=== PATIENT | female | born 1945 | race Caucasian/White ===

== ENCOUNTER 2017-12-13 14:11 | Emergency (ER) | payer MEDICARE, BC ==
[2017-12-13 14:36] LABS: #Basophils 0.1 thou/uL (0.0-0.2); #Eosinphils 0.2 thou/uL (0.0-0.7); #Lymphocytes 1.4 thou/uL (1.20-3.40); #Monocytes 0.7 thou/uL (0.11-0.59); #Neutrophils 4.7 thou/uL (1.40-6.50); %Basophils 1.3 % (0.0-1.0); %Eosinophils 2.3 % (0.0-10.0); %Monocytes 9.5 % (0.0-10.0); %Neutrophils 66.9 % (42.0-75.0); Hemoglobin 13.2 g/dL (12.0-16.0); Mean Corpuscular HGB CONC 34.5 g/dL (32.0-36.0); Mean Corpuscular Hemoglobin 29.4 pg (27.0-31.0); Mean Corpuscular Volume 85.2 fl (81.0-99.0); Mean Platelet Volume 6.7 fL (7.4-10.4); Platelet Count 221 thou/uL (130-400); RBC Distribution Width 13.3 % (11.5-14.5); Red Blood Cell (RBC) Count 4.48 mill/uL (4.20-5.40); White Blood Cell (WBC) Count 7.1 thou/uL (4.8-10.8)
[2017-12-13 14:59] LABS: ALT (SGPT) 20 U/L (8-55); AST (SGOT) 16 U/L (5-34); Albumin 4.3 g/dL (3.4-4.8); Alkaline Phosphatase 111 U/L (40-150); Anion Gap 16 mmol/L (10-20); BUN (Urea Nitrogen) 24 mg/dL (9.8-20.1); Bilirubin, Total 0.6 mg/dL (0.2-1.2); Calc. Creatinine Clearance 0 mL/min (70-130); Calcium 10.3 mg/dL (7.8-10.44); Carbon Dioxide 25 mmol/L (23-31); Chloride 107 mmol/L (98-107); Estimated GFR-MDRD 34; Globulin 2.6 g/dL (2.4-3.5); Glucose 233 mg/dL (80-115); Potassium 4.2 mmol/L (3.5-5.1); Protein, Total 6.9 g/dL (6.0-8.3); Sodium 144 mmol/L (136-145)
[2017-12-13 15:04] LABS: CKMB 1.5 ng/mL (0-6.6); Troponin I 0.013 ng/mL (< 0.028)
--- NOTE | 2017-12-13 15:04 | RAD ---
CHEST 1 VIEW: HISTORY: Chest pain. COMPARISON: 10/02/14. FINDINGS: Cardiac silhouette magnified by projection. Pulmonary vasculature unremarkable. Mediastinum midline . No lobar consolidation or evidence of pneumothorax. bus monitor leads overlie the chest. IMPRESSION: No active cardiopulmonary abnormalities are demonstrated. POS: [facility]
[2017-12-13 17:48] LABS: Troponin I 0.016 ng/mL (< 0.028)
== END 2017-12-13 18:30 | disposition home or self-care (01) ==
LOC: ERS 14:11
DX: R07.89 Other chest pain (principal); E11.9 Type 2 diabetes mellitus without complications; E78.5 Hyperlipidemia, unspecified; I10 Essential (primary) hypertension; F43.10 Post-traumatic stress disorder, unspecified; Z79.4 Long term (current) use of insulin; Z87.891 Personal history of nicotine dependence; Z79.899 Other long term (current) drug therapy; Z79.84 Long term (current) use of oral hypoglycemic drugs
CPT/HCPCS: 36415; 71045; 80053; 82553; 84484; 85025; 93005

== ENCOUNTER 2018-01-30 09:33 | Outpatient (CLI) | payer MEDICARE, BC | END 2018-01-30 09:34 | disposition home or self-care (01) | LOC: BICMAMMO 09:33 | PROVIDERS: ATTEND Family Medicine | DX: Z13.820 Encounter for screening for osteoporosis (principal); Z78.0 Asymptomatic menopausal state | CPT/HCPCS: 77080 ==

== ENCOUNTER 2018-04-13 06:53 | Emergency (ER) | payer MEDICARE, BC ==
--- NOTE | 2018-04-13 08:07 | RAD ---
LEFT HAND: Indication: Foreign body in left index finger. FINDINGS/IMPRESSION: There is a metallic instrument residing in the dorsal soft tissues of the mid left index finger at th e level of the midshaft of the middle phalanx. No fracture or osseous involvement identified. There are prominent degenerative changes at the DIP joints and mild degenerative changes at the PIP j oints. Severe degenerative change at the first carpal metacarpal. POS: [facility]
[2018-04-13] MEDS ORDERED: Lidocaine 1% PF 5 ML VIAL ONE (08:16)
[2018-04-13] MEDS ORDERED: Lidocaine 1% (PF) 30 ML VIAL ONE (08:16)
[2018-04-13] MEDS ORDERED: Adacel (T-DAP) 0.5 ML VIAL ONE (08:25)
== END 2018-04-13 08:42 | disposition home or self-care (01) ==
LOC: ERS 06:53
DX: S60.451A Superficial foreign body of left index finger, initial encounter (principal); E11.9 Type 2 diabetes mellitus without complications; E78.5 Hyperlipidemia, unspecified; I10 Essential (primary) hypertension; F43.10 Post-traumatic stress disorder, unspecified; Z79.4 Long term (current) use of insulin; Z87.891 Personal history of nicotine dependence; Z79.899 Other long term (current) drug therapy; Z23 Encounter for immunization; W45.8XXA Other foreign body or object entering through skin, initial encounter; Y92.009 Unspecified place in unspecified non-institutional (private) residence as the place of occurrence of the external cause
CPT/HCPCS: 90471; 90715; J2001

== ENCOUNTER 2018-07-26 20:12 | Observation (INO) | payer MEDICARE, BC ==
[2018-07-26 20:49] LABS: #Eosinphils 0.1 thou/uL (0.0-0.7); #Lymphocytes 1.4 thou/uL (1.20-3.40); #Neutrophils 6.9 thou/uL (1.40-6.50); %Basophils 0.3 % (0.0-1.0); %Eosinophils 1.4 % (0.0-10.0); %Lymphocytes 15.2 % (21.0-51.0); %Monocytes 10.5 % (0.0-10.0); %Neutrophils 72.6 % (42.0-75.0); Hemoglobin 11.7 g/dL (12.0-16.0); Mean Corpuscular HGB CONC 32.5 g/dL (32.0-36.0); Mean Corpuscular Hemoglobin 27.5 pg (27.0-31.0); Mean Corpuscular Volume 84.8 fL (78.0-98.0); Mean Platelet Volume 6.6 fL (7.4-10.4); Platelet Count 255 thou/uL (130-400); RBC Distribution Width 13.2 % (11.5-14.5); Red Blood Cell (RBC) Count 4.24 mill/uL (4.20-5.40); White Blood Cell (WBC) Count 9.4 thou/uL (4.8-10.8)
[2018-07-26 21:11] LABS: ALT (SGPT) 13 U/L (8-55); AST (SGOT) 10 U/L (5-34); Alkaline Phosphatase 110 U/L (40-150); Anion Gap 17 mmol/L (10-20); BUN (Urea Nitrogen) 23 mg/dL (9.8-20.1); Bilirubin, Total 0.5 mg/dL (0.2-1.2); Calc. Creatinine Clearance 0 mL/min (70-130); Calcium 10.1 mg/dL (7.8-10.44); Carbon Dioxide 24 mmol/L (23-31); Chloride 104 mmol/L (98-107); Estimated GFR-MDRD 43; Globulin 2.9 g/dL (2.4-3.5); Glucose 188 mg/dL (83-110); Potassium 3.5 mmol/L (3.5-5.1); Protein, Total 6.9 g/dL (6.0-8.3); Sodium 141 mmol/L (136-145)
[2018-07-26] MEDS ORDERED: Ketorolac Tromethamine 30 MG/ML VIAL ONE (22:01)
--- NOTE | 2018-07-26 22:49 | RAD ---
PORTABLE AP CHEST X-RAY: 07/26/2018 HISTORY: Fluid overload. The patient reports swelling to the bilateral hands and feet for a few days. Neck s tiffness with onset of symptoms tonight. COMPARISON: 12/13/2017 FINDINGS: The cardiac silhouette is magnified by projection but does appear mildly enlarged. The pulmonary vas culature is within normal limits. Linear densities are seen at each lung base, probably related to a telectasis. However, developing pneumonitis at either lung base cannot be excluded. There is no ple ural effusion identified. Vascular calcifications are seen in the thoracic aorta. No other interval change. IMPRESSION: Linear bibasilar densities, greater at the left lung base. Findings are most likely attributable to atelectasis, but developing pneumonitis cannot be entirely excluded. Follow-up evaluation as clinica lly indicated is recommended. POS: [facility]
[2018-07-26] MEDS ORDERED: HYDROcodone/Acetaminophen 5/325 mg Tablet ONE (23:44)
[2018-07-26] MEDS ORDERED: Furosemide 100 MG/10 ML VIAL ONE (23:44)
[2018-07-26] MEDS ORDERED: Furosemide 20 MG/2 ML VIAL ONE (23:48)
[2018-07-26] MEDS ORDERED: Furosemide 40 MG/4 ML VIAL ONE (23:48)
[2018-07-27 00:37] LABS: Bilirubin Negative (Negative); Blood, Urine Small (Negative); Clarity CLEAR (Clear); Glucose, Urine (Dipstick) Negative (Negative); Leukocyte Negative (Negative); Nitrite Negative (Negative); Protein, Urine (Dipstick) 100 mg/dL (Neg-Trace); Specific Gravity, Urine 1.009 (1.002-1.036); Urobilinogen 0.2 mg/dL (0.2-1.0); pH, Urine 5.5 (5.0-9.0)
[2018-07-27 00:41] LABS: Bacteria/HPF None Seen HPF (None Seen); Hyaline Casts/LPF 0-3 HYALINE CAST LPF (0-3 Hyaline); Pathc Cast-AUWi Flag 0.29 (0-2.49); RBC/HPF 0-3 HPF (0-3); Squamous Epithelial 0-3 HPF (0-3); WBC/HPF 0-3 HPF (0-3)
[2018-07-27] MEDS ORDERED: Ondansetron ODT 4 MG TAB PO PRN (02:04)
[2018-07-27] MEDS ORDERED: Acetaminophen 325 MG TAB PO PRN (02:04)
[2018-07-27] MEDS ORDERED: Dextrose 5% in Water 1,000 ML IV PRN (02:07)
[2018-07-27] MEDS ORDERED: Dextrose 50% Abboject 50 ML SYRINGE SLOW IVP PRN (02:07)
[2018-07-27 03:59] LABS: #Basophils 0.1 thou/uL (0.0-0.2); #Eosinphils 0.1 thou/uL (0.0-0.7); #Lymphocytes 1.5 thou/uL (1.20-3.40); #Monocytes 1.1 thou/uL (0.11-0.59); #Neutrophils 6.6 thou/uL (1.40-6.50); %Eosinophils 0.9 % (0.0-10.0); %Monocytes 11.3 % (0.0-10.0); %Neutrophils 70.8 % (42.0-75.0); Hemoglobin 11.4 g/dL (12.0-16.0); Mean Corpuscular HGB CONC 32.6 g/dL (32.0-36.0); Mean Corpuscular Hemoglobin 27.5 pg (27.0-31.0); Mean Corpuscular Volume 84.6 fL (78.0-98.0); Mean Platelet Volume 6.4 fL (7.4-10.4); Platelet Count 250 thou/uL (130-400); RBC Distribution Width 13.3 % (11.5-14.5); Red Blood Cell (RBC) Count 4.15 mill/uL (4.20-5.40); White Blood Cell (WBC) Count 9.3 thou/uL (4.8-10.8)
[2018-07-27] MEDS ORDERED: predniSONE 20 MG TAB PO SCH (04:15)
[2018-07-27 04:21] LABS: Anion Gap 15 mmol/L (10-20); BUN (Urea Nitrogen) 21 mg/dL (9.8-20.1); Calc. Creatinine Clearance 0 mL/min (70-130); Carbon Dioxide 26 mmol/L (23-31); Chloride 101 mmol/L (98-107); Estimated GFR-MDRD 44; Glucose 167 mg/dL (83-110); Potassium 3.2 mmol/L (3.5-5.1); Sodium 139 mmol/L (136-145)
[2018-07-27] MEDS ORDERED: Acetaminophen 325 MG TAB ONE (05:26)
--- NOTE | 2018-07-27 05:52 | HP ---
PRIMARY CARE PHYSICIAN: Dr. Peter Oakley. CODE STATUS: Full code. TIME OF EVALUATION: 1:30 a.m. CHIEF COMPLAINT: Bilateral hand swelling. HISTORY OF PRESENT ILLNESS: This is a 73-year-old female patient. The patient has past medical history of multiple comorbidities including sleep apnea; macular edema; hepatitis; diabetes, type 2; hyperlipidemia; and hypertension, came to the hospital after having bilateral upper extremity severe swelling in the mid carpal area and proximal metacarpophalangeal joints. The patient has redness, swelling, tenderness, and decreased range of motion. No clear triggers, no alleviating factors. Her symptoms have been present for the past few days, getting worse today. The pain was severe, 10/10. The patient also reported at times some fever at 100.1. REVIEW OF SYSTEMS: CONSTITUTIONAL: The patient has fever, chills, and generalized weakness. RESPIRATORY: No cough, sputum production, or shortness of breath. CARDIOVASCULAR: No chest pain or palpitation. GASTROINTESTINAL: No nausea. No vomiting, diarrhea, or abdominal pain. DISTRICT ADVISER: No dizziness, headache, or feeling lightheaded. GENITOURINARY: No burning on urination. EXTREMITIES: Bilateral hand swelling as described in HPI. All other systems were reviewed and negative except for the findings mentioned above. PAST MEDICAL HISTORY: Positive and mentioned in the HPI. PAST SURGICAL HISTORY: Gastric sleeve, bilateral knee replacement, bone replacement in the toe, right tib-fib, back surgery, surgical history of , and hysterectomy. PSYCHIATRIC HISTORY: PTSD. SOCIAL HISTORY: No drug use. Former tobacco user. Smokes cigarettes. Quit smoking more than 10 years ago. 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 REPORTED MEDICATIONS: 1. Gabapentin. 2. Glimepiride. 3. Losartan. 4. Iron. 5. Multivitamin. 6. Amlodipine. 7. Duloxetine. 8. Cetirizine. 9. Vitamin B12. 10. Vitamin D3. 11. Abilify. 12. Glucosamine chondroitin. PHYSICAL EXAMINATION: VITAL SIGNS: On presentation; blood pressure 177/92 with heart rate 82, temperature 99.1, pain was 10/10, and oxygen saturation 97% on room air. GENERAL APPEARANCE: The patient is alert, oriented, in mild distress due to pain. HEENT: Eyes, normal conjunctivae. Moist oral mucosa. Anicteric. No JVD. RESPIRATORY: Bilateral air entry. No rales, no wheezes. Symmetric expansion. CARDIOVASCULAR: Normal rate, regular rhythm. No murmurs. No gallop. No edema. ABDOMEN: Soft. Normal bowel sounds. MUSCULOSKELETAL: Baseline range of motion and strength. No tenderness except for bilateral hands, the patient has significant swelling and redness. Decreased range of motion in both metatarsal and metatarsophalangeal joints which is symmetric. SKIN: Warm, intact. No pallor. No rash. No redness except for the findings described in musculoskeletal. Peripheral pulses are present. Capillary refill seems to intact. NEURO: No evidence of any new focal weakness. Baseline speech. Cranial nerves seem to be intact. PSYCH: The patient is in good mood. No anxiety. Optimal judgment. LABORATORY DATA: Cardiology; chest x-ray was reviewed. Reportedly bibasilar densities, greater in the left lung base. Findings are most likely attributable to atelectasis, developing pneumonitis cannot be entirely excluded. Followup evaluation as clinically indicated is recommended. Hand x-ray was done, it is not reported yet. Labs were reviewed. The patient has white count 9.4, hemoglobin 9.7, MCV 84, and platelet count 255. Sodium 141, potassium 3.5, chloride 104, carbon dioxide 24, anion gap 17, BUN 23, and creatinine 1.22 and on previous admission was 1.5, this is chronic. GFR 43. Glucose 188. Calcium 10.1. Bilirubin 0.5. LFTs were normal. Beta natriuretic peptide 180.7. Urine was done, it was negative. ASSESSMENT AND PLAN: The patient will be placed in the hospital with following medical problems: 1. Bilateral severe hand swelling and redness. The patient has decreasing function in that area. We have sent a workup to rule out rheumatoid arthritis. Also lupus and other rheumatological disease to be ruled out. We will follow workup, we will treat accordingly. We will start small dose of steroids now. 2. Chronic kidney disease. Creatinine seems to be better than previous admissions, we will follow, we will adjust treatment as needed. 3. Morbidly obese, advised to lose weight. 4. Diabetes, type 2, we will reconcile home medications. This is chronic uncontrolled, glucose 188, hyperglycemia. 5. Uncontrolled hypertension, systolic blood pressure 177, we will reconcile home medications. We will adjust treatment as needed. 6. Deep venous thrombosis prophylaxis. Job ID: [id number]
[2018-07-27] MEDS ORDERED: predniSONE 20 MG TAB ONE ×2 (06:10→08:31)
[2018-07-27] MEDS: predniSONE 20 MG TAB PO SCH (08:30)
[2018-07-27] MEDS ORDERED: Enoxaparin Sodium 40 MG/0.4 ML SYRINGE ONE (08:31)
--- NOTE | 2018-07-27 08:34 | RAD ---
AP AND LATERAL LEFT HAND: History: Bilateral hand stiffness. FINDINGS: Images demonstrate extensive interphalangeal degenerative changes with joint space narrowing involvin g the PIP joints and DIP joints of the 2nd thru 5th digits as well as the interphalangeal joint of th e 1st digit. There is also joint space narrowing in the first carpal metacarpal joint. Findings joe tible with osteoarthritis left hand. No acute fractures seen. The metacarpal phalangeal joints are un remarkable. IMPRESSION: Joint space narrowing and changes of osteoarthritis as described above. POS: [facility]
[2018-07-27] MEDS ORDERED: Enoxaparin Sodium 40 MG/0.4 ML SYRINGE SC SCH (09:00)
--- NOTE | 2018-07-27 09:01 | RAD ---
TWO VIEWS RIGHT HAND: History: Hand stiffness. FINDINGS: AP and lateral views of the right hand demonstrate symmetric areas of joint space narrowing in the 2n d through 5th PIP and DIP joints, right hand. Osteoarthritic changes with joint space narrowing and s clerotic changes also seen in the first carpal metacarpal joints. No acute bony lesions seen. IMPRESSION: Right hand osteoarthritic changes as described above. POS: [facility]
[2018-07-27 11:31] VITALS: BMI 48.4
[2018-07-27] MEDS ORDERED: Losartan 25 MG TAB PO SCH (12:15)
[2018-07-27] MEDS ORDERED: Furosemide 40 MG/4 ML VIAL SLOW IVP SCH ×2 (12:15→21:00)
[2018-07-27] MEDS ORDERED: Nystatin Powder 15 GM BOT TOP SCH (12:15)
[2018-07-27] MEDS ORDERED: Amlodipine 10 MG TAB PO SCH (12:15)
--- NOTE | 2018-07-27 12:18 | PDOC.PN ---
- Subjective Encounter Start Date: 07/27/18 Encounter Start Time: 12:00 Subjective: Continued pain and swelling in hands and wrists. No SOB. No cough. No fever - Objective Resuscitation Status - Order Detail: 07/27/18 02:04 Resuscitation Status Routine Resuscitation Status: FULL: Full Resuscitation MAR Reviewed: Yes Vital Signs & Weight: Vital Signs (12 hours) Temp Pulse Resp BP 07/27/18 11:37 98.6 F 119 H 20 190/84 H Weight Weight 264 lb 15.93 oz Result Diagrams: 07/27/18 03:52 07/27/18 03:52 Additional Labs: Accuchecks 07/27/18 07/27/18 10:55 07:03 POC Glucose 176 H 151 H Phys Exam - Physical Examination Constitutional: NAD HEENT: moist MMs Respiratory: no wheezing, no rales, no rhonchi Cardiovascular: RRR, no significant murmur Gastrointestinal: soft, non-tender, positive bowel sounds trace edema bilatera lower extremities, hands with 1+ edema, mild erythema of wrists, hands, and proximal knuckles, TTP, mildly warm Neurological: non-focal, moves all 4 limbs Psychiatric: normal affect, A&O x 3 Dx/Plan (1) Inflammatory arthritis Code(s): M19.90 - UNSPECIFIED OSTEOARTHRITIS, UNSPECIFIED SITE Status: Acute Comment: Bilateral hands in PIP, MCT, and wrist joints. Rheumatological workup pending. Steroids started. (2) Edema extremities Code(s): R60.0 - LOCALIZED EDEMA Status: Acute Comment: All extremities, elevated BNP, severe range BPs, concern for CHF. Lasix BID, recheck lab in AM. ECHO pending. (3) Chronic kidney disease (CKD) Code(s): N18.9 - CHRONIC KIDNEY DISEASE, UNSPECIFIED Status: Chronic Qualifiers: Chronic kidney disease stage: stage 2 (mild) Qualified Code(s): N18.2 - Chronic kidney disease, stage 2 (mild) Comment: at baseline, monitor closely with diuresis and reinstitution of Losartan (4) Hypertension Code(s): I10 - ESSENTIAL (PRIMARY) HYPERTENSION Status: Chronic Qualifiers: Hypertension type: essential hypertension Qualified Code(s): I10 - Essential (primary) hypertension Comment: severely elevated, possibly from missed home BP meds this AM along with pain. Restart meds, dose now, and give Lasix. (5) Type 2 diabetes mellitus Status: Chronic Qualifiers: Diabetes mellitus complication status: with kidney complications Diabetes mellitus complication detail: with chronic kidney disease Chronic kidney disease stage: stage 2 (mild) Comment: Resume home meds (6) Hyperlipidemia Code(s): E78.5 - HYPERLIPIDEMIA, UNSPECIFIED Status: Chronic (7) Morbid obesity Code(s): E66.01 - MORBID (SEVERE) OBESITY DUE TO EXCESS CALORIES Status: Chronic - Plan cont current plan of care, DVT proph w/lovenox * . - Discharge Day Encounter end time: 12:20
[2018-07-27] MEDS ORDERED: Nitroglycerin 0.4 MG TAB (25 Tab Bottle) SL PRN (15:17)
[2018-07-27] MEDS ORDERED: Nitroglycerin 0.4 MG TAB 1 EACH SL SCH (15:30)
--- NOTE | 2018-07-27 16:11 | PDOC.EVN ---
Event Note - Event Note Event Note: Patient had one minute of sharp substernal chest pain radiating to the back. Happened while sitting up in chair. Resolved spontaneously. CXR ok. EKG with partial LBBB but no acute ST changes. Troponin neg. Patient on steroids but no acid suppressors. Will start Protonix. Transfer to telemetry.
--- NOTE | 2018-07-27 17:03 | RAD ---
AP CHEST: History: Chest pain. Date: 07-27-18 Comparison: 07-26-18 FINDINGS: AP chest demonstrates some cardiomegaly. Ectasia of the aorta is seen. Mild elevation of the right he midiaphragm is seen. No evidence of acute intrathoracic abnormalities noted. IMPRESSION: Elevated right hemidiaphragm. Otherwise, unremarkable AP view chest. POS: [facility]
[2018-07-27] MEDS: Insulin Regular 300 UNITS/3 ML VIAL SC PRN (17:20)
[2018-07-27] MEDS ORDERED: GABAPENTIN 1200 MG PO SCH (21:00)
[2018-07-27 21:12] LABS: Troponin I 0.014 ng/mL (< 0.028)
[2018-07-27] MEDS ORDERED: Insulin Regular 300 UNITS/3 ML VIAL SC PRN (21:22)
[2018-07-27] MEDS: Gabapentin 400 MG CAP PO SCH (21:32)
[2018-07-27] MEDS: Nystatin Powder 15 GM BOT TOP SCH (21:36)
[2018-07-27] MEDS: HYDROcodone/Acetaminophen 5/325 mg Tablet PO PRN (22:56)
[2018-07-28] MEDS: HYDROcodone/Acetaminophen 5/325 mg Tablet PO PRN ×2 (05:34→12:24)
[2018-07-28 06:28] LABS: #Eosinphils 0.1 thou/uL (0.0-0.7); #Lymphocytes 2.3 thou/uL (1.20-3.40); #Monocytes 1.2 thou/uL (0.11-0.59); %Basophils 0.4 % (0.0-1.0); %Eosinophils 1.3 % (0.0-10.0); %Lymphocytes 24.1 % (21.0-51.0); %Monocytes 12.4 % (0.0-10.0); %Neutrophils 61.7 % (42.0-75.0); Hemoglobin 12.7 g/dL (12.0-16.0); Mean Corpuscular HGB CONC 31.8 g/dL (32.0-36.0); Mean Corpuscular Hemoglobin 26.9 pg (27.0-31.0); Mean Corpuscular Volume 84.6 fL (78.0-98.0); Mean Platelet Volume 7.2 fL (7.4-10.4); Platelet Count 310 thou/uL (130-400); RBC Distribution Width 13.3 % (11.5-14.5); Red Blood Cell (RBC) Count 4.71 mill/uL (4.20-5.40); White Blood Cell (WBC) Count 9.7 thou/uL (4.8-10.8)
[2018-07-28 06:50] LABS: Anion Gap 18 mmol/L (10-20); BUN (Urea Nitrogen) 30 mg/dL (9.8-20.1); Calc. Creatinine Clearance 68 mL/min (70-130); Calcium 10.6 mg/dL (7.8-10.44); Carbon Dioxide 26 mmol/L (23-31); Chloride 100 mmol/L (98-107); Estimated GFR-MDRD 37; Glucose 130 mg/dL (83-110); Sodium 141 mmol/L (136-145)
[2018-07-28] MEDS ORDERED: Potassium Chloride 20 MEQ TAB PO SCH (07:30)
--- NOTE | 2018-07-28 07:31 | PDOC.PN ---
- Subjective Encounter Start Date: 07/28/18 Encounter Start Time: 10:30 Subjective: Patient much better today. Hands much less swollen, only a little sore. -: Can move them a little better. No more chest pain. No SOB. - Objective Resuscitation Status - Order Detail: 07/27/18 02:04 Resuscitation Status Routine Resuscitation Status: FULL: Full Resuscitation MAR Reviewed: Yes Vital Signs & Weight: Vital Signs (12 hours) Temp Pulse Resp BP Pulse Ox 07/28/18 04:00 97.8 F 70 20 125/61 92 L Weight Weight 259 lb I&O: 07/27/18 07/28/18 07/29/18 06:59 06:59 06:59 Intake Total 810 Output Total 500 Balance 310 Result Diagrams: 07/28/18 05:18 07/28/18 05:18 Additional Labs: Accuchecks 07/28/18 07/27/18 07/27/18 05:27 20:13 16:15 POC Glucose 145 H 237 H 269 H 07/27/18 10:55 POC Glucose 176 H Phys Exam - Physical Examination Constitutional: NAD HEENT: moist MMs Respiratory: no wheezing, no rales, no rhonchi Cardiovascular: RRR, no significant murmur Gastrointestinal: soft, positive bowel sounds no PRASHANT, Bilateral hands with much less swelling, no redness, joints less TTP Neurological: non-focal Psychiatric: normal affect, A&O x 3 Dx/Plan (1) Inflammatory arthritis Code(s): M19.90 - UNSPECIFIED OSTEOARTHRITIS, UNSPECIFIED SITE Status: Acute Comment: Bilateral hands in PIP, MCT, and wrist joints. Improving with steroids. Likely RA. Can complete w/u as outpatient. F/u with PCP and Payroll Director. (2) Edema extremities Code(s): R60.0 - LOCALIZED EDEMA Status: Acute Comment: ECHO pending. Lower ext edema minimal now. Lasix d/c'd. BP improved somewhat. (3) Chronic kidney disease (CKD) Code(s): N18.9 - CHRONIC KIDNEY DISEASE, UNSPECIFIED Status: Chronic Qualifiers: Chronic kidney disease stage: stage 2 (mild) Qualified Code(s): N18.2 - Chronic kidney disease, stage 2 (mild) Comment: Jumped a bit with attempted diuresis, suspect patient is at neutral fluid balance. Will d/c Lasix. Hold Losartan if continues to rise. (4) Hypertension Code(s): I10 - ESSENTIAL (PRIMARY) HYPERTENSION Status: Chronic Qualifiers: Hypertension type: essential hypertension Qualified Code(s): I10 - Essential (primary) hypertension Comment: Still elevated, adjust medication, may need to hold Losartan if creatinine rises further. (5) Type 2 diabetes mellitus Status: Chronic Qualifiers: Diabetes mellitus complication status: with kidney complications Diabetes mellitus complication detail: with chronic kidney disease Chronic kidney disease stage: stage 2 (mild) Comment: Resume home meds (6) Hyperlipidemia Code(s): E78.5 - HYPERLIPIDEMIA, UNSPECIFIED Status: Chronic (7) Morbid obesity Code(s): E66.01 - MORBID (SEVERE) OBESITY DUE TO EXCESS CALORIES Status: Chronic - Plan cont current plan of care, PT/OT, DVT proph w/heparin, DVT proph w/SCDs Can d/c home today. F/u with PCP next week for creatinine -: recheck. Continue steroids. F/u with Payroll Director as soon as -: possible to start disease modifying agents. * . - Discharge Day Encounter end time: 10:50
[2018-07-28] MEDS ORDERED: Glimepiride 4 MG TAB PO SCH (08:00)
[2018-07-28] MEDS: predniSONE 20 MG TAB PO SCH (08:33)
[2018-07-28] MEDS: Gabapentin 400 MG CAP PO SCH (08:36)
[2018-07-28] MEDS: Nystatin Powder 15 GM BOT TOP SCH (08:37)
[2018-07-28] MEDS ORDERED: Cyanocobalamin (Vitamin B-12) 1,000 MCG TAB PO SCH (09:00)
[2018-07-28] MEDS ORDERED: Loratadine 10 MG TAB PO SCH (09:00)
[2018-07-28] MEDS ORDERED: Aripiprazole 10 MG TAB PO SCH (09:00)
[2018-07-28] MEDS ORDERED: GLUCOSAMINE CHONDROITIN PO SCH (09:00)
[2018-07-28] MEDS ORDERED: Ferrous Sulfate 325 MG TAB PO SCH (09:00)
[2018-07-28] MEDS ORDERED: Amlodipine 10 MG TAB PO SCH (09:00)
[2018-07-28] MEDS ORDERED: Non-Formulary Item 1 EACH (Ferrous Sulfate [Iron] 325 MG) PO SCH (09:00)
[2018-07-28] MEDS ORDERED: Non-Formulary Item 1 EACH (Cyanocobalamin (Vitamin B-12) [Vitamin B-12] 1,000 MCG) SL SCH (09:00)
[2018-07-28] MEDS ORDERED: DULoxetine 30 MG CAP PO SCH (09:00)
[2018-07-28] MEDS ORDERED: Losartan 25 MG TAB PO SCH (09:00)
[2018-07-28] MEDS ORDERED: Non-Formulary Item 1 EACH (Cholecalciferol (Vitamin D3) [Vitamin D] 1,000 UNIT) PO SCH (09:00)
[2018-07-28] MEDS ORDERED: Non-Formulary Item 1 EACH (Cholecalciferol (Vitamin D3) [Vitamin D3] 2,000 UNIT) PO SCH (09:00)
[2018-07-28] MEDS ORDERED: [UNRECOGNIZED DRUG - OTHER] PO SCH (09:00)
[2018-07-28] MEDS ORDERED: Prevnar 13-Val Conj/PF 0.5 ML SYRINGE IM ONE (09:00)
[2018-07-28] MEDS ORDERED: Heparin 5,000 UNITS/ML VIAL SC SCH (09:00)
[2018-07-28] MEDS ORDERED: Non-Formulary Item 1 EACH (Multivit-Min/Fa/Lycopene/Lut [Centrum Silver] 1 TABLET) PO SCH (09:00)
[2018-07-28] MEDS ORDERED: Multivitamin W/ Minerals 1 TAB PO SCH (09:00)
[2018-07-28 11:31] VITALS: BP 155/72; TEMP 98
[2018-07-28] MEDS: Insulin Regular 300 UNITS/3 ML VIAL SC PRN (11:31)
--- NOTE | 2018-07-29 00:57 | DIS ---
DATE OF ADMISSION: 07/27/2018 DATE OF DISCHARGE: 07/28/2018 PRIMARY CARE PHYSICIAN: Peter Oakley DO REASON FOR ADMISSION: Edema and arthralgias in hands. DIAGNOSES AT DISCHARGE: 1. Inflammatory arthritis of hands, improving, likely rheumatoid arthritis. 2. Congestive heart failure, not in exacerbation. Echocardiogram pending. 3. Chronic kidney disease. Creatinine up a little bit after attempted diuresis. Creatinine 1.4 on discharge. 4. Hypertension. 5. Diabetes mellitus type 2. 6. Hyperlipidemia. 7. Morbid obesity. PROCEDURES: 1. X-ray of the hands showing osteoarthritic changes. 2. Echocardiogram report pending. Lab: Rheumatoid factor and ASA are still pending. Creatinine was 1.2 at admission up to 1.4 on discharge. SUMMARY OF HOSPITAL COURSE: This is a 73-year-old white female, who came in with severe bilateral hand and metacarpal swelling, redness and pain. She also noted some swelling in her lower extremities, low-grade temperature. The patient was evaluated in the ER. She was found to have an elevated brain natriuretic peptide and little bit of swelling in her feet and then significant swelling in her hands. Rheumatoid factor and [place] were sent. The patient tend to have some diuresis without a whole lot of extra urine output and she had a creatinine up to 1.4, so Lasix was discontinued. She did have steroid started the day of admission. She had a little bit of chest pain while she was in the hospital. This was central chest pain radiating to the back, more sharp and worse with deep breaths, lasted for less than a minute. She had no EKG changes during this episode and her troponins were negative. Repeat chest x-ray did not show any evidence of infiltrates or acute cardiopulmonary process. The patient was doing much better on the second hospital day. Her swelling and pain went down and she was not having any other chest pain or other symptoms. She appears to be having acute onset of rheumatoid arthritis. She apparently had a similar episode that was nearly as bad a few months ago and that resolved spontaneously. We will discharge her home on a steroid taper and have her follow up with her primary care physician next week to check creatinine and potassium, and then have her follow up with foreign languages professor as soon as she can. She does have a history of some sort of hepatitis in the past, so she will need further workup before they do start disease modifying agents in the outpatient. DISCHARGE MANAGEMENT: Discharged home. FOLLOWUP: Follow up with Dr. Oakley in 1 week for lab work and with the foreign languages professor as soon as possible. ACTIVITY: As tolerated. DIET: Healthy heart low-sodium diabetic diet. MEDICATIONS: 1. Protonix 40 mg daily, 30 tablets dispensed. 2. Prednisone taper 10 mg tablets to take as written. 3. Amlodipine 10 mg daily. 4. Abilify 5 mg daily. 5. Cetirizine 10 mg daily. 6. Vitamin D 1000 units daily. 7. Vitamin B12 of 1000 mcg daily. 8. Cymbalta 30 mg daily. 9. Ferrous sulfate 325 mg daily. 10. Gabapentin 1200 mg twice a day. 11. Glimepiride 4 mg daily. 12. Losartan 100 mg daily. 13. Multivitamin daily. 14. Vitamin D3 of 2000 units daily. 15. Glucosamine chondroitin 1 tablet daily. Job ID: [id number]
[2018-08-01 15:26] LABS: ANA Symphony (Qualitative) Negative (Negative); ANA Symphony (Quantitative) 0.1 Ratio (< 0.7 Negative); CCP IgG Antibody Less than 0.4 EliAU/mL (<7 Negative); EliA RAS New Method **** NEW METHOD ****; Rheumatoid Factor IgA Antibody 0.8 IU/mL (<14 Negative); Rheumatoid Factor IgM Antibody 4.8 IU/mL (<3.5 Negative); dsDNA IgG Antibody Less than 0.5 IU/mL (<10 Negative)
== END 2018-07-28 14:19 | disposition home or self-care (01) ==
LOC: ERS 20:12 → ERHOLD 07-27 00:08 → 3SW 07-27 09:35 → 2NO 07-27 19:13
PROVIDERS: ADMIT Hospitalist; ATTEND Hospitalist
DX: M06.4 Inflammatory polyarthropathy (principal); I13.0 Hypertensive heart and chronic kidney disease with heart failure and stage 1 through stage 4 chronic kidney disease, or unspecified chronic kidney disease; E11.22 Type 2 diabetes mellitus with diabetic chronic kidney disease; N18.2 Chronic kidney disease, stage 2 (mild); I50.9 Heart failure, unspecified; E78.5 Hyperlipidemia, unspecified; G47.30 Sleep apnea, unspecified; F43.10 Post-traumatic stress disorder, unspecified; E11.65 Type 2 diabetes mellitus with hyperglycemia; E66.01 Morbid (severe) obesity due to excess calories; Z68.42 Body mass index [BMI] 45.0-49.9, adult; Z87.891 Personal history of nicotine dependence; Z79.84 Long term (current) use of oral hypoglycemic drugs; Z79.899 Other long term (current) drug therapy; Z88.2 Allergy status to sulfonamides; Z88.8 Allergy status to other drugs, medicaments and biological substances; Z91.013 Allergy to seafood; Z98.84 Bariatric surgery status; Z96.653 Presence of artificial knee joint, bilateral; Z98.890 Other specified postprocedural states
CPT/HCPCS: 71045 ×2; 73120 ×2; 80048 ×2; 80053; 82962 ×2; 83520; 83880; 84484 ×3; 85025 ×3; 86038; 86200; 86225; 87086; 93005; 94760; 96372 ×2; 96374; 96375; 96376; 97139 ×2; 99285; G0378 ×3; 36415; 36416; 81003; 81015; 93010; J1644; J1650; J1815; J1885; J1940; J7506

== ENCOUNTER 2019-05-13 14:59 | Emergency (ER) | payer BC, MEDICARE ==
--- NOTE | 2019-05-13 16:23 | RAD ---
Exam:Right hand fourth digit 3 HISTORY: Pain. Injury. Smashed finger in door. COMPARISON: None FINDINGS: Nondisplaced fracture involving the proximal aspect of the distal phalanx of the fourth dig it. Possible intra-articular extension IMPRESSION: Fracture.
[2019-05-13] MEDS ORDERED: Lidocaine 1% (PF) 30 ML VIAL ONE (16:45)
== END 2019-05-13 18:32 | disposition home or self-care (01) ==
LOC: ERS 14:59
DX: S62.664B Nondisplaced fracture of distal phalanx of right ring finger, initial encounter for open fracture (principal); W23.0XXA Caught, crushed, jammed, or pinched between moving objects, initial encounter
CPT/HCPCS: 12001; J2001

== ENCOUNTER 2019-07-02 10:25 | Day surgery (SDC) | payer MEDICARE, BC ==
[2019-07-01 10:54] VITALS: BMI 52.1
[2019-07-02] MEDS ORDERED: PROPOFOL 200 MG/20 ML VIAL ONE (11:24)
--- NOTE | 2019-07-02 13:59 | OP ---
DATE OF PROCEDURE: 07/02/2019 PROCEDURES PERFORMED: 1. Esophagogastroduodenoscopy. 2. Colonoscopy with snare polypectomy. PREMEDICATION: Given by Anesthesiology Department. PREPROCEDURE DIAGNOSES: 1. Gastrointestinal hemorrhage. 2. Anemia. POSTPROCEDURE DIAGNOSES: 1. Normal upper endoscopy. 2. Ascending colon polyp, two sigmoid polyps. 3. Transverse colon lipomas. 4. Otherwise normal colon exam. 5. Few sigmoid diverticula. 6. Otherwise normal colon exam. DESCRIPTION OF PROCEDURE: Written consents were obtained prior to procedure. After adequate sedation, forward viewing endoscope was advanced down the stomach under direct vision to the second portion of duodenum. The duodenum appeared normal. The pylorus was patent. The gastric antrum appeared normal. There was narrowing in the mid section of the stomach consistent with prior sleeve. Retroflexion did not show any abnormality. The GE junction and esophagus appeared normal. The patient was then repositioned for colon exam. Digital exam performed was normal. The endoscope was advanced to the cecum. The quality of the bowel prep was good. An 8 mm semi-sessile polyp was noted in ascending colon and was removed with hot snare with good hemostasis. Two lipomas were found in the transverse colon. The descending colon appeared normal. Two polyps measuring between 8 mm to 12 mm, both semi-pedunculated, were removed with hot snare and retrieved. There was good hemostasis. A few small diverticula were noted in the sigmoid colon. The rectal vault appeared normal including retroflexion. The patient tolerated the procedure well. ASSESSMENT: 1. Normal upper endoscopy. 2. Three colon polyps removed. 3. Two transverse colon lipomas. 4. Few diverticula in the sigmoid, likely source of her hematochezia that resolved. 5. Otherwise, normal colon exam. RECOMMENDATION: 1. Fiber rich diet. 2. Await biopsy result of the polyps. Job ID: [id number]
== END 2019-07-02 14:46 | disposition home or self-care (01) ==
LOC: SDC 10:25
PROVIDERS: ATTEND Internal Medicine Gastroenterology
PROC: 0DBK8ZZ Excision of Ascending Colon, Via Natural or Artificial Opening Endoscopic (ICD-10-PCS; principal; 2019-07-02)
PROC: 0DBN8ZZ Excision of Sigmoid Colon, Via Natural or Artificial Opening Endoscopic (ICD-10-PCS; 2019-07-02)
PROC: 0DJ08ZZ Inspection of Upper Intestinal Tract, Via Natural or Artificial Opening Endoscopic (ICD-10-PCS; 2019-07-02)
DX: D12.2 Benign neoplasm of ascending colon (principal); D12.5 Benign neoplasm of sigmoid colon; D17.5 Benign lipomatous neoplasm of intra-abdominal organs; K57.30 Diverticulosis of large intestine without perforation or abscess without bleeding; D64.9 Anemia, unspecified; I12.9 Hypertensive chronic kidney disease with stage 1 through stage 4 chronic kidney disease, or unspecified chronic kidney disease; E11.22 Type 2 diabetes mellitus with diabetic chronic kidney disease; N18.9 Chronic kidney disease, unspecified; M06.9 Rheumatoid arthritis, unspecified; G47.30 Sleep apnea, unspecified; E66.9 Obesity, unspecified; Z68.43 Body mass index [BMI] 50.0-59.9, adult; Z79.84 Long term (current) use of oral hypoglycemic drugs; Z79.899 Other long term (current) drug therapy; Z88.2 Allergy status to sulfonamides; Z88.8 Allergy status to other drugs, medicaments and biological substances; Z91.013 Allergy to seafood; Z91.048 Other nonmedicinal substance allergy status
CPT/HCPCS: 88305; J2704

== ENCOUNTER 2019-08-10 09:24 | Emergency (ER) | payer MEDICARE, BC ==
[2019-08-10 10:04] LABS: Hemoglobin 9.9 g/dL (12.0-16.0); Mean Corpuscular HGB CONC 32.7 g/dL (32.0-36.0); Mean Corpuscular Hemoglobin 27.8 pg (27.0-31.0); Mean Platelet Volume 6.9 fL (7.4-10.4); Platelet Count 240 thou/uL (130-400); RBC Distribution Width 13.2 % (11.5-14.5); Red Blood Cell (RBC) Count 3.56 mill/uL (4.20-5.40); White Blood Cell (WBC) Count 5.3 thou/uL (4.8-10.8)
[2019-08-10 10:16] LABS: ALT (SGPT) 11 U/L (8-55); AST (SGOT) 11 U/L (5-34); Albumin 3.5 g/dL (3.4-4.8); Alkaline Phosphatase 94 U/L (40-110); Anion Gap 14 mmol/L (10-20); BUN (Urea Nitrogen) 34 mg/dL (9.8-20.1); Bilirubin, Total 0.3 mg/dL (0.2-1.2); Calc. Creatinine Clearance 0 mL/min (70-130); Calcium 9.5 mg/dL (7.8-10.44); Carbon Dioxide 28 mmol/L (23-31); Chloride 102 mmol/L (98-107); Estimated GFR-MDRD 15; Globulin 2.8 g/dL (2.4-3.5); Glucose 251 mg/dL (83-110); Protein, Total 6.3 g/dL (6.0-8.3); Sodium 140 mmol/L (136-145)
[2019-08-10 10:24] LABS: Eosinophils 4 % (0-10); Hypochromia SLIGHT = 6-15 cells (100X) (0-5/hpf); Lymphocytes 37 % (21-51); MDiff Complete? YES; Monocytes 13 % (0-10); Neutrophil 45 % (42-75); Platelet Morphology Comment Appears Adequate
--- NOTE | 2019-08-10 10:25 | RAD ---
XR Chest 1 View Portable HISTORY: Shortness of breath COMPARISON: 07/27/2018 FINDINGS: The heart size is normal. The lungs are well expanded without focal areas of consolidation, pneumothorax or pleural effusions. IMPRESSION: No radiographic evidence of acute cardiopulmonary process.
--- NOTE | 2019-08-10 11:08 | ULT ---
EXAM: Left lower extremity venous Doppler US HISTORY: left lower extremity edema, redness and pain FINDINGS: Grayscale, color-flow, Doppler evaluation, spectral analysis of the left lower extremity venous struc tures is performed with 2-D imaging. The left common femoral, superficial femoral, popliteal, posterior tibial, proximal greater saphenous and profunda femoral veins are imaged. There is normal luminal compressibility, flow, and augmentation the visualized deep venous structures of the left lower extremity. IMPRESSION: No evidence of a deep vein thrombosis in the left lower extremity.
== END 2019-08-10 11:21 | disposition home or self-care (01) ==
LOC: ERS 09:24
DX: L03.116 Cellulitis of left lower limb (principal); E11.9 Type 2 diabetes mellitus without complications; I10 Essential (primary) hypertension
CPT/HCPCS: 71045; 80053; 83880; 84484; 85025; 93005

== ENCOUNTER 2019-08-19 13:47 | Outpatient (CLI) | payer MEDICARE, BC ==
--- NOTE | 2019-08-19 15:04 | ULT ---
BILATERAL UPPER EXTREMITY VEIN MAPPIN08/19/19 HISTORY: Renal disease, dialysis access assessment. RIGHT UPPER EXTREMITY BRACHIAL ARTERY: 4.5 mm RADIAL ARTERY: 1.6 mm ULNAR ARTERY: 1.9 mm CEPHALIC VEIN Proximal Humerus: 2.8 mm Mid Humerus: 3.5 mm Distal Humerus: 3.8 mm Elbow: 5.5 mm Proximal Forearm: 3.3 mm Mid Forearm: 2.7 mm Distal Forearm: 2.5 mm BASILIC VEIN Proximal Humerus: 5.2 mm Mid Humerus: 3.2 mm Distal Humerus: 3.8 mm Elbow: 3.4 mm Proximal Forearm: 3.0 mm Mid Forearm: 1.4 mm Distal Forearm: 1.9 mm LEFT UPPER EXTREMITY BRACHIAL ARTERY: 4.1 mm RADIAL ARTERY: 1.9 mm ULNAR ARTERY: 1.9 mm CEPHALIC VEIN Proximal Humerus: 3.3 mm Mid Humerus: 3.4 mm Distal Humerus: 4.5 mm Elbow: 3.7 mm Proximal Forearm: 3.4 mm Mid Forearm: 3.6 mm Distal Forearm: 3.2 mm BASILIC VEIN Proximal Humerus: 6.9 mm Mid Humerus: 5.5 mm Distal Humerus: 5.5 mm Elbow: 3.3 mm Proximal Forearm: 1.5 mm Mid Forearm: 1.2 mm Distal Forearm: 0.9 mm IMPRESSION: Vein mapping as discussed above. POS: [facility]
== END 2019-08-19 13:48 | disposition home or self-care (01) ==
LOC: BICULT 13:47
PROVIDERS: ATTEND Internal Medicine Nephrology
DX: Z01.818 Encounter for other preprocedural examination (principal); N18.5 Chronic kidney disease, stage 5
CPT/HCPCS: 93970; G0365

== ENCOUNTER 2019-08-25 08:20 | Outpatient (CLI) | payer MEDICARE, BC ==
--- NOTE | 2019-08-25 09:57 | RAD ---
BARIUM SWALLOW ESOPHAGUS: HISTORY: Esophageal dysphagia. FINDINGS: Fluoroscopy time 4.4 minutes. Dose 72.424 Gy*^cm2. FINDINGS: There is normal swallowing function. There was noted to be some dilatation of the distal esophagus w ith some narrowing at the GE junction region. The patient swallowed the barium tablet in the upright position and it traveled easily down to the GE junction region, although it stayed at this location for several minutes despite swallowing addition al barium and water and finally did pass into the stomach. There appears to be a focal somewhat conc entric narrowing of the fundus of the stomach at the level of the GE junction which certainly could r epresent a neoplastic mass. 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 The di stal antrum, pylorus, and duodenal bulb appeared unremarkable. IMPRESSION: 1. 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 Followup endoscopy and biopsy of this region is recommended. 2. Focal area of concentric narrowing at the level of the GE junction region which could also repres ent an area of neoplastic narrowing. Followup endoscopy and biopsy of this region is suggested. Bar ium tablet passed to the GE junction region but hung at this location for several minutes before phillip lly passing. Normal swallowing function. There was 1 episode of very mild gastroesophageal reflux. CODE CR CALL TO DR HENDRICKSON 10:22 He informed me that pt has history of prior bariatric surgery which could possibly account for some of gastic findings, followup endoscopy still recommended. POS: [facility]
== END 2019-08-25 08:21 | disposition home or self-care (01) ==
LOC: RAD 08:20
PROVIDERS: ATTEND Family Medicine
DX: R13.10 Dysphagia, unspecified (principal); K31.89 Other diseases of stomach and duodenum
CPT/HCPCS: 74220

== ENCOUNTER 2019-09-10 12:37 | Inpatient (IN) | payer MEDICARE, BC ==
[2019-09-10 13:49] LABS: #Eosinphils 0.1 thou/uL (0.0-0.7); #Lymphocytes 1.3 thou/uL (1.20-3.40); #Monocytes 0.8 thou/uL (0.11-0.59); #Neutrophils 3.1 thou/uL (1.40-6.50); %Basophils 0.7 % (0.0-1.0); %Eosinophils 2.2 % (0.0-10.0); %Lymphocytes 25.3 % (21.0-51.0); %Monocytes 14.1 % (0.0-10.0); %Neutrophils 57.7 % (42.0-75.0); Hemoglobin 10.4 g/dL (12.0-16.0); Mean Corpuscular HGB CONC 32.4 g/dL (32.0-36.0); Mean Corpuscular Hemoglobin 27.7 pg (27.0-31.0); Mean Corpuscular Volume 85.5 fL (78.0-98.0); Mean Platelet Volume 7.1 fL (7.4-10.4); Platelet Count 212 thou/uL (130-400); RBC Distribution Width 13.5 % (11.5-14.5); Red Blood Cell (RBC) Count 3.77 mill/uL (4.20-5.40); White Blood Cell (WBC) Count 5.3 thou/uL (4.8-10.8)
[2019-09-10 14:16] LABS: ALT (SGPT) 10 U/L (8-55); AST (SGOT) 12 U/L (5-34); Albumin 3.7 g/dL (3.4-4.8); Alkaline Phosphatase 109 U/L (40-110); Anion Gap 12 mmol/L (10-20); BUN (Urea Nitrogen) 55 mg/dL (9.8-20.1); Bilirubin, Total 0.3 mg/dL (0.2-1.2); Calc. Creatinine Clearance 0 mL/min (70-130); Calcium 10.2 mg/dL (7.8-10.44); Carbon Dioxide 28 mmol/L (23-31); Chloride 105 mmol/L (98-107); Estimated GFR-MDRD 13; Globulin 2.7 g/dL (2.4-3.5); Glucose 196 mg/dL (83-110); Potassium 4.5 mmol/L (3.5-5.1); Protein, Total 6.4 g/dL (6.0-8.3); Sodium 140 mmol/L (136-145)
[2019-09-10] MEDS ORDERED: Ondansetron PF 4 MG/2 ML Vial ONE (17:31)
[2019-09-10] MEDS ORDERED: Morphine 4 MG/ML VIAL ONE (17:31)
[2019-09-10] MEDS ORDERED: Cefepime 2 GM VIAL ONE (17:31)
[2019-09-10] MEDS ORDERED: Acetaminophen 325 MG TAB PO PRN (20:07)
[2019-09-10] MEDS ORDERED: Ondansetron PF 4 MG/2 ML Vial IVP PRN (20:07)
[2019-09-10] MEDS ORDERED: Ondansetron ODT 4 MG TAB SL PRN (20:07)
[2019-09-10 21:15] LABS: Hemoglobin 10.3 g/dL (12.0-16.0); Mean Corpuscular Hemoglobin 28.4 pg (27.0-31.0); Mean Corpuscular Volume 86.1 fL (78.0-98.0); Mean Platelet Volume 7.1 fL (7.4-10.4); Platelet Count 224 thou/uL (130-400); RBC Distribution Width 13.6 % (11.5-14.5); Red Blood Cell (RBC) Count 3.62 mill/uL (4.20-5.40); White Blood Cell (WBC) Count 5.6 thou/uL (4.8-10.8)
[2019-09-10] MEDS: Linezolid 600 MG TAB PO SCH (21:24)
[2019-09-10] MEDS: Sodium Chloride 0.45% 1,000 ML IV SCH (21:25)
[2019-09-10 21:30] LABS: Band 2 % (5-11); Eosinophils 1 % (0-10); Hypochromia SLIGHT = 6-15 cells (100X) (0-5/hpf); Lymphocytes 16 % (21-51); MDiff Complete? YES; Monocytes 10 % (0-10); Neutrophil 71 % (42-75); Platelet Morphology Comment Appears Adequate
[2019-09-10 21:35] LABS: ALT (SGPT) 10 U/L (8-55); AST (SGOT) 12 U/L (5-34); Albumin 3.6 g/dL (3.4-4.8); Alkaline Phosphatase 106 U/L (40-110); Anion Gap 13 mmol/L (10-20); BUN (Urea Nitrogen) 56 mg/dL (9.8-20.1); Bilirubin, Total 0.3 mg/dL (0.2-1.2); Calc. Creatinine Clearance 0 mL/min (70-130); Calcium 9.8 mg/dL (7.8-10.44); Carbon Dioxide 27 mmol/L (23-31); Chloride 103 mmol/L (98-107); Estimated GFR-MDRD 14; Globulin 2.7 g/dL (2.4-3.5); Glucose 181 mg/dL (83-110); Potassium 4.3 mmol/L (3.5-5.1); Protein, Total 6.3 g/dL (6.0-8.3); Sodium 139 mmol/L (136-145)
[2019-09-10 21:37] LABS: Bilirubin Negative (Negative); Blood, Urine Trace (Negative); Clarity Clear (Clear); Glucose, Urine (Dipstick) 30 mg/dL (Negative); Leukocyte 25 Leu/uL (Negative); Nitrite Negative (Negative); Protein, Urine (Dipstick) 300 mg/dL (Neg-Trace); RBC/HPF 0-3 HPF (0-3); Renal Epithelial 0-3 HPF (None Seen); Squamous Epithelial 0-3 HPF (0-3); Urobilinogen Normal mg/dL (Less than 2)
[2019-09-10 21:44] LABS: Bacteria/HPF 1+ HPF (None Seen)
[2019-09-10 21:45] LABS: Urine Culture Reflex Yes Yes
[2019-09-10] MEDS ORDERED: Furosemide 20 MG TAB PO PRN (22:22)
--- NOTE | 2019-09-11 02:31 | CON ---
DATE OF CONSULTATION: 09/10/2019 CONSULTING PHYSICIAN: REASON FOR CONSULTATION: Acute kidney injury on chronic kidney disease, stage 4. REASON FOR ADMISSION: Leg swelling and redness. HISTORY OF PRESENT ILLNESS: A 74-year-old female with history of chronic kidney disease, type 2 diabetes, morbid obesity, hypertension, came to the hospital with leg pain and swelling, and was found to have cellulitis and being admitted. The patient does follow with me for CKD care. No fevers, chills, nausea, vomiting reported. PAST MEDICAL HISTORY: Positive for type 2 diabetes; morbid obesity; hypertension; CKD, stage 4. PAST SURGICAL HISTORY: Back surgery, bariatric surgery, , hysterectomy. HOME MEDICATIONS: Reviewed. ALLERGIES: TO AMBIEN, SULFA, ZOLPIDEM. SOCIAL HISTORY: No smoking, alcohol, or drugs. FAMILY HISTORY: No history of kidney disease. REVIEW OF SYSTEMS: The following complete review of systems was negative, unless otherwise mentioned in the HPI or below: Constitutional: Weight loss or gain, ability to conduct usual activities. Skin: Rash, itching. Eyes: Double vision, pain. ENT/Mouth: Nose bleeding, neck stiffness, pain, tenderness. Cardiovascular: Palpitations, dyspnea on exertion, orthopnea. Respiratory: Shortness of breath, wheezing, cough, hemoptysis, fever or night sweats. Gastrointestinal: Poor appetite, abdominal pain, heartburn, nausea, vomiting, constipation, or diarrhea. Genitourinary: Urgency, frequency, dysuria, nocturia. Musculoskeletal: Pain, swelling. Neurologic/Psychiatric: Anxiety, depression. Allergy/Immunologic: Skin rash, bleeding tendency. PHYSICAL EXAMINATION: GENERAL: This is a well-built female, no apparent distress. VITAL SIGNS: Temperature 98.4, pulse 74, respiratory rate 18, blood pressure 183/79. HEENT: Atraumatic, normocephalic. Oral mucosa is moist. NECK: Supple. CV: S1 and S2. Rate and rhythm regular. RESPIRATORY: Clear. GASTROINTESTINAL: Abdomen is soft. MUSCULOSKELETAL: 1+ edema. DERMATOLOGIC: No skin rash. NEUROLOGIC: Alert and awake. PSYCHIATRIC: Mood and affect normal. LABORATORY DATA: Hemoglobin is 10.4, potassium 4.5, BUN is 55, creatinine is 3.3. ASSESSMENT AND PLAN: 1. Acute kidney injury on chronic kidney disease. Recommend hydration if tolerated. 2. Edema. 3. History of congestive heart failure. 4. Anemia of chronic disease. 5. Morbid obesity. 6. History of hypertension, titrate medication. 7. Recommend hydration. 8. Continue supportive care including antibiotics and we will follow. Thank you for the consult. Job ID: [id number]
[2019-09-11] MEDS ORDERED: diphenhydrAMINE 25 MG CAP PO PRN (03:04)
[2019-09-11 03:28] VITALS: BMI 52.4
[2019-09-11] MEDS ORDERED: Dextrose 5% in Water 1,000 ML IV PRN (05:36)
[2019-09-11] MEDS ORDERED: Dextrose 50% Abboject 50 ML SYRINGE SLOW IVP PRN (05:36)
--- NOTE | 2019-09-11 05:37 | PDOC.HHP ---
Hospitalist HPI - History of Present Illness Leg swelling History of Present Illness: 74 yo female with DM-2, HTN presented to ER due to leg swelling x 1 month that has been getting worse and redness of left leg. She failed 4 courses of outpatient antibiotic therapy. She states that the leg swelling has been gradually getting worse over the past month. She has been on lasix which has caused a 5 lb weight loss. So, she states that she stopped taking the lasix. Denies fever, chills, N/V/D/C. No orthopnea, PND, chest pain. She does report shortness of breath with minimal exertion. No burning or pain with urination. She states she was on Amoxacillin, Doxycycline and Clindamycin. One day prior to presentation to ER, she started experiencing itching and sore throat also. She states that these are better with benadryl. ED Course: Diagnosed with cellulitis and received IV abx. Hospitalist ROS - Review of Systems All other systems reviewed; all pertinent +/- noted in HPI/Subj - Medication Medications: Active Medications Generic Name Dose Route Start Last Admin Trade Name Freq PRN Reason Stop Dose Admin Diphenhydramine HCl 25 mg 09/11/19 03:04 09/11/19 03:30 Benadryl PO 25 mg Q6H PRN Administration Itching & Insomnia Sodium Chloride 1,000 mls @ 75 mls/hr 09/10/19 21:00 09/10/19 21:25 1/2 Normal Saline IV 1,000 mls .[id number] ZANA Administration Linezolid 600 mg 09/10/19 21:00 09/10/19 21:24 Zyvox PO 600 mg Q12HR ZANA Administration Sodium Chloride 10 ml 09/10/19 21:00 09/10/19 21:26 Flush - Normal Saline IVF 10 ml Q12HR ZANA Administration Hospitalist History - Past Medical History Source: patient Cardiac: reports: CHF, HTN Renal/: reports: Chronic renal insuff Endocrine: reports: Diabetes - Past Surgical History Past Surgical History: reports: Total Knee Replacement (bilaterally), Other ( Back surgery) - Family History Family History: reports: no pertinent history (reviewed) - Social History Smoking Status: Former smoker (Quit in 1984) Alcohol: reports: Occassional Drugs: reports: none Living Situation: With Family (With grand daughter) Activity level: uses cane/walker - Exam General Appearance: NAD, awake alert Eye: PERRL, anicteric sclera ENT: normocephalic atraumatic, no oropharyngeal lesions, dry oral mucosa Neck: supple, symmetric, no JVD, no thyromegaly, no lymphadenopathy Heart: RRR, no murmur, no gallops, no rubs, normal peripheral pulses Heart - other findings: 2+ bilateral pitting pedal edema Respiratory: CTAB, no wheezes, no rales, no ronchi, normal chest expansion, no tachypnea Gastrointestinal: soft, non-tender, non-distended, normal bowel sounds, no palpable masses Gastrointestinal - other findings: obese Extremities: no cyanosis, no clubbing, 2+ LE edema Skin: normal turgor, no lesions Skin - other findings: Erythema over the left lower extremity Neurological: cranial nerve grossly intact, normal sensation to touch, no weakness, no focal deficits Musculoskeletal: normal tone, normal strength, no muscle wasting Psychiatric: normal affect, normal behavior, A&O x 3 Hospitalist Results - Labs Result Diagrams: 09/10/19 21:01 09/10/19 21:01 Lab results: WBC 5.6 thou/uL (4.8-10.8) 09/10/19 21:01 Hgb 10.3 g/dL (12.0-16.0) L 09/10/19 21:01 Hct 31.1 % (36.0-47.0) L 09/10/19 21:01 MCV 86.1 fL (78.0-98.0) 09/10/19 21:01 Plt Count 224 thou/uL (130-400) 09/10/19 21:01 Neutrophils % 57.7 % (42.0-75.0) 09/10/19 13:35 Band Neuts % (Manual) 2 % (5-11) L 09/10/19 21:01 Sodium 139 mmol/L (136-145) 09/10/19 21:01 Potassium 4.3 mmol/L (3.5-5.1) 09/10/19 21:01 Chloride 103 mmol/L (98-107) 09/10/19 21:01 Carbon Dioxide 27 mmol/L (23-31) 09/10/19 21:01 BUN 56 mg/dL (9.8-20.1) H 09/10/19 21:01 Creatinine 3.34 mg/dL (0.6-1.1) H 09/10/19 21:01 Glucose 181 mg/dL (83-110) H 09/10/19 21:01 Calcium 9.8 mg/dL (7.8-10.44) 09/10/19 21:01 Total Bilirubin 0.3 mg/dL (0.2-1.2) 09/10/19 21:01 AST 12 U/L (5-34) 09/10/19 21:01 ALT 10 U/L (8-55) 09/10/19 21:01 Alkaline Phosphatase 106 U/L (40-110) 09/10/19 21:01 Serum Total Protein 6.3 g/dL (6.0-8.3) 09/10/19 21:01 Albumin 3.6 g/dL (3.4-4.8) 09/10/19 21:01 Urine Ketones Negative mg/dL (Negative) 09/10/19 21:12 Urine Blood Trace (Negative) A 09/10/19 21:12 Urine Nitrite Negative (Negative) 09/10/19 21:12 Ur Leukocyte Esterase 25 Annelise/uL (Negative) 09/10/19 21:12 Urine RBC 0-3 HPF (0-3) 09/10/19 21:12 Urine WBC 11-20 HPF (0-3) A 09/10/19 21:12 Ur Squamous Epith Cells 0-3 HPF (0-3) 09/10/19 21:12 Urine Bacteria 1+ HPF (None Seen) A 09/10/19 21:12 Hospitalist H&P A/P - Problem (1) Cellulitis Code(s): L03.90 - CELLULITIS, UNSPECIFIED Status: Acute Qualifiers: Site of cellulitis: extremity Site of cellulitis of extremity: lower extremity Laterality: left Qualified Code(s): L03.116 - Cellulitis of left lower limb Assessment and Plan: Admit to inpatient status as patient failed outpatient antibiotic therapy x 4 courses. High risk due to need for close monitoring and need for IV Fluids for PRANAV on CKD -4 Expected to stay at least 2 midnights ID consulted Placed on zyvox (Avoiding vancomycin due to her renal function and risk of toxicity) Will follow ID recommendations (2) Type 2 diabetes mellitus Status: Chronic Qualifiers: Diabetes mellitus terminal block assembler insulin use: without terminal block assembler use Diabetes mellitus complication status: with kidney complications Diabetes mellitus complication detail: with chronic kidney disease Chronic kidney disease stage : stage 4 (severe) Qualified Code(s): E11.22 - Type 2 diabetes mellitus with diabetic chronic kidney disease; N18.4 - Chronic kidney disease, stage 4 (severe ) Assessment and Plan: Home meds resumed Diabetic diet and SSI Check HA1C Complicated by PRANAV on CKD-4 Nephrology on board Appears over diuresed IV fluids Avoid nephrotoxic meds and hypotension Monitor urine output and renal function (3) Chronic kidney disease (CKD) Code(s): N18.9 - CHRONIC KIDNEY DISEASE, UNSPECIFIED Status: Chronic Qualifiers: Chronic kidney disease stage: stage 4 (severe) Qualified Code(s): N18.4 - Chronic kidney disease, stage 4 (severe) Assessment and Plan: As above, renal on board (4) Hypertension Code(s): I10 - ESSENTIAL (PRIMARY) HYPERTENSION Status: Chronic Qualifiers: Hypertension type: essential hypertension Qualified Code(s): I10 - Essential (primary) hypertension Assessment and Plan: On Amlodipine Given edema of her extremities, will start hydralazine and DC Norvas Patient reports being started on Isosorbide by Dr. Dudley yesterday. This has been ordered. (5) CHF (congestive heart failure) Code(s): I50.9 - HEART FAILURE, UNSPECIFIED Status: Acute Qualifiers: Heart failure type: unspecified Heart failure chronicity: chronic Qualified Code(s): I50.9 - Heart failure, unspecified Assessment and Plan: Seen by Dr. Dudley at his office yesterday Per patient, she was found to have scar tissue indicative of prior MD Hydralazine + Isordil Currently, appears hypovolemic and hence, on IVF (6) Hyperlipidemia Code(s): E78.5 - HYPERLIPIDEMIA, UNSPECIFIED Status: Chronic Qualifiers: Hyperlipidemia type: other hyperlipidemia Qualified Code(s): E78.49 - Other hyperlipidemia; E78.4 - Other hyperlipidemia Assessment and Plan: Statin therapy (7) Morbid obesity Code(s): E66.01 - MORBID (SEVERE) OBESITY DUE TO EXCESS CALORIES Status: Chronic - Plan Plan: CODE STATUS - DNR/DNI Son is medical POA
[2019-09-11] MEDS: Glimepiride 1 MG TAB PO SCH (08:30)
[2019-09-11] MEDS ORDERED: Amlodipine 10 MG TAB PO SCH (09:00)
[2019-09-11] MEDS ORDERED: Losartan 25 MG TAB PO SCH (09:00)
[2019-09-11] MEDS: Gabapentin 300 MG CAP PO SCH ×2 (09:20→21:03)
[2019-09-11] MEDS: predniSONE 1 MG TAB PO SCH ×4 (09:20→21:03)
[2019-09-11] MEDS: Multivitamin W/ Minerals 1 TAB PO SCH (09:20)
[2019-09-11] MEDS: Metoprolol Tartrate 25 MG TAB PO SCH (09:20)
[2019-09-11] MEDS: Linezolid 600 MG TAB PO SCH (09:20)
[2019-09-11] MEDS: Loratadine 10 MG TAB PO SCH (09:20)
[2019-09-11] MEDS: Isosorbide Mononitrate (ER) 30 MG TAB PO SCH (09:20)
[2019-09-11] MEDS: DULoxetine 60 MG CAP PO SCH (09:20)
[2019-09-11] MEDS: hydrALAZINE 25 MG TAB PO SCH ×2 (09:20→21:03)
--- NOTE | 2019-09-11 09:49 | ULT ---
EXAM: US Renal Bilateral STANDARD PROVIDED CLINICAL HISTORY: Acute kidney injury COMPARISON: None FINDINGS: Right kidney measures approximately 10.6 x 5.8 x 5.6 cm and demonstrates no evidence for hydronephros is, sonographically apparent calculus or solid mass. Left kidney measures approximately 8.7 x 4.7 x 5.9 cm and demonstrates no evidence for hydronephrosis , sonographically apparent calculus or solid mass. Simple appearing left renal cyst measuring about 1.5 cm. The bladder is incompletely distended and not well evaluated. IMPRESSION: No evidence for hydronephrosis.
--- NOTE | 2019-09-11 09:53 | ULT ---
EXAM: Bilateral lower extremity arterial Doppler PROVIDED CLINICAL HISTORY: Peripheral arterial disease COMPARISON: None FINDINGS: Grayscale and color Doppler sonography with spectral analysis was performed of the bilateral common f emoral, superficial femoral, profunda femoral, popliteal, posterior tibial and dorsalis pedis arteries. The left anterior tibial artery was also interrogated. The right anterior tibial artery was not visualized. There are triphasic waveforms present involving the right common femoral, profunda femoral, superfici al femoral and popliteal arteries. Biphasic waveforms are seen within the posterior tibial and dorsalis pedis arteries. On the left, there are triphasic waveforms seen involving the common femoral, profunda femoral, super ficial femoral, popliteal and posterior tibial arteries. Biphasic waveforms are seen within the left anterior tibial and dorsalis pedis arteries. Asymmetric elevated velocities within the right lower extremity arterial system rather diffusely as w ell as increased peak systolic velocity involving the distal right superficial femoral artery with respect to the more proximal superficial femoral artery are of uncertain significance given the desi l appearance to the waveforms. IMPRESSION: No definite sonographic evidence for significant lower extremity arterial disease.
[2019-09-11] MEDS: Sodium Chloride 0.45% 1,000 ML IV SCH (10:06)
--- NOTE | 2019-09-11 10:54 | PDOC.HOSPP ---
- Subjective Encounter Date: 09/11/19 Encounter Time: 10:51 Subjective: left marlee/leg still red, warm, tender - Objective Vital Signs & Weight: Vital Signs (12 hours) Temp Pulse Resp BP BP Pulse Ox 09/11/19 09:20 78 107/51 L 09/11/19 08:00 98.3 F 78 20 107/51 L 107/51 L 95 09/11/19 03:49 98.5 F 71 16 155/65 H 93 L 09/10/19 23:19 97.9 F 69 16 159/69 H 94 L Weight Admit Weight 396 lb Weight 396 lb I&O: 09/10/19 09/11/19 09/12/19 06:59 06:59 07:59 Intake Total 2235 934 Balance 2235 934 Result Diagrams: 09/10/19 21:01 09/10/19 21:01 Additional Labs: Accuchecks 09/11/19 06:06 POC Glucose 105 Hospitalist ROS - Medication Medications: Active Medications Generic Name Dose Route Start Last Admin Trade Name Freq PRN Reason Stop Dose Admin Diphenhydramine HCl 25 mg 09/11/19 03:04 09/11/19 03:30 Benadryl PO 25 mg Q6H PRN Administration Itching & Insomnia Duloxetine HCl 60 mg 09/11/19 09:00 09/11/19 09:20 Cymbalta PO 60 mg DAILY ZANA Administration Gabapentin 600 mg 09/11/19 09:00 09/11/19 09:20 Neurontin PO 600 mg BID ZANA Administration Glimepiride 1 mg 09/11/19 08:00 09/11/19 08:30 Amaryl PO 1 mg QAM-WM ZANA Administration Hydralazine HCl 25 mg 09/11/19 09:00 09/11/19 09:20 Apresoline PO 25 mg BID ZANA Administration Sodium Chloride 1,000 mls @ 75 mls/hr 09/10/19 21:00 09/11/19 10:06 1/2 Normal Saline IV 1,000 mls .[id number] ZANA Administration Iron/Minerals/Multivitamins 1 tab 09/11/19 09:00 09/11/19 09:20 Theragran M PO 1 tab DAILY ZANA Administration Isosorbide Mononitrate 30 mg 09/11/19 09:00 09/11/19 09:20 Imdur Er PO 30 mg DAILY ZANA Administration Linezolid 600 mg 09/10/19 21:00 09/11/19 09:20 Zyvox PO 600 mg Q12HR ZANA Administration Loratadine 10 mg 09/11/19 09:00 09/11/19 09:20 Claritin PO 10 mg DAILY ZANA Administration Metoprolol Tartrate 75 mg 09/11/19 09:00 09/11/19 09:20 Lopressor PO 75 mg DAILY ZANA Administration Prednisone 1 mg 09/11/19 09:00 09/11/19 09:20 Prednisone PO 1 mg QID ZANA Administration Sodium Chloride 10 ml 09/10/19 21:00 09/11/19 09:59 Flush - Normal Saline IVF 10 ml Q12HR ZANA Administration - Exam General Appearance: NAD Neck: no JVD Heart: RRR, no murmur Respiratory: CTAB Gastrointestinal: soft, non-tender, normal bowel sounds Extremities - other findings: distal L leg red , warm, tender. no calf, popliteal tanderness Hosp A/P (1) Cellulitis Code(s): L03.90 - CELLULITIS, UNSPECIFIED Status: Acute Qualifiers: Site of cellulitis: extremity Site of cellulitis of extremity: lower extremity Laterality: left Qualified Code(s): L03.116 - Cellulitis of left lower limb (2) Diastolic dysfunction Code(s): I51.9 - HEART DISEASE, UNSPECIFIED Status: Chronic (3) Hyperlipidemia Code(s): E78.5 - HYPERLIPIDEMIA, UNSPECIFIED Status: Chronic Qualifiers: Hyperlipidemia type: other hyperlipidemia Qualified Code(s): E78.49 - Other hyperlipidemia; E78.4 - Other hyperlipidemia (4) Hypertension Code(s): I10 - ESSENTIAL (PRIMARY) HYPERTENSION Status: Chronic Qualifiers: Hypertension type: essential hypertension Qualified Code(s): I10 - Essential (primary) hypertension (5) Type 2 diabetes mellitus Status: Chronic Qualifiers: Diabetes mellitus roasterman insulin use: without mcc use Diabetes mellitus complication status: with kidney complications Diabetes mellitus complication detail: with chronic kidney disease Chronic kidney disease stage : stage 4 (severe) Qualified Code(s): E11.22 - Type 2 diabetes mellitus with diabetic chronic kidney disease; N18.4 - Chronic kidney disease, stage 4 (severe ) - Plan doubt staph infection stop Zyvox start rocephin
[2019-09-11] MEDS ORDERED: cefTRIAXone\\ROCEPHIN 1 GM VIAL IVPB SCH (11:00)
[2019-09-11] MEDS: HumaLOG 300 UNITS/3 ML VIAL SC PRN (11:09)
--- NOTE | 2019-09-11 13:17 | PRG ---
DATE OF SERVICE: 09/11/2019 SUBJECTIVE: Patient was seen and examined at bedside and overnight events noted. Patient denies any shortness of breath or chest pain or palpitation. No history of nausea or vomiting or diarrhea or fever or chills or cramps. OBJECTIVE: GENERAL: Obese female, in no apparent distress. VITAL SIGNS: Temperature 98.3. Pulse 70, respiratory rate 20. Blood pressure 107/51. HEENT: Atraumatic, normocephalic. Oral mucosa is moist NECK: Supple. CARDIOVASCULAR: S1, S2 heard. Rate and rhythm regular. RESPIRATORY: Clear to auscultation. GASTROINTESTINAL: Abdomen is soft. MUSCULOSKELETAL: No tenderness. No edema. DERMATOLOGIC: No skin rash. NEUROLOGIC: Alert and awake and oriented X3. No focal neurologic deficits. Moving all the extremities. PSYCHIATRIC: Mood and affect normal. LABORATORY DATA: Not done today. ASSESSMENT AND PLAN: 1. Acute kidney injury on chronic kidney disease, stage 4. We will monitor. 2. History of hypertension. 3. Edema. 4. Morbid obesity. 5. We will monitor renal function. Job ID: [id number]
[2019-09-11] MEDS ORDERED: Ondansetron ODT 4 MG TAB PO PRN (18:07)
[2019-09-12] MEDS: Sodium Chloride 0.45% 1,000 ML IV SCH ×3 (00:36→14:51)
[2019-09-12 05:11] LABS: Anion Gap 14 mmol/L (10-20); BUN (Urea Nitrogen) 71 mg/dL (9.8-20.1); Calc. Creatinine Clearance 37 mL/min (70-130); Calcium 9.3 mg/dL (7.8-10.44); Carbon Dioxide 25 mmol/L (23-31); Chloride 105 mmol/L (98-107); Estimated GFR-MDRD 11; Glucose 124 mg/dL (83-110); Sodium 139 mmol/L (136-145)
--- NOTE | 2019-09-12 07:23 | PDOC.HOSPP ---
- Subjective Encounter Date: 09/12/19 Encounter Time: 07:19 Subjective: no fever, chllls, etc - Objective Vital Signs & Weight: Vital Signs (12 hours) Temp Pulse Resp BP BP BP Pulse Ox 09/12/19 04:00 98.6 F 71 16 127/57 L 92 L 09/12/19 00:00 98.7 F 79 20 128/60 94 L 09/11/19 21:03 65 127/61 09/11/19 19:11 98.7 F 65 16 127/61 94 L Weight Admit Weight 396 lb Weight 394 lb 10.039 oz I&O: 09/11/19 09/12/19 09/13/19 05:59 06:59 06:59 Intake Total Output Total Balance Result Diagrams: 09/10/19 21:01 09/12/19 04:20 Additional Labs: Accuchecks 09/11/19 09/11/19 09/11/19 19:29 16:05 10:57 POC Glucose 128 H 117 H 183 H Hospitalist ROS - Medication Medications: Active Medications Generic Name Dose Route Start Last Admin Trade Name Freq PRN Reason Stop Dose Admin Diphenhydramine HCl 25 mg 09/11/19 03:04 09/11/19 03:30 Benadryl PO 25 mg Q6H PRN Administration Itching & Insomnia Duloxetine HCl 60 mg 09/11/19 09:00 09/11/19 09:20 Cymbalta PO 60 mg DAILY ZANA Administration Gabapentin 600 mg 09/11/19 09:00 09/11/19 21:03 Neurontin PO 600 mg BID ZANA Administration Glimepiride 1 mg 09/11/19 08:00 09/11/19 08:30 Amaryl PO 1 mg QAM-WM ZANA Administration Hydralazine HCl 25 mg 09/11/19 09:00 09/11/19 21:03 Apresoline PO 25 mg BID ZANA Administration Sodium Chloride 1,000 mls @ 75 mls/hr 09/10/19 21:00 09/12/19 00:36 1/2 Normal Saline IV 1,000 mls .[id number] ZANA Administration Insulin Human Lispro 0 units 09/11/19 05:36 09/11/19 11:09 Humalog SC 2 unit .MILD SLIDING SCALE PRN Administration Mild Correctional Scale Iron/Minerals/Multivitamins 1 tab 09/11/19 09:00 09/11/19 09:20 Theragran M PO 1 tab DAILY ZANA Administration Isosorbide Mononitrate 30 mg 09/11/19 09:00 09/11/19 09:20 Imdur Er PO 30 mg DAILY ZANA Administration Loratadine 10 mg 09/11/19 09:00 09/11/19 09:20 Claritin PO 10 mg DAILY ZANA Administration Metoprolol Tartrate 75 mg 09/11/19 09:00 09/11/19 09:20 Lopressor PO 75 mg DAILY ZANA Administration Ondansetron HCl 4 mg 09/11/19 18:07 09/11/19 18:43 Zofran Odt PO 4 mg Q4H PRN Administration Nausea/Vomiting Prednisone 1 mg 09/11/19 09:00 09/11/19 21:03 Prednisone PO 1 mg QID ZANA Administration Sodium Chloride 10 ml 09/10/19 21:00 09/11/19 21:05 Flush - Normal Saline IVF 10 ml Q12HR ZANA Administration - Exam General Appearance: awake alert Neck: no JVD Heart: RRR, no murmur Respiratory: CTAB, no wheezes Gastrointestinal: soft, normal bowel sounds Extremities: 1+ LE edema Extremities - other findings: decreased erythema, edema in LLL cellulitis Hosp A/P (1) Cellulitis Code(s): L03.90 - CELLULITIS, UNSPECIFIED Status: Acute Qualifiers: Site of cellulitis: extremity Site of cellulitis of extremity: lower extremity Laterality: left Qualified Code(s): L03.116 - Cellulitis of left lower limb (2) Diastolic dysfunction Code(s): I51.9 - HEART DISEASE, UNSPECIFIED Status: Chronic (3) Hyperlipidemia Code(s): E78.5 - HYPERLIPIDEMIA, UNSPECIFIED Status: Chronic Qualifiers: Hyperlipidemia type: other hyperlipidemia Qualified Code(s): E78.49 - Other hyperlipidemia; E78.4 - Other hyperlipidemia (4) Hypertension Code(s): I10 - ESSENTIAL (PRIMARY) HYPERTENSION Status: Chronic Qualifiers: Hypertension type: essential hypertension Qualified Code(s): I10 - Essential (primary) hypertension (5) Type 2 diabetes mellitus Status: Chronic Qualifiers: Diabetes mellitus retirement insulin use: without retirement use Diabetes mellitus complication status: with kidney complications Diabetes mellitus complication detail: with chronic kidney disease Chronic kidney disease stage : stage 4 (severe) Qualified Code(s): E11.22 - Type 2 diabetes mellitus with diabetic chronic kidney disease; N18.4 - Chronic kidney disease, stage 4 (severe ) - Plan pos responce to iv antibx, cont 48-72 hrs , then trasition to [facility] ACCU/ss cont home meds
[2019-09-12] MEDS: cefTRIAXone\\ROCEPHIN 1 GM in Sodium Chloride 0.9% 100 ML IVPB SCH (08:51)
[2019-09-12] MEDS: Glimepiride 1 MG TAB PO SCH (08:52)
[2019-09-12] MEDS: Isosorbide Mononitrate (ER) 30 MG TAB PO SCH (08:52)
[2019-09-12] MEDS: DULoxetine 60 MG CAP PO SCH (08:52)
[2019-09-12] MEDS: Gabapentin 300 MG CAP PO SCH ×2 (08:53→19:47)
[2019-09-12] MEDS: predniSONE 1 MG TAB PO SCH ×4 (08:53→19:47)
[2019-09-12] MEDS: Multivitamin W/ Minerals 1 TAB PO SCH (08:53)
[2019-09-12] MEDS: Metoprolol Tartrate 25 MG TAB PO SCH (08:54)
[2019-09-12] MEDS: hydrALAZINE 25 MG TAB PO SCH ×2 (08:54→19:47)
[2019-09-12] MEDS: Loratadine 10 MG TAB PO SCH (08:54)
[2019-09-12] MEDS: HumaLOG 300 UNITS/3 ML VIAL SC PRN (11:47)
--- NOTE | 2019-09-12 13:35 | PRG ---
DATE OF SERVICE: 09/12/2019 SUBJECTIVE: Patient was seen and examined at bedside and overnight events noted. Patient denies any shortness of breath or chest pain or palpitation. No history of nausea or vomiting or diarrhea or fever or chills or cramps. OBJECTIVE: GENERAL: This is an obese female, in no apparent distress. VITAL SIGNS: Temperature 97.3. Heart rate 72. Respiratory rate 18. Blood pressure 150/72. HEENT: Atraumatic, normocephalic. Oral mucosa is moist NECK: Supple. CARDIOVASCULAR: S1, S2 heard. Rate and rhythm regular. RESPIRATORY: Clear to auscultation. GASTROINTESTINAL: Abdomen is soft. MUSCULOSKELETAL: No tenderness. No edema. DERMATOLOGIC: No skin rash. NEUROLOGIC: Alert and awake and oriented X3. No focal neurologic deficits. Moving all the extremities. PSYCHIATRIC: Mood and affect normal. LABORATORY DATA: Potassium 5.0, BUN is 71, creatinine is 3.9. ASSESSMENT AND PLAN: 1. Acute kidney injury on chronic kidney disease stage 5 with worsening labs. No acute indication for dialysis. I had discussion with Dr. Jewell. The patient was supposed to see Dr. Jewell as outpatient for a fistula placement, might have to place it while she is here. 2. History of hypertension. 3. Edema. 4. Morbid obesity. 5. We will monitor closely. Job ID: [id number]
--- NOTE | 2019-09-12 19:06 | CON ---
DATE OF CONSULTATION: HISTORY OF PRESENT ILLNESS: Inez Connor is a 74-year-old female with chronic kidney disease approaching end-stage renal disease. She has not started on dialysis yet. She has been followed by Dr. Collins. She has a GFR of 11. She is admitted with chronic venous stasis and edema of her lower extremities and cellulitis, left leg, refractory to outpatient treatment. She has been started on ceftriaxone IV. She has a left antecubital IV in place. She has had ultrasound vein mapping several weeks ago demonstrated excellent veins in her left arm for a fistula. With her morbid obesity, it would be best to place a fistula in her left wrist. However, IVs in her antecubital area will thrombose veins and burn bridges and result in difficult dialysis access. IV access in her cephalic vein wrist or antecubital area in both arms should be avoided. IV access can be established in her right hand or distal right forearm, but should always avoid the antecubital area in both arms. The patient is morbidly obese 5 feet 2 inches, 394 pounds over 70 BMI. I have talked to her regarding dialysis access and would plan as an outpatient the week after next. I will schedule as an outpatient. In the meantime, I would suggest oral antibiotics, intramuscular injection antibiotics if parenterally are absolutely necessary and if absolutely necessary, she can have an IV established in her right hand or the wrist, but nothing above. PICC lines and midlines should be avoided in CKD patients. Subclavian line should be avoided in CKD patients. 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 ALLERGIES: SHELLFISH AND SULFA. SHE IS NOT AWARE OF ANY INTRAVENOUS IODINE ALLERGY. SOCIAL HISTORY: Tobacco, none. Alcohol, none. MEDICATIONS: 1. Ceftriaxone. 2. Arava. 3. Lasix. 4. Amaryl. 5. Cozaar. 6. Metoprolol tartrate 75 mg a day. 7. Norvasc 10 mg a day. 8. Gabapentin. 9. Cymbalta 60 mg a day. 10. Prednisone q.i.d. 11. Multivitamins. 12. Tramadol. 13. Cholecalciferol. PAST SURGICAL HISTORY: Total abdominal hysterectomy and lumbar surgery. She had a colonoscopy a few weeks ago by Dr. Rivera and upper endoscopy a couple weeks ago that was normal and demonstrated anemia of chronic disease. PAST MEDICAL HISTORY: The patient has chronic anemia. Upper endoscopy evaluation above unremarkable and colonoscopy unremarkable. The patient has no other EKG to have had probably a past [place], although she is asymptomatic. Dr. Collins has referred her to Dr. Dudley, whom she will see as an outpatient in the next week or two. Metabolic syndrome, morbid obesity, hypertension, diabetes, and chronic kidney disease, approaching need for dialysis. REVIEW OF SYSTEMS: Otherwise, noncontributory. The patient is single. Her daughter is moving out with her to help her and live with her soon. PHYSICAL EXAMINATION: VITAL SIGNS: Height 5 feet 2 inches and 394 pounds over 70 BMI. 97.8 degrees, 64, and 175/81. HEAD, EARS, EYES, NOSE, AND THROAT: Unremarkable. LUNGS: Clear to auscultation. CARDIAC: Regular rate and rhythm without murmur or gallop. ABDOMEN: Soft, obese, and large pannus dependent midline infraumbilical scar consistent with prior hysterectomy. Palpable radial pulses bilaterally. Left antecubital IV removed immediately. EXTREMITIES: Chronic venous stasis disease bilaterally. Mild redness left lower extremity. No open wounds. Palpable pulses. LABORATORY DATA: White count 5.6 and hemoglobin 10.3. Basic metabolic profile normal except for BUN of 71, creatinine 3.93, and GFR 11. ASSESSMENT AND PLAN: 1. Chronic kidney disease, approaching need for dialysis. We will plan left arm primary fistula as an outpatient in approximately a week and a half. The patient is agreeable to this, will have my office schedule this. She understands risks and benefits, consents. 2. Metabolic syndrome and morbid obesity. 3. Hypertension. 4. Diabetes. 5. Chronic kidney disease, approaching need for hemodialysis. 6. Left antecubital IV removed immediately. Avoid IVs in the left arm and avoid IVs above the wrist. 7. Chronic venous stasis disease aggravated by chronic kidney disease. Note the patient has no echocardiogram available this hospitalization, appointment with Dr. Dudley in the next week. Job ID: [id number]
[2019-09-13] MEDS: Sodium Chloride 0.45% 1,000 ML IV SCH (06:25)
[2019-09-13] MEDS: Glimepiride 1 MG TAB PO SCH (09:00)
[2019-09-13] MEDS: cefTRIAXone\\ROCEPHIN 1 GM in Sodium Chloride 0.9% 100 ML IVPB SCH (09:59)
[2019-09-13] MEDS: Loratadine 10 MG TAB PO SCH (10:00)
[2019-09-13] MEDS: Isosorbide Mononitrate (ER) 30 MG TAB PO SCH (10:00)
[2019-09-13] MEDS: Multivitamin W/ Minerals 1 TAB PO SCH (10:00)
[2019-09-13] MEDS: predniSONE 1 MG TAB PO SCH ×4 (10:00→20:16)
[2019-09-13] MEDS: hydrALAZINE 25 MG TAB PO SCH ×2 (10:00→20:16)
[2019-09-13] MEDS: DULoxetine 60 MG CAP PO SCH (10:00)
[2019-09-13] MEDS: Gabapentin 300 MG CAP PO SCH ×2 (10:00→20:16)
[2019-09-13] MEDS: Metoprolol Tartrate 25 MG TAB PO SCH (10:00)
[2019-09-13] MEDS ORDERED: Morphine 2 MG/ML SYRINGE SLOW IVP PRN (10:25)
--- NOTE | 2019-09-13 11:12 | PRG ---
DATE OF SERVICE: 09/13/2019 SUBJECTIVE: 74-year-old female being seen for stage 5 chronic kidney disease. The patient denied nausea, vomiting, or chest pain. PHYSICAL EXAMINATION: General: The patient is awake and alert. Vital Signs: Afebrile, pulse 68, breathing at 16, blood pressure 141/80. HEENT: Head normocephalic and atraumatic. Eyes intact, no ulcers. Nose intact, no ulcers. Ears intact, no ulcers. Neck: Supple. No JVD. Chest: Symmetrical and clear. Cardiovascular: Shows S1 and S2, no rub, no murmur. Gastrointestinal: Abdomen is soft, bowel sounds positive. Extremities: Show no edema or ulcers. Skin: Shows no rash or petechiae. Musculoskeletal: Shows no joint swelling or stiffness. Genitourinary: Shows no Sanchez or CVA tenderness. Neurologic: Motor intact. Cranial nerves intact. LABORATORY DATA: Lab reviewed. ASSESSMENT AND PLAN: 1. Chronic kidney disease stage 5, stable. 2. Hypertension. 3. Anemia, stable. 4. dialysis. Access will be placed. No urgent indication for dialysis. Job ID: [id number]
--- NOTE | 2019-09-13 11:27 | CON ---
DATE OF CONSULTATION: 09/13/2019 REASON FOR CONSULTATION: Possible cellulitis in lower extremities. HISTORY OF PRESENT ILLNESS: A 74-year-old who recently moved from [place] over to [place], has a history of type 2 diabetes, CKD stage 4 to 5, episodes of C difficile in the past, treated in [place], last one was in 2013, as well as recurrent areas of swelling and redness in the lower extremities, which have failed oral antimicrobial therapy in the outpatient setting. No headaches, visual symptoms, sore throat, odynophagia, or dysphagia. No cough, sputum production, or chest pain. No abdominal pain or diarrhea recently. She did have loose stools about a week ago at home. Voiding without difficulty. PAST MEDICAL HISTORY: 1. Type 2 diabetes. 2. CKD stage 5. 3. Venous insufficiency. 4. Leg edema. 5. Bariatric sleeve gastrectomy. 6. History of rheumatoid arthritis, was recently diagnosed. 7. Bilateral TKRs. 8. C difficile colitis. 9. Laminectomy. FAMILY HISTORY: Noncontributory. SOCIAL HISTORY: Former smoker, quit in 1984. No alcoholic beverage use. Moved from [place] to be with family here in town. CURRENT MEDICATIONS: 1. Ceftriaxone. 2. Dextrose. 3. Cymbalta. 4. Neurontin. 5. Amaryl. 6. Glucagon. 7. Apresoline. 8. Humalog insulin. 9. Imdur. 10. Claritin. 11. Lopressor. 12. Prednisone 1 mg q.i.d. In the home setting, she had been on diphenhydramine and Zyvox. PHYSICAL EXAMINATION: VITAL SIGNS: Temperature has been normal, BP 200/81, pulse 88, respirations 18, and O2 saturation 94. SKIN: A very faint pink erythema in the left leg with minimal tenderness. Right leg is normal except for the changes of edema and some scars from previous accident. No lymphadenopathy. HEENT: Ocular movements conjugate. Oral cavity normal. NECK: Supple. LUNGS: Symmetric with clear breath sounds, with faint basilar crackles. HEART: S1 and S2. Regular rate without murmurs. No S3 or S4. ABDOMEN: With moderate distention, question of ascites. No bladder distention or organomegaly. EXTREMITIES: The TKRs appeared to have normal range of motion. There is edema in the lower extremities about 2+. Pulses are diminished in dorsalis pedis, but palpable. Cap refill less than 3 seconds. She moves extremities equally. NEUROLOGIC: Cognitive function appears to be intact. LABORATORY DATA: Urinalysis with 11 to 20 wbc's. White cell count 5.3, hemoglobin 10.4, platelets 212 with normal differential. Creatinine is at 3.93 with a GFR at 11. Liver profile normal. Albumin 3.6. Microbiology with urine culture from 09/09 with minimal growth, probably contaminant. IMAGING STUDIES: There is a lower extremity ultrasound from 2 days ago with no evidence of arterial disease noted, normal flows. Renal ultrasound on admission, no hydronephrosis. ASSESSMENT: 1. Type 2 diabetes. 2. Rheumatoid arthritis. 3. Chronic kidney disease, stage 5, being readied for hemodialysis. 4. Edema. 5. Volume overload. 6. Stasis dermatitis with venous insufficiency. 7. Prior episode of Clostridium difficile colitis. 8. No evidence of peripheral vascular disease at the moment. DISCUSSION: The clinical and laboratory evidence argue against the infectious cellulitis more in favor of stasis dermatitis associated with venous insufficiency and overall edema. I would advise discontinue antimicrobial therapy and switching to compression stockings with TAMARA hose here in the in the hospital with reduction of edema once dialysis is started and that should also help with decrease in the changes noticed. That would explain why there was not appropriate response to outpatient antimicrobial therapy. Job ID: [id number]
[2019-09-13 11:43] LABS: Anion Gap 15 mmol/L (10-20); BUN (Urea Nitrogen) 58 mg/dL (9.8-20.1); Calc. Creatinine Clearance 42 mL/min (70-130); Calcium 9.5 mg/dL (7.8-10.44); Carbon Dioxide 23 mmol/L (23-31); Chloride 106 mmol/L (98-107); Estimated GFR-MDRD 13; Glucose 137 mg/dL (83-110); Potassium 4.3 mmol/L (3.5-5.1); Sodium 140 mmol/L (136-145)
[2019-09-13] MEDS: HumaLOG 300 UNITS/3 ML VIAL SC PRN (17:17)
--- NOTE | 2019-09-13 18:09 | PRG ---
DATE OF SERVICE: 09/13/[address]. Collins have asked me to see her regarding placement of left arm fistula. Plan is to place a left arm fistula probably as an outpatient next week. We will check with my office and schedule as an outpatient hopefully prior to discharge tomorrow. If she does go home today, then we can contact her as an outpatient. Job ID: [id number]
--- NOTE | 2019-09-13 20:45 | PDOC.HOSPP ---
- Subjective Encounter Date: 09/13/19 Subjective: The patient's lower extremity swelling is improving. - Objective Vital Signs & Weight: Vital Signs (12 hours) Temp Pulse Resp BP BP Pulse Ox 09/13/19 20:16 74 188/85 H 09/13/19 20:00 98.3 F 74 18 188/85 H 92 L 09/13/19 10:00 88 141/80 H Weight Admit Weight 396 lb Weight 394 lb 10.039 oz I&O: 09/12/19 09/13/19 09/14/19 06:59 06:59 06:59 Intake Total 1900 900 Output Total 1100 Balance 1900 -200 Result Diagrams: 09/10/19 21:01 09/13/19 11:04 Additional Labs: Accuchecks 09/13/19 09/13/19 09/13/19 16:38 11:03 05:17 POC Glucose 169 H 150 H 101 09/12/19 22:11 POC Glucose 148 H Hospitalist ROS - Medication Medications: Active Medications Generic Name Dose Route Start Last Admin Trade Name Freq PRN Reason Stop Dose Admin Diphenhydramine HCl 25 mg 09/11/19 03:04 09/11/19 03:30 Benadryl PO 25 mg Q6H PRN Administration Itching & Insomnia Duloxetine HCl 60 mg 09/11/19 09:00 09/13/19 10:00 Cymbalta PO 60 mg DAILY ZANA Administration Gabapentin 600 mg 09/11/19 09:00 09/13/19 20:16 Neurontin PO 600 mg BID ZANA Administration Glimepiride 1 mg 09/11/19 08:00 09/13/19 09:00 Amaryl PO 1 mg QAM-WM ZANA Administration Hydralazine HCl 25 mg 09/11/19 09:00 09/13/19 20:16 Apresoline PO 25 mg BID ZANA Administration Insulin Human Lispro 0 units 09/11/19 05:36 09/13/19 17:17 Humalog SC 2 unit .MILD SLIDING SCALE PRN Administration Mild Correctional Scale Iron/Minerals/Multivitamins 1 tab 09/11/19 09:00 09/13/19 10:00 Theragran M PO 1 tab DAILY ZANA Administration Isosorbide Mononitrate 30 mg 09/11/19 09:00 09/13/19 10:00 Imdur Er PO 30 mg DAILY ZANA Administration Loratadine 10 mg 09/11/19 09:00 09/13/19 10:00 Claritin PO 10 mg DAILY ZANA Administration Metoprolol Tartrate 75 mg 09/11/19 09:00 09/13/19 10:00 Lopressor PO 75 mg DAILY ZANA Administration Morphine Sulfate 2 mg 09/13/19 10:25 09/13/19 13:55 Morphine SLOW IVP 2 mg Q4H PRN Administration Pain Ondansetron HCl 4 mg 09/11/19 18:07 09/11/19 18:43 Zofran Odt PO 4 mg Q4H PRN Administration Nausea/Vomiting Prednisone 1 mg 09/11/19 09:00 09/13/19 20:16 Prednisone PO 1 mg QID ZANA Administration Sodium Chloride 10 ml 09/10/19 21:00 09/13/19 20:21 Flush - Normal Saline IVF 10 ml Q12HR ZANA Administration - Exam General Appearance: NAD Eye: PERRL ENT: normocephalic atraumatic Neck: supple, no JVD Heart: RRR, no murmur, no gallops, no rubs, normal peripheral pulses Respiratory: CTAB, no wheezes, no rales, no ronchi, normal chest expansion Gastrointestinal: soft, non-tender, non-distended, normal bowel sounds Hosp A/P (1) CHF (congestive heart failure) Code(s): I50.9 - HEART FAILURE, UNSPECIFIED Status: Acute Qualifiers: Heart failure type: unspecified Heart failure chronicity: chronic Qualified Code(s): I50.9 - Heart failure, unspecified (2) Edema extremities Code(s): R60.0 - LOCALIZED EDEMA Status: Acute (3) Chronic kidney disease (CKD) Code(s): N18.9 - CHRONIC KIDNEY DISEASE, UNSPECIFIED Status: Chronic Qualifiers: Chronic kidney disease stage: stage 4 (severe) Qualified Code(s): N18.4 - Chronic kidney disease, stage 4 (severe) - Plan Lower extremity redness and swelling is likely noninfectious according to infectious disease. Peripheral venous disease is more likely. Antibiotics were discontinued. Chronic kidney disease stage V. No acute indication for dialysis per nephrology. Likely to discharge home tomorrow.
[2019-09-13] MEDS ORDERED: Acetaminophen 325 MG TAB PO PRN (22:49)
[2019-09-14 04:55] LABS: Eosinophils 3 % (0-10); Hemoglobin 8.8 g/dL (12.0-16.0); Hypochromia SLIGHT = 6-15 cells (100X) (0-5/hpf); Lymphocytes 28 % (21-51); MDiff Complete? YES; Mean Corpuscular HGB CONC 29.5 g/dL (32.0-36.0); Mean Corpuscular Volume 84.9 fL (78.0-98.0); Mean Platelet Volume 7.4 fL (7.4-10.4); Microcytosis SLIGHT = 6-15 cells (100X) (0-5/hpf); Monocytes 13 % (0-10); Neutrophil 56 % (42-75); Platelet Count 234 thou/uL (130-400); Platelet Morphology Comment Appears Adequate; RBC Distribution Width 13.5 % (11.5-14.5); Red Blood Cell (RBC) Count 3.52 mill/uL (4.20-5.40); White Blood Cell (WBC) Count 5.1 thou/uL (4.8-10.8)
[2019-09-14 04:59] LABS: Anion Gap 15 mmol/L (10-20); BUN (Urea Nitrogen) 52 mg/dL (9.8-20.1); Calc. Creatinine Clearance 45 mL/min (70-130); Calcium 9.4 mg/dL (7.8-10.44); Carbon Dioxide 22 mmol/L (23-31); Chloride 108 mmol/L (98-107); Estimated GFR-MDRD 14; Glucose 101 mg/dL (83-110); Sodium 141 mmol/L (136-145)
[2019-09-14] MEDS: DULoxetine 60 MG CAP PO SCH (08:49)
[2019-09-14] MEDS: Isosorbide Mononitrate (ER) 30 MG TAB PO SCH (08:49)
[2019-09-14] MEDS: Multivitamin W/ Minerals 1 TAB PO SCH (08:50)
[2019-09-14] MEDS: hydrALAZINE 25 MG TAB PO SCH (08:50)
[2019-09-14] MEDS: Loratadine 10 MG TAB PO SCH (08:58)
[2019-09-14] MEDS: Metoprolol Tartrate 25 MG TAB PO SCH (08:58)
[2019-09-14] MEDS: Glimepiride 1 MG TAB PO SCH (08:59)
[2019-09-14] MEDS: predniSONE 1 MG TAB PO SCH ×2 (08:59→13:06)
[2019-09-14] MEDS: Gabapentin 300 MG CAP PO SCH (09:04)
[2019-09-14 09:16] VITALS: TEMP 98.5
--- NOTE | 2019-09-14 09:47 | PRG ---
DATE OF SERVICE: 09/14/2019 SUBJECTIVE: This is a 74-year-old female, being seen for acute kidney injury. The patient denies any nausea, vomiting, or chest pain. OBJECTIVE: GENERAL: The patient is awake and alert. VITAL SIGNS: Afebrile, pulse 74, breathing at 16, blood pressure 141/80. HEENT: Head normocephalic and atraumatic. Eyes intact, no ulcers. Nose intact, no ulcers. Ears intact, no ulcers. NECK: Supple. No JVD. CHEST: Symmetrical and clear. CARDIOVASCULAR: Shows S1 and S2, no rub, no murmur. GASTROINTESTINAL: Abdomen is soft, bowel sounds positive. EXTREMITIES: Lower extremities have 4+ edema. SKIN: Shows no rash or petechiae. MUSCULOSKELETAL: Shows no joint swelling or stiffness. GENITOURINARY: Shows no Sanchez or CVA tenderness. NEUROLOGIC: Motor intact. Cranial nerves intact. LABORATORY DATA: Reviewed. ASSESSMENT AND PLAN: 1. Chronic kidney disease, stage 5, stable. 2. Acute kidney injury, improved. 3. Hypertension, stable. 4. Edema. Continue diuretics. No urgent indication for dialysis at this time. Job ID: [id number]
[2019-09-14] MEDS: HumaLOG 300 UNITS/3 ML VIAL SC PRN (11:46)
[2019-09-14 12:24] VITALS: BP 178/90
--- NOTE | 2019-09-15 00:47 | DIS ---
DATE OF ADMISSION: 09/12/2019 DATE OF DISCHARGE: 09/14/2019 DISCHARGE DIAGNOSES: 1. Cellulitis of the left lower extremity. 2. Chronic kidney disease, stage 3. 3. Volume overload. 4. Diastolic heart failure, chronic. 5. Hypertension. 6. Hyperlipidemia. 7. Diabetes mellitus type 2. DISCHARGE MEDICATIONS: 1. Hydralazine 25 mg orally twice daily. 2. Isosorbide mononitrate 30 mg orally daily. 3. Lactinex one tablet orally three times a day for 10 days. 4. Loperamide 2 mg orally as needed for diarrhea x20 capsules. 5. Cetirizine 10 mg orally daily. 6. Cymbalta 60 mg orally daily. 7. Gabapentin 600 mg orally twice daily. 8. Amaryl 1 mg orally daily. 9. Metoprolol tartrate 75 mg orally daily. 10. Prednisone 5 mg orally four times a day. 11. Norvasc 10 mg orally daily. 12. Vitamin D3 98219 units orally on Fridays. 13. Lasix 20 mg orally twice daily as needed for lower extremity edema. 14. Leflunomide 20 mg orally daily. 15. Tramadol 50 mg orally twice daily. HISTORY OF PRESENT ILLNESS AND HOSPITAL COURSE: The patient is a pleasant 74-year-old female with history of chronic kidney disease, hypertension, diabetes mellitus, and diastolic congestive heart failure, who presented to the hospital with complaints of bilateral lower extremity swelling, left greater than the right with some redness and tenderness. The patient has failed 4 courses of outpatient antibiotic therapy and stated that the swelling has been gradually worsening. The patient was placed on empiric IV antibiotics and diuretics. Over the first 48 hours, the patient's lower extremity swelling started to improve with the treatment of negative fluid balance. No signs of sepsis were identified throughout her hospital stay. ID Service was consulted and impression was this condition does not represent an acute infection, but rather lower extremity edema and swelling is due to volume overload from her heart failure and kidney failure and from chronic venous vascular disease. The patient was also seen by a Nephrology Service during her hospitalization with impression of chronic kidney disease currently at stage 5. She will follow up outpatient for likely placement of a dialysis access. Job ID: [id number]
== END 2019-09-14 15:51 | disposition home or self-care (01) | DRG 300 ==
LOC: ERS 12:37 → ONC 18:31 → OBSVTOIN 09-12 17:45
PROVIDERS: ADMIT Family Medicine; ATTEND Family Medicine
DX: E11.51 Type 2 diabetes mellitus with diabetic peripheral angiopathy without gangrene (principal); N17.9 Acute kidney failure, unspecified; I13.2 Hypertensive heart and chronic kidney disease with heart failure and with stage 5 chronic kidney disease, or end stage renal disease; I50.32 Chronic diastolic (congestive) heart failure; Z68.45 Body mass index [BMI] 70 or greater, adult; N18.5 Chronic kidney disease, stage 5; I87.2 Venous insufficiency (chronic) (peripheral); E87.70 Fluid overload, unspecified; Z66 Do not resuscitate; E11.22 Type 2 diabetes mellitus with diabetic chronic kidney disease; E78.5 Hyperlipidemia, unspecified; D63.1 Anemia in chronic kidney disease; M06.9 Rheumatoid arthritis, unspecified; E88.81 Metabolic syndrome and other insulin resistance; E66.01 Morbid (severe) obesity due to excess calories; Z96.653 Presence of artificial knee joint, bilateral; Z98.84 Bariatric surgery status; Z87.891 Personal history of nicotine dependence; Z79.4 Long term (current) use of insulin; Z79.52 Long term (current) use of systemic steroids; Z79.899 Other long term (current) drug therapy; Z91.013 Allergy to seafood; Z88.2 Allergy status to sulfonamides; Z88.8 Allergy status to other drugs, medicaments and biological substances
CPT/HCPCS: 36415; 36416; 76770; 80048; 80053; 81001; 83036; 84145; 85007; 85025; 85027; 87086; 93923; 96365; 96367; 96375; J0692; J0696; J2270; J2405; J3370; J3490; J7512; Q0162; Q0163

== ENCOUNTER 2019-09-22 08:36 | Day surgery (SDC) | payer MEDICARE, BC ==
[2019-09-21 16:22] VITALS: BMI 53.2
[2019-09-22] MEDS ORDERED: Heparin 5,000 UNITS/ML VIAL ONE (10:18)
[2019-09-22] MEDS ORDERED: Protamine Sulfate 50 MG/5 ML VIAL ONE (10:18)
[2019-09-22] MEDS ORDERED: Lidocaine 1% w/Epinephrine 1:100K 20 ML VIAL ONE (10:18)
[2019-09-22] MEDS ORDERED: Bupivacaine PF 0.5% 30 ML VIAL ONE (10:18)
[2019-09-22] MEDS ORDERED: Fentanyl 100 MCG/2 ML VIAL ONE ×2 (10:19→11:07)
[2019-09-22] MEDS ORDERED: Bupivacaine HCl 0.5%/Epinephrine 1:200,000/PF 30 ml Vial ONE (10:50)
[2019-09-22] MEDS ORDERED: PROPOFOL 200 MG/20 ML VIAL ONE (10:50)
[2019-09-22] MEDS ORDERED: Ondansetron PF 4 MG/2 ML Vial ONE (10:50)
[2019-09-22] MEDS ORDERED: PROPOFOL 60 ML ONE (11:07)
[2019-09-22] MEDS ORDERED: Propofol 500 MG/50 ML VIAL ONE (11:07)
--- NOTE | 2019-09-22 13:39 | OP ---
DATE OF PROCEDURE: 09/22/2019 PREOPERATIVE DIAGNOSES: End-stage renal disease and morbid obesity. POSTOPERATIVE DIAGNOSES: End-stage renal disease and morbid obesity. PROCEDURES PERFORMED: Left arm primary fistula, proximal radial artery inflow of good caliber, outflow perforating branch of the antecubital vein, basilic and cephalic veins with cephalic vein calibrated to a 4 mm dilator, retrograde antecubital vein preserved. ANESTHESIA: Regional, TIVA. Note, the patient will probably need a transposition of outflows, but both her basilic and cephalic veins were left intact. DESCRIPTION OF PROCEDURE: The patient was taken to the operating room, where under regional anesthesia and intravenous sedation, left upper extremity was prepared with ChloraPrep and draped in routine fashion. Incision was made in the left wrist, but vein was inadequate, and subcutaneous tissue was approximated with 3-0 Monocryl, skin with 4-0 Monocryl, and Dermabond was applied. A longitudinal incision was made below the antecubital fossa, carried down through skin and subcutaneous tissue. Cephalic vein identified. It was fed directly by perforating branch that went deep. Antecubital vein was deep. It was dissected free for a segment, and perforating branch was dissected free, and branches were divided between clips and 4-0 silk ties and spatulated over branch point and interrogated with coronary dilators passing coronary dilators from a 2 mm to a 4 mm dilator at the cephalic vein outflow. The patient was given 6000 units of heparin intravenously, and vein was flushed with heparinized saline solution. An atraumatic bulldog clamp was applied. Proximal radial artery was dissected free. Brachial, radial, and ulnar arteries were controlled with vascular clamps, and a longitudinal arteriotomy was made in the proximal radial artery, and the perforating branch of the antecubital vein was spatulated over branch point. End vein to side proximal artery anastomosis was created with continuous suture of 6-0 Prolene. Hemostasis was obtained with 6-0 Prolene. The patient was given 25 mg of protamine intravenously by Anesthesia. Good Doppler signal was noted in the cephalic vein and basilic vein outflow. Subcutaneous tissue was approximated with 3-0 Monocryl, skin with subdermal 4-0 Monocryl, and [place] glue applied. The patient tolerated the procedure well. Job ID: [id number]
== END 2019-09-22 14:15 | disposition home or self-care (01) ==
LOC: SDC 08:36
PROVIDERS: ATTEND Specialist
PROC: 031C0ZF Bypass Left Radial Artery to Lower Arm Vein, Open Approach (ICD-10-PCS; principal; 2019-09-22)
DX: E11.22 Type 2 diabetes mellitus with diabetic chronic kidney disease (principal); I12.0 Hypertensive chronic kidney disease with stage 5 chronic kidney disease or end stage renal disease; N18.6 End stage renal disease; E78.5 Hyperlipidemia, unspecified; E66.01 Morbid (severe) obesity due to excess calories; Z68.43 Body mass index [BMI] 50.0-59.9, adult; Z79.82 Long term (current) use of aspirin; Z79.899 Other long term (current) drug therapy; Z88.2 Allergy status to sulfonamides; Z88.8 Allergy status to other drugs, medicaments and biological substances; Z91.013 Allergy to seafood; M06.9 Rheumatoid arthritis, unspecified; Z87.891 Personal history of nicotine dependence
CPT/HCPCS: J0670; J0690; J1644; J2405; J2704; J2720; J3010; S0020

== ENCOUNTER 2019-09-26 07:17 | Inpatient (IN) | payer MEDICARE, BC ==
[2019-09-26 07:55] LABS: Hemoglobin 8.8 g/dL (12.0-16.0); Mean Corpuscular HGB CONC 31.5 g/dL (32.0-36.0); Mean Corpuscular Hemoglobin 27.6 pg (27.0-31.0); Mean Corpuscular Volume 87.5 fL (78.0-98.0); RBC Distribution Width 13.8 % (11.5-14.5)
[2019-09-26] MEDS ORDERED: Nitroglycerin 2% Ointment 1 INCH/1 GM Packet ONE (08:02)
[2019-09-26] MEDS ORDERED: Furosemide 40 MG/4 ML VIAL ONE (08:02)
[2019-09-26] MEDS ORDERED: Nitroglycerin 0.4 MG TAB 1 EACH ONE (08:02)
[2019-09-26 08:20] LABS: ALT (SGPT) 16 U/L (8-55); AST (SGOT) 34 U/L (5-34); Albumin 3.7 g/dL (3.4-4.8); Alkaline Phosphatase 116 U/L (40-110); Anion Gap 15 mmol/L (10-20); BUN (Urea Nitrogen) 50 mg/dL (9.8-20.1); Bilirubin, Total 0.3 mg/dL (0.2-1.2); Calc. Creatinine Clearance 0 mL/min (70-130); Calcium 9.5 mg/dL (7.8-10.44); Carbon Dioxide 24 mmol/L (23-31); Chloride 108 mmol/L (98-107); Estimated GFR-MDRD 13; Glucose 131 mg/dL (83-110); Mean Platelet Volume 7.1 fL (7.4-10.4); Platelet Count 278 thou/uL (130-400); Potassium 4.7 mmol/L (3.5-5.1); Protein, Total 6.7 g/dL (6.0-8.3); Sodium 142 mmol/L (136-145); White Blood Cell (WBC) Count 7.2 thou/uL (4.8-10.8)
[2019-09-26 08:21] LABS: Band 1 % (5-11); Eosinophils 2 % (0-10); Lymphocytes 19 % (21-51); MDiff Complete? YES; Monocytes 15 % (0-10); Neutrophil 61 % (42-75); Platelet Morphology Comment Appears Adequate
--- NOTE | 2019-09-26 08:27 | RAD ---
PORTABLE CHEST: Date: 09/26/2019 HISTORY: Cough. COMPARISON: 08/10/2019. FINDINGS: Heart size is within normal limits. There are atherosclerotic changes of the aorta. Pulmonary vessels are engorged. There are increased interstitial lung changes, more in the bases. No confluent infiltr ative process is seen. IMPRESSION: Mild pulmonary vascular engorgement suggesting some element of edema. The predominantly interstitial lung changes are more basilar predominant. This could be a manifestation of edema or be related to bi basilar infiltrative change. Follow-up chest film would be recommended. POS: [facility]
[2019-09-26 08:28] LABS: CKMB 2.1 ng/mL (0-6.6)
[2019-09-26 09:12] LABS: Bilirubin Negative (Negative); Blood, Urine Negative (Negative); Clarity Clear (Clear); Glucose, Urine (Dipstick) Normal (Negative); Leukocyte Negative Leu/uL (Negative); Nitrite Negative (Negative); Protein, Urine (Dipstick) 200 mg/dL (Neg-Trace); RBC/HPF 0-3 HPF (0-3); Urobilinogen Normal mg/dL (Less than 2)
[2019-09-26] MEDS ORDERED: traMADol HCl 50 MG TAB PO PRN (09:12)
[2019-09-26] MEDS ORDERED: Loperamide HCl 2 MG CAP PO PRN (09:15)
[2019-09-26] MEDS ORDERED: Calcium Carbonate 500 MG ChewTAB PO PRN (09:15)
[2019-09-26] MEDS ORDERED: Ondansetron PF 4 MG/2 ML Vial IVP PRN (09:15)
[2019-09-26] MEDS ORDERED: Dextrose 5% in Water 1,000 ML IV PRN (09:18)
[2019-09-26] MEDS ORDERED: HumaLOG 300 UNITS/3 ML VIAL SC PRN (09:18)
[2019-09-26] MEDS ORDERED: Dextrose 50% Abboject 50 ML SYRINGE SLOW IVP PRN (09:18)
[2019-09-26 09:22] LABS: Bacteria/HPF 1+ HPF (None Seen); Yeast-Budding Rare HPF (None Seen)
--- NOTE | 2019-09-26 11:39 | PDOC.HHP ---
Hospitalist HPI - History of Present Illness Shortness of breath History of Present Illness: Very pleasant 74-year-old female with past medical history of diabetes mellitus , rheumatoid arthritis, hypertension, hyperlipidemia, and chronic kidney disease stage IV presents with shortness of breath. Patient tells me that she has been feeling more short of breath of the past 4 to 5 days. Patient states that she believed that drinking 60 to 90 ounces of water per day would help her medical condition, she tells me that she was doing this as of yesterday. Patient with worsening shortness of breath and mild cough. Cough has been to the point where she was coughing so persistently that she did vomit her dinner the other day. Patient denies fever. No sick contacts. She has not come in contact with anyone who has Covid 19. Patient has not been going out in the public much and mainly staying at home. Patient has extensive past medical history and follows up with Dr. Collins for nephrology regularly. Patient had a left arm hemodialysis catheter placed last week by Dr. Jewell. Patient follows up with Dr. Duldey recently and she states that she had a "silent heart attack and she has a scar on her heart." Patient denies explicitly remember being told if she has a history of heart failure. Patient was planned have left neck excision of mass by Dr. Briceno with ENT planned for this week. Patient has chronic lymphedema with venous stasis dermatitis type changes of the leg and has recently completed several rounds of antibiotics per Dr. Boone. Review systems is otherwise benign. Admitted to medical unit telemetry for close management. Will consult the patient's specialists for continuity of care. Hospitalist ROS - Review of Systems All other systems reviewed; all pertinent +/- noted in HPI/Subj Hospitalist History - Past Medical History Source: patient, old records Cardiac: reports: CAD, HTN, Hyperlipidemia Pulmonary: reports: congestive heart failure (Possible), hypertension Gastrointestinal: reports: GERD Rheumatologic: reports: Rheumatoid arthritis Renal/: reports: Chronic renal insuff Endocrine: reports: Diabetes - Past Surgical History Past Surgical History: reports: Total Knee Replacement (bilaterally), Other ( Back surgery. Left arm AV Fistula) - Family History Family History: reports: hypertension - Social History Smoking Status: Former smoker Tobacco Type: cigarettes Alcohol: reports: Occassional Drugs: reports: none Living Situation: With Family Domestic Violence: Negative Activity level: independent ambulation - Exam General Appearance: NAD, awake alert Eye: anicteric sclera ENT: normocephalic atraumatic, moist mucosa Neck: supple, symmetric, no lymphadenopathy Heart: no murmur, no gallops, no rubs, normal peripheral pulses Respiratory: no wheezes, no ronchi, normal chest expansion, no tachypnea, rales Gastrointestinal: soft, non-tender, no rigidity Extremities: 1+ LE edema Skin: no rashes Skin - other findings: Leg venous stasis dermatitis Neurological: cranial nerve grossly intact, no focal deficits Musculoskeletal: generalized weakness Psychiatric: normal affect, normal behavior, A&O x 3 Hospitalist Results - Labs Result Diagrams: 09/26/19 07:34 09/26/19 07:34 Lab results: WBC 7.2 thou/uL (4.8-10.8) 09/26/19 07:34 Hgb 8.8 g/dL (12.0-16.0) L 09/26/19 07:34 Hct 28.0 % (36.0-47.0) L 09/26/19 07:34 MCV 87.5 fL (78.0-98.0) 09/26/19 07:34 Plt Count 278 thou/uL (130-400) 09/26/19 07:34 Band Neuts % (Manual) 1 % (5-11) L 09/26/19 07:34 Sodium 142 mmol/L (136-145) 09/26/19 07:34 Potassium 4.7 mmol/L (3.5-5.1) 09/26/19 07:34 Chloride 108 mmol/L (98-107) H 09/26/19 07:34 Carbon Dioxide 24 mmol/L (23-31) 09/26/19 07:34 BUN 50 mg/dL (9.8-20.1) H 09/26/19 07:34 Creatinine 3.49 mg/dL (0.6-1.1) H 09/26/19 07:34 Glucose 131 mg/dL (83-110) H 09/26/19 07:34 Lactic Acid 1.1 mmol/L (0.5-2.2) 09/26/19 07:34 Calcium 9.5 mg/dL (7.8-10.44) 09/26/19 07:34 Total Bilirubin 0.3 mg/dL (0.2-1.2) 09/26/19 07:34 AST 34 U/L (5-34) 09/26/19 07:34 ALT 16 U/L (8-55) 09/26/19 07:34 Alkaline Phosphatase 116 U/L (40-110) H 09/26/19 07:34 CK-MB (CK-2) 2.1 ng/mL (0-6.6) 09/26/19 07:34 Troponin I 0.032 ng/mL (< 0.028) H 09/26/19 07:34 B-Natriuretic Peptide 266.4 pg/mL (0-100) H 09/26/19 07:34 Serum Total Protein 6.7 g/dL (6.0-8.3) 09/26/19 07:34 Albumin 3.7 g/dL (3.4-4.8) 09/26/19 07:34 Urine Ketones Negative mg/dL (Negative) 09/26/19 08:45 Urine Blood Negative (Negative) 09/26/19 08:45 Urine Nitrite Negative (Negative) 09/26/19 08:45 Ur Leukocyte Esterase Negative Annelise/uL (Negative) 09/26/19 08:45 Urine RBC 0-3 HPF (0-3) 09/26/19 08:45 Urine WBC 4-6 HPF (0-3) A 09/26/19 08:45 Ur Squamous Epith Cells 4-6 HPF (0-3) A 09/26/19 08:45 Urine Bacteria 1+ HPF (None Seen) A 09/26/19 08:45 - Radiology Interpretation Chest x-ray Status: image reviewed by [facility] Hospitalist H&P A/P - Problem (1) PRANAV (acute kidney injury) Code(s): N17.9 - ACUTE KIDNEY FAILURE, UNSPECIFIED Status: Acute (2) CHF (congestive heart failure) Code(s): I50.9 - HEART FAILURE, UNSPECIFIED Status: Acute Qualifiers: Heart failure type: unspecified Heart failure chronicity: chronic Qualified Code(s): I50.9 - Heart failure, unspecified (3) Edema extremities Code(s): R60.0 - LOCALIZED EDEMA Status: Acute (4) Inflammatory arthritis Code(s): M19.90 - UNSPECIFIED OSTEOARTHRITIS, UNSPECIFIED SITE Status: Acute (5) Restrictive lung disease Code(s): J98.4 - OTHER DISORDERS OF LUNG Status: Acute (6) Chronic kidney disease (CKD) Code(s): N18.9 - CHRONIC KIDNEY DISEASE, UNSPECIFIED Status: Chronic Qualifiers: Chronic kidney disease stage: stage 4 (severe) Qualified Code(s): N18.4 - Chronic kidney disease, stage 4 (severe) (7) Diastolic dysfunction Code(s): I51.9 - HEART DISEASE, UNSPECIFIED Status: Chronic (8) Hyperlipidemia Code(s): E78.5 - HYPERLIPIDEMIA, UNSPECIFIED Status: Chronic Qualifiers: Hyperlipidemia type: other hyperlipidemia Qualified Code(s): E78.49 - Other hyperlipidemia; E78.4 - Other hyperlipidemia (9) Hypertension Code(s): I10 - ESSENTIAL (PRIMARY) HYPERTENSION Status: Chronic Qualifiers: Hypertension type: essential hypertension Qualified Code(s): I10 - Essential (primary) hypertension (10) Morbid obesity Code(s): E66.01 - MORBID (SEVERE) OBESITY DUE TO EXCESS CALORIES Status: Chronic (11) Type 2 diabetes mellitus Status: Chronic Qualifiers: Diabetes mellitus exterminator helper insulin use: without exterminator helper use Diabetes mellitus complication status: with kidney complications Diabetes mellitus complication detail: with chronic kidney disease Chronic kidney disease stage : stage 4 (severe) Qualified Code(s): E11.22 - Type 2 diabetes mellitus with diabetic chronic kidney disease; N18.4 - Chronic kidney disease, stage 4 (severe ) - Plan Plan: Plan: Admit to medical unit with telemetry nephrology consultation, recommendations appreciated cardiology consultation, recommendations appreciated shortness of breath with hypoxia acute CHF, present on admission volume overload secondary to access water intake in the outpatient setting CKD stage IV, on the verge of needing dialysis with recent AV fistula being placed may require hemodialysis per nephrology supplemental oxygen to maintain O2 saturation greater than 88% cardiomyopathy regimen fluid restrictions echocardiogram patient may benefit from outpatient follow-up with heart failure clinic continue other home medications as able blood pressure control blood sugar control short acting insulin G.I. prophylaxis DVT prophylaxis
[2019-09-26 13:01] LABS: Troponin I 0.036 ng/mL (< 0.028)
[2019-09-26 13:02] VITALS: BMI 54.1
[2019-09-26] MEDS: Heparin 5,000 UNITS/ML VIAL SC SCH ×2 (14:34→20:50)
[2019-09-26] MEDS: hydrALAZINE 25 MG TAB PO SCH ×2 (14:35→20:50)
[2019-09-26] MEDS: Lactinex Tablet PO SCH ×2 (14:35→20:50)
[2019-09-26 15:37] LABS: Troponin I 0.039 ng/mL (< 0.028)
[2019-09-26] MEDS ORDERED: Nitroglycerin 0.4 MG TAB (25 Tab Bottle) SL PRN (16:24)
--- NOTE | 2019-09-26 18:01 | ULT ---
EXAM: Left lower extremity venous ultrasound HISTORY: Left lower extremity pain and edema COMPARISON: None TECHNIQUE: Multiplanar grayscale and color Doppler images were obtained in a left lower extremity anglea ous ultrasound. Spectral analysis of the Doppler waveforms were performed. FINDINGS: The common femoral vein, profunda femoral vein, superficial femoral vein, and popliteal vei n are normal in appearance without visible thrombus. These vessels demonstrate normal compression, flow, and augmentation. The posterior tibial vein and greater saphenous vein are patent without evidence of thrombus. IMPRESSION: No evidence of DVT.
--- NOTE | 2019-09-26 18:01 | CON ---
DATE OF CONSULTATION: HISTORY OF PRESENT ILLNESS: The patient is a 74-year-old woman who presents with increasing dyspnea. The patient has a history of hypertension, diabetes mellitus, and she has chronic renal insufficiency. She recently underwent a cardiac evaluation including an echocardiogram and PET scan. It was felt that she should be treated medically at this time. The patient denies having any chest discomfort. She presented with increasing dyspnea. She recently underwent placement of a hemodialysis catheter. The patient reports also increasing lower extremity swelling. The patient denies having any fevers or chills. PAST MEDICAL HISTORY: 1. Hypertension. 2. Chronic renal failure. 3. Renal insufficiency. 4. Diabetes mellitus. 5. Venous insufficiency. PAST SURGICAL HISTORY: Knee replacement, gastric sleeve surgery, laminectomy. SOCIAL HISTORY: Former smoker. FAMILY HISTORY: ALLERGIES: AMBIEN, LEVAQUIN, SULFA, AND SHELLFISH. MEDICATIONS: See nursing list. PHYSICAL EXAMINATION: GENERAL: This is an obese woman, in no acute distress. VITAL SIGNS: Blood pressure 150/74. NECK: No jugular venous distention. LUNGS: Coarse breath sounds bilateral. HEART: Regular rate and rhythm. Normal S1 and S2 with a 2/6 holosystolic murmur. ABDOMEN: Distended. EXTREMITIES: Moderate edema. LABORATORY RESULTS: Sodium 142, potassium 4.7, chloride 108, bicarbonate 24, BUN 50, and creatinine 3.49. White blood cell count is 7.2, hemoglobin 8.8, hematocrit 28.8, and her platelets are 278. EKG revealed her to have normal sinus rhythm with an incomplete left bundle-branch block. Chest x-ray revealed cardiomegaly with bilateral pulmonary congestion. IMPRESSION: 1. Congestive heart failure secondary to diastolic dysfunction. 2. Hypertension. 3. Diabetes mellitus. 4. Chronic renal insufficiency. 5. Morbid obesity. This patient presents with mild congestive heart failure. From a cardiac standpoint, we will start the patient on Lasix. We will follow this patient with you through her hospitalization. Job ID: [id number] MTDD
[2019-09-26] MEDS: Amlodipine 10 MG TAB PO SCH (20:50)
[2019-09-27 04:56] LABS: Anion Gap 14 mmol/L (10-20); BUN (Urea Nitrogen) 47 mg/dL (9.8-20.1); Calc. Creatinine Clearance 33 mL/min (70-130); Calcium 9.2 mg/dL (7.8-10.44); Carbon Dioxide 25 mmol/L (23-31); Chloride 107 mmol/L (98-107); Estimated GFR-MDRD 14; Glucose 110 mg/dL (83-110); Potassium 4.3 mmol/L (3.5-5.1); Sodium 142 mmol/L (136-145)
[2019-09-27] MEDS: Furosemide 40 MG/4 ML VIAL SLOW IVP SCH ×2 (06:05→15:50)
--- NOTE | 2019-09-27 08:00 | CON ---
DATE OF CONSULTATION: 09/26/2019 CONSULTING PHYSICIAN: Dr. Beck. REASON FOR CONSULTATION: Acute kidney injury on fluid overload. REASON FOR ADMISSION: Fluid overload and shortness of breath. HISTORY OF PRESENT ILLNESS: This is a 74-year-old female with history of hypertension, type 2 diabetes, came to the ER with shortness of breath. She has been evaluated. She has chronic kidney disease stage 4 to 5 and was found to have elevated creatinine. She is on the planning stage for starting on renal replacement therapy and had a fistula placement earlier last week. No fever or chills. She got Lasix at the ER and is feeling better. She reported that she has been drinking more fluid lately. PAST MEDICAL HISTORY: Positive for chronic kidney disease, CHF, hypertension, diabetes, and obesity. PAST SURGICAL HISTORY: Total knee replacement, back surgery. HOME MEDICATIONS: Reviewed. ALLERGIES: SHELLFISH, ZOLPIDEM, AND SULFA. SOCIAL HISTORY: No smoking, alcohol, or illicit drug use. Former smoker. FAMILY HISTORY: No history of kidney disease. REVIEW OF SYSTEMS: CONSTITUTIONAL: Negative for weight loss or gain, ability to conduct usual activities. SKIN: Negative for rash, itching. EYES: Negative for double vision, pain. ENT/MOUTH: Negative for nose bleeding, neck stiffness, pain, tenderness. CARDIOVASCULAR: Negative for palpitations, dyspnea on exertion, orthopnea. RESPIRATORY: Negative for shortness of breath, wheezing, cough, hemoptysis, fever or night sweats. GASTROINTESTINAL: Negative for poor appetite, abdominal pain, heartburn, nausea , vomiting, constipation, or diarrhea. GENITOURINARY: Negative for urgency, frequency, dysuria, nocturia. MUSCULOSKELETAL: Negative for pain, swelling. NEUROLOGIC/PSYCHIATRIC: Negative for anxiety, depression. ALLERGY/IMMUNOLOGIC: Negative for skin rash, bleeding tendency. PHYSICAL EXAMINATION: GENERAL: This is a well-built female, no apparent distress. VITAL SIGNS: reviewed HEENT: Atraumatic, normocephalic. Oral mucosa moist. NECK: Supple. CV: S1 and S2. Regular rate and rhythm. RESPIRATORY: Clear. GI: Abdomen is soft. MUSCULOSKELETAL: 2+ edema DERMATOLOGIC: No skin rash. NEUROLOGIC: Alert and awake. PSYCHIATRIC: Normal mood and affect. LABORATORY DATA: Hemoglobin 8.8. Potassium 4.7, BUN is 50, and creatinine is 3.4. ASSESSMENT AND PLAN: 1. Acute kidney injury on chronic kidney disease stage 4 or stage 5. Agree with Lasix for now and monitor renal function, not getting better, might need dialysis. She had a fistula placed last week, not mature to be used, but might need a tunneled dialysis catheter if Cr continues to worsen nor fluid overload not getting better. 2. Fluid overload. 3. History of hypertension. 4. Chronic anemia. 5. Elevated BNP. 6. Advised to limit fluid intake and Lasix as needed and monitor renal function closely. Avoid nephrotoxins. Thank you for the consult. We will follow. Job ID: [id number] MTDMitch
[2019-09-27] MEDS: DULoxetine 30 MG CAP PO SCH (08:09)
[2019-09-27] MEDS: Isosorbide Mononitrate (ER) 30 MG TAB PO SCH (08:10)
[2019-09-27] MEDS: Atorvastatin Calcium 10 MG TAB PO SCH (08:10)
[2019-09-27] MEDS: Metoprolol Tartrate 25 MG TAB PO SCH (08:10)
[2019-09-27] MEDS: Aspirin 81 mg Enteric Coated Tablet PO SCH (08:10)
[2019-09-27] MEDS: hydrALAZINE 25 MG TAB PO SCH ×3 (08:10→20:30)
[2019-09-27] MEDS: Famotidine 20 MG TAB PO SCH (08:11)
[2019-09-27] MEDS: Loratadine 10 MG TAB PO SCH (08:11)
[2019-09-27] MEDS: Multivit, Therapeutic 1 TAB PO SCH (08:11)
[2019-09-27] MEDS: Heparin 5,000 UNITS/ML VIAL SC SCH ×3 (08:11→20:32)
--- NOTE | 2019-09-27 08:22 | PDOC.HOSPP ---
- Subjective Encounter Date: 09/27/19 Encounter Time: 08:19 Subjective: less sob, reports good response to iv lasix - Objective Vital Signs & Weight: Vital Signs (12 hours) Temp Pulse Resp BP Pulse Ox 09/27/19 07:57 98.3 F 90 22 H 144/88 H 99 09/27/19 03:49 97.6 F 73 17 149/60 H 93 L 09/27/19 00:00 99.1 F 83 18 145/62 H 93 L 09/26/19 22:26 97 09/26/19 20:50 91 09/26/19 20:27 98.5 F 91 18 168/79 H 97 Weight Weight 295 lb 14.4 oz I&O: 09/26/19 09/27/19 09/28/19 06:59 06:59 06:59 Intake Total 480 Output Total 730 Balance -250 Result Diagrams: 09/26/19 07:34 09/27/19 03:58 Additional Labs: Accuchecks 09/27/19 09/26/19 09/26/19 05:28 20:30 17:10 POC Glucose 119 H 156 H 121 H Hospitalist ROS - Medication Medications: Active Medications Generic Name Dose Route Start Last Admin Trade Name Freq PRN Reason Stop Dose Admin Acidophilus 1 tab 09/26/19 15:00 09/26/19 20:50 Floranex PO 1 tab TID ZANA Administration Amlodipine Besylate 10 mg 09/26/19 21:00 09/26/19 20:50 Norvasc PO 10 mg HS ZANA Administration Aspirin 81 mg 09/27/19 09:00 09/27/19 08:10 Ecotrin PO 81 mg DAILY ZANA Administration Atorvastatin Calcium 10 mg 09/27/19 09:00 09/27/19 08:10 Lipitor PO 10 mg DAILY ZANA Administration Duloxetine HCl 60 mg 09/27/19 09:00 09/27/19 08:09 Cymbalta PO 60 mg DAILY ZANA Administration Famotidine 20 mg 09/27/19 09:00 09/27/19 08:11 Pepcid PO 20 mg DAILY ZANA Administration Furosemide 40 mg 09/27/19 06:00 09/27/19 06:05 Lasix SLOW IVP 40 mg 0600,1400 ZANA Administration Heparin Sodium (Porcine) 5,000 units 09/26/19 15:00 09/27/19 08:11 Heparin SC 5,000 units TID ZANA Administration Hydralazine HCl 25 mg 09/26/19 15:00 09/27/19 08:10 Apresoline PO 25 mg TID ZANA Administration Isosorbide Mononitrate 30 mg 09/27/19 09:00 09/27/19 08:10 Imdur Er PO 30 mg DAILY ZANA Administration Loratadine 10 mg 09/27/19 09:00 09/27/19 08:11 Claritin PO 10 mg DAILY ZANA Administration Metoprolol Tartrate 75 mg 09/27/19 09:00 09/27/19 08:10 Lopressor PO 75 mg DAILY ZANA Administration Multivitamins 1 tab 09/27/19 09:00 09/27/19 08:11 Theragran PO 1 tab DAILY ZANA Administration Tramadol HCl 50 mg 09/26/19 09:12 09/26/19 21:03 Ultram PO 50 mg BID PRN Administration Moderate to Severe Pain (6-10) - Exam General Appearance: awake alert Neck: no JVD Heart: RRR, no murmur Respiratory: CTAB Gastrointestinal: soft, normal bowel sounds Extremities: 1+ LE edema Hosp A/P (1) Acute on chronic diastolic (congestive) heart failure Code(s): I50.33 - ACUTE ON CHRONIC DIASTOLIC (CONGESTIVE) HEART FAILURE Status : Acute (2) Acute respiratory failure with hypoxia Code(s): J96.01 - ACUTE RESPIRATORY FAILURE WITH HYPOXIA Status: Acute (3) Acute on chronic renal failure Code(s): N17.9 - ACUTE KIDNEY FAILURE, UNSPECIFIED; N18.9 - CHRONIC KIDNEY DISEASE, UNSPECIFIED Status: Acute Qualifiers: Acute renal failure type: unspecified Chronic kidney disease stage: stage 4 (severe) Qualified Code(s): N17.9 - Acute kidney failure, unspecified; N18.4 - Chronic kidney disease, stage 4 (severe) (4) Hypertension Code(s): I10 - ESSENTIAL (PRIMARY) HYPERTENSION Status: Chronic Qualifiers: Hypertension type: essential hypertension Qualified Code(s): I10 - Essential (primary) hypertension (5) Type 2 diabetes mellitus Status: Chronic Qualifiers: Diabetes mellitus terminal block assembler insulin use: without usp use Diabetes mellitus complication status: with kidney complications Diabetes mellitus complication detail: with chronic kidney disease Chronic kidney disease stage : stage 4 (severe) Qualified Code(s): E11.22 - Type 2 diabetes mellitus with diabetic chronic kidney disease; N18.4 - Chronic kidney disease, stage 4 (severe ) - Plan cont iv diuresis selected home meds accu/ss/etc O2 to keep sat > 90
[2019-09-27] MEDS: Lactinex Tablet PO SCH ×3 (08:23→20:56)
[2019-09-27] MEDS ORDERED: FLU VACC TS2019-20(65YR UP)/PF 180 MCG/0.5 ML SYRINGE IM ONE (09:00)
[2019-09-27] MEDS ORDERED: Gabapentin 400 MG CAP PO SCH (09:45)
--- NOTE | 2019-09-27 11:06 | PRG ---
DATE OF SERVICE: 09/27/2019 SUBJECTIVE: A 74-year-old female being seen for acute kidney injury. The patient denied nausea, vomiting, or chest pain. OBJECTIVE: GENERAL: The patient is awake and alert. VITAL SIGNS: Afebrile, pulse 75, breathing at 16, and blood pressure 144/88. HEENT: Head normocephalic and atraumatic. Eyes intact, no ulcers. Nose intact, no ulcers. Ears intact, no ulcers. NECK: Supple. No JVD. CHEST: Symmetrical and clear. CARDIOVASCULAR: Shows S1 and S2, no rub, no murmur. GASTROINTESTINAL: Abdomen is soft, bowel sounds positive. EXTREMITIES: Show no edema or ulcers. SKIN: Shows no rash or petechiae. MUSCULOSKELETAL: Shows no joint swelling or stiffness. GENITOURINARY: Shows no Sanchez or CVA tenderness. NEUROLOGIC: Motor intact. Cranial nerves intact. LABORATORY DATA: Labs show hemoglobin 8.8. Creatinine 3.2. ASSESSMENT AND PLAN: 1. Chronic kidney disease, stage 5, stable. 2. Hypertension, stable. 3. Anemia, stable. 4. Medications based on glomerular filtration rate are appropriate. Job ID: [id number]
[2019-09-27] MEDS: HumaLOG 300 UNITS/3 ML VIAL SC PRN (11:44)
--- NOTE | 2019-09-27 14:41 | PRG ---
DATE OF SERVICE: 09/27/2019 SUBJECTIVE: Inez Connor has been readmitted for cardiac reasons. Dr. Beck has consulted me to look at her left arm. The patient has been given diuretics. She has not yet started dialysis. Her hemoglobin is 8, white count 7, GFR 14, BUN and creatinine 47 and 3.26, CO2 of 25. She is status post on 09/22/2019 left arm primary fistula, proximal radial artery inflow, outflow, basilic and cephalic veins with cephalic vein calibrated to 4 mm dilator. OBJECTIVE: Evaluation reveals that her left arm functions well. She has good left hand function. She has good rn production strength and full mobility of her hand. She has good capillary refill of her fingers. She has palpable radial pulse. Her surgical wound in proximal volar forearm below the antecubital fossa has a small hematoma. There are postoperative changes. There was good thrill and bruit in the fistula. ASSESSMENT AND PLAN: Normal findings. Reassured the patient hematoma will resolve with time. No indication of infection. No indication of any postsurgical problems. Hematoma will resolve and is very typical. Would recommend that she return to see me in the office in 3 to 4 weeks. If dialysis is necessary at this hospitalization, please call and hemodialysis catheter will be placed. She has right antecubital IV in place which should be removed. Antecubital IV should not be placed in CKD patients. Job ID: [id number]
--- NOTE | 2019-09-27 17:04 | PDOC.CPN ---
- Subjective Date: 09/27/19 Time: 17:02 Interval history: She is feeling better. She has diuresed and breathing is better but not quite back to baseline. - Review of Systems General: denies: fever/chills, weight/appetite/sleep changes, night sweats, fatigue Respiratory: reports: shortness of breath, exercise intolerance. denies: cough , congestion Cardiovascular: denies: chest pain, palpitation, edema, paroxysmal nocturnal dyspnea, orthopnea Gastrointestinal: denies: nausea, vomiting, diarrhea, constipation, abd pain, GI bleeding Musculoskeletal: denies: pain, tenderness, stiffness, swelling, arthritis/ arthralgias Neurological: denies: numbness, syncope, seizure, weakness - Objective Allergies/Adverse Reactions: Allergies Allergy/AdvReac Type Severity Reaction Status Date / Time shellfish derived Allergy TONGUE Verified 09/27/19 02:20 SWELLING Sulfa (Sulfonamide Allergy Verified 09/27/19 02:20 Antibiotics) zolpidem tartrate Allergy SEVERE Verified 09/27/19 02:20 [From Eliu] ANXIETY "GO BONKERS" Visit Medications: Current Medications Acidophilus (Floranex) 1 tab PO TID [facility] Last Admin: 09/27/19 15:50 Dose: 1 tab Amlodipine Besylate (Norvasc) 10 mg PO HS [facility] Last Admin: 09/26/19 20:50 Dose: 10 mg Aspirin (Ecotrin) 81 mg PO DAILY [facility] Last Admin: 09/27/19 08:10 Dose: 81 mg Atorvastatin Calcium (Lipitor) 10 mg PO DAILY [facility] Last Admin: 09/27/19 08:10 Dose: 10 mg Calcium Carbonate (Tums) 1,000 mg PO Q4H PRN PRN Reason: Heartburn or Indigestion Cholecalciferol (Vitamin D3) 10,000 units PO Fr [facility] Dextrose/Water (Dextrose 50%) 25 gm SLOW IVP PRN PRN PRN Reason: Hypoglycemia Duloxetine HCl (Cymbalta) 60 mg PO DAILY [facility] Last Admin: 09/27/19 08:09 Dose: 60 mg Famotidine (Pepcid) 20 mg PO DAILY [facility] Last Admin: 09/27/19 08:11 Dose: 20 mg Furosemide (Lasix) 40 mg SLOW IVP 0600,1400 [facility] Last Admin: 09/27/19 15:50 Dose: 40 mg Gabapentin (Neurontin) 1,200 mg PO BID [facility] Glucagon (Glucagon) 1 mg IM PRN PRN PRN Reason: Hypoglycemia Heparin Sodium (Porcine) (Heparin) 5,000 units SC TID [facility] Last Admin: 09/27/19 15:51 Dose: 5,000 units Hydralazine HCl (Apresoline) 25 mg PO TID [facility] Last Admin: 09/27/19 15:50 Dose: 25 mg Dextrose/Water (D5w) 1,000 mls @ 0 mls/hr IV .Q0M PRN PRN Reason: Hypoglycemia Insulin Human Lispro (Humalog) 0 units SC .MILD SLIDING SCALE PRN PRN Reason: Mild Correctional Scale Last Admin: 09/27/19 11:44 Dose: 3 units Insulin Human Lispro (Humalog) 0 units SC .BEDTIME SLIDING SC PRN PRN Reason: Bedtime Correctional Scale Isosorbide Mononitrate (Imdur Er) 30 mg PO DAILY [facility] Last Admin: 09/27/19 08:10 Dose: 30 mg Loperamide HCl (Imodium) 2 mg PO PRN PRN PRN Reason: Diarrhea/Loose Stools Loratadine (Claritin) 10 mg PO DAILY [facility] Last Admin: 09/27/19 08:11 Dose: 10 mg Lorazepam (Ativan) 0.5 mg PO Q4H PRN PRN Reason: Anxiety Metoprolol Tartrate (Lopressor) 75 mg PO DAILY [facility] Last Admin: 09/27/19 08:10 Dose: 75 mg Multivitamins (Theragran) 1 tab PO DAILY [facility] Last Admin: 09/27/19 08:11 Dose: 1 tab Nitroglycerin (Nitrostat) 0.4 mg SL Q5MIN PRN PRN Reason: Chest Pain Ondansetron HCl (Zofran) 4 mg IVP Q6H PRN PRN Reason: Nausea/Vomiting Sodium Chloride (Flush - Normal Saline) 10 ml IVF Q12HR [facility] Sodium Chloride (Flush - Normal Saline) 10 ml IVF PRN PRN PRN Reason: Saline Flush Tramadol HCl (Ultram) 50 mg PO BID PRN PRN Reason: Moderate to Severe Pain (6-10) Last Admin: 09/26/19 21:03 Dose: 50 mg Vital Signs & Weight: Vital Signs Temp Pulse Resp BP Pulse Ox Pulse Ox Pulse Ox 09/27/19 16:58 98.5 F 91 23 H 152/82 H 94 L 09/27/19 11:33 98.8 F 86 19 134/74 97 09/27/19 09:40 96 94 L 09/27/19 07:57 98.3 F 90 22 H 144/88 H 99 Admit Weight 295 lb 14.4 oz Weight 295 lb 14.4 oz - Physical Exam General: alert & oriented x3 HEENT: mucus membranes moist Neck: supple neck Cardiac: regular rate and rhythm Lungs: bibasilar rales Neuro: grossly intact Abdomen: active bowel sounds Extremities: 1+ LE edema Skin: clear Musculoskeletal: no pain - Labs Result Diagrams: 09/26/19 07:34 09/27/19 03:58 Troponin/CKMB CK-MB (CK-2) 2.1 ng/mL (0-6.6) 09/26/19 07:34 Troponin I 0.039 ng/mL (< 0.028) H 09/26/19 15:02 - Telemetry Sinus rhythms and dysrhythmias: sinus rhythm - Assessment/Plan Assessment/Plan: 1. Acute on chronic systolic CHF. 2. CKD stage 5 3. Ischemic CM EF at 45% on recent echo. PLAN: - Continue IV lasix. - Fistula already in place for HD but needs to mature. - Will follow.
[2019-09-27] MEDS: Lorazepam 0.5 MG TAB PO PRN ×2 (17:07→20:32)
[2019-09-27] MEDS: Gabapentin 400 MG CAP PO SCH (20:31)
[2019-09-27] MEDS: Amlodipine 10 MG TAB PO SCH (20:32)
--- NOTE | 2019-09-27 21:48 | EKG ---
Test Reason : Blood Pressure : / mmHG Vent. Rate : 077 BPM Atrial Rate : 077 BPM P-R Int : 128 ms QRS Dur : 100 ms QT Int : 378 ms P-R-T Axes : 027 028 053 degrees QTc Int : 427 ms Normal sinus rhythm Normal ECG When compared with ECG of 26-SEP-2019 07:50, (Unconfirmed) Fusion complexes are no longer Present Premature ventricular complexes are no longer Present ST no longer elevated in Anterior leads Confirmed by NABILA STACY, DR. Shields ([id number]) on 09/27/2019 9:48:23 PM Referred By: ZOIE Confirmed By:DR. Cornelius DAHL MD
[2019-09-28] MEDS: Furosemide 40 MG/4 ML VIAL SLOW IVP SCH ×2 (05:27→13:34)
[2019-09-28] MEDS: Gabapentin 400 MG CAP PO SCH (08:08)
[2019-09-28] MEDS: hydrALAZINE 25 MG TAB PO SCH ×2 (08:08→16:37)
[2019-09-28] MEDS: Metoprolol Tartrate 25 MG TAB PO SCH (08:09)
[2019-09-28] MEDS: DULoxetine 30 MG CAP PO SCH (08:09)
[2019-09-28] MEDS: Loratadine 10 MG TAB PO SCH (08:09)
[2019-09-28] MEDS: Aspirin 81 mg Enteric Coated Tablet PO SCH (08:09)
[2019-09-28] MEDS: Lactinex Tablet PO SCH ×2 (08:10→17:02)
[2019-09-28] MEDS: Isosorbide Mononitrate (ER) 30 MG TAB PO SCH (08:10)
[2019-09-28] MEDS: Atorvastatin Calcium 10 MG TAB PO SCH (08:10)
[2019-09-28] MEDS: Multivit, Therapeutic 1 TAB PO SCH (08:10)
[2019-09-28] MEDS: Famotidine 20 MG TAB PO SCH (08:10)
[2019-09-28] MEDS: Heparin 5,000 UNITS/ML VIAL SC SCH ×2 (08:12→16:36)
[2019-09-28 09:06] LABS: Anion Gap 16 mmol/L (10-20); BUN (Urea Nitrogen) 42 mg/dL (9.8-20.1); Calc. Creatinine Clearance 32 mL/min (70-130); Calcium 10.1 mg/dL (7.8-10.44); Carbon Dioxide 28 mmol/L (23-31); Chloride 101 mmol/L (98-107); Estimated GFR-MDRD 14; Glucose 146 mg/dL (83-110); Potassium 4.1 mmol/L (3.5-5.1); Sodium 141 mmol/L (136-145)
[2019-09-28 09:11] LABS: Band 5 % (5-11); Eosinophils 2 % (0-10); Hemoglobin 9.4 g/dL (12.0-16.0); Lymphocytes 31 % (21-51); MDiff Complete? YES; Mean Corpuscular HGB CONC 33.4 g/dL (32.0-36.0); Mean Corpuscular Hemoglobin 28.6 pg (27.0-31.0); Mean Corpuscular Volume 85.7 fL (78.0-98.0); Mean Platelet Volume 6.7 fL (7.4-10.4); Metamyelocyte 1 % (0-0); Monocytes 18 % (0-10); Neutrophil 43 % (42-75); Platelet Count 224 thou/uL (130-400); Platelet Morphology Comment Appears Adequate; Polychromasia SLIGHT = 2-3 cells (100X) (0-2/hpf); RBC Distribution Width 13.8 % (11.5-14.5); Red Blood Cell (RBC) Count 3.28 mill/uL (4.20-5.40); White Blood Cell (WBC) Count 5.4 thou/uL (4.8-10.8)
--- NOTE | 2019-09-28 10:24 | PRG ---
DATE OF SERVICE: 09/28/2019 SUBJECTIVE: This is a 74-year-old female being seen for acute kidney injury. The patient denies any nausea, vomiting, or chest pain. OBJECTIVE: GENERAL: The patient is awake and alert. VITAL SIGNS: Afebrile, pulse 78, breathing at 16, and blood pressure 135/58. HEENT: Head normocephalic and atraumatic. Eyes intact, no ulcers. Nose intact, no ulcers. Ears intact, no ulcers. NECK: Supple. No JVD. CHEST: Symmetrical and clear. CARDIOVASCULAR: Shows S1 and S2, no rub, no murmur. GASTROINTESTINAL: Abdomen is soft, bowel sounds positive. EXTREMITIES: Show no edema or ulcers. SKIN: Shows no rash or petechiae. MUSCULOSKELETAL: Shows no joint swelling or stiffness. GENITOURINARY: Shows no Sanchez or CVA tenderness. NEUROLOGIC: Motor intact. Cranial nerves intact. LABORATORY DATA: Labs show hemoglobin 9.4. ASSESSMENT AND PLAN: 1. Stage 5 chronic kidney disease, stable. 2. Hypertension, stable. 3. Anemia, stable. No indication for dialysis. The patient will follow up as an outpatient. Job ID: [id number]
--- NOTE | 2019-09-28 12:23 | PDOC.CPN ---
- Subjective Date: 09/28/19 Time: 12:23 Interval history: She is doing much better, Breathing back to baseline. - Review of Systems General: denies: fever/chills, weight/appetite/sleep changes, night sweats, fatigue Respiratory: denies: cough, congestion, shortness of breath, exercise intolerance Cardiovascular: denies: chest pain, palpitation, edema, paroxysmal nocturnal dyspnea, orthopnea Gastrointestinal: denies: nausea, vomiting, diarrhea, constipation, abd pain, GI bleeding Musculoskeletal: denies: pain, tenderness, stiffness, swelling, arthritis/ arthralgias Neurological: denies: numbness, syncope, seizure, weakness - Objective Allergies/Adverse Reactions: Allergies Allergy/AdvReac Type Severity Reaction Status Date / Time shellfish derived Allergy TONGUE Verified 09/27/19 02:20 SWELLING Sulfa (Sulfonamide Allergy Verified 09/27/19 02:20 Antibiotics) zolpidem tartrate Allergy SEVERE Verified 09/27/19 02:20 [From Eliu] ANXIETY "GO BONKERS" Visit Medications: Current Medications Acidophilus (Floranex) 1 tab PO TID [facility] Last Admin: 09/28/19 08:10 Dose: 1 tab Amlodipine Besylate (Norvasc) 10 mg PO HS [facility] Last Admin: 09/27/19 20:32 Dose: 10 mg Aspirin (Ecotrin) 81 mg PO DAILY [facility] Last Admin: 09/28/19 08:09 Dose: 81 mg Atorvastatin Calcium (Lipitor) 10 mg PO DAILY [facility] Last Admin: 09/28/19 08:10 Dose: 10 mg Calcium Carbonate (Tums) 1,000 mg PO Q4H PRN PRN Reason: Heartburn or Indigestion Cholecalciferol (Vitamin D3) 10,000 units PO Fr [facility] Dextrose/Water (Dextrose 50%) 25 gm SLOW IVP PRN PRN PRN Reason: Hypoglycemia Duloxetine HCl (Cymbalta) 60 mg PO DAILY [facility] Last Admin: 09/28/19 08:09 Dose: 60 mg Famotidine (Pepcid) 20 mg PO DAILY [facility] Last Admin: 09/28/19 08:10 Dose: 20 mg Furosemide (Lasix) 40 mg SLOW IVP 0600,1400 [facility] Last Admin: 09/28/19 05:27 Dose: 40 mg Gabapentin (Neurontin) 1,200 mg PO BID [facility] Last Admin: 09/28/19 08:08 Dose: 1,200 mg Glucagon (Glucagon) 1 mg IM PRN PRN PRN Reason: Hypoglycemia Heparin Sodium (Porcine) (Heparin) 5,000 units SC TID [facility] Last Admin: 09/28/19 08:12 Dose: 5,000 units Hydralazine HCl (Apresoline) 25 mg PO TID [facility] Last Admin: 09/28/19 08:08 Dose: 25 mg Dextrose/Water (D5w) 1,000 mls @ 0 mls/hr IV .Q0M PRN PRN Reason: Hypoglycemia Insulin Human Lispro (Humalog) 0 units SC .MILD SLIDING SCALE PRN PRN Reason: Mild Correctional Scale Last Admin: 09/27/19 11:44 Dose: 3 units Insulin Human Lispro (Humalog) 0 units SC .BEDTIME SLIDING SC PRN PRN Reason: Bedtime Correctional Scale Last Admin: 09/27/19 20:34 Dose: 5 unit Isosorbide Mononitrate (Imdur Er) 30 mg PO DAILY [facility] Last Admin: 09/28/19 08:10 Dose: 30 mg Loperamide HCl (Imodium) 2 mg PO PRN PRN PRN Reason: Diarrhea/Loose Stools Loratadine (Claritin) 10 mg PO DAILY [facility] Last Admin: 09/28/19 08:09 Dose: 10 mg Lorazepam (Ativan) 0.5 mg PO Q4H PRN PRN Reason: Anxiety Last Admin: 09/27/19 20:32 Dose: 0.5 mg Metoprolol Tartrate (Lopressor) 75 mg PO DAILY [facility] Last Admin: 09/28/19 08:09 Dose: 75 mg Multivitamins (Theragran) 1 tab PO DAILY [facility] Last Admin: 09/28/19 08:10 Dose: 1 tab Nitroglycerin (Nitrostat) 0.4 mg SL Q5MIN PRN PRN Reason: Chest Pain Ondansetron HCl (Zofran) 4 mg IVP Q6H PRN PRN Reason: Nausea/Vomiting Sodium Chloride (Flush - Normal Saline) 10 ml IVF Q12HR [facility] Last Admin: 09/28/19 08:17 Dose: 10 ml Sodium Chloride (Flush - Normal Saline) 10 ml IVF PRN PRN PRN Reason: Saline Flush Tramadol HCl (Ultram) 50 mg PO BID PRN PRN Reason: Moderate to Severe Pain (6-10) Last Admin: 09/26/19 21:03 Dose: 50 mg Vital Signs & Weight: Vital Signs Temp Pulse Resp BP BP BP Pulse Ox 09/28/19 11:55 98.0 F 69 20 148/70 H 93 L 09/28/19 07:04 99.0 F 78 18 156/86 H 94 L 09/28/19 03:46 98.3 F 83 18 135/58 L 95 Admit Weight 295 lb 14.4 oz Weight 292 lb 6.4 oz - Physical Exam General: alert & oriented x3 HEENT: mucus membranes moist Neck: supple neck Cardiac: regular rate and rhythm Lungs: normal breath sounds Neuro: grossly intact Abdomen: active bowel sounds Extremities: no edema Skin: clear Musculoskeletal: no pain - Labs Result Diagrams: 09/28/19 08:43 09/28/19 08:43 Troponin/CKMB CK-MB (CK-2) 2.1 ng/mL (0-6.6) 09/26/19 07:34 Troponin I 0.039 ng/mL (< 0.028) H 09/26/19 15:02 - Telemetry Sinus rhythms and dysrhythmias: sinus rhythm - Assessment/Plan Assessment/Plan: 1. Acute on chronic systolic CHF. 2. CKD stage 5 3. Ischemic CM EF at 45% on recent echo. PLAN: - Stable for discharge. - Lasix increase to 40 mg PO BID from home dose of 20 bid. - Fistula already in place for HD but needs to mature. - Follow up in the office in 4 weeks.
[2019-09-28] MEDS: HumaLOG 300 UNITS/3 ML VIAL SC PRN (13:34)
[2019-09-28 17:10] VITALS: BP 142/70; TEMP 98.6
[2019-09-29] MEDS ORDERED: Furosemide 40 MG TAB PO SCH (09:00)
--- NOTE | 2019-09-29 14:55 | DIS ---
DATE OF ADMISSION: 09/26/2019 DATE OF DISCHARGE: 09/28/2019 DISCHARGE DIAGNOSES: 1. Acute hypoxic respiratory failure. 2. Acute on chronic systolic heart failure. 3. Acute kidney injury on chronic stage 5 kidney disease. 4. Volume overload with edema secondary to heart failure. 5. Ischemic cardiomyopathy with an ejection fraction of 45%. 6. History of restrictive lung disease. 7. History of inflammatory arthritis. 8. Hyperlipidemia. 9. Hypertension. 10. Morbid obesity. 11. Type 2 diabetes mellitus. 12. Morbid obesity with a body mass index of 53.5. HISTORY OF PRESENT ILLNESS: This patient is a 74-year-old female with a history of a prior echocardiogram revealing evidence of ischemic cardiomyopathy with an ejection fraction of 45%, who presented to the hospital reporting increasing shortness of breath. She was noted to be hypoxic requiring some supplemental nasal cannula oxygen and she had significant peripheral edema. The patient also had a history of chronic stage 5 kidney disease for which she had a fistula placed; however, it had not reached maturity at the time of the admission. HOSPITAL COURSE: The patient was admitted to the hospital, started on diuresis for her volume overload and shortness of breath. She was seen in consultation by Nephrology and Cardiology. Initially, it was thought she had some diastolic dysfunction; however, it was ultimately found that she had a recent echocardiogram revealing the ischemic cardiomyopathy with an EF of 45%, and therefore, was consistent with acute on chronic systolic congestive heart failure. Over the next couple of days, the patient improved significantly with diuresis, her edema improved, her shortness of breath resolved and she was able to come off the oxygen. She was seen in consultation by General Surgery because of some hematoma at her fistula placement site; however, it was felt to be normal postoperative findings. Once the patient was able to come off the oxygen and breathe comfortably, her kidney function was stable, she was felt to be stable for discharge to home. PHYSICAL EXAMINATION: VITAL SIGNS: On the day of discharge, temperature is 98.6, pulse 78, respirations 17, O2 saturation 95% on room air, BP 142/70. GENERAL: She was awake and alert. HEART: Regular rate and rhythm. No murmurs. LUNGS: Clear bilaterally with no wheezes or rales. ABDOMEN: Obese, soft, nontender, and nondistended. EXTREMITIES: The fistula site appeared healthy. She had trace peripheral edema. DISPOSITION: The patient is discharged to home in stable condition. ACTIVITY: As tolerated. DIET: She will remain on a renal diet. MEDICATIONS: Include, 1. Centrum Silver 1 p.o. daily. 2. Zyrtec 10 mg p.o. daily. 3. Cymbalta 60 mg daily. 4. Amlodipine 10 mg daily. 5. Vitamin D3 10,000 units as directed. 6. Prednisone at her baseline dosing. 7. Tramadol 50 mg one p.o. b.i.d. 8. Leflunomide 20 mg daily. 9. Glimepiride 1 mg every morning. 10. Metoprolol 75 mg b.i.d. 11. Hydralazine 25 mg b.i.d. 12. Lactinex 1 p.o. t.i.d. 13. Atorvastatin 10 mg daily. 14. Aspirin 81 mg daily. 15. Losartan 100 mg at bedtime. 16. Isosorbide 10 mg b.i.d. 17. Metolazone 5 mg daily. 18. Loperamide 2 mg p.r.n. 19. Lasix 20 mg b.i.d. 20. Gabapentin 1200 mg b.i.d. FOLLOWUP: She is to follow up with Cardiac Rehab. She will have follow up with Dr. Jewell in 3 to 4 weeks, Dr. Dudley on 01/12/2020, and Dr. Peter Oakley on 10/04/2019. She can return to the hospital at any time she has the need to do so. TIME SPENT: In discharge activities was greater than 30 minutes. Job ID: [id number]
--- NOTE | 2019-09-30 14:52 | EKG ---
Test Reason : Blood Pressure : / mmHG Vent. Rate : 082 BPM Atrial Rate : 082 BPM P-R Int : 134 ms QRS Dur : 118 ms QT Int : 378 ms P-R-T Axes : 056 033 006 degrees QTc Int : 441 ms Sinus rhythm with Premature ventricular complexes or Fusion complexes Incomplete left bundle branch block Borderline ECG Confirmed by CHRIS STACY, CECY ([id number]), editor book MELVIN CORONA ([id number]) on 09/30/2019 2:51:51 PM Referred By: Confirmed By:CECY PEREZ MD
== END 2019-09-28 17:03 | disposition home or self-care (01) | DRG 291 ==
LOC: ERS 07:17 → 2NO 09:18
PROVIDERS: ADMIT Internal Medicine; ATTEND Internal Medicine
DX: I13.2 Hypertensive heart and chronic kidney disease with heart failure and with stage 5 chronic kidney disease, or end stage renal disease (principal); J96.01 Acute respiratory failure with hypoxia; I50.23 Acute on chronic systolic (congestive) heart failure; N17.9 Acute kidney failure, unspecified; Z68.43 Body mass index [BMI] 50.0-59.9, adult; L76.32 Postprocedural hematoma of skin and subcutaneous tissue following other procedure; N18.5 Chronic kidney disease, stage 5; F43.10 Post-traumatic stress disorder, unspecified; E11.22 Type 2 diabetes mellitus with diabetic chronic kidney disease; M06.9 Rheumatoid arthritis, unspecified; E78.5 Hyperlipidemia, unspecified; I25.10 Atherosclerotic heart disease of native coronary artery without angina pectoris; J98.4 Other disorders of lung; E66.01 Morbid (severe) obesity due to excess calories; D63.1 Anemia in chronic kidney disease; Y83.8 Other surgical procedures as the cause of abnormal reaction of the patient, or of later complication, without mention of misadventure at the time of the procedure; I25.5 Ischemic cardiomyopathy; Z96.653 Presence of artificial knee joint, bilateral; Z87.891 Personal history of nicotine dependence; Z91.013 Allergy to seafood; Z98.84 Bariatric surgery status; Z90.710 Acquired absence of both cervix and uterus; Z88.1 Allergy status to other antibiotic agents; Z88.2 Allergy status to sulfonamides; Z88.8 Allergy status to other drugs, medicaments and biological substances
CPT/HCPCS: 36415; 36416; 71045; 80048; 80053; 81003; 81015; 82553; 83605; 83880; 84484; 85025; 87040; 90471; 90662; 93005; 93010; 93798; 94760; 96374; 99214; G0008; G0463; J1644; J1940

== ENCOUNTER 2019-11-08 06:52 | Outpatient (CLI) | payer MEDICARE, BC, OTHER ==
[2019-11-08 09:58] LABS: Hemoglobin 8.4 g/dL (12.0-16.0); Mean Corpuscular HGB CONC 32.6 g/dL (32.0-36.0); Mean Corpuscular Hemoglobin 28.1 pg (27.0-31.0); Mean Platelet Volume 6.9 fL (7.4-10.4); Platelet Count 228 thou/uL (130-400); RBC Distribution Width 13.7 % (11.5-14.5); Red Blood Cell (RBC) Count 2.98 mill/uL (4.20-5.40); White Blood Cell (WBC) Count 5.4 thou/uL (4.8-10.8)
[2019-11-08 10:12] LABS: Anion Gap 14 mmol/L (10-20); BUN (Urea Nitrogen) 56 mg/dL (9.8-20.1); Calc. Creatinine Clearance 0 mL/min (70-130); Calcium 10.4 mg/dL (7.8-10.44); Carbon Dioxide 24 mmol/L (23-31); Chloride 106 mmol/L (98-107); Estimated GFR-MDRD 12; Glucose 135 mg/dL (83-110); Potassium 4.4 mmol/L (3.5-5.1); Sodium 140 mmol/L (136-145)
[2019-11-08 18:44] LABS: SARS-CoV-2 MS2 Positive; SARS-CoV-2 N Gene Negative; SARS-CoV-2 S Gene Negative; SARS-CoV-2 orf1ab Negative
== END 2019-11-08 06:53 | disposition home or self-care (01) ==
LOC: LABBT 06:52
PROVIDERS: ATTEND Otolaryngology Plastic Surgery within the Head & Neck
DX: Z01.818 Encounter for other preprocedural examination (principal); Z11.59 Encounter for screening for other viral diseases; R22.1 Localized swelling, mass and lump, neck; K21.9 Gastro-esophageal reflux disease without esophagitis
CPT/HCPCS: 80048; 85027; 93005; U0002; 87635; 93010; U0003

== ENCOUNTER 2019-11-10 06:06 | Day surgery (SDC) | payer MEDICARE, BC ==
[2019-11-08 08:36] VITALS: BMI 52.1
[2019-11-10] MEDS ORDERED: Lidocaine 1% w/Epinephrine 1:100K 20 ML VIAL ONE (06:36)
[2019-11-10] MEDS ORDERED: Bacitracin Zinc Ointment 30 gm TUBE ONE (06:37)
[2019-11-10] MEDS ORDERED: Fentanyl 100 MCG/2 ML VIAL ONE ×2 (07:14→09:42)
[2019-11-10] MEDS ORDERED: EPHEDRINE 25 MG/5 ML SYRINGE ONE (09:37)
[2019-11-10] MEDS ORDERED: Rocuronium Bromide 10 MG/ML (10ML VIAL) ONE (09:37)
[2019-11-10] MEDS ORDERED: PROPOFOL 200 MG/20 ML VIAL ONE (09:37)
[2019-11-10] MEDS ORDERED: Ondansetron PF 4 MG/2 ML Vial ONE (09:37)
[2019-11-10] MEDS ORDERED: HYDROcodone/Acetaminophen 5/325 mg Tablet ONE (10:59)
--- NOTE | 2019-11-12 08:36 | OP ---
DATE OF PROCEDURE: 11/10/2019 PREOPERATIVE DIAGNOSIS: Large left neck mass in level five of the neck pushing into level four. POSTOPERATIVE DIAGNOSIS: Large left neck mass in level five of the neck pushing into level four. PROCEDURES PERFORMED: Surgical excision of deep space neck, large neck mass roughly 6 cm in diameter. PERMIT: Procedures, benefits, and risks including those of bleeding, infection, injury, anesthesia, allergic reaction, damage to blood vessels and nerves necessitating revision or repair or permanent morbidity and alternatives were reviewed with the patient and family, who expressed understanding of the information. A consent form was signed and witnessed, and a paper copy of the consent form was available for review in the paper chart. INDICATIONS: A 74-year-old female patient presenting to clinic with left neck discomfort and large left neck mass that is palpable on exam in level five pressing forward into level four of the neck with radiographic imaging on noncontrast CT showing a large neck mass that is concerning for a neoplastic process. Previous fine-needle aspiration showed lymphoid cells, however were not diagnostic, and Pathology recommended surgical excision of the neck mass in order to confirm a diagnosis and assign a treatment plan. ASSISTANTS: None. FINDINGS: Large left neck mass deep to the sternocleidomastoid muscle and the omohyoid muscle that was abutting the external jugular vein and the carotid artery. DESCRIPTION OF PROCEDURE: The patient was brought back to the operating room and laid supine on the operating room table. After the patient was positioned and padded and general endotracheal anesthesia was administered, the left neck was palpated and an area over the left neck mass was marked in a natural skin crease parallel and inferior to another neck skin crease and was marked, and the area was injected with 1% lidocaine with 1:1000 epinephrine, roughly 8 mL and then the patient was prepped and draped in a sterile fashion. After sterile field was achieved, the left neck markings were incised with a 15 blade scalpel down through the epidermis and dermis to the subcutaneous tissue. Next, Bovie cautery was used to incise the subcutaneous tissue down to the platysma muscle and the platysma muscle was then subsequently divided with electrocautery. After the platysma muscle was divided, blunt dissection was used to identify the sternocleidomastoid and free the sternocleidomastoid edge from the posterior attaching fascia and again, blunt dissection was used to identify the omohyoid muscle at which point, Gelpi retractors were used on either side of the incision to open the wound and then [place] retractors were used to retract the sternocleidomastoid anteriorly and an [place] retractor was used to retract omohyoid in a posterior superior direction. Next, the mass was palpated and noted to be a large irregularly shaped mass which extended deep in the neck space. Gentle extracapsular dissection was used to preserve all surrounding tissue and all surrounding structures including nerves and vessels. Blunt dissection was used to remove a large portion of the neck mass, which was attached via a small isthmus, which was sent for permanent pathology. Next, a larger neck mass which was attached to the previous neck mass via small isthmus was then bluntly dissected using finger dissection as well as curved gently, and bipolar electrocautery was used. The external jugular vein was noted to be just inferior and deep to the mass and was followed and the mass from the external jugular, careful to preserve this blood vessel. Dissection continued deep until the carotid was seen through some connective tissue and palpated, and the mass was gently freed from the surrounding tissue. However, was not attached to the carotid artery and had no blood vessels directly from the carotid artery. There was a small artery that was going towards the mass that was divided and then hemostasis was achieved with two small clips on the artery and then also a 3-0 silk suture tie was used. After this mass was removed, the masses together were larger than 6 cm in diameter. The wound bed was then copiously irrigated and then small venous bleeding was then controlled with bipolar cautery at which point, there was more irrigation and then two Valsalva procedures were performed after the irrigation and suction was completed in order to confirm hemostasis. Next, Absorbable Surgicel gauze was then used to line the wound bed and then a suction drain was then placed beneath the sternocleidomastoid and omohyoid muscle, at which point the platysma muscle and subcutaneous deep buried suture was used to close the wound with a 3-0 Vicryl interrupted suture and then a 4-0 Prolene continuous running suture was used to close the superficial layer. Suction bulb was tested and was holding suction. The patient was turned over to Anesthesia for emergence. After the patient completely emerged from anesthesia and was transferred to the bed again, another examination of the left neck was performed to make sure that any coughing or any straining after anesthesia did not cause any bleeding in the left neck. There was no blood yet filling the bulb, but good suction was held. The neck was flat and the patient was breathing comfortably. The patient was transferred to the post anesthesia care unit and the family was contacted. A followup made for clinic as well as teaching from the nurses on wound care and the suction drainage bulb. There were no complications. A drain was placed and the left neck mass was sent fresh for lymphoma as well as for permanent pathology. Job ID: [id number] [facility]
== END 2019-11-10 11:45 | disposition home or self-care (01) ==
LOC: SDC 06:06
PROVIDERS: ATTEND Student in an Organized Health Care Education/Training Program
PROC: 0KB30ZZ Excision of Left Neck Muscle, Open Approach (ICD-10-PCS; principal; 2019-11-10)
DX: C83.31 Diffuse large B-cell lymphoma, lymph nodes of head, face, and neck (principal); I10 Essential (primary) hypertension; E11.9 Type 2 diabetes mellitus without complications; E78.5 Hyperlipidemia, unspecified; K21.9 Gastro-esophageal reflux disease without esophagitis; Z79.84 Long term (current) use of oral hypoglycemic drugs; Z79.899 Other long term (current) drug therapy; Z87.891 Personal history of nicotine dependence; Z88.2 Allergy status to sulfonamides; Z88.8 Allergy status to other drugs, medicaments and biological substances; Z91.013 Allergy to seafood
CPT/HCPCS: 88184; 88307; 88341; 88342; 88360; 88365; J0690; J2405; J2704; J3010

== ENCOUNTER 2019-11-19 14:27 | Emergency (ER) | payer MEDICARE, BC ==
[2019-11-19 15:34] LABS: #Eosinphils 0.2 thou/uL (0.0-0.7); #Lymphocytes 1.1 thou/uL (1.20-3.40); #Monocytes 0.8 thou/uL (0.11-0.59); #Neutrophils 3.6 thou/uL (1.40-6.50); %Basophils 0.5 % (0.0-1.0); %Eosinophils 3.6 % (0.0-10.0); %Lymphocytes 19.1 % (21.0-51.0); %Monocytes 14.2 % (0.0-10.0); %Neutrophils 62.5 % (42.0-75.0); Hemoglobin 7.8 g/dL (12.0-16.0); Mean Corpuscular HGB CONC 31.8 g/dL (32.0-36.0); Mean Corpuscular Hemoglobin 27.9 pg (27.0-31.0); Mean Corpuscular Volume 87.5 fL (78.0-98.0); Mean Platelet Volume 6.5 fL (7.4-10.4); Platelet Count 260 thou/uL (130-400); RBC Distribution Width 13.3 % (11.5-14.5); Red Blood Cell (RBC) Count 2.78 mill/uL (4.20-5.40); White Blood Cell (WBC) Count 5.8 thou/uL (4.8-10.8)
[2019-11-19 15:54] LABS: ALT (SGPT) Less than 7 U/L (8-55); AST (SGOT) 12 U/L (5-34); Albumin 3.6 g/dL (3.4-4.8); Alkaline Phosphatase 86 U/L (40-110); Anion Gap 16 mmol/L (10-20); BUN (Urea Nitrogen) 69 mg/dL (9.8-20.1); Bilirubin, Total 0.2 mg/dL (0.2-1.2); Calc. Creatinine Clearance 0 mL/min (70-130); Carbon Dioxide 26 mmol/L (23-31); Chloride 103 mmol/L (98-107); Estimated GFR-MDRD 11; Globulin 2.9 g/dL (2.4-3.5); Glucose 102 mg/dL (83-110); Potassium 4.7 mmol/L (3.5-5.1); Protein, Total 6.5 g/dL (6.0-8.3); Sodium 140 mmol/L (136-145)
[2019-11-19 17:45] LABS: Reticulocyte Count 2.1 % (0.5-1.5)
[2019-11-19 18:16] LABS: Iron Binding Capacity, Total 300 mcg/dL (265-497)
[2019-11-19 18:17] LABS: Iron 29 ug/dL (50-170)
== END 2019-11-19 16:40 | disposition home or self-care (01) ==
LOC: ERS 14:27
DX: D64.9 Anemia, unspecified (principal); I50.9 Heart failure, unspecified; I87.8 Other specified disorders of veins; Z87.891 Personal history of nicotine dependence; Z79.899 Other long term (current) drug therapy
CPT/HCPCS: 36415; 80053; 83540; 83550; 85025; 85046; 86850; 86900; 86901; 99284

== ENCOUNTER 2019-11-22 06:52 | Outpatient (CLI) | payer MEDICARE, BC, OTHER ==
[2019-11-22 17:39] LABS: SARS-CoV-2 MS2 Positive; SARS-CoV-2 N Gene Negative; SARS-CoV-2 S Gene Negative; SARS-CoV-2 orf1ab Negative
== END 2019-11-22 06:53 | disposition home or self-care (01) ==
LOC: LABBT 06:52
PROVIDERS: ATTEND Specialist
DX: Z01.812 Encounter for preprocedural laboratory examination (principal); Z11.59 Encounter for screening for other viral diseases; C85.10 Unspecified B-cell lymphoma, unspecified site
CPT/HCPCS: 87635; U0003

== ENCOUNTER 2019-11-23 09:23 | Outpatient (CLI) | payer MEDICARE, BC ==
--- NOTE | 2019-11-23 11:42 | PET ---
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 Initial staging. FINDINGS: Physiologic uptake of radiotracer throughout the enteric system and along each urinary trac t. Prominent muscular uptake is present at the pectoralis musculature, right greater than left, the upper medial back, the gluteal and hamstring musculature of the pelvis and upper legs. Markedly increased uptake is associated with the very heterogeneous lobular mass at the lower left ne ck, max SUV 16.7. Internal gas may be related to recent biopsy. A 1.3 cm upper mediastinal lymph node at the prevascular space shows max SUV 6.4. At the level of the left hilum, a 1.8 cm lymph node immediately posterior to the left mainstem bronch us shows max SUV 17.7. A 1.9 cm lower paraesophageal lymph node shows max SUV 21.9. An irregular shaped, lobular soft tissue density mass within the central right mesentery measures up to 6.6 cm x 4.9 cm greatest diameters on the axial images and shows max SUV 21.8. Smaller hypermetabolic lymph nodes lie immediately adjacent to it. A 2.5 cm left para-aortic lymph node shows max SUV 14.3. Nondiagnostic CT attenuation correction images show calcification throughout the arterial structures. There are postoperative changes of the stomach with the appearance of prior bariatric surgery. Hyperdense stone at the gallbladder neck. Exophytic cyst projecting laterally from the inferior pole of the left kidney is 3.4 cm greatest diam eter. IMPRESSION : Hypermetabolic adenopathy involving the neck, chest, and abdomen as detailed above. Douville score 5. Atherosclerosis. Cholelithiasis.
== END 2019-11-23 09:24 | disposition home or self-care (01) ==
LOC: PET 09:23
PROVIDERS: ATTEND Internal Medicine Hematology & Oncology
DX: C83.31 Diffuse large B-cell lymphoma, lymph nodes of head, face, and neck (principal); R59.0 Localized enlarged lymph nodes; I70.90 Unspecified atherosclerosis; K80.20 Calculus of gallbladder without cholecystitis without obstruction
CPT/HCPCS: 78815; A9552

== ENCOUNTER 2019-11-24 08:32 | Inpatient (IN) | payer MEDICARE, BC, OTHER ==
[2019-11-24] MEDS ORDERED: Heparin 1,000 UNITS/ML VIAL ONE (09:10)
[2019-11-24] MEDS ORDERED: Heparin 10,000 UNITS/ 10 ML VIAL ONE (09:40)
[2019-11-24] MEDS ORDERED: Bupivacaine PF 0.5% 30 ML VIAL ONE (09:55)
[2019-11-24] MEDS ORDERED: Lidocaine 1% w/Epinephrine 1:100K 20 ML VIAL ONE (09:55)
[2019-11-24] MEDS ORDERED: Heparin 10,000 UNITS/1 ML VIAL ONE (09:55)
[2019-11-24] MEDS ORDERED: Midazolam HCl 2 mg/2 ml Vial ONE (10:20)
[2019-11-24] MEDS ORDERED: Fentanyl 100 MCG/2 ML VIAL ONE (10:20)
[2019-11-24] MEDS ORDERED: Sodium Chloride 0.9% 20 ML ONE (10:59)
--- NOTE | 2019-11-24 11:03 | HP ---
HISTORY OF PRESENT ILLNESS: A 74-year-old female who on September 22, 2019, underwent a left arm primary fistula, perforating branch antecubital vein to the proximal radial artery outflow, cephalic and basilic vein. The patient is morbidly obese with BMI of 51. It was acknowledged at that time that she will probably need a transposition fistula. She, however, did not undergo a fistulogram to delineate her anatomy to determine the best procedure for her in order to avoid iodine nephrotoxicity. In the interim, she developed a left neck mass. Dr. Okeefe biopsied this excisional left subclavicular incision on 11/11/2019. Pathology revealing high-grade large B-cell lymphoma. She has seen Dr. Rubio and Dr. Rubio has asked me to see her regarding MediPort placement to facilitate antineoplastic chemotherapy for her lymphoma. In addition, she is scheduled for outpatient [facility] bone marrow. I have talked to Dr. Collins and with her GFR of 11 and potassium of 4.7, plan is to admit her today after placement of MediPort and hemodialysis catheter to initiate dialysis. She will have a bone marrow tomorrow. She will need a fistulogram while here and since she is allergic to shellfish, she will need iodine allergy prep for that fistulogram. She has chronic anemia. Hemoglobin 7.8, white count 5.8. Potassium was 4.7 on 11/18, sodium 140, BUN 69, creatinine 3.91, GFR 11. I have talked to Dr. Collins, Dr. Rubio, and then talked to hospitalist, Dr. Hernandez, regarding these issues. We will plan to admit her to the hospitalist service postoperatively. We will initiate dialysis. She will have an iodine allergy prep prior to undergoing the fistulogram and she will have a bone marrow tomorrow. They will arrange outpatient dialysis. She lives in [place]. The patient is morbidly obese with BMI of 51. ALLERGIES: LEVAQUIN, IODINE, SULFA, ZOLPIDEM, AND AMBIEN. SOCIAL HISTORY: Tobacco, none. Alcohol, none. PAST MEDICAL HISTORY: End-stage renal disease, followed by Dr. Collins; restrictive lung disease, followed by Dr. Mccormack; morbid obesity, BMI of 51; type 2 diabetes mellitus; hypertension; metabolic syndrome; hyperlipidemia; restless legs syndrome; depression; history of C. diff; diastolic dysfunction, EF 55% to 60%; suspected ALICIA, never investigated; history of urinary incontinence, followed by Dr. Capone; nuclear medicine stress test in October 2014; echo in August [address] Capone's office; seen by Dr. Dudley in the hospital in September 2019. Dr. Peter Oakley is her primary care physician. PAST SURGICAL HISTORY: in 1975; hysterectomy in 1978; back surgery and knee surgery in 1995; left knee replacement in 2006; right knee replacement in 2011; bone replacement around little toe in 2012; breast biopsy, nonmalignant, in 2013; compound fracture of right tibia in 2002; ORIF and bone removal, right large toe, in 2012; right second toe surgery in 2012; laparoscopic sleeve gastrectomy by Dr. Cuevas in [place] in 2014; left arm fistula, proximal radial artery outflow, cephalic and basilic vein on 09/22/[address] Jewell. MEDICATIONS: 1. Amlodipine 10 mg a day. 2. Atorvastatin 10 mg a day. 3. Zyrtec daily. 4. Cod liver oil. 5. Cymbalta 60 mg a day. 6. Drisdol 1 tablet p.o. as directed daily. 7. Furosemide 40 mg twice a day. 8. Gabapentin 600 mg daily. 9. Amaryl 1 mg daily. 10. Hydralazine 25 mg daily. 11. Isosorbide 10 mg daily. 12. Losartan 100 mg at bedtime. 13. Metoprolol 75 mg daily. 14. Prednisone 4 times a day. 15. Tramadol as needed for pain. REVIEW OF SYSTEMS: Noncontributory except as noted above. FAMILY HISTORY: Father with lung cancer, hypertension, and heart disease. Mother with lung cancer. Siblings alive and well. PHYSICAL EXAMINATION: HEAD, EARS, EYES, NOSE, AND THROAT: Unremarkable. NECK: Well-healed supraclavicular scar from lymph node biopsy. LUNGS: Clear to auscultation. No wheezing. CARDIAC: Regular rate and rhythm. ABDOMEN: Soft and obese. EXTREMITIES: Unremarkable. Left arm fistula, good thrill and bruit, well-healed wound. Morbidly obese. Unable to access the fistula as it is, will need a transposition. LABORATORY DATA: Noted. ASSESSMENT AND PLAN: 1. Lymphoma, need a MediPort. 2. End-stage renal disease, initiated on dialysis with hemodialysis catheter. She will need a fistulogram with iodine allergy prep in this hospitalization. She will need a bone marrow in this hospitalization for workup of her lymphoma. 3. Morbid obesity, metabolic syndrome. 4. Hypertension. 5. Diabetes mellitus. 6. Suspected sleep apnea without prior investigation. 7. Diastolic dysfunction, followed by Dr. Capone. Echocardiogram and stress test in 2014 are noted. Seen by Dr. Dudley in this hospital in September 2019. Job ID: [id number]
--- NOTE | 2019-11-24 13:08 | OP ---
DATE OF PROCEDURE: 11/24/2019 PREOPERATIVE DIAGNOSES: End-stage renal disease and need to initiate dialysis immature fistula left arm, due to obesity unable to access, will need transposition after a fistulogram to identify the anatomy. Newly diagnosed lymphoma in need of antineoplastic chemotherapy access. ANESTHESIA: TIVA, local 0.5% Marcaine 30 mL mixed with 2% xylocaine 10 mL with epinephrine. PROCEDURES PERFORMED: Placement of right internal jugular cuff tunneled hemodialysis catheter, placement of left internal jugular MediPort, PowerPort, standard size access left in place. DESCRIPTION OF PROCEDURE: The patient was taken to the operating room, where under intravenous sedation, neck and chest were prepared with ChloraPrep and draped in routine fashion. Local anesthetic mixture was infiltrated into the skin and subcutaneous tissue about the operative site. Ultrasound used to cannulate both right and left internal jugular veins and J-wire was threaded. Trocar catheter removed. Skin site enlarged sharply on both sides. Stab incision was made around right cuff tunneled hemodialysis catheter, [employer] pre-curved tunnelled between 2 incisions, placed a fabric cuff in the skin exit site. Catheter was secured with 2 interrupted sutures of 3-0 nylon and sterile dressing applied. Small and medium size dilators were placed over the J-wire and the internal jugular vein removed. Dilator and Peel-Away sheath placed over the J-wire into the superior vena cava. J-wire and dilator removed. Catheter placed with a Peel-Away sheath. Peel-Away sheath removed. Platysma was approximated with 4-0 Monocryl, skin was subdermal 4-0 Monocryl. Each port aspirated with blood, flushed with saline solution and heparinized saline solution 1000 units of heparin per mL indicated volume of the port. Incision was made in the left chest beneath the left clavicle, carried down to skin subcu tissue. Subcutaneous pocket created noting good hemostasis. Using a tunneling device, the MediPort catheter tunneled between the 2 incisions down to the chest and neck and then a dilator and Peel-Away sheath placed over the J-wire into the superior vena cava under fluoroscopic visualization. Dilator and J-wire removed. Catheter was placed with Peel-Away sheath. Peel-Away sheath removed. The catheter tip position, optimal position. Superior vena cava catheter tailored to length, connected to MediPort, placed in subcutaneous pocket and secured with 2 interrupted suture of 3-0 Prolene. Subcutaneous tissue was approximated with 3-0 Monocryl, skin with subdermal 4-0 Monocryl. MediPort accessed and flushed with heparinized saline solution and left access for hospital use. Dermabond applied. Sterile dressing was applied. Final fluoroscopic images reveal good line placement on both sides. The patient tolerated the procedure well. Job ID: [id number]
[2019-11-24] MEDS ORDERED: Lidocaine 1% PF 5 ML VIAL ONE (16:13)
[2019-11-24] MEDS ORDERED: Ondansetron ODT 4 MG TAB PO PRN (16:27)
[2019-11-24] MEDS ORDERED: Acetaminophen 325 MG TAB PO PRN (16:27)
[2019-11-24] MEDS ORDERED: Ondansetron PF 4 MG/2 ML Vial IVP PRN (16:27)
[2019-11-24 17:04] LABS: Hemoglobin 7.7 g/dL (12.0-16.0); Mean Corpuscular HGB CONC 31.9 g/dL (32.0-36.0); Mean Corpuscular Hemoglobin 27.6 pg (27.0-31.0); Mean Corpuscular Volume 86.5 fL (78.0-98.0); Mean Platelet Volume 7.1 fL (7.4-10.4); Platelet Count 240 thou/uL (130-400); RBC Distribution Width 13.3 % (11.5-14.5); Red Blood Cell (RBC) Count 2.81 mill/uL (4.20-5.40); White Blood Cell (WBC) Count 5.3 thou/uL (4.8-10.8)
[2019-11-24 17:19] LABS: Anion Gap 13 mmol/L (10-20); BUN (Urea Nitrogen) 45 mg/dL (9.8-20.1); Calc. Creatinine Clearance 37 mL/min (70-130); Calcium 9.4 mg/dL (7.8-10.44); Carbon Dioxide 28 mmol/L (23-31); Chloride 104 mmol/L (98-107); Estimated GFR-MDRD 17; Glucose 89 mg/dL (83-110); Potassium 3.9 mmol/L (3.5-5.1); Sodium 141 mmol/L (136-145)
[2019-11-24 17:27] LABS: Band 24 % (5-11); Eosinophils 1 % (0-10); Lymphocytes 22 % (21-51); MDiff Complete? YES; Monocytes 15 % (0-10); Myelocyte 1 % (0-0); Neutrophil 36 % (42-75); Platelet Morphology Comment Appears Adequate; Polychromasia SLIGHT = 2-3 cells (100X) (0-2/hpf)
[2019-11-24 17:56] VITALS: BMI 51.0
[2019-11-24] MEDS: HYDROcodone/Acetaminophen 10/325 mg Tablet PO PRN (18:52)
--- NOTE | 2019-11-24 19:00 | PDOC.HHP ---
Hospitalist HPI - History of Present Illness elective Fistulogram, mediport, dialysis initiation History of Present Illness: 74yo F w/ recently diagnosed B-cell lymphoma pending chemo, CKD 4 s/p (immature fistula requiring transposition), CHFpEF, T2DM presents after her recent large b -cell lymphoma diagnosis for placement of mediport and initiation of dialysis. Patient recently had left upper thorax mass that was excised and found to be large b-cell lymphoma. Dr. Rubio referred to Dr. Jewell for mediport placement, and after coordination with nephrology, dialysis catheter was placed to initiate dialysis planning for preparation for fistulogram which per surgery requires steroids due to shellfish allergy. on encounter, patient laying comfortbaly in bed s/p mediport and dialysis catheter placement and dialysis session. Has no complaints. Denies chest pain, palpitations, shortness of breath, pleuritic pain, incision pain. Hospitalist ROS - Review of Systems Constitutional: denies: fever, chills, sweats, weakness, malaise, other Respiratory: denies: cough, dry, shortness of breath, hemoptysis, SOB with excertion, pleuritic pain, sputum, wheezing, other Cardiovascular: denies: chest pain, palpitations, orthopnea, paroxysmal noc. dyspnea, edema, light headedness, other Gastrointestinal: denies: nausea, vomiting, abdominal pain, diarrhea, constipation, melena, hematochezia, other - Medication Medications: Active Medications Generic Name Dose Route Start Last Admin Trade Name Freq PRN Reason Stop Dose Admin Hydrocodone Bitart/Acetaminophen 1 tab 11/24/19 16:27 11/24/19 18:52 [place] 10/325 PO 1 tab Q4H PRN Administration Moderate Pain (4-6) Hospitalist History - Past Medical History Source: patient, old records Cardiac: reports: CHF, HTN Pulmonary: reports: lung disease (restrictive lung disease) Rheumatologic: reports: Rheumatoid arthritis Renal/: reports: Chronic renal insuff Endocrine: reports: Diabetes - Past Surgical History Past Surgical History: reports: Other, Total Knee Replacement - Family History Family History: reports: cancer (lung, both parents) - Social History Smoking Status: Former smoker (quit in 1984) Tobacco Type: cigarettes Alcohol: reports: Occassional Drugs: reports: none Living Situation: With Family Activity level: independent ambulation - Exam General Appearance: NAD, awake alert General - other findings: morbidly obese Eye: PERRL, anicteric sclera ENT - other findings: left upper thorax incision, noninfected; mediport and dialysis port Neck: no JVD Heart: no murmur, no gallops, no rubs Heart - other findings: HR 50-60s, Respiratory: CTAB, no wheezes, no rales, no ronchi Gastrointestinal: soft, non-tender, non-distended, normal bowel sounds Extremities: 1+ LE edema Psychiatric: normal affect, normal behavior, A&O x 3 Hospitalist Results - Labs Result Diagrams: 11/24/19 16:42 11/24/19 16:42 Lab results: WBC 5.3 thou/uL (4.8-10.8) 11/24/19 16:42 Hgb 7.7 g/dL (12.0-16.0) L 11/24/19 16:42 Hct 24.3 % (36.0-47.0) L 11/24/19 16:42 MCV 86.5 fL (78.0-98.0) 11/24/19 16:42 Plt Count 240 thou/uL (130-400) 11/24/19 16:42 Band Neuts % (Manual) 24 % (5-11) H 11/24/19 16:42 Sodium 141 mmol/L (136-145) 11/24/19 16:42 Potassium 3.9 mmol/L (3.5-5.1) 11/24/19 16:42 Chloride 104 mmol/L (98-107) 11/24/19 16:42 Carbon Dioxide 28 mmol/L (23-31) 11/24/19 16:42 BUN 45 mg/dL (9.8-20.1) H 11/24/19 16:42 Creatinine 2.77 mg/dL (0.6-1.1) H 11/24/19 16:42 Glucose 89 mg/dL (83-110) 11/24/19 16:42 Calcium 9.4 mg/dL (7.8-10.44) 11/24/19 16:42 - Radiology Interpretation Chest x-ray Status: image reviewed by me Additional Comment: b/l reticulonodular pattern, unchanged from previous xray 11/16 Hospitalist H&P A/P - Problem (1) Large B-cell lymphoma Code(s): C85.10 - UNSPECIFIED B-CELL LYMPHOMA, UNSPECIFIED SITE Status: Acute (2) ESRD (end stage renal disease) Code(s): N18.6 - END STAGE RENAL DISEASE Status: Acute (3) Type 2 diabetes mellitus Status: Chronic Qualifiers: Diabetes mellitus fdc insulin use: without fdc use Diabetes mellitus complication status: with kidney complications Diabetes mellitus complication detail: with chronic kidney disease Chronic kidney disease stage : stage 4 (severe) Qualified Code(s): E11.22 - Type 2 diabetes mellitus with diabetic chronic kidney disease; N18.4 - Chronic kidney disease, stage 4 (severe ) (4) Diastolic dysfunction Code(s): I51.9 - HEART DISEASE, UNSPECIFIED Status: Chronic - Plan Plan: * large B cell lymphoma * mediport placed; pending bone biopsy (11/24) and chemo initiation * ESRD * dialysis catheter placed (11/23); tolerated first dialysis session * pending dialysis (11/24) * pending fistulogram for transposition; per surgery, started steroids due to shellfish allergy * nephrology onboard * diastolic dysfunction * * HTN * continue home regimen with exception of metoprolol tartrate, which was reduced from 75mg to 50mg due to bradycardia * Type 2 DM * PO management at home * * mild sliding scale * disposition/PPx * full code * DVT PPx: lovenox * GI PPx: no Ix
[2019-11-24] MEDS ORDERED: HumaLOG 300 UNITS/3 ML VIAL SC PRN (19:35)
[2019-11-24] MEDS ORDERED: Dextrose 50% Abboject 50 ML SYRINGE SLOW IVP PRN (19:35)
[2019-11-24] MEDS ORDERED: Dextrose 5% in Water 1,000 ML IV PRN (19:35)
[2019-11-24] MEDS ORDERED: Metoprolol Tartrate 50 MG TAB PO SCH (21:00)
[2019-11-24] MEDS ORDERED: hydrALAZINE 25 MG TAB PO SCH (21:00)
[2019-11-24] MEDS: Atorvastatin Calcium 10 MG TAB PO SCH (21:30)
[2019-11-24] MEDS: Gabapentin 100 MG CAP PO SCH (21:30)
[2019-11-24] MEDS: Metoprolol Tartrate 50 MG TAB PO SCH (21:31)
[2019-11-24] MEDS: Amlodipine 10 MG TAB PO SCH (21:31)
[2019-11-24] MEDS: hydrALAZINE 25 MG TAB PO SCH (21:32)
[2019-11-24] MEDS: Isosorbide Dinitrate 5 MG TAB PO SCH (21:40)
[2019-11-25] MEDS: predniSONE 50 MG TAB PO SCH ×3 (00:04→12:23)
[2019-11-25] MEDS: HYDROcodone/Acetaminophen 10/325 mg Tablet PO PRN ×3 (00:04→20:08)
--- NOTE | 2019-11-25 03:02 | CON ---
DATE OF CONSULTATION: REASON FOR CONSULTATION: End-stage kidney disease, for initiation of dialysis. HISTORY OF PRESENT ILLNESS: This is a 74-year-old female, admitted for AV fistula evaluation and tunneled dialysis catheter. The patient denies any nausea, vomiting, or chest pain. Her creatinine has decreased to 2.7. Her BMI is 51. PAST MEDICAL HISTORY: Significant for end-stage kidney disease; morbid obesity; metabolic syndrome; hyperlipidemia; C diff; urinary incontinence; history of stress test; history of sleep apnea; restrictive lung disease; restless legs syndrome; history of ; neck mass; back surgery; knee surgery; knee replacement; breast biopsy, nonmalignant; history of femur fracture; gastric sleeve; AV fistula; tunneled dialysis catheter. MEDICATIONS: Home medications list reviewed. Hospital medications reviewed. ALLERGIES: REVIEWED. FAMILY HISTORY: Negative for ESRD. REVIEW OF SYSTEMS: Fifteen-point review of system was performed, was negative except for positives noted above. HEENT: Eyes intact, no diplopia. Ears: No hearing loss or earache. Nose: No discharge or bleeding. CHEST: No cough or phlegm. ABDOMEN: No nausea or vomiting. GENITOURINARY: No hematuria. No Sanchez catheter. MUSCULOSKELETAL: No low back pain. No joint swelling or pain. NEUROLOGICAL: No syncope. No seizures. SKIN: No complaints of rash or itching. PSYCHIATRIC: No depression. CONSTITUTIONAL: No weight loss or loss of appetite. PHYSICAL EXAMINATION: GENERAL: The patient is awake and alert. VITAL SIGNS: Afebrile, pulse 75, breathing at 16, blood pressure 130/70. HEENT: Head normocephalic and atraumatic. Eyes intact, no ulcers. Nose intact, no ulcers. Ears intact, no ulcers. NECK: Supple. No JVD. CHEST: Symmetrical and clear. CARDIOVASCULAR: Shows S1 and S2, no rub, no murmur. GASTROINTESTINAL: Abdomen is soft, bowel sounds positive. EXTREMITIES: Show no edema or ulcers. SKIN: Shows no rash or petechiae. MUSCULOSKELETAL: Shows no joint swelling or stiffness. GENITOURINARY: Shows no Sanchez or CVA tenderness. NEUROLOGIC: Motor intact. Cranial nerves intact. LABORATORY DATA: Hemoglobin 7.7, creatinine 2.7. ASSESSMENT AND PLAN: 1. Chronic kidney disease, stage 4. Plan dialysis. We will follow 24-hour urine creatinine. 2. Medication based on GFR appropriate. 3. Anemia. We would recommend transfusion. Job ID: [id number]
[2019-11-25 04:47] LABS: #Lymphocytes 0.6 thou/uL (1.20-3.40); #Monocytes 0.3 thou/uL (0.11-0.59); #Neutrophils 3.6 thou/uL (1.40-6.50); %Basophils 0.4 % (0.0-1.0); %Eosinophils 0.5 % (0.0-10.0); %Lymphocytes 13.9 % (21.0-51.0); %Monocytes 5.4 % (0.0-10.0); %Neutrophils 79.8 % (42.0-75.0); Hemoglobin 7.6 g/dL (12.0-16.0); Mean Corpuscular HGB CONC 32.1 g/dL (32.0-36.0); Mean Corpuscular Hemoglobin 27.8 pg (27.0-31.0); Mean Corpuscular Volume 86.8 fL (78.0-98.0); Mean Platelet Volume 6.7 fL (7.4-10.4); Platelet Count 187 thou/uL (130-400); RBC Distribution Width 13.2 % (11.5-14.5); Red Blood Cell (RBC) Count 2.72 mill/uL (4.20-5.40); White Blood Cell (WBC) Count 4.5 thou/uL (4.8-10.8)
[2019-11-25 04:53] LABS: PTT 34.7 SEC (22.9-36.1); Prothrombin Time 13.5 sec (12.0-14.7)
[2019-11-25 05:06] LABS: Anion Gap 14 mmol/L (10-20); BUN (Urea Nitrogen) 49 mg/dL (9.8-20.1); Calc. Creatinine Clearance 34 mL/min (70-130); Calcium 9.2 mg/dL (7.8-10.44); Carbon Dioxide 27 mmol/L (23-31); Chloride 102 mmol/L (98-107); Estimated GFR-MDRD 15; Glucose 181 mg/dL (83-110); Potassium 4.7 mmol/L (3.5-5.1); Sodium 138 mmol/L (136-145)
[2019-11-25] MEDS: DULoxetine 60 MG CAP PO SCH (08:43)
[2019-11-25] MEDS: Metoprolol Tartrate 50 MG TAB PO SCH ×2 (08:43→20:06)
[2019-11-25] MEDS: hydrALAZINE 25 MG TAB PO SCH ×3 (08:43→20:06)
[2019-11-25] MEDS: Gabapentin 100 MG CAP PO SCH ×3 (08:43→20:06)
[2019-11-25] MEDS: Isosorbide Dinitrate 5 MG TAB PO SCH ×2 (08:43→20:07)
[2019-11-25] MEDS: Loratadine 10 MG TAB PO SCH (08:43)
[2019-11-25] MEDS: Enoxaparin Sodium 30 MG/0.3 ML SYRINGE SC SCH (08:53)
[2019-11-25] MEDS ORDERED: Losartan 25 MG TAB PO SCH (09:00)
[2019-11-25] MEDS ORDERED: Gabapentin 400 MG CAP PO SCH (09:00)
[2019-11-25] MEDS ORDERED: Sodium Bicarbonate 2.5 MEQ/5 ML VIAL ONE (09:27)
[2019-11-25] MEDS ORDERED: Fentanyl 100 MCG/2 ML VIAL ONE (09:27)
[2019-11-25] MEDS ORDERED: Midazolam HCl 2 mg/2 ml Vial ONE (09:27)
[2019-11-25] MEDS ORDERED: Iopamidol 300 61% 100 ML VIAL FS ONE (10:23)
--- NOTE | 2019-11-25 11:02 | CT ---
CT GUIDED RIGHT ILIAC BONE MARROW ASPIRATION AND BIOPSY: CLINICAL HISTORY: Large B-cell lymphoma. PROCEDURE: The procedure including the risks and complications were explained to the patient, and informed conse nt was obtained. The patient was placed on the CT scan table in the prone position. Noncontrasted CT images were obtained through the pelvis. An area was marked overlying the RIGHT leslie c bone, and the area was meticulously prepped and draped in usual sterile fashion. The skin and subcutaneous tissues were infiltrated with buffered 1% lidocaine for local anesthesia. After a small skin incision was made, an 11-gauge needle was advanced and positioning was confirmed w ith axial CT images. Approximately 10 milliliters of bone marrow aspirate was obtained. The needle was then further advanced, and a bone marrow biopsy was performed. The needle was removed, and hemost asis was achieved with direct pressure. The patient tolerated the procedure well and without immediate complication. The patient was transported to radiology nurses holding area for further zuleika toring prior to discharge. IMPRESSION: Technically successful percutaneous bone marrow aspiration and biopsy. Pathology results are pending.
[2019-11-25] MEDS ORDERED: diphenhydrAMINE 50 MG CAP PO SCH (12:00)
--- NOTE | 2019-11-25 12:15 | PRG ---
DATE OF SERVICE: 11/25/2019 SUBJECTIVE: A 74-year-old female, being seen for end-stage renal disease. The patient denied nausea, vomiting, or chest pain. OBJECTIVE: General: The patient is awake and alert. Vital Signs: Afebrile, pulse breathing 16, blood pressure . HEENT: Head normocephalic and atraumatic. Eyes intact, no ulcers. Nose intact, no ulcers. Ears intact, no ulcers. Neck: Supple. No JVD. Chest: Symmetrical and clear. Cardiovascular: Shows S1 and S2, no rub, no murmur. Gastrointestinal: Abdomen is soft, bowel sounds positive. Extremities: Show no edema or ulcers. Skin: Shows no rash or petechiae. Musculoskeletal: Shows no joint swelling or stiffness. Genitourinary: Shows no Sanchez or CVA tenderness. Neurologic: Motor intact. Cranial nerves intact. LABORATORY DATA: Hemoglobin 7.6. ASSESSMENT AND PLAN: 1. Stage 6 chronic kidney disease, plan dialysis tomorrow. 2. Hypertension, stable. 3. Anemia, stable. Medication based on GFR appropriate. Job ID: [id number]
--- NOTE | 2019-11-25 14:24 | SPC ---
PROCEDURE: [facility] [place] CIRC/AV S PROVIDED CLINICAL HISTORY: Difficulty in accessing left upper trauma the arteriovenous dialysis fistula. Malfunctioning left upp er extremity arterial venous dialysis fistula. COMPARISON: None TECHNIQUE: The procedure including the risks and complications were explained to the patient, and informed conse nt was obtained. Patient was placed on the angiography table in the supine position. Limited sonographic evaluation left upper extremity was performed. The left upper extremity was meticulously prepped and draped in usual sterile fashion. Skin and subcutaneous tissues overlying the left upper extremity cephalic vein outflow were infiltrat ed with buffered 1% lidocaine for local anesthesia. Utilizing concurrent real-time ultrasound guidance, the left cephalic vein was accessed directed in the venous direction utilizing micropunctur e technique, and a 4 Portuguese introducer sheath was placed. Fistulogram and venogram were performed. However, contrast incompletely fills the cephalic vein at the level of the shoulder. As result, manua l compression was applied to the cephalic vein outflow, and contrast was injected demonstrating patency of a basilic vein outflow. Remainder of the venous outflow is widely patent to the SVC. Manua l compression was applied to both the cephalic and basilic vein outflows, and contrast was injected demonstrating patency of the arterial venous anastomosis. The introducer sheath was removed, and hemostasis was achieved with direct pressure. A dressing was placed at puncture site. The patient tolerated the procedure well and without immediat e complication. Patient was transported to her hospital room in stable condition. FINDINGS: Patent left upper extremity arteriovenous dialysis fistula as well as patent arteriovenous anastomosi s. The short segment of the antecubital vein as well as the cephalic and basilic vein outflows are patent. Flow is preferentially via a larger caliber left upper extremity basilic vein. The cephalic v ein outflow is small in caliber with multiple collateral vessels seen. There is only faint opacification of contrast seen involving the cephalic vein at the level of the shoulder. A left inter nal jugular vein Mediport catheter is noted in place. A tunneled right internal jugular vein hemodialysis catheter is also partially imaged. Fluoroscopy: Dose-58,083 mGy centimeter squared Time-1.1 minute IMPRESSION: Patent left upper extremity arteriovenous dialysis fistula with outflow preferentially via the basili c vein as opposed to cephalic vein.
[2019-11-25 16:17] LABS: 24 Hr Creatinine 700.86 mg/24 hr (710-1650); Creatinine, Urine 96.67 mg/dL (47-110)
[2019-11-25] MEDS: Insulin Regular 300 UNITS/3 ML VIAL SC PRN ×2 (17:19→20:10)
[2019-11-25] MEDS: Amlodipine 10 MG TAB PO SCH (20:06)
[2019-11-25] MEDS: Atorvastatin Calcium 10 MG TAB PO SCH (20:07)
[2019-11-25] MEDS ORDERED: diphenhydrAMINE 50 MG/ML VIAL IVP SCH (20:30)
--- NOTE | 2019-11-25 21:56 | PDOC.HOSPP ---
- Subjective Encounter Date: 11/25/19 Encounter Time: 08:00 Subjective: no overnight events. This morning, s/p right iliac bone biopsy and aspiration, tolerated procedure well. Pending fistulogram. - Objective Vital Signs & Weight: Vital Signs (12 hours) Temp Pulse Resp BP Pulse Ox 11/25/19 20:06 75 11/25/19 20:05 96 11/25/19 19:37 98.1 F 75 18 170/67 H 96 11/25/19 16:06 97.9 F 75 18 145/56 H 96 11/25/19 14:05 98.1 F 64 16 172/62 H 92 L 11/25/19 12:23 58 L 14 92 L 11/25/19 11:34 97.8 F 55 L 18 153/80 H 91 L Weight Admit Weight 279 lb Weight 279 lb I&O: 11/24/19 11/25/19 11/26/19 06:59 06:59 06:59 Intake Total 240 600 Output Total 400 Balance 240 200 Result Diagrams: 11/25/19 04:35 11/25/19 14:41 Additional Labs: Accuchecks 11/25/19 11/25/19 11/25/19 19:47 16:12 11:42 POC Glucose 345 H 308 H 240 H 11/25/19 11/25/19 11/25/19 08:50 04:29 00:12 POC Glucose 257 H 195 H 116 H 11/24/19 21:39 POC Glucose 197 H Hospitalist ROS - Review of Systems Constitutional: denies: fever, chills, sweats, weakness, malaise, other Respiratory: denies: cough, dry, shortness of breath, hemoptysis, SOB with excertion, pleuritic pain, sputum, wheezing, other Cardiovascular: denies: chest pain, palpitations, orthopnea, paroxysmal noc. dyspnea, edema, light headedness, other Gastrointestinal: denies: nausea, vomiting, abdominal pain, diarrhea, constipation, melena, hematochezia, other - Medication Medications: Active Medications Generic Name Dose Route Start Last Admin Trade Name Freq PRN Reason Stop Dose Admin Hydrocodone Bitart/Acetaminophen 1 tab 11/24/19 16:27 11/25/19 20:08 [place] 10/325 PO 1 tab Q4H PRN Administration Moderate Pain (4-6) Amlodipine Besylate 10 mg 11/24/19 21:00 11/25/19 20:06 Norvasc PO 10 mg HS ZANA Administration Atorvastatin Calcium 10 mg 11/24/19 21:00 11/25/19 20:07 Lipitor PO 10 mg HS ZANA Administration Diphenhydramine HCl 50 mg 11/25/19 20:30 11/25/19 20:36 Benadryl IVP 11/25/19 22:30 50 mg NOW ZANA Administration Duloxetine HCl 60 mg 11/25/19 09:00 11/25/19 08:43 Cymbalta PO 60 mg DAILY ZANA Administration Enoxaparin Sodium 30 mg 11/25/19 09:00 11/25/19 08:53 Lovenox SC Not Given 0900 PENDING SALE TO [facility] Gabapentin 100 mg 11/24/19 21:00 11/25/19 20:06 Neurontin PO 100 mg TID ZANA Administration Hydralazine HCl 25 mg 11/24/19 21:00 11/25/19 20:06 Apresoline PO 25 mg TID ZANA Administration Insulin Human Regular 0 units 11/24/19 19:35 11/25/19 20:10 Humulin R SC 5 unit .MILD SLIDING SCALE PRN Administration Mild Correctional Scale Isosorbide Dinitrate 10 mg 11/24/19 21:00 11/25/19 20:07 Isordil PO 10 mg BID PENDING SALE TO [facility] Administration Loratadine 10 mg 11/25/19 09:00 11/25/19 08:43 Claritin PO 10 mg DAILY ZANA Administration Metoprolol Tartrate 50 mg 11/24/19 21:00 11/25/19 20:06 Lopressor PO 50 mg BID ZANA Administration - Exam General Appearance: NAD, awake alert Neck: no JVD Heart: RRR, no murmur, no gallops, no rubs, normal peripheral pulses Respiratory: CTAB, no wheezes, no rales, no ronchi, normal chest expansion, no tachypnea, normal percussion Gastrointestinal: soft, non-tender, non-distended, normal bowel sounds, no palpable masses, no hepatomegaly Extremities: 1+ LE edema Psychiatric: normal affect, normal behavior, A&O x 3 Hosp A/P (1) Large B-cell lymphoma Code(s): C85.10 - UNSPECIFIED B-CELL LYMPHOMA, UNSPECIFIED SITE Status: Acute (2) ESRD (end stage renal disease) Code(s): N18.6 - END STAGE RENAL DISEASE Status: Acute (3) Type 2 diabetes mellitus Status: Chronic Qualifiers: Diabetes mellitus care home insulin use: without care home use Diabetes mellitus complication status: with kidney complications Diabetes mellitus complication detail: with chronic kidney disease Chronic kidney disease stage : stage 4 (severe) Qualified Code(s): E11.22 - Type 2 diabetes mellitus with diabetic chronic kidney disease; N18.4 - Chronic kidney disease, stage 4 (severe ) (4) Diastolic dysfunction Code(s): I51.9 - HEART DISEASE, UNSPECIFIED Status: Chronic - Plan -s/p bone aspiration and biopsy -pending fistulogram -hyperglycemia related to prednisone; will adjust regimen once prednisone stopped -ESRD: contacted CM for arrangement of dialysis ELOS : 1 midnight
[2019-11-26 00:23] LABS: Creatinine, Urine 96.67 mg/dL (47-110)
[2019-11-26 00:24] LABS: Body Surface Area 2.19
[2019-11-26] MEDS: Insulin Regular 300 UNITS/3 ML VIAL SC PRN ×4 (00:24→13:33)
[2019-11-26] MEDS: HYDROcodone/Acetaminophen 10/325 mg Tablet PO PRN (05:38)
[2019-11-26 06:39] LABS: Anion Gap 15 mmol/L (10-20); BUN (Urea Nitrogen) 61 mg/dL (9.8-20.1); Calc. Creatinine Clearance 28 mL/min (70-130); Calcium 9.9 mg/dL (7.8-10.44); Carbon Dioxide 25 mmol/L (23-31); Chloride 102 mmol/L (98-107); Estimated GFR-MDRD 12; Glucose 155 mg/dL (83-110); Potassium 4.5 mmol/L (3.5-5.1); Sodium 137 mmol/L (136-145)
[2019-11-26] MEDS: DULoxetine 60 MG CAP PO SCH (08:49)
[2019-11-26] MEDS: Loratadine 10 MG TAB PO SCH (08:49)
[2019-11-26] MEDS: hydrALAZINE 25 MG TAB PO SCH ×3 (08:49→19:50)
[2019-11-26] MEDS: Metoprolol Tartrate 50 MG TAB PO SCH ×2 (08:49→19:50)
[2019-11-26] MEDS: Gabapentin 100 MG CAP PO SCH ×3 (08:49→19:49)
[2019-11-26] MEDS: Isosorbide Dinitrate 5 MG TAB PO SCH ×2 (08:49→19:53)
[2019-11-26] MEDS: Enoxaparin Sodium 30 MG/0.3 ML SYRINGE SC SCH ×2 (08:51→09:10)
[2019-11-26] MEDS ORDERED: Ergocalciferol 1.25 MG(50,000 UNITS) CAP PO SCH (09:00)
[2019-11-26] MEDS ORDERED: Losartan 25 MG TAB PO SCH (09:00)
--- NOTE | 2019-11-26 11:50 | PRG ---
DATE OF SERVICE: 11/26/2019 Ms. Connor is doing well today. She has had her bone marrow results. She has had a fistulogram, fistulogram reveals cephalic vein outflow is occluded and only open by collaterals primary outflows basilic vein. Due to her morbid obesity and her anomalous anatomy/venous, she will need a basilic vein transposition fistula in the future. I had discussed with Dr. Rubio, Oncology, considering her need for chemotherapy for lymphoma. Dr. Rubio will see her next week. We will coordinate with Dr. Rubio, future of left upper arm basilic vein transposition fistula. This will be done in probably three or four weeks after chemotherapy cycle before the next one to optimize wound healing, tend to shorten the time that she would need her hemodialysis catheter. I will see her as needed in this hospitalization. Please call if necessary. Job ID: [id number]
--- NOTE | 2019-11-26 11:52 | PRG ---
DATE OF SERVICE: 11/26/2019 SUBJECTIVE: This is a 74-year-old female being seen for end-stage kidney disease. The patient denies nausea, vomiting, or chest pain. OBJECTIVE: GENERAL: On examination, the patient is awake and alert. VITAL SIGNS: Afebrile, pulse 50, breathing is 16, and blood pressure 136/59. HEENT: Head normocephalic and atraumatic. Eyes intact, no ulcers. Nose intact, no ulcers. Ears intact, no ulcers. NECK: Supple. No JVD. CHEST: Symmetrical and clear. CARDIOVASCULAR: Shows S1 and S2, no rub, no murmur. GASTROINTESTINAL: Abdomen is soft, bowel sounds positive. EXTREMITIES: Show no edema or ulcers. SKIN: Shows no rash or petechiae. MUSCULOSKELETAL: Shows no joint swelling or stiffness. GENITOURINARY: Shows no Sanchez or CVA tenderness. NEUROLOGIC: Motor intact. Cranial nerves intact. LABORATORY DATA: Reviewed. ASSESSMENT AND PLAN: 1. Stage 6, chronic kidney disease, stable. 2. Hypertension, stable. 3. Anemia, stable. Discharge planning is in progress. Job ID: [id number]
[2019-11-26] MEDS: Atorvastatin Calcium 10 MG TAB PO SCH (19:49)
[2019-11-26] MEDS: Amlodipine 10 MG TAB PO SCH (19:50)
[2019-11-26 19:54] VITALS: BP 126/80
[2019-11-26 23:56] VITALS: TEMP 97.7
--- NOTE | 2019-11-28 08:44 | DIS ---
DATE OF ADMISSION: 11/24/2019 DATE OF DISCHARGE: 11/26/2019 HOSPITAL COURSE: Ms. Connor is a 74-year-old female with a medical history of CKD 4, and a recently diagnosed large B-cell lymphoma, who presented for initiation of dialysis and MediPort access placement. The patient tolerated the procedures well and underwent 2 sessions of dialysis, which she also tolerated well. Prior to discharge, outpatient dialysis arrangements were made by the behavioral health case manager. The patient was discharged hemodynamically stable with no complaints and with followup with Oncology for the initiation of chemotherapy treatment. MEDICATIONS: New medications; 1. Gabapentin 100 mg t.i.d. 2. Isosorbide dinitrate 10 mg b.i.d. 3. Metoprolol tartrate 50 mg b.i.d. Continued medications; 1. Zyrtec. 2. Cymbalta. 3. Norvasc. 4. Prednisone. 5. Tramadol. 6. Glimepiride. 7. Atorvastatin. 8. Losartan. 9. Ergocalciferol. Discontinued medications; 1. Metoprolol tartrate 75 mg b.i.d. 2. Hydralazine 25 mg b.i.d. 3. Lasix 40 mg b.i.d. 4. Gabapentin 1200 mg daily. Job ID: [id number]
--- NOTE | 2019-11-29 09:25 | PQF ---
ELY MENDOZA, AARTI [id number] [id number] CLINICAL DOCUMENTATION CLARIFICATION FORM: POST DISCHARGE Addendum to original discharge summary date: ____ Late entry note date: __ Don't understand the query. What's the question? What the diagnoses are? DATE: 11/29/2019 ATTN:Aarti Hernandez Please exercise your independent, professional judgment in responding to the clarification form. Clinical indicators are provided on the bottom of this form for your review Please check appropriate box(s): [ x ] Chronic kidney disease (please specify stage)_4 [ x ] B cell lymphoma [ ] Other diagnosis [ ] Unable to determine For continuity of documentation, please document condition throughout progress notes and discharge summary. Thank You. 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 All Rights Reserved [email or web address]
== END 2019-11-26 20:45 | disposition home or self-care (01) | DRG 824 ==
LOC: SDC 08:32 → OBSVTOIN 12:08 → T4-B 12:08
PROVIDERS: ADMIT Internal Medicine; ATTEND Specialist
PROC: 0JH60WZ Insertion of Totally Implantable Vascular Access Device into Chest Subcutaneous Tissue and Fascia, Open Approach (ICD-10-PCS; principal; 2019-11-24)
PROC: 02HV33Z Insertion of Infusion Device into Superior Vena Cava, Percutaneous Approach (ICD-10-PCS; 2019-11-24)
PROC: 02HV33Z Insertion of Infusion Device into Superior Vena Cava, Percutaneous Approach (ICD-10-PCS; 2019-11-24)
PROC: B548ZZA Ultrasonography of Superior Vena Cava, Guidance (ICD-10-PCS; 2019-11-24)
PROC: 5A1D70Z Performance of Urinary Filtration, Intermittent, Less than 6 Hours Per Day (ICD-10-PCS; 2019-11-24)
PROC: 07DR3ZX Extraction of Iliac Bone Marrow, Percutaneous Approach, Diagnostic (ICD-10-PCS; 2019-11-25)
DX: C85.11 Unspecified B-cell lymphoma, lymph nodes of head, face, and neck (principal); I50.32 Chronic diastolic (congestive) heart failure; Z68.43 Body mass index [BMI] 50.0-59.9, adult; I13.0 Hypertensive heart and chronic kidney disease with heart failure and stage 1 through stage 4 chronic kidney disease, or unspecified chronic kidney disease; N18.4 Chronic kidney disease, stage 4 (severe); Z11.59 Encounter for screening for other viral diseases; E78.5 Hyperlipidemia, unspecified; E11.22 Type 2 diabetes mellitus with diabetic chronic kidney disease; Z96.653 Presence of artificial knee joint, bilateral; F41.9 Anxiety disorder, unspecified; F32.9 Major depressive disorder, single episode, unspecified; E66.01 Morbid (severe) obesity due to excess calories; D63.1 Anemia in chronic kidney disease; G25.81 Restless legs syndrome; E88.81 Metabolic syndrome and other insulin resistance; M06.9 Rheumatoid arthritis, unspecified; G47.30 Sleep apnea, unspecified; J98.4 Other disorders of lung; E11.65 Type 2 diabetes mellitus with hyperglycemia; T38.0X5A Adverse effect of glucocorticoids and synthetic analogues, initial encounter; Z88.2 Allergy status to sulfonamides; Z88.1 Allergy status to other antibiotic agents; Z91.013 Allergy to seafood; Z90.710 Acquired absence of both cervix and uterus; Z87.891 Personal history of nicotine dependence; Z79.52 Long term (current) use of systemic steroids; Z79.899 Other long term (current) drug therapy
CPT/HCPCS: 20225; 36415; 36416; 36901; 77012; 78815; 80048; 82570; 82575; 85025; 85097; 85610; 85730; 88184; 88185; 88237; 88264; 88280; 88305; 88311; 88313; 88341; 88342; 90935; A9552; C1752; C1769; C1788; G0257; J0690; J1200; J1642; J1644; J1650; J1815; J2001; J2250; J3010; J7512; Q0163; Q9967; S0020

== ENCOUNTER 2019-12-26 16:21 | Inpatient (IN) | payer MEDICARE, BC, OTHER ==
[2019-12-26] MEDS ORDERED: Lidocaine 4% Cream 5 GM TUBE w/ Tegaderm ONE (16:36)
[2019-12-26] MEDS ORDERED: Acetaminophen 325 MG TAB ONE (16:45)
[2019-12-26 16:58] LABS: Hemoglobin 7.8 g/dL (12.0-16.0); Mean Corpuscular HGB CONC 33.1 g/dL (32.0-36.0); Mean Corpuscular Hemoglobin 29.4 pg (27.0-31.0); Mean Corpuscular Volume 88.9 fL (78.0-98.0); Platelet Count 144 thou/uL (130-400); RBC Distribution Width 16.7 % (11.5-14.5); Red Blood Cell (RBC) Count 2.65 mill/uL (4.20-5.40); White Blood Cell (WBC) Count 6.7 thou/uL (4.8-10.8)
[2019-12-26 17:17] LABS: ALT (SGPT) 8 U/L (8-55); AST (SGOT) 7 U/L (5-34); Albumin 3.4 g/dL (3.4-4.8); Alkaline Phosphatase 87 U/L (40-110); Anion Gap 14 mmol/L (10-20); BUN (Urea Nitrogen) 17 mg/dL (9.8-20.1); Bilirubin, Total 0.4 mg/dL (0.2-1.2); Calc. Creatinine Clearance 0 mL/min (70-130); Carbon Dioxide 30 mmol/L (23-31); Chloride 98 mmol/L (98-107); Estimated GFR-MDRD 14; Globulin 2.6 g/dL (2.4-3.5); Glucose 334 mg/dL (83-110); Potassium 3.3 mmol/L (3.5-5.1); Sodium 139 mmol/L (136-145)
[2019-12-26 17:19] LABS: Bacteria/HPF 4+ HPF (None Seen); Bilirubin Negative (Negative); Blood, Urine 1+ (Negative); Clarity Extra Turbid (Clear); Glucose, Urine (Dipstick) 70 mg/dL (Negative); Leukocyte 500 Leu/uL (Negative); Nitrite Negative (Negative); Protein, Urine (Dipstick) 600 mg/dL (Neg-Trace); WBC/HPF Greater than 50 HPF (0-3)
[2019-12-26 17:25] LABS: Band 40 % (5-11); Lymphocytes 18 % (21-51); MDiff Complete? YES; Metamyelocyte 7 % (0-0); Monocytes 1 % (0-10); Myelocyte 4 % (0-0); Neutrophil 26 % (42-75); Reactive Lymphocytes 4 % (0-10)
[2019-12-26 17:40] LABS: CKMB 0.4 ng/mL (0-6.6)
--- NOTE | 2019-12-26 18:14 | RAD ---
PORTABLE CHEST: Date: 12-26-2019 Provided Clinical History: Fever FINDINGS: Comparison 11-24-2019. Cardiac and mediastinal silhouette is unchanged in appearance. Left IJ implanted port and right IJ di alysis catheter again demonstrated. Prominence of the pulmonary vasculature. No focal consolidation, pleural fluid, or pneumothorax apparent. IMPRESSION: Cardiomegaly and prominence of the pulmonary vasculature. POS: JUAN
[2019-12-26] MEDS ORDERED: cefTRIAXone\\ROCEPHIN 2 GM VIAL ONE (18:34)
[2019-12-26] MEDS ORDERED: Acetaminophen 650 MG Suppository PR PRN (19:19)
[2019-12-26] MEDS ORDERED: Acetaminophen 325 MG TAB PO PRN (19:19)
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
[2019-12-26] MEDS ORDERED: diphenhydrAMINE 50 MG/ML VIAL ONE (19:57)
[2019-12-26] MEDS ORDERED: Aspirin Chewable 81 MG TAB ONE (20:06)
[2019-12-26] MEDS ORDERED: Dextrose 50% Abboject 50 ML SYRINGE SLOW IVP PRN (20:18)
[2019-12-26] MEDS ORDERED: Dextrose 5% in Water 1,000 ML IV PRN (20:18)
[2019-12-26 20:24] LABS: Troponin I 0.078 ng/mL (< 0.028)
[2019-12-26] MEDS: cefTRIAXone\\ROCEPHIN 2 GM in Sodium Chloride 0.9% 100 ML IVPB SCH (23:21)
[2019-12-26] MEDS: Famotidine/PF 20 mg/2ml Vial SLOW IVP SCH (23:22)
[2019-12-26 23:59] LABS: Troponin I 0.062 ng/mL (< 0.028)
[2019-12-27 05:03] LABS: ALT (SGPT) 7 U/L (8-55); AST (SGOT) 7 U/L (5-34); Albumin 3.3 g/dL (3.4-4.8); Alkaline Phosphatase 82 U/L (40-110); Anion Gap 14 mmol/L (10-20); BUN (Urea Nitrogen) 22 mg/dL (9.8-20.1); Bilirubin, Total 0.2 mg/dL (0.2-1.2); Calc. Creatinine Clearance 28 mL/min (70-130); Calcium 8.8 mg/dL (7.8-10.44); Carbon Dioxide 28 mmol/L (23-31); Chloride 100 mmol/L (98-107); Estimated GFR-MDRD 13; Globulin 2.5 g/dL (2.4-3.5); Glucose 302 mg/dL (83-110); Potassium 3.3 mmol/L (3.5-5.1); Protein, Total 5.8 g/dL (6.0-8.3); Sodium 139 mmol/L (136-145)
[2019-12-27] MEDS: HumaLOG 300 UNITS/3 ML VIAL SC PRN ×2 (05:47→13:12)
[2019-12-27] MEDS ORDERED: traMADol HCl 50 MG TAB PO PRN (07:58)
--- NOTE | 2019-12-27 08:04 | PDOC.HOSPP ---
- Subjective Encounter Date: 12/27/19 Encounter Time: 11:30 Subjective: Patient reports some pain in bilateral legs. She has noted some redness in the left leg and swelling in both. Still with intermittent fevers. Some nausea before admission but better now. - Objective Vital Signs & Weight: Vital Signs (12 hours) Temp Pulse Resp BP Pulse Ox 12/27/19 03:53 100.0 F H 88 18 168/72 H 92 L 12/26/19 22:57 99.1 F 79 20 135/67 92 L Weight Weight 271 lb Result Diagrams: 12/27/19 03:59 12/27/19 03:59 Additional Labs: Accuchecks 12/27/19 05:35 POC Glucose 334 H Hospitalist ROS - Review of Systems Constitutional: reports: fever. denies: chills Respiratory: denies: cough, shortness of breath Cardiovascular: reports: edema. denies: chest pain, palpitations Gastrointestinal: denies: nausea, vomiting, abdominal pain Skin: reports: rash - Medication Medications: Active Medications Generic Name Dose Route Start Last Admin Trade Name Freq PRN Reason Stop Dose Admin Famotidine 20 mg 12/26/19 21:00 12/26/19 23:22 Pepcid SLOW IVP Not Given HS [facility] Ceftriaxone Sodium 2 gm/ 100 mls @ 200 mls/hr 12/26/19 18:00 12/26/19 23:21 Sodium Chloride IVPB Not Given Q24HR [facility] Insulin Human Lispro 0 units 12/26/19 20:18 12/27/19 05:47 Humalog SC 5 unit .MILD SLIDING SCALE PRN Administration Mild Correctional Scale - Exam General Appearance: NAD, awake alert ENT: moist mucosa Heart: RRR, no murmur, no gallops, no rubs Respiratory: CTAB, no wheezes, no rales, no ronchi Gastrointestinal: soft, non-tender, non-distended, normal bowel sounds Skin - other findings: mild cellulitis of the left leg, warm to the touch, right with edema scar Psychiatric: normal affect, normal behavior, A&O x 3 Hosp A/P (1) Sepsis Code(s): A41.9 - SEPSIS, UNSPECIFIED ORGANISM Status: Acute Qualifiers: Severe sepsis shock status: without septic shock (2) Lower extremity pain, bilateral Code(s): M79.604 - PAIN IN RIGHT LEG; M79.605 - PAIN IN LEFT LEG Status: Acute (3) ESRD on dialysis Code(s): N18.6 - END STAGE RENAL DISEASE; Z99.2 - DEPENDENCE ON RENAL DIALYSIS Status: Chronic (4) Elevated troponin I level Code(s): R79.89 - OTHER SPECIFIED ABNORMAL FINDINGS OF BLOOD CHEMISTRY Status : Acute Plan: due to sepsis, mild, stable (5) Lymphoma Status: Chronic (6) CHF (congestive heart failure) Code(s): I50.9 - HEART FAILURE, UNSPECIFIED Status: Chronic Qualifiers: Heart failure type: diastolic Heart failure chronicity: chronic Qualified Code(s): I50.32 - Chronic diastolic (congestive) heart failure (7) Hyperlipidemia Code(s): E78.5 - HYPERLIPIDEMIA, UNSPECIFIED Status: Chronic Qualifiers: Hyperlipidemia type: other hyperlipidemia Qualified Code(s): E78.49 - Other hyperlipidemia; E78.4 - Other hyperlipidemia (8) Hypertension Code(s): I10 - ESSENTIAL (PRIMARY) HYPERTENSION Status: Chronic Qualifiers: Hypertension type: essential hypertension Qualified Code(s): I10 - Essential (primary) hypertension (9) Type 2 diabetes mellitus Status: Chronic Qualifiers: Diabetes mellitus buttermaker insulin use: without care home use Diabetes mellitus complication status: with kidney complications Diabetes mellitus complication detail: with chronic kidney disease Chronic kidney disease stage : stage 4 (severe) Qualified Code(s): E11.22 - Type 2 diabetes mellitus with diabetic chronic kidney disease; N18.4 - Chronic kidney disease, stage 4 (severe ) (10) Cellulitis Code(s): L03.90 - CELLULITIS, UNSPECIFIED Status: Acute Qualifiers: Site of cellulitis: extremity Site of cellulitis of extremity: lower extremity Laterality: left Qualified Code(s): L03.116 - Cellulitis of left lower limb - Plan Surgical consulted to assess line, Dr. Stephen says line looks ok for now, no need to pull unless line culture comes back positive Nephrology consult for dialysis Continue IV antibiotics Rocephin and Vancomycin since 12/26/2019 U/S lower extremities neg for DVT Mild cellulitis possible source of fever. Will ask Dr. Boone for his imput.
[2019-12-27] MEDS ORDERED: COD LIVER OIL PO SCH (09:00)
[2019-12-27 09:21] LABS: Anisocytosis SLIGHT = 6-15 cells (100X) (0-5/hpf); Band 7 % (5-11); Hemoglobin 7.8 g/dL (12.0-16.0); Lymphocytes 18 % (21-51); MDiff Complete? YES; Mean Corpuscular HGB CONC 32.6 g/dL (32.0-36.0); Mean Corpuscular Hemoglobin 29.2 pg (27.0-31.0); Mean Corpuscular Volume 89.4 fL (78.0-98.0); Mean Platelet Volume 8.5 fL (7.4-10.4); Monocytes 14 % (0-10); Neutrophil 61 % (42-75); Platelet Count 128 thou/uL (130-400); RBC Distribution Width 16.7 % (11.5-14.5); Red Blood Cell (RBC) Count 2.68 mill/uL (4.20-5.40); White Blood Cell (WBC) Count 6.1 thou/uL (4.8-10.8)
[2019-12-27] MEDS: Isosorbide Dinitrate 5 MG TAB PO SCH ×2 (09:39→20:42)
[2019-12-27] MEDS: Aspirin 81 mg Enteric Coated Tablet PO SCH (09:39)
[2019-12-27] MEDS: Acetaminophen 500 MG TAB PO PRN (09:39)
[2019-12-27] MEDS: Metoprolol Tartrate 50 MG TAB PO SCH ×2 (09:40→20:42)
[2019-12-27] MEDS: Gabapentin 100 MG CAP PO SCH ×3 (09:40→20:43)
--- NOTE | 2019-12-27 10:04 | ULT ---
BILATERAL LOWER EXTREMITY VENOUS DOPPLER: DATE: 12/26/2019. PROVIDED CLINICAL HISTORY: Bilateral lower extremity pain. FINDINGS: Aviles scale and color Doppler sonography with spectral analysis was performed of the bilateral common femoral, femoral, popliteal, posterior tibial, greater saphenous, and profunda femoral veins, demonst rating a normal sonographic appearance to each. IMPRESSION: No sonographic evidence for lower extremity deep venous thrombosis. POS: JUAN
[2019-12-27] MEDS ORDERED: Lidocaine 1% w/Epinephrine 1:100K 20 ML VIAL IJ SCH (11:00)
[2019-12-27] MEDS: Fish Oil 1,000 MG CAP PO SCH ×2 (12:59→20:44)
[2019-12-27] MEDS: Glimepiride 1 MG TAB PO SCH (12:59)
[2019-12-27 13:46] LABS: SARS-CoV-2 MS2 Positive; SARS-CoV-2 N Gene Negative; SARS-CoV-2 S Gene Negative; SARS-CoV-2 orf1ab Negative
[2019-12-27] MEDS: cefTRIAXone\\ROCEPHIN 2 GM in Sodium Chloride 0.9% 100 ML IVPB SCH (18:28)
[2019-12-27 19:12] LABS: Vancomycin, Random 19.6 ug/mL (See Comment)
[2019-12-27] MEDS: [UNRECOGNIZED DRUG - OTHER] PO SCH (20:42)
[2019-12-27] MEDS: Pramipexole Di-HCl 0.125 MG TAB PO SCH (20:42)
[2019-12-27] MEDS: Atorvastatin Calcium 10 MG TAB PO SCH (20:43)
[2019-12-27] MEDS: Amlodipine 10 MG TAB PO SCH (20:43)
[2019-12-27] MEDS: Famotidine/PF 20 mg/2ml Vial SLOW IVP SCH (20:44)
--- NOTE | 2019-12-28 01:26 | CON ---
DATE OF CONSULTATION: 12/27/2019 REASON FOR CONSULTATION: Fever. HISTORY OF PRESENT ILLNESS: A 74-year-old patient whom I had seen previously this year in September when she presented with a history of type 2 diabetes, CKD stage V, prior bariatric sleeve gastrectomy, and history of rheumatoid arthritis, and the question was changes in her legs. There was a concern of cellulitis, but our impression was that it was probably venous insufficiency associated with stasis dermatitis, but not cellulitis. We did not recommend treatment with antimicrobials then, just venous compression stockings. She then in November developed sore throat, was evaluated in her PCP's office, and there was a lymph node enlarged in the left side at the base of the neck anteriorly. She was referred to ENT and a biopsy revealed large cell lymphoma. Bone marrow did not show any lymphoma. PET scan was done and it showed some areas of metastatic spread and she is currently on Cytoxan, Adriamycin, Rituxan, and prednisone. I have increased and she got 1 course of it on December 10 or and tolerated pretty well, but now she has developed fever. She felt fatigued as well and kind of listless. No headaches. No visual symptoms, sore throat, odynophagia, or dysphagia. No vomiting. No cough, sputum production, or chest pain. No dyspnea. No abdominal pain. She still has some urine output but no dysuria. No back pain. She noted her urine was kind of concentrated. Initial findings included a temperature of 103, pulse 78, O2 saturation 90% on room air, and other findings included sodium 139, creatinine 3.16. Liver profile normal. Albumin 3.4, globulin 2.6. White cell count 6.7, hemoglobin 7.8, platelets 144, 26% neutrophils, 40% bands, and now she had 7% metamyelocytes and 4% myelocytes. Urinalysis with greater than 50 wbc's. COVID was not detected. Imaging included a chest x-ray with cardiomegaly, but no infiltrates. Venogram, no evidence of deep vein thrombosis. Currently, Ms. Connor is sitting in bed. She appears comfortable, feels better than when she came in. She has been hemodialyzed through a tunneled hemodialysis catheter in the right IJ position. She has a port which is accessed in the left side. REVIEW OF SYSTEMS: A 10-point review of systems is negative except for tenderness along the right tunneled hemodialysis catheter. PAST MEDICAL HISTORY: Type 2 diabetes; cardiomyopathy; chronic low back pain; rheumatoid arthritis; CKD, end-stage, on hemodialysis with tunneled catheter. She had an AV fistula attempted but was not successful. PAST SURGICAL HISTORY: Includes , hysterectomy, TKR, bariatric surgery which was a sleeve gastrectomy, and recent mass excision of the left neck base anteriorly with large cell lymphoma diagnosed. FAMILY HISTORY: Noncontributory. SOCIAL HISTORY: Former smoker and lives with the granddaughter. She is from [place]. CURRENT MEDICATIONS: Include: 1. Tylenol. 2. Norvasc. 3. Ecotrin. 4. Lipitor. 5. Ceftriaxone. 6. Retacrit. 7. Pepcid. 8. Neurontin. 9. Amaryl. 10. Isordil. 11. Mirapex. 12. Vancomycin. PHYSICAL EXAMINATION: VITAL SIGNS: She is still having temperature elevation 101.7 at 8 o'clock in the morning today. BP 150/70, pulse 77, respirations 20, O2 saturation 96% on room air. GENERAL: Appears in no distress. She has a right tunneled hemodialysis catheter with mild tenderness along the tunnel. The left port which is accessed is not tender, no lymphadenopathy. HEENT: Ocular movements conjugate. Oral cavity is not remarkable. NECK: Supple. LUNGS: Symmetric. Clear breath sounds. HEART: S1 and S2. Regular rate. No S3 or S4. No murmurs. ABDOMEN: Soft, not distended or tender. No ascites. Quite prominent abdominal panniculus. EXTREMITIES: She moves extremities equally. Pulses are 1+ in dorsalis pedis. Very mild stasis dermatitis changes in left leg, trace edema. Plantar responses are flexor. NEUROLOGIC: She is awake, alert, oriented. Good recollection. Speech is normal. Pleasant. LABORATORY DATA: The white cell count now is 6.1, hemoglobin 7.8, platelets 128, with 61% neutrophils, 7% bands. Sodium 139, creatinine 2.16. Liver profile still normal. Albumin 3.3. ASSESSMENT: 1. Type 2 diabetes. 2. End-stage renal disease, on hemodialysis through a tunneled catheter. 3. Rheumatoid arthritis. 4. Cardiomyopathy. 5. Recently diagnosed large cell lymphoma after lymph node biopsy, on chemotherapy with gentamicin, Cytoxan, vincristine, Rituxan, and prednisone. 6. Fever. DISCUSSION: Differential diagnosis includes colonization of one of the catheters, invasive UTI, and opportunistic infectious process unrelated to the catheters and lymphoma associated fever. We will continue monitoring blood cultures. If the fever persists, we may have to embark in fever of unknown origin workup. If blood cultures turn positive, then we will probably have to evaluate either the right or the left catheter to the site which one is more likely to be involved. If it is a bacteria, typically associated with such complications. The patient has a clearly abnormal urinalysis and if the fever resolves, then we could blame it on the urinary tract and as soon as we have the susceptibility studies, can target the organism retrieved with the susceptibilities, hopefully transition to oral antimicrobial therapy for discharge planning. So, in summary, the disposition will depend on the results of the blood cultures and the course of her temperature in terms of the need to start a full fever of unknown origin workup or not, and/or allow discharge planning with an antimicrobial geared towards the Gram-negative rods retrieved from the urinary tract. Job ID: [id number]
--- NOTE | 2019-12-28 06:26 | CON ---
DATE OF CONSULTATION: 12/27/2019 CONSULTING PHYSICIAN: ELIAN Zimmerman. REASON FOR CONSULTATION: End-stage renal disease evaluation. REASON FOR ADMISSION: Fever. HISTORY OF PRESENT ILLNESS: This is a 74-year-old female with history of end-stage renal disease, obesity, peripheral vascular disease, rheumatoid arthritis, type 2 diabetes, who came to the hospital with above complaints. The patient was having fever and there were concerns for COVID also, sent to the hospital. No chest pain or palpitation. PAST MEDICAL HISTORY: Positive for end-stage renal disease, type 2 diabetes, hypertension, and chronic lower back pain. PAST SURGICAL HISTORY: , hysterectomy, dialysis access placement, and bariatric surgery. HOME MEDICATIONS: Reviewed. ALLERGIES: TO SULFA AND LEVOFLOXACIN. SOCIAL HISTORY: Former smoker. No alcohol or illicit drug abuse. FAMILY HISTORY: No history of kidney disease. REVIEW OF SYSTEMS: CONSTITUTIONAL: Negative for weight loss or gain, ability to conduct usual activities. SKIN: Negative for rash, itching. EYES: Negative for double vision, pain. ENT/MOUTH: Negative for nose bleeding, neck stiffness, pain, tenderness. CARDIOVASCULAR: Negative for palpitations, dyspnea on exertion, orthopnea. RESPIRATORY: Negative for shortness of breath, wheezing, cough, hemoptysis, fever or night sweats. GASTROINTESTINAL: Negative for poor appetite, abdominal pain, heartburn, nausea, vomiting, constipation, or diarrhea. GENITOURINARY: Negative for urgency, frequency, dysuria, nocturia. MUSCULOSKELETAL: Negative for pain, swelling. NEUROLOGIC/PSYCHIATRIC: Negative for anxiety, depression. ALLERGY/IMMUNOLOGIC: Negative for skin rash, bleeding tendency. PHYSICAL EXAMINATION: GENERAL: Morbidly obese female, in no apparent distress. VITAL SIGNS: Temperature 98.7, pulse 67, respiratory rate 16, and blood pressure 131/62. HEENT: Atraumatic, normocephalic. Oral mucosa is moist. NECK: Supple. CV: S1 and S2. Regular rate and rhythm. RESPIRATORY: Clear. GASTROINTESTINAL: Abdomen is soft. MUSCULOSKELETAL: No edema. DERMATOLOGIC: No skin rash. NEUROLOGIC: Alert and awake. PSYCHIATRIC: Normal mood and affect. LABORATORY DATA: Potassium 3.3, BUN is 22, and creatinine is 3.5. ASSESSMENT AND PLAN: 1. End-stage renal disease. Continue dialysis on Friday, , and Friday. 2. Edema. 3. History of hypertension. 4. Anemia of chronic disease. 5. Continue Epogen with dialysis. 6. Urinary tract infection. Continue antibiotics. Thank you for the consult. We will follow. Job ID: [id number]
--- NOTE | 2019-12-28 07:57 | PDOC.HOSPP ---
- Subjective Encounter Date: 12/28/19 Encounter Time: 09:20 Subjective: Patient without complaints. No more high fever, just to about 100. No pain. - Objective Vital Signs & Weight: Vital Signs (12 hours) Temp Pulse Resp BP BP Pulse Ox 12/28/19 07:44 100.0 F H 87 18 179/79 H 95 12/28/19 03:58 98.8 F 86 18 174/77 H 94 L 12/27/19 23:32 99.6 F 155/67 H 12/27/19 20:43 77 Weight Weight 271 lb I&O: 12/27/19 12/28/19 12/29/19 06:59 06:59 06:59 Intake Total 610 Balance 610 Result Diagrams: 12/27/19 03:59 12/27/19 03:59 Additional Labs: Accuchecks 12/28/19 12/27/19 12/27/19 05:44 20:18 13:12 POC Glucose 178 H 168 H 242 H Hospitalist ROS - Review of Systems Constitutional: denies: fever, chills Respiratory: denies: cough, shortness of breath Cardiovascular: denies: chest pain, palpitations, orthopnea Gastrointestinal: denies: nausea, vomiting, abdominal pain - Medication Medications: Active Medications Generic Name Dose Route Start Last Admin Trade Name Freq PRN Reason Stop Dose Admin Acetaminophen 1,000 mg 12/27/19 08:56 12/27/19 09:39 Tylenol PO 1,000 mg Q6H PRN Administration Fever>101/(Mi/Mod/Sev) Pain Amlodipine Besylate 10 mg 12/27/19 21:00 12/27/19 20:43 Norvasc PO 10 mg HS ZANA Administration Aspirin 81 mg 12/27/19 09:00 12/27/19 09:39 Ecotrin PO 81 mg DAILY ZANA Administration Atorvastatin Calcium 10 mg 12/27/19 21:00 12/27/19 20:43 Lipitor PO 10 mg HS ZANA Administration Famotidine 20 mg 12/26/19 21:00 12/27/19 20:44 Pepcid SLOW IVP 20 mg HS ZANA Administration Fish Oil 1,000 mg 12/27/19 09:00 12/27/19 20:44 Fish Oil PO 1,000 mg BID ZANA Administration Gabapentin 100 mg 12/27/19 09:00 12/27/19 20:43 Neurontin PO 100 mg TID ZANA Administration Glimepiride 1 mg 12/27/19 08:00 12/27/19 12:59 Amaryl PO 1 mg QAM-WM ZANA Administration Ceftriaxone Sodium 2 gm/ 100 mls @ 200 mls/hr 12/26/19 18:00 12/27/19 18:28 Sodium Chloride IVPB 100 mls Q24HR ZANA Administration Insulin Human Lispro 0 units 12/26/19 20:18 12/27/19 13:12 Humalog SC 3 unit .MILD SLIDING SCALE PRN Administration Mild Correctional Scale Isosorbide Dinitrate 10 mg 12/27/19 09:00 12/27/19 20:42 Isordil PO 10 mg BID ZANA Administration Losartan Potassium 100 mg 12/27/19 21:00 12/27/19 20:42 Cozaar PO 100 mg HS ZANA Administration Metoprolol Tartrate 50 mg 12/27/19 09:00 12/27/19 20:42 Lopressor PO 50 mg BID ZANA Administration Pramipexole Dihydrochloride 0.125 mg 12/27/19 21:00 12/27/19 20:42 Mirapex PO 0.125 mg QPM ZANA Administration Sodium Chloride 10 ml 12/26/19 19:19 12/27/19 09:42 Flush - Normal Saline IVF 10 ml Q12HR PRN Administration Saline Flush Sodium Chloride 10 ml 12/26/19 19:19 12/27/19 18:31 Flush - Normal Saline IVF 10 ml PRN PRN Administration Saline Flush - Exam General Appearance: NAD, awake alert ENT: moist mucosa Heart: RRR, no murmur, no gallops, no rubs Respiratory: CTAB, no wheezes, no rales, no ronchi Gastrointestinal: soft, non-tender, non-distended, normal bowel sounds Skin - other findings: mild erythema to left hernandez, likely edema changes vs. very mild cellulitis Psychiatric: normal affect, normal behavior, A&O x 3 Hosp A/P (1) Bacteremia due to coagulase-negative Staphylococcus Code(s): R78.81 - BACTEREMIA; B95.7 - OTH STAPHYLOCOCCUS THE CAUSE OF DISEASES CLASSD ELSWHR Status: Acute (2) Sepsis Code(s): A41.9 - SEPSIS, UNSPECIFIED ORGANISM Status: Acute Qualifiers: Severe sepsis shock status: without septic shock (3) Lower extremity pain, bilateral Code(s): M79.604 - PAIN IN RIGHT LEG; M79.605 - PAIN IN LEFT LEG Status: Acute (4) ESRD on dialysis Code(s): N18.6 - END STAGE RENAL DISEASE; Z99.2 - DEPENDENCE ON RENAL DIALYSIS Status: Chronic (5) Elevated troponin I level Code(s): R79.89 - OTHER SPECIFIED ABNORMAL FINDINGS OF BLOOD CHEMISTRY Status : Acute (6) Lymphoma Status: Chronic (7) CHF (congestive heart failure) Code(s): I50.9 - HEART FAILURE, UNSPECIFIED Status: Chronic Qualifiers: Heart failure type: diastolic Heart failure chronicity: chronic Qualified Code(s): I50.32 - Chronic diastolic (congestive) heart failure (8) Hyperlipidemia Code(s): E78.5 - HYPERLIPIDEMIA, UNSPECIFIED Status: Chronic Qualifiers: Hyperlipidemia type: other hyperlipidemia Qualified Code(s): E78.49 - Other hyperlipidemia; E78.4 - Other hyperlipidemia (9) Hypertension Code(s): I10 - ESSENTIAL (PRIMARY) HYPERTENSION Status: Chronic Qualifiers: Hypertension type: essential hypertension Qualified Code(s): I10 - Essential (primary) hypertension (10) Type 2 diabetes mellitus Status: Chronic Qualifiers: Diabetes mellitus correction insulin use: without ad terminal makeup operator use Diabetes mellitus complication status: with kidney complications Diabetes mellitus complication detail: with chronic kidney disease Chronic kidney disease stage : stage 4 (severe) Qualified Code(s): E11.22 - Type 2 diabetes mellitus with diabetic chronic kidney disease; N18.4 - Chronic kidney disease, stage 4 (severe ) (11) Cellulitis Code(s): L03.90 - CELLULITIS, UNSPECIFIED Status: Suspected Qualifiers: Site of cellulitis: extremity Site of cellulitis of extremity: lower extremity Laterality: left Qualified Code(s): L03.116 - Cellulitis of left lower limb - Plan Surgical consulted to assess line, Dr. Stephen evaluated line externally and said ok, wait for cultures left sided central line and another blood culture growing back staph epi, likely source of fever, discussed with Dr. Boone and he recommended Vancomycin lock port solution in both lines Nephrology managing dialysis Continue IV antibiotics Rocephin and Vancomycin since 12/26/2019 U/S lower extremities neg for DVT Mild cellulitis not likely source of fever.
[2019-12-28] MEDS: Acetaminophen 500 MG TAB PO PRN ×2 (08:04→21:03)
[2019-12-28] MEDS ORDERED: Heparin 10,000 UNITS/ 10 ML VIAL ONE (08:54)
[2019-12-28] MEDS ORDERED: VANCOMYCIN HCL CATH SCH (13:00)
[2019-12-28] MEDS ORDERED: SODIUM CHLORIDE 0.9% CATH SCH (13:00)
[2019-12-28] MEDS ORDERED: ADMIXTURE FEE CATH SCH (13:00)
[2019-12-28] MEDS ORDERED: Vancomycin HCl 50 MG, Sodium Chloride 0.9% 10 ML in Syringe 1 ML CATH SCH (13:00)
[2019-12-28] MEDS: EPOETIN ALFA-EPBX (ESRD) 10,000 UNIT/ML VIAL IVP SCH (14:00)
[2019-12-28] MEDS: Glimepiride 1 MG TAB PO SCH (14:48)
[2019-12-28] MEDS: Fish Oil 1,000 MG CAP PO SCH ×2 (14:48→21:02)
[2019-12-28] MEDS: Aspirin 81 mg Enteric Coated Tablet PO SCH (14:48)
[2019-12-28] MEDS: Metoprolol Tartrate 50 MG TAB PO SCH ×2 (14:49→21:02)
[2019-12-28] MEDS: Gabapentin 100 MG CAP PO SCH ×3 (14:49→21:02)
[2019-12-28] MEDS: Isosorbide Dinitrate 5 MG TAB PO SCH ×2 (14:49→21:02)
[2019-12-28] MEDS ORDERED: VANCOMYCIN HCL CATH PRN ×2 (15:46→19:27)
[2019-12-28] MEDS ORDERED: SODIUM CHLORIDE 0.9% CATH PRN ×2 (15:46→19:27)
[2019-12-28] MEDS ORDERED: HEPARIN CATH PRN ×2 (15:46→19:27)
--- NOTE | 2019-12-28 16:57 | PRG ---
DATE OF SERVICE: 12/28/2019 SUBJECTIVE: Ms. Connor is feeling a little better. She denies any shortness of breath or chest pain. No cough. No abdominal pain. No diarrhea. OBJECTIVE: VITAL SIGNS: T-max 100, blood pressure 140/70, pulse 85, respirations 16, and O2 saturation 99%. LUNGS: Clear. HEART: S1 and S2, regular rate. ABDOMEN: Soft. Not distended or tender. EXTREMITIES: She has 2 vascular accesses in the right and left side of the neck and chest respectively. LABORATORY DATA: White cell count 6.1, hemoglobin 7.8, platelets 128. Creatinine 3.51. Now, we have 2 sets of blood cultures with coagulase-negative Staphylococcus, one is from the central line and one is from the right hand. The organism has been identified as Staphylococcus epidermidis from the central line and the same one from the peripheral, so this is a significant finding. ASSESSMENT AND DISCUSSION: Type 2 diabetes; end-stage renal disease, on hemodialysis through a tunneled catheter in the right IJ position; rheumatoid arthritis; cardiomyopathy; large cell lymphoma, recently diagnosed, on chemo with Adriamycin, Cytoxan, vincristine, Rituxan, prednisone; fever; and now Staphylococcus epidermidis bacteremia. The findings in the blood cultures are suggestive of colonization of the central line that is the port. It appears that the line that was sampled is the port. So, what we will do is recommend a vancomycin lock solution for both the port and the hemodialysis catheter. There is about 80% chance of successful eradication of this colonization with a lock solution, so I think we should give her a shot. At the same time, she will need IV vancomycin for approximately 2 weeks following a sliding scale and this can be administered at dialysis. Job ID: [id number]
[2019-12-28] MEDS: traMADol HCl 50 MG TAB PO PRN (17:13)
--- NOTE | 2019-12-28 19:06 | PRG ---
DATE OF SERVICE: 12/28/2019 SUBJECTIVE: Patient was seen and examined at bedside and overnight events noted. Patient denies any shortness of breath or chest pain or palpitation. No history of nausea or vomiting or diarrhea or fever or chills or cramps. OBJECTIVE: General: This is an obese female, in no apparent distress. Vital Signs: Temperature 98.3. Heart rate 84. Respiratory rate 16. Blood pressure 149/78. HEENT: Atraumatic, normocephalic. Oral mucosa is moist. Neck: Supple. Cardiovascular: S1, S2 heard. Rate and rhythm regular. Respiratory: Clear to auscultation. Gastrointestinal: Abdomen is soft. Musculoskeletal: No tenderness. No edema. Dermatologic: No skin rash. Neurologic: Alert and awake and oriented x3. No focal neurologic deficits. Moving all the extremities. Psychiatric: Mood and affect normal. LABORATORY DATA: Potassium 3.3, BUN is 22, and creatinine is 3.5. ASSESSMENT AND PLAN: 1. End-stage renal disease. Continue dialysis. 2. Fever, less likely from COVID-19 syndrome, most likely from urinary tract infection or bacteremia. ID is on the case. I am okay with her going back to general population for dialysis therapy. 3. Edema. 4. Hypertension. 5. Anemia of chronic disease. The patient's fever most likely from bacteremia and final reports are pending. Continue antibiotics. She tested negative for COVID. We will follow. Job ID: [id number]
[2019-12-28] MEDS: Vancomycin HCl 1.25 GM in Sodium Chloride 0.9% 250 ML 250 ML IVPB SCH (20:59)
[2019-12-28] MEDS: Amlodipine 10 MG TAB PO SCH (21:00)
[2019-12-28] MEDS: [UNRECOGNIZED DRUG - OTHER] PO SCH (21:02)
[2019-12-28] MEDS: Pramipexole Di-HCl 0.125 MG TAB PO SCH (21:02)
[2019-12-28] MEDS: Atorvastatin Calcium 10 MG TAB PO SCH (21:03)
[2019-12-28] MEDS: Famotidine/PF 20 mg/2ml Vial SLOW IVP SCH (21:03)
[2019-12-28] MEDS: HumaLOG 300 UNITS/3 ML VIAL SC PRN (21:11)
[2019-12-28] MEDS: SODIUM CHLORIDE 0.9% CATH SCH (21:26)
[2019-12-28] MEDS: HEPARIN CATH SCH (21:26)
[2019-12-28] MEDS: VANCOMYCIN HCL CATH SCH (21:26)
[2019-12-29] MEDS: HumaLOG 300 UNITS/3 ML VIAL SC PRN ×4 (06:48→21:32)
--- NOTE | 2019-12-29 07:25 | PDOC.HOSPP ---
- Subjective Encounter Date: 12/29/19 Encounter Time: 09:00 Subjective: Patient with fever again last night. Feeling a bit nauseated last night, somewhat better today. No other complaints. - Objective Vital Signs & Weight: Vital Signs (12 hours) Temp Pulse Resp BP BP Pulse Ox 12/29/19 03:25 98.8 F 84 18 138/62 94 L 12/29/19 00:00 99.6 F 12/28/19 21:00 80 127/63 Weight Weight 271 lb I&O: 12/28/19 12/29/19 12/30/19 06:59 06:59 06:59 Intake Total 610 560 Balance 610 560 Result Diagrams: 12/27/19 03:59 12/27/19 03:59 Additional Labs: Accuchecks 12/29/19 12/28/19 12/28/19 05:52 20:15 16:35 POC Glucose 201 H 267 H 227 H 12/28/19 12/28/19 14:45 10:38 POC Glucose 125 H 252 H Hospitalist ROS - Review of Systems Constitutional: reports: fever. denies: chills Respiratory: denies: cough, shortness of breath Cardiovascular: denies: chest pain, palpitations Gastrointestinal: reports: nausea. denies: vomiting, abdominal pain - Medication Medications: Active Medications Generic Name Dose Route Start Last Admin Trade Name Freq PRN Reason Stop Dose Admin Acetaminophen 1,000 mg 12/27/19 08:56 12/28/19 21:03 Tylenol PO 1,000 mg Q6H PRN Administration Fever>101/(Mi/Mod/Sev) Pain Amlodipine Besylate 10 mg 12/27/19 21:00 12/28/19 21:00 Norvasc PO 10 mg HS ZANA Administration Aspirin 81 mg 12/27/19 09:00 12/28/19 14:48 Ecotrin PO 81 mg DAILY ZANA Administration Atorvastatin Calcium 10 mg 12/27/19 21:00 12/28/19 21:03 Lipitor PO 10 mg HS ZANA Administration Epoetin Venancio-epbx 20,000 unit 12/28/19 08:00 12/28/19 14:00 Retacrit IVP 20,000 unit TuThSa ZANA Administration Famotidine 20 mg 12/26/19 21:00 12/28/19 21:03 Pepcid SLOW IVP 20 mg HS ZANA Administration Fish Oil 1,000 mg 12/27/19 09:00 12/28/19 21:02 Fish Oil PO 1,000 mg BID ZANA Administration Gabapentin 100 mg 12/27/19 09:00 12/28/19 21:02 Neurontin PO 100 mg TID ZANA Administration Glimepiride 1 mg 12/27/19 08:00 12/28/19 14:48 Amaryl PO Not Given QAM-WM ZANA Vancomycin HCl 1.25 gm/ Sodium 250 mls @ 166.667 mls/hr 12/28/19 20:00 20:59 Chloride IVPB 250 mls Q2D ZANA Administration Vancomycin HCl 50 mg/ Sodium 10 mls @ 0 mls/hr 12/28/19 21:00 12/28/19 21:26 Chloride 9.5 ml/ Heparin CATH 5 mls Sodium (Porcine) 2,500 units/ Q12HR ZANA Administration Syringe Insulin Human Lispro 0 units 12/26/19 20:18 12/29/19 06:48 Humalog SC 3 unit .MILD SLIDING SCALE PRN Administration Mild Correctional Scale Insulin Human Lispro 0 units 12/26/19 20:18 12/28/19 21:11 Humalog SC 3 units .BEDTIME SLIDING SC PRN Administration Bedtime Correctional Scale Isosorbide Dinitrate 10 mg 12/27/19 09:00 12/28/19 21:02 Isordil PO 10 mg BID ZANA Administration Losartan Potassium 100 mg 12/27/19 21:00 12/28/19 21:02 Cozaar PO 100 mg HS ZANA Administration Metoprolol Tartrate 50 mg 12/27/19 09:00 12/28/19 21:02 Lopressor PO 50 mg BID ZANA Administration Pramipexole Dihydrochloride 0.125 mg 12/27/19 21:00 12/28/19 21:02 Mirapex PO 0.125 mg QPM ZANA Administration Sodium Chloride 10 ml 12/26/19 19:19 12/27/19 09:42 Flush - Normal Saline IVF 10 ml Q12HR PRN Administration Saline Flush Sodium Chloride 10 ml 12/26/19 19:19 12/27/19 18:31 Flush - Normal Saline IVF 10 ml PRN PRN Administration Saline Flush Tramadol HCl 50 mg 12/27/19 12:05 12/28/19 17:13 Ultram PO 50 mg Q12H PRN Administration Mild-Moderate Pain (1-5) - Exam General Appearance: NAD, awake alert ENT: moist mucosa Heart: RRR, no murmur, no gallops, no rubs Respiratory: CTAB, no wheezes, no rales, no ronchi Gastrointestinal: soft, non-tender, non-distended, normal bowel sounds Skin - other findings: mild redness and warmth to left anterior hernandez Psychiatric: normal affect, normal behavior, A&O x 3 Hosp A/P (1) Bacteremia due to coagulase-negative Staphylococcus Code(s): R78.81 - BACTEREMIA; B95.7 - OTH STAPHYLOCOCCUS THE CAUSE OF DISEASES CLASSD ELSWHR Status: Acute (2) Sepsis Code(s): A41.9 - SEPSIS, UNSPECIFIED ORGANISM Status: Acute Qualifiers: Severe sepsis shock status: without septic shock (3) Lower extremity pain, bilateral Code(s): M79.604 - PAIN IN RIGHT LEG; M79.605 - PAIN IN LEFT LEG Status: Acute (4) ESRD on dialysis Code(s): N18.6 - END STAGE RENAL DISEASE; Z99.2 - DEPENDENCE ON RENAL DIALYSIS Status: Chronic (5) Elevated troponin I level Code(s): R79.89 - OTHER SPECIFIED ABNORMAL FINDINGS OF BLOOD CHEMISTRY Status : Acute (6) Lymphoma Status: Chronic (7) CHF (congestive heart failure) Code(s): I50.9 - HEART FAILURE, UNSPECIFIED Status: Chronic Qualifiers: Heart failure type: diastolic Heart failure chronicity: chronic Qualified Code(s): I50.32 - Chronic diastolic (congestive) heart failure (8) Hyperlipidemia Code(s): E78.5 - HYPERLIPIDEMIA, UNSPECIFIED Status: Chronic Qualifiers: Hyperlipidemia type: other hyperlipidemia Qualified Code(s): E78.49 - Other hyperlipidemia; E78.4 - Other hyperlipidemia (9) Hypertension Code(s): I10 - ESSENTIAL (PRIMARY) HYPERTENSION Status: Chronic Qualifiers: Hypertension type: essential hypertension Qualified Code(s): I10 - Essential (primary) hypertension (10) Type 2 diabetes mellitus Status: Chronic Qualifiers: Diabetes mellitus middle or intermediate school principal insulin use: without middle or intermediate school principal use Diabetes mellitus complication status: with kidney complications Diabetes mellitus complication detail: with chronic kidney disease Chronic kidney disease stage : stage 4 (severe) Qualified Code(s): E11.22 - Type 2 diabetes mellitus with diabetic chronic kidney disease; N18.4 - Chronic kidney disease, stage 4 (severe ) (11) Cellulitis Code(s): L03.90 - CELLULITIS, UNSPECIFIED Status: Suspected Qualifiers: Site of cellulitis: extremity Site of cellulitis of extremity: lower extremity Laterality: left Qualified Code(s): L03.116 - Cellulitis of left lower limb - Plan left sided port central line and another blood culture growing back staph epi, likely source of fever, discussed with Dr. oBone and he recommended Vancomycin lock port solution in both lines, 80% chance of clearing the colonization Continuing to spike fevers, will need 2 weeks of IV Vancomycin Nephrology managing dialysis Continue IV antibiotics Rocephin and Vancomycin since 12/26/2019 Urine cultures with mixed bacteria, likely colonization not infection U/S lower extremities neg for DVT Mild cellulitis vs edema erythema changes not likely source of fever.
[2019-12-29] MEDS: Metoprolol Tartrate 50 MG TAB PO SCH ×2 (09:33→21:30)
[2019-12-29] MEDS: Gabapentin 100 MG CAP PO SCH ×3 (09:34→21:26)
[2019-12-29] MEDS: SODIUM CHLORIDE 0.9% CATH SCH ×2 (09:34→21:31)
[2019-12-29] MEDS: HEPARIN CATH SCH ×2 (09:34→21:31)
[2019-12-29] MEDS: VANCOMYCIN HCL CATH SCH ×2 (09:34→21:31)
[2019-12-29] MEDS: Aspirin 81 mg Enteric Coated Tablet PO SCH (09:34)
[2019-12-29] MEDS: Fish Oil 1,000 MG CAP PO SCH ×2 (09:34→21:25)
[2019-12-29] MEDS: Isosorbide Dinitrate 5 MG TAB PO SCH ×2 (09:34→21:27)
[2019-12-29] MEDS: Glimepiride 1 MG TAB PO SCH (10:35)
--- NOTE | 2019-12-29 16:19 | PRG ---
DATE OF SERVICE: 12/29/2019 SUBJECTIVE: Patient was seen and examined at bedside and overnight events noted. Patient denies any shortness of breath or chest pain or palpitation. No history of nausea or vomiting or diarrhea or fever or chills or cramps. OBJECTIVE: GENERAL: This is a well-built female, in no apparent distress. VITAL SIGNS: Temperature 98.8. Heart Rate 74. Respiratory rate 16. Blood pressure 132/67. HEENT: Atraumatic, normocephalic. Oral mucosa is moist. NECK: Supple. CARDIOVASCULAR: S1, S2 heard. Rate and rhythm regular. RESPIRATORY: Clear to auscultation. GASTROINTESTINAL: Abdomen is soft. MUSCULOSKELETAL: No tenderness. No edema. DERMATOLOGIC: No skin rash. NEUROLOGIC: Alert and awake and oriented x3. No focal neurologic deficits. Moving all the extremities. PSYCHIATRIC: Mood and affect normal. LABORATORY DATA: Labs not done today. ASSESSMENT AND PLAN: 1. End-stage renal disease. Continue dialysis as tolerated. 2. Fever. 3. Negative for COVID-19 infection. 4. Edema. 5. . 6. Anemia of chronic disease. 7. Continue dialysis as tolerated. Follow up with ID for further recommendations. Job ID: [id number]
[2019-12-29] MEDS ORDERED: Ondansetron PF 4 MG/2 ML Vial IVP PRN (20:56)
[2019-12-29] MEDS: Famotidine/PF 20 mg/2ml Vial SLOW IVP SCH (21:25)
[2019-12-29] MEDS: Pramipexole Di-HCl 0.125 MG TAB PO SCH (21:25)
[2019-12-29] MEDS: [UNRECOGNIZED DRUG - OTHER] PO SCH (21:25)
[2019-12-29] MEDS: traMADol HCl 50 MG TAB PO PRN (21:26)
[2019-12-29] MEDS: Amlodipine 10 MG TAB PO SCH (21:27)
[2019-12-29] MEDS: Ondansetron ODT 4 MG TAB PO PRN (21:27)
[2019-12-29] MEDS: Atorvastatin Calcium 10 MG TAB PO SCH (21:31)
[2019-12-30] MEDS: VANCOMYCIN HCL CATH SCH ×2 (08:42→21:50)
[2019-12-30] MEDS: HEPARIN CATH SCH ×2 (08:42→21:50)
[2019-12-30] MEDS: SODIUM CHLORIDE 0.9% CATH SCH ×2 (08:42→21:50)
[2019-12-30] MEDS ORDERED: Heparin 10,000 UNITS/ 10 ML VIAL ONE (10:12)
[2019-12-30] MEDS: traMADol HCl 50 MG TAB PO PRN (11:20)
[2019-12-30] MEDS: Acetaminophen 500 MG TAB PO PRN (11:20)
--- NOTE | 2019-12-30 13:30 | PDOC.HOSPP ---
- Subjective Encounter Date: 12/30/19 Encounter Time: 10:20 Subjective: seen in HD area. looks fatigued. r.. shoulder mus. spasm. had BM this am. no other acute c/o. - Objective Vital Signs & Weight: Vital Signs (12 hours) Temp Pulse Resp BP Pulse Ox 12/30/19 07:49 99.2 F 80 15 158/67 H 95 12/30/19 07:10 95 12/30/19 03:24 98.5 F 83 16 165/77 H 95 Weight Weight 271 lb I&O: 12/29/19 12/30/19 12/31/19 06:59 06:59 06:59 Intake Total 560 600 Output Total 300 Balance 560 300 Result Diagrams: 12/27/19 03:59 12/27/19 03:59 Additional Labs: Accuchecks 12/30/19 12/29/19 12/29/19 06:07 20:21 16:54 POC Glucose 173 H 211 H 156 H Hospitalist ROS - Medication Medications: Active Medications Generic Name Dose Route Start Last Admin Trade Name Freq PRN Reason Stop Dose Admin Acetaminophen 1,000 mg 12/27/19 08:56 12/30/19 11:20 Tylenol PO 1,000 mg Q6H PRN Administration Fever>101/(Mi/Mod/Sev) Pain Amlodipine Besylate 10 mg 12/27/19 21:00 12/29/19 21:27 Norvasc PO 10 mg HS ZANA Administration Aspirin 81 mg 12/27/19 09:00 12/29/19 09:34 Ecotrin PO 81 mg DAILY ZANA Administration Atorvastatin Calcium 10 mg 12/27/19 21:00 12/29/19 21:31 Lipitor PO 10 mg HS ZANA Administration Epoetin Venancio-epbx 20,000 unit 12/28/19 08:00 12/28/19 14:00 Retacrit IVP 20,000 unit TuThSa ZANA Administration Famotidine 20 mg 12/26/19 21:00 12/29/19 21:25 Pepcid SLOW IVP 20 mg HS ZANA Administration Fish Oil 1,000 mg 12/27/19 09:00 12/29/19 21:25 Fish Oil PO 1,000 mg BID ZANA Administration Gabapentin 100 mg 12/27/19 09:00 12/29/19 21:26 Neurontin PO 100 mg TID ZANA Administration Glimepiride 1 mg 12/27/19 08:00 12/29/19 10:35 Amaryl PO 1 mg QAM-WM ZANA Administration Vancomycin HCl 1.25 gm/ Sodium 250 mls @ 166.667 mls/hr 12/28/19 20:00 20:59 Chloride IVPB 250 mls Q2D ZANA Administration Vancomycin HCl 50 mg/ Sodium 10 mls @ 0 mls/hr 12/28/19 21:00 12/30/19 08:42 Chloride 9.5 ml/ Heparin CATH 2 mls Sodium (Porcine) 2,500 units/ Q12HR ZANA Administration Syringe Insulin Human Lispro 0 units 12/26/19 20:18 12/29/19 17:53 Humalog SC 2 unit .MILD SLIDING SCALE PRN Administration Mild Correctional Scale Insulin Human Lispro 0 units 12/26/19 20:18 12/29/19 21:32 Humalog SC 2 units .BEDTIME SLIDING SC PRN Administration Bedtime Correctional Scale Isosorbide Dinitrate 10 mg 12/27/19 09:00 12/29/19 21:27 Isordil PO 10 mg BID ZANA Administration Losartan Potassium 100 mg 12/27/19 21:00 12/29/19 21:25 Cozaar PO 100 mg HS ZANA Administration Metoprolol Tartrate 50 mg 12/27/19 09:00 12/29/19 21:30 Lopressor PO 50 mg BID ZANA Administration Ondansetron HCl 4 mg 12/29/19 20:56 12/29/19 21:27 Zofran Odt PO 4 mg Q6H PRN Administration Nausea/Vomiting Pramipexole Dihydrochloride 0.125 mg 12/27/19 21:00 12/29/19 21:25 Mirapex PO 0.125 mg QPM ZANA Administration Sodium Chloride 10 ml 12/26/19 19:19 12/27/19 09:42 Flush - Normal Saline IVF 10 ml Q12HR PRN Administration Saline Flush Sodium Chloride 10 ml 12/26/19 19:19 12/27/19 18:31 Flush - Normal Saline IVF 10 ml PRN PRN Administration Saline Flush Tramadol HCl 50 mg 12/27/19 12:05 12/30/19 11:20 Ultram PO 50 mg Q12H PRN Administration Mild-Moderate Pain (1-5) - Exam General Appearance: NAD, awake alert Eye: PERRL ENT: normocephalic atraumatic Neck: supple Heart: RRR Respiratory: CTAB, normal chest expansion Gastrointestinal: soft, normal bowel sounds, no palpable masses Neurological: no focal deficits Hosp A/P - Plan (1) Bacteremia due to coagulase-negative Staphylococcus Code(s): R78.81 - BACTEREMIA; B95.7 - OTH STAPHYLOCOCCUS THE CAUSE OF DISEASES CLASSD ELSWHR Status: Acute (2) Sepsis Code(s): A41.9 - SEPSIS, UNSPECIFIED ORGANISM Status: Acute Qualifiers: Severe sepsis shock status: without septic shock (3) Lower extremity pain, bilateral Code(s): M79.604 - PAIN IN RIGHT LEG; M79.605 - PAIN IN LEFT LEG Status: Acute (4) ESRD on dialysis Code(s): N18.6 - END STAGE RENAL DISEASE; Z99.2 - DEPENDENCE ON RENAL DIALYSIS Status: Chronic (5) Elevated troponin I level Code(s): R79.89 - OTHER SPECIFIED ABNORMAL FINDINGS OF BLOOD CHEMISTRY Status : Acute (6) Lymphoma Status: Chronic (7) CHF (congestive heart failure) Code(s): I50.9 - HEART FAILURE, UNSPECIFIED Status: Chronic Qualifiers: Heart failure type: diastolic Heart failure chronicity: chronic Qualified Code(s): I50.32 - Chronic diastolic (congestive) heart failure (8) Hyperlipidemia Code(s): E78.5 - HYPERLIPIDEMIA, UNSPECIFIED Status: Chronic Qualifiers: Hyperlipidemia type: other hyperlipidemia Qualified Code(s): E78.49 - Other hyperlipidemia; E78.4 - Other hyperlipidemia (9) Hypertension Code(s): I10 - ESSENTIAL (PRIMARY) HYPERTENSION Status: Chronic Qualifiers: Hypertension type: essential hypertension Qualified Code(s): I10 - Essential (primary) hypertension (10) Type 2 diabetes mellitus Status: Chronic Qualifiers: Diabetes mellitus longterm insulin use: without loan officer use Diabetes mellitus complication status: with kidney complications Diabetes mellitus complication detail: with chronic kidney disease Chronic kidney disease stage : stage 4 (severe) Qualified Code(s): E11.22 - Type 2 diabetes mellitus with diabetic chronic kidney disease; N18.4 - Chronic kidney disease, stage 4 (severe ) (11) Cellulitis Code(s): L03.90 - CELLULITIS, UNSPECIFIED Status: Suspected Qualifiers: Site of cellulitis: extremity Site of cellulitis of extremity: lower extremity Laterality: left Qualified Code(s): L03.116 - Cellulitis of left lower limb - Plan staph epidermis bacteremia - left sided port central line and another blood culture growing back staph epi, -Vancomycin lock port solution in both lines, -need 2 weeks of IV Vancomycin, will be done during HD - Nephrology managing dialysis -Rocephin and Vancomycin since 12/26/2019 Urine cultures with mixed bacteria, likely colonization not infection chronic venous insuff.y and associated stasis dermatitis. U/S lower extremities neg for DVT AOKD - on epoetin full code.
[2019-12-30] MEDS: Isosorbide Dinitrate 5 MG TAB PO SCH ×2 (13:58→20:14)
[2019-12-30] MEDS: Gabapentin 100 MG CAP PO SCH ×3 (13:58→20:14)
[2019-12-30] MEDS: Metoprolol Tartrate 50 MG TAB PO SCH ×2 (13:58→20:14)
[2019-12-30] MEDS: Glimepiride 1 MG TAB PO SCH (13:58)
[2019-12-30] MEDS: Aspirin 81 mg Enteric Coated Tablet PO SCH (13:58)
[2019-12-30] MEDS: Fish Oil 1,000 MG CAP PO SCH ×2 (13:59→20:13)
--- NOTE | 2019-12-30 14:20 | PQF ---
CLINICAL DOCUMENTATION IMPROVEMENT CLARIFICATION FORM: ICD-10 Updated PLEASE DO AN ADDENDUM TO THE PROGRESS NOTE WITH ANY DOCUMENTATION UPDATES OR ADDITIONS AND CARRY THROUGH TO DC SUMMARY. THANK YOU. DATE: 12/30/19 ATTN: DR. HERNÁNDEZ Please exercise your independent, professional judgment in responding to the clarification form. Clinical indicators are provided on the bottom of this form for your review Please check appropriate box(es): [ ] SEPSIS D/T LEFT SUBCLAVIAN CENTRAL LINE [ ] SEPSIS NOT D/T LEFT SUBCLAVIAN CENTRAL LINE [ x ] Unable to determine In addition, please specify: Present on Admission (POA): [ ] Yes [ ] No [ ] Unable to determine For continuity of documentation, please document condition throughout progress notes and discharge summary. Thank You. CLINICAL INDICATORS - SIGNS / SYMPTOMS / LABS / RESULTS AND LOCATION IN MR DX: SEPSIS RISKS: B CELL LYMPHOMA WITH CHEMO (ER NOTE) CELLULITIS (PN 12/28) LEFT SUBCLAVIAN CENTRAL LINE CULTURE OF CENTRAL LINE + STAPHYLOCOCCUS EPIDERMIDIS 12/25 TREATMENT: IV VANCOMYCIN (ER-PRESENT) IV ROCEPHIN (ER) IV FLUIDS (ER) ID CONSULT (This form is maintained as a part of the permanent medical record) 2014 [employer]. All Rights Reserved [email or web address] [facility]
[2019-12-30] MEDS: EPOETIN ALFA-EPBX (ESRD) 10,000 UNIT/ML VIAL IVP SCH (15:01)
[2019-12-30] MEDS: HumaLOG 300 UNITS/3 ML VIAL SC PRN (17:27)
[2019-12-30 19:52] LABS: Vancomycin, Trough 13.7 ug/mL
[2019-12-30] MEDS: [UNRECOGNIZED DRUG - OTHER] PO SCH (20:13)
[2019-12-30] MEDS: Amlodipine 10 MG TAB PO SCH (20:14)
[2019-12-30] MEDS: Pramipexole Di-HCl 0.125 MG TAB PO SCH (20:14)
[2019-12-30] MEDS: Atorvastatin Calcium 10 MG TAB PO SCH (20:14)
[2019-12-30] MEDS: Famotidine/PF 20 mg/2ml Vial SLOW IVP SCH (20:15)
[2019-12-30] MEDS: Vancomycin HCl 1.25 GM in Sodium Chloride 0.9% 250 ML 250 ML IVPB SCH (20:15)
[2019-12-30] MEDS ORDERED: Vancomycin HCl 750 MG in Sodium Chloride 0.9% 250 ML 250 ML IVPB SCH (21:15)
[2019-12-30] MEDS ORDERED: Vancomycin HCl 1.25 GM in Sodium Chloride 0.9% 250 ML 250 ML IVPB SCH (21:15)
[2019-12-30] MEDS ORDERED: HOLD VANCOMYCIN FOR LEVEL >20 FS SCH (21:15)
[2019-12-30] MEDS ORDERED: Vancomycin Sliding Scale 1 EACH FS ONE (21:15)
[2019-12-30] MEDS ORDERED: Vancomycin HCl 1.5 GM in Sodium Chloride 0.9% 250 ML 300 ML IVPB SCH (21:15)
[2019-12-30] MEDS ORDERED: Vancomycin 1 GM in Premix Bag 1 BAG IVPB SCH (21:15)
[2019-12-31] MEDS: Acetaminophen 500 MG TAB PO PRN (01:39)
[2019-12-31] MEDS: HumaLOG 300 UNITS/3 ML VIAL SC PRN ×2 (06:09→11:40)
[2019-12-31] MEDS: Gabapentin 100 MG CAP PO SCH ×3 (08:47→21:43)
[2019-12-31] MEDS: Isosorbide Dinitrate 5 MG TAB PO SCH ×2 (08:47→21:43)
[2019-12-31] MEDS: Metoprolol Tartrate 50 MG TAB PO SCH ×2 (08:47→21:43)
[2019-12-31] MEDS: Glimepiride 1 MG TAB PO SCH (08:47)
[2019-12-31] MEDS: HEPARIN CATH SCH ×3 (08:47→21:43)
[2019-12-31] MEDS: SODIUM CHLORIDE 0.9% CATH SCH ×3 (08:47→21:43)
[2019-12-31] MEDS: Fish Oil 1,000 MG CAP PO SCH ×2 (08:47→21:51)
[2019-12-31] MEDS: VANCOMYCIN HCL CATH SCH ×3 (08:47→21:43)
[2019-12-31] MEDS: Aspirin 81 mg Enteric Coated Tablet PO SCH (08:47)
[2019-12-31 10:25] LABS: Hemoglobin 8.3 g/dL (12.0-16.0); Mean Corpuscular HGB CONC 32.2 g/dL (32.0-36.0); Mean Corpuscular Hemoglobin 28.9 pg (27.0-31.0); Mean Corpuscular Volume 89.7 fL (78.0-98.0); Mean Platelet Volume 8.2 fL (7.4-10.4); Platelet Count 256 thou/uL (130-400); RBC Distribution Width 16.9 % (11.5-14.5); Red Blood Cell (RBC) Count 2.87 mill/uL (4.20-5.40); White Blood Cell (WBC) Count 7.6 thou/uL (4.8-10.8)
[2019-12-31 10:29] LABS: Band 15 % (5-11); Eosinophils 1 % (0-10); Lymphocytes 14 % (21-51); MDiff Complete? YES; Metamyelocyte 1 % (0-0); Monocytes 16 % (0-10); Myelocyte 1 % (0-0); Neutrophil 51 % (42-75); Ovalocytes SLIGHT = 2-5 cells (100X) (0-1/hpf); Platelet Morphology Comment Appears Adequate; Polychromasia SLIGHT = 2-3 cells (100X) (0-2/hpf)
[2019-12-31 10:34] LABS: Anion Gap 17 mmol/L (10-20); BUN (Urea Nitrogen) 21 mg/dL (9.8-20.1); CRP (Inflammatory) 13.41 mg/dL (= or < 0.5); Calc. Creatinine Clearance 26 mL/min (70-130); Calcium 8.9 mg/dL (7.8-10.44); Carbon Dioxide 23 mmol/L (23-31); Chloride 101 mmol/L (98-107); Estimated GFR-MDRD 12; Glucose 212 mg/dL (83-110); Potassium 4.1 mmol/L (3.5-5.1); Sodium 137 mmol/L (136-145)
--- NOTE | 2019-12-31 10:50 | RAD ---
EXAM: Single view of the chest HISTORY: Altered mental status COMPARISON: 12/26/2019 FINDINGS: Single view of the chest shows a normal sized cardiomediastinal silhouette. The Mediport i s unchanged in position. Increased interstitial markings are seen in the lung bases. There is no evidence of consolidation, mass, or pleural effusion. The bones are unremarkable. IMPRESSION: No evidence of acute cardiopulmonary disease
--- NOTE | 2019-12-31 12:22 | PDOC.HOSPP ---
- Subjective Encounter Date: 12/31/19 Encounter Time: 09:10 Subjective: pt did unintentional pulled off her IJ port and chemo port access, chemo port on the right side corrected, and gen hameed would be able to look at r. IJ today. if it is working well, she will be dialyzed tomorrow and poss.. dc after that. - Objective Vital Signs & Weight: Vital Signs (12 hours) Temp Pulse Resp BP Pulse Ox 12/31/19 11:28 98.1 F 63 16 124/60 100 12/31/19 07:29 98.5 F 87 20 117/54 L 92 L 12/31/19 03:46 97.5 F L 67 16 129/63 95 Weight Weight 259 lb 11.2 oz I&O: 12/30/19 12/31/19 01/01/20 06:59 06:59 06:59 Intake Total 600 710 Output Total 300 1 Balance 300 709 Result Diagrams: 12/31/19 09:47 12/31/19 09:47 Additional Labs: Accuchecks 12/31/19 12/31/19 12/30/19 10:52 05:27 20:49 POC Glucose 230 H 165 H 227 H 12/30/19 16:31 POC Glucose 237 H Hospitalist ROS - Medication Medications: Active Medications Generic Name Dose Route Start Last Admin Trade Name Freq PRN Reason Stop Dose Admin Acetaminophen 1,000 mg 12/27/19 08:56 12/31/19 01:39 Tylenol PO 1,000 mg Q6H PRN Administration Fever>101/(Mi/Mod/Sev) Pain Amlodipine Besylate 10 mg 12/27/19 21:00 12/30/19 20:14 Norvasc PO 10 mg HS ZANA Administration Aspirin 81 mg 12/27/19 09:00 12/31/19 08:47 Ecotrin PO 81 mg DAILY ZANA Administration Atorvastatin Calcium 10 mg 12/27/19 21:00 12/30/19 20:14 Lipitor PO 10 mg HS ZANA Administration Epoetin Venancio-epbx 20,000 unit 12/28/19 08:00 12/30/19 15:01 Retacrit IVP 20,000 unit TuThSa ZANA Administration Famotidine 20 mg 12/26/19 21:00 12/30/19 20:15 Pepcid SLOW IVP 20 mg HS ZANA Administration Fish Oil 1,000 mg 12/27/19 09:00 12/31/19 08:47 Fish Oil PO 1,000 mg BID ZANA Administration Gabapentin 100 mg 12/27/19 09:00 12/31/19 08:47 Neurontin PO 100 mg TID ZANA Administration Glimepiride 1 mg 12/27/19 08:00 12/31/19 08:47 Amaryl PO 1 mg QAM-WM ZANA Administration Vancomycin HCl 50 mg/ Sodium 10 mls @ 0 mls/hr 12/28/19 21:00 12/31/19 09:00 Chloride 9.5 ml/ Heparin CATH 2 mls Sodium (Porcine) 2,500 units/ Q12HR ZANA Administration Syringe Insulin Human Lispro 0 units 12/26/19 20:18 12/31/19 11:40 Humalog SC 3 unit .MILD SLIDING SCALE PRN Administration Mild Correctional Scale Insulin Human Lispro 0 units 12/26/19 20:18 12/29/19 21:32 Humalog SC 2 units .BEDTIME SLIDING SC PRN Administration Bedtime Correctional Scale Isosorbide Dinitrate 10 mg 12/27/19 09:00 12/31/19 08:47 Isordil PO 10 mg BID ZANA Administration Losartan Potassium 100 mg 12/27/19 21:00 12/30/19 20:13 Cozaar PO 100 mg HS ZANA Administration Metoprolol Tartrate 50 mg 12/27/19 09:00 12/31/19 08:47 Lopressor PO 50 mg BID ZANA Administration Ondansetron HCl 4 mg 12/29/19 20:56 12/29/19 21:27 Zofran Odt PO 4 mg Q6H PRN Administration Nausea/Vomiting Ondansetron HCl 4 mg 12/29/19 20:56 12/30/19 18:50 Zofran IVP 4 mg Q6H PRN Administration Nausea/Vomiting Pramipexole Dihydrochloride 0.125 mg 12/27/19 21:00 12/30/19 20:14 Mirapex PO 0.125 mg QPM ZANA Administration Sodium Chloride 10 ml 12/26/19 19:19 12/27/19 09:42 Flush - Normal Saline IVF 10 ml Q12HR PRN Administration Saline Flush Sodium Chloride 10 ml 12/26/19 19:19 12/27/19 18:31 Flush - Normal Saline IVF 10 ml PRN PRN Administration Saline Flush Tramadol HCl 50 mg 12/27/19 12:05 12/30/19 11:20 Ultram PO 50 mg Q12H PRN Administration Mild-Moderate Pain (1-5) - Exam General Appearance: awake alert General - other findings: right side IJ access and left chemo port Eye: PERRL ENT: normocephalic atraumatic Neck: supple Heart: RRR, normal peripheral pulses Respiratory: CTAB, normal chest expansion Gastrointestinal: soft, normal bowel sounds Neurological: no focal deficits Psychiatric: normal affect, A&O x 3 Hosp A/P - Plan (1) Bacteremia due to coagulase-negative Staphylococcus Code(s): R78.81 - BACTEREMIA; B95.7 - OTH STAPHYLOCOCCUS THE CAUSE OF DISEASES CLASSD ELSWHR Status: Acute (2) Sepsis Code(s): A41.9 - SEPSIS, UNSPECIFIED ORGANISM Status: Acute Qualifiers: Severe sepsis shock status: without septic shock (3) Lower extremity pain, bilateral Code(s): M79.604 - PAIN IN RIGHT LEG; M79.605 - PAIN IN LEFT LEG Status: Acute (4) ESRD on dialysis Code(s): N18.6 - END STAGE RENAL DISEASE; Z99.2 - DEPENDENCE ON RENAL DIALYSIS Status: Chronic (5) Elevated troponin I level Code(s): R79.89 - OTHER SPECIFIED ABNORMAL FINDINGS OF BLOOD CHEMISTRY Status : Acute (6) Lymphoma Status: Chronic (7) CHF (congestive heart failure) Code(s): I50.9 - HEART FAILURE, UNSPECIFIED Status: Chronic Qualifiers: Heart failure type: diastolic Heart failure chronicity: chronic Qualified Code(s): I50.32 - Chronic diastolic (congestive) heart failure (8) Hyperlipidemia Code(s): E78.5 - HYPERLIPIDEMIA, UNSPECIFIED Status: Chronic Qualifiers: Hyperlipidemia type: other hyperlipidemia Qualified Code(s): E78.49 - Other hyperlipidemia; E78.4 - Other hyperlipidemia (9) Hypertension Code(s): I10 - ESSENTIAL (PRIMARY) HYPERTENSION Status: Chronic Qualifiers: Hypertension type: essential hypertension Qualified Code(s): I10 - Essential (primary) hypertension (10) Type 2 diabetes mellitus Status: Chronic Qualifiers: Diabetes mellitus snf insulin use: without snf use Diabetes mellitus complication status: with kidney complications Diabetes mellitus complication detail: with chronic kidney disease Chronic kidney disease stage : stage 4 (severe) Qualified Code(s): E11.22 - Type 2 diabetes mellitus with diabetic chronic kidney disease; N18.4 - Chronic kidney disease, stage 4 (severe ) (11) Cellulitis Code(s): L03.90 - CELLULITIS, UNSPECIFIED Status: Suspected Qualifiers: Site of cellulitis: extremity Site of cellulitis of extremity: lower extremity Laterality: left Qualified Code(s): L03.116 - Cellulitis of left lower limb - Plan staph epidermis bacteremia - left sided port central line and another blood culture growing back staph epi, -Vancomycin lock port solution in both lines, -need 2 weeks of IV Vancomycin, will be done during HD - Nephrology managing dialysis -Rocephin and Vancomycin since 12/26/2019 Urine cultures with mixed bacteria, likely colonization not infection chronic venous insuff.y and associated stasis dermatitis. U/S lower extremities neg for DVT AOKD - on epoetin Gen sux would be able to look at r. IJ today. if it is working well, she will be dialyzed tomorrow and poss.. dc after that. full code.
--- NOTE | 2019-12-31 12:38 | PRG ---
DATE OF SERVICE: 12/31/2019 SUBJECTIVE: Patient was seen and examined at bedside and overnight events noted. Patient denies any shortness of breath or chest pain or palpitation. No history of nausea or vomiting or diarrhea or fever or chills or cramps. OBJECTIVE: GENERAL: This is a morbidly obese female, in no apparent distress. VITAL SIGNS: Temperature 98.1. Heart Rate 63. Respiratory rate 16. Blood pressure 124/60. HEENT: Atraumatic, normocephalic. Oral mucosa is moist. NECK: Supple. CARDIOVASCULAR: S1, S2 heard. Rate and rhythm regular. RESPIRATORY: Clear to auscultation. GASTROINTESTINAL: Abdomen is soft. MUSCULOSKELETAL: No tenderness. No edema. DERMATOLOGIC: No skin rash. NEUROLOGIC: Alert and awake and oriented x3. No focal neurologic deficits. Moving all the extremities. PSYCHIATRIC: Mood and affect normal. LABORATORY DATA: Potassium 4.1, BUN is 21, creatinine is 3.6. ASSESSMENT AND PLAN: 1. End-stage renal disease. Continue dialysis. TTS as tolerated. 2. Dialysis access. The patient pulled her dialysis access in her sleep. Dr. Jewell was consulted. Plan to have a new dialysis catheter. 3. Fever. 4. Bacteremia. 5. Edema. 6. Anemia of chronic disease. 7. Morbid obesity. Plan to have dialysis as tolerated. Job ID: [id number]
[2019-12-31] MEDS: [UNRECOGNIZED DRUG - OTHER] PO SCH (21:43)
[2019-12-31] MEDS: Amlodipine 10 MG TAB PO SCH (21:43)
[2019-12-31] MEDS: Atorvastatin Calcium 10 MG TAB PO SCH (21:43)
[2019-12-31] MEDS: Pramipexole Di-HCl 0.125 MG TAB PO SCH (21:43)
[2019-12-31] MEDS: traMADol HCl 50 MG TAB PO PRN (23:16)
[2019-12-31] MEDS: Famotidine 20 MG TAB PO SCH (23:16)
[2020-01-01 04:58] LABS: Anion Gap 14 mmol/L (10-20); BUN (Urea Nitrogen) 30 mg/dL (9.8-20.1); Calc. Creatinine Clearance 22 mL/min (70-130); Calcium 9.1 mg/dL (7.8-10.44); Carbon Dioxide 28 mmol/L (23-31); Chloride 99 mmol/L (98-107); Estimated GFR-MDRD 10; Glucose 147 mg/dL (83-110); Potassium 3.8 mmol/L (3.5-5.1); Sodium 137 mmol/L (136-145)
[2020-01-01] MEDS: HumaLOG 300 UNITS/3 ML VIAL SC PRN ×2 (06:03→12:05)
[2020-01-01] MEDS: Metoprolol Tartrate 50 MG TAB PO SCH ×2 (09:37→20:24)
[2020-01-01] MEDS: Isosorbide Dinitrate 5 MG TAB PO SCH ×2 (09:37→20:23)
[2020-01-01] MEDS: Fish Oil 1,000 MG CAP PO SCH ×2 (09:37→20:23)
[2020-01-01] MEDS: Gabapentin 100 MG CAP PO SCH ×3 (09:38→20:24)
[2020-01-01] MEDS: Glimepiride 1 MG TAB PO SCH (09:38)
[2020-01-01] MEDS: Aspirin 81 mg Enteric Coated Tablet PO SCH (09:38)
[2020-01-01] MEDS: VANCOMYCIN HCL CATH SCH ×2 (09:42→20:35)
[2020-01-01] MEDS: HEPARIN CATH SCH ×2 (09:42→20:35)
[2020-01-01] MEDS: SODIUM CHLORIDE 0.9% CATH SCH ×2 (09:42→20:35)
[2020-01-01 09:44] LABS: Vancomycin, Random 22.4 ug/mL (See Comment)
[2020-01-01] MEDS: EPOETIN ALFA-EPBX (ESRD) 10,000 UNIT/ML VIAL IVP SCH (09:46)
[2020-01-01] MEDS ORDERED: Furosemide 40 MG/4 ML VIAL SLOW IVP SCH (10:00)
--- NOTE | 2020-01-01 13:09 | PRG ---
DATE OF SERVICE: 01/01/2020 SUBJECTIVE: Patient was seen and examined at bedside and overnight events noted. Patient denies any shortness of breath or chest pain or palpitation. No history of nausea or vomiting or diarrhea or fever or chills or cramps. OBJECTIVE: GENERAL: This is a morbidly obese female, in no apparent distress. VITAL SIGNS: Temperature 98.7. Heart rate 60. Respiratory rate 18. Blood pressure 124/61. HEENT: Atraumatic, normocephalic. Oral mucosa is moist NECK: Supple. CARDIOVASCULAR: S1, S2 heard. Rate and rhythm regular. RESPIRATORY: Clear to auscultation. GASTROINTESTINAL: Abdomen is soft. MUSCULOSKELETAL: No tenderness. No edema. DERMATOLOGIC: No skin rash. NEUROLOGIC: Alert and awake and oriented X3. No focal neurologic deficits. Moving all the extremities. PSYCHIATRIC: Mood and affect normal. LABORATORY DATA: Potassium 3.8, BUN is 30, and creatinine is 4.3. ASSESSMENT AND PLAN: 1. End-stage renal disease. Continue dialysis as tolerated. 2. Dialysis access. Unfortunately, the patient pulled her catheter out. She does not have any dialysis access over the weekend. No acute indication for dialysis. Surgeon is planning to put a temporary dialysis catheter on Friday. We will have Lasix. We will hold losartan. Continue on renal diet and limit fluid intake. Advised the patient to limit fluid. 3. Fever. 4. Bacteremia. 5. Edema. 6. Anemia of chronic disease. 7. Morbid obesity. We will have a temporary dialysis catheter if we have any urgent indication for dialysis. Otherwise, plan for dialysis after the tunneled dialysis catheter placement. Job ID: [id number]
--- NOTE | 2020-01-01 13:33 | PDOC.HOSPP ---
- Subjective Encounter Date: 01/01/20 Encounter Time: 01:20 Subjective: No acute issues. temp IJ dialysis cath on friday. she is t/th/sat HD person. Dr. Collins giving diuretics and will follow with us. - Objective Vital Signs & Weight: Vital Signs (12 hours) Temp Pulse Resp BP BP Pulse Ox 01/01/20 12:25 98.7 F 60 16 124/61 98 01/01/20 09:30 98.3 F 67 16 127/61 93 L 01/01/20 03:06 97.8 F 67 18 147/67 H 95 Weight Weight 260 lb 1.6 oz I&O: 12/31/19 01/01/20 01/02/20 06:59 06:59 06:59 Intake Total 710 1200 Output Total 1 2 Balance 709 1198 Result Diagrams: 12/31/19 09:47 01/01/20 03:47 Additional Labs: Accuchecks 01/01/20 01/01/20 12/31/19 10:59 05:37 20:23 POC Glucose 244 H 160 H 162 H 12/31/19 16:55 POC Glucose 133 H Hospitalist ROS - Medication Medications: Active Medications Generic Name Dose Route Start Last Admin Trade Name Freq PRN Reason Stop Dose Admin Acetaminophen 1,000 mg 12/27/19 08:56 12/31/19 01:39 Tylenol PO 1,000 mg Q6H PRN Administration Fever>101/(Mi/Mod/Sev) Pain Amlodipine Besylate 10 mg 12/27/19 21:00 12/31/19 21:43 Norvasc PO 10 mg HS ZANA Administration Aspirin 81 mg 12/27/19 09:00 01/01/20 09:38 Ecotrin PO 81 mg DAILY ZANA Administration Atorvastatin Calcium 10 mg 12/27/19 21:00 12/31/19 21:43 Lipitor PO 10 mg HS ZANA Administration Epoetin Venancio-epbx 20,000 unit 12/28/19 08:00 01/01/20 09:46 Retacrit IVP 20,000 unit TuThSa ZANA Administration Famotidine 20 mg 12/31/19 21:00 12/31/19 23:16 Pepcid PO 20 mg QPM ZANA Administration Fish Oil 1,000 mg 12/27/19 09:00 01/01/20 09:37 Fish Oil PO 1,000 mg BID ZANA Administration Gabapentin 100 mg 12/27/19 09:00 01/01/20 09:38 Neurontin PO 100 mg TID ZANA Administration Glimepiride 1 mg 12/27/19 08:00 01/01/20 09:38 Amaryl PO 1 mg QAM-WM ZANA Administration Vancomycin HCl 50 mg/ Sodium 10 mls @ 0 mls/hr 12/28/19 21:00 01/01/20 09:42 Chloride 9.5 ml/ Heparin CATH 2 mls Sodium (Porcine) 2,500 units/ Q12HR ZANA Administration Syringe Insulin Human Lispro 0 units 12/26/19 20:18 01/01/20 12:05 Humalog SC 3 unit .MILD SLIDING SCALE PRN Administration Mild Correctional Scale Insulin Human Lispro 0 units 12/26/19 20:18 12/29/19 21:32 Humalog SC 2 units .BEDTIME SLIDING SC PRN Administration Bedtime Correctional Scale Isosorbide Dinitrate 10 mg 12/27/19 09:00 01/01/20 09:37 Isordil PO 10 mg BID ZANA Administration Metoprolol Tartrate 50 mg 12/27/19 09:00 01/01/20 09:37 Lopressor PO 50 mg BID ZANA Administration Ondansetron HCl 4 mg 12/29/19 20:56 12/29/19 21:27 Zofran Odt PO 4 mg Q6H PRN Administration Nausea/Vomiting Ondansetron HCl 4 mg 12/29/19 20:56 12/30/19 18:50 Zofran IVP 4 mg Q6H PRN Administration Nausea/Vomiting Pramipexole Dihydrochloride 0.125 mg 12/27/19 21:00 12/31/19 21:43 Mirapex PO 0.125 mg QPM ZANA Administration Sodium Chloride 10 ml 12/26/19 19:19 12/27/19 09:42 Flush - Normal Saline IVF 10 ml Q12HR PRN Administration Saline Flush Sodium Chloride 10 ml 12/26/19 19:19 12/27/19 18:31 Flush - Normal Saline IVF 10 ml PRN PRN Administration Saline Flush Tramadol HCl 50 mg 12/27/19 12:05 12/31/19 23:16 Ultram PO 50 mg Q12H PRN Administration Mild-Moderate Pain (1-5) - Exam General Appearance: NAD, awake alert Eye: PERRL ENT: normocephalic atraumatic Neck: supple Heart: RRR Respiratory: CTAB Gastrointestinal: soft, normal bowel sounds Neurological: no focal deficits Psychiatric: A&O x 3 Hosp A/P - Plan (1) Bacteremia due to coagulase-negative Staphylococcus Code(s): R78.81 - BACTEREMIA; B95.7 - OTH STAPHYLOCOCCUS THE CAUSE OF DISEASES CLASSD ELSWHR Status: Acute (2) Sepsis Code(s): A41.9 - SEPSIS, UNSPECIFIED ORGANISM Status: Acute Qualifiers: Severe sepsis shock status: without septic shock (3) Lower extremity pain, bilateral Code(s): M79.604 - PAIN IN RIGHT LEG; M79.605 - PAIN IN LEFT LEG Status: Acute (4) ESRD on dialysis Code(s): N18.6 - END STAGE RENAL DISEASE; Z99.2 - DEPENDENCE ON RENAL DIALYSIS Status: Chronic (5) Elevated troponin I level Code(s): R79.89 - OTHER SPECIFIED ABNORMAL FINDINGS OF BLOOD CHEMISTRY Status : Acute (6) Lymphoma Status: Chronic (7) CHF (congestive heart failure) Code(s): I50.9 - HEART FAILURE, UNSPECIFIED Status: Chronic Qualifiers: Heart failure type: diastolic Heart failure chronicity: chronic Qualified Code(s): I50.32 - Chronic diastolic (congestive) heart failure (8) Hyperlipidemia Code(s): E78.5 - HYPERLIPIDEMIA, UNSPECIFIED Status: Chronic Qualifiers: Hyperlipidemia type: other hyperlipidemia Qualified Code(s): E78.49 - Other hyperlipidemia; E78.4 - Other hyperlipidemia (9) Hypertension Code(s): I10 - ESSENTIAL (PRIMARY) HYPERTENSION Status: Chronic Qualifiers: Hypertension type: essential hypertension Qualified Code(s): I10 - Essential (primary) hypertension (10) Type 2 diabetes mellitus Status: Chronic 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: 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 Diabetes mellitus complication status: with kidney complications Diabetes mellitus complication detail: with chronic kidney disease Chronic kidney disease stage : stage 4 (severe) Qualified Code(s): E11.22 - Type 2 diabetes mellitus with diabetic chronic kidney disease; N18.4 - Chronic kidney disease, stage 4 (severe ) (11) Cellulitis Code(s): L03.90 - CELLULITIS, UNSPECIFIED Status: Suspected Qualifiers: Site of cellulitis: extremity Site of cellulitis of extremity: lower extremity Laterality: left Qualified Code(s): L03.116 - Cellulitis of left lower limb - Plan staph epidermis bacteremia - left sided port central line and another blood culture growing back staph epi, -Vancomycin lock port solution in both lines, -need 2 weeks of IV Vancomycin, will be done during HD - Nephrology managing dialysis -Rocephin and Vancomycin since 12/26/2019 Urine cultures with mixed bacteria, likely colonization not infection chronic venous insuff.y and associated stasis dermatitis. U/S lower extremities neg for DVT AOKD - on epoetin she is t/th/sat HD person. she had 2 AVF in the past on left arm. temp IJ dialysis cath placement on friday.
[2020-01-01] MEDS: Furosemide 40 MG/4 ML VIAL SLOW IVP SCH (18:06)
--- NOTE | 2020-01-01 20:14 | CON ---
DATE OF CONSULTATION: HISTORY OF PRESENT ILLNESS: Inez Connor is a 74-year-old female, morbidly obese, 5 feet 2 inches, 260 pounds, 47 BMI with end-stage renal disease secondary to diabetes and hypertension. On 09/22/2019, I placed a left arm fistula with outflow of primarily the basilic vein with some outflow of the cephalic vein, although cephalic vein outflow seemed to be stenotic by probing. The patient is subsequently admitted, requiring initiation of dialysis access and hemodialysis catheter placed on 11/24/2019, and during that hospitalization, she had a fistulogram confirming that the cephalic vein outflow was inadequate and her primary outflow was the basilic vein. She is in need of a basilic vein transposition fistula. She is admitted on this occasion on 12/26/2019, seen by Dr. Boone. Question of whether bacteremia was from her dialysis catheter. She has been undergoing treatment for lymphoma. During this hospitalization, her hemodialysis catheter was inadvertently removed by the patient during the night. Fortunately, there was no bleeding. Her laboratories have been stable. 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 However, she was given a regular meal Friday morning. She was due for dialysis Friday, today. There are no signs of fluid overload, and electrolytes were normal, thus plan is for 01/03/2020, placement of a hemodialysis catheter and transposition fistula, left arm. She understands risks and benefits of the procedure and consents. We will plan this Friday. ALLERGIES: LEVOFLOXACIN, SULFA. PAST HISTORY: See recent history and physical and consultation. PHYSICAL EXAMINATION: VITAL SIGNS: Morbidly obese, 5 feet 2 inches, 260 pounds, 47 BMI. Temperature 99.2, heart rate 72, and blood pressure 144/61. HEAD, EARS, EYES, NOSE, AND THROAT: Unremarkable. LUNGS: Clear to auscultation. CARDIAC: Regular rate and rhythm. ABDOMEN: Obese, soft. Large pannus. EXTREMITIES: Left arm fistula, morbidly obese upper arm, abundant fatty tissue. Extremities are unremarkable. ASSESSMENT AND PLAN: 1. Urinary tract infection with bacteremia, resolved on antibiotics for several days. 2. End-stage renal disease, morbidly obese, has removed hemodialysis catheter. We will plan to place a new hemodialysis catheter on Friday. We will plan left arm transposition fistula on Friday. Both of these procedures done as outpatient usually, she could go home that same day after surgery after dialysis or be discharged the next day per her medical physicians. Job ID: [id number]
[2020-01-01] MEDS: Pramipexole Di-HCl 0.125 MG TAB PO SCH (20:24)
[2020-01-01] MEDS: Amlodipine 10 MG TAB PO SCH (20:24)
[2020-01-01] MEDS: Famotidine 20 MG TAB PO SCH (20:24)
[2020-01-01] MEDS: Atorvastatin Calcium 10 MG TAB PO SCH (20:24)
[2020-01-01] MEDS: Cyclobenzaprine 10 MG TAB PO PRN (21:41)
[2020-01-02 04:16] LABS: Band 3 % (5-11); Hemoglobin 7.5 g/dL (12.0-16.0); Lymphocytes 25 % (21-51); MDiff Complete? YES; Mean Corpuscular HGB CONC 33.5 g/dL (32.0-36.0); Mean Corpuscular Hemoglobin 29.8 pg (27.0-31.0); Mean Platelet Volume 7.2 fL (7.4-10.4); Monocytes 17 % (0-10); Neutrophil 55 % (42-75); Platelet Count 320 thou/uL (130-400); Platelet Morphology Comment Appears Adequate; RBC Distribution Width 16.7 % (11.5-14.5); Red Blood Cell (RBC) Count 2.52 mill/uL (4.20-5.40); White Blood Cell (WBC) Count 6.6 thou/uL (4.8-10.8)
[2020-01-02 04:38] LABS: Anion Gap 19 mmol/L (10-20); BUN (Urea Nitrogen) 38 mg/dL (9.8-20.1); Calc. Creatinine Clearance 20 mL/min (70-130); Calcium 8.7 mg/dL (7.8-10.44); Carbon Dioxide 24 mmol/L (23-31); Chloride 101 mmol/L (98-107); Estimated GFR-MDRD 9; Glucose 152 mg/dL (83-110); Potassium 3.8 mmol/L (3.5-5.1); Sodium 140 mmol/L (136-145)
[2020-01-02] MEDS: traMADol HCl 50 MG TAB PO PRN (05:00)
[2020-01-02] MEDS: Furosemide 40 MG/4 ML VIAL SLOW IVP SCH ×2 (05:00→16:02)
[2020-01-02] MEDS: Cyclobenzaprine 10 MG TAB PO PRN (06:07)
[2020-01-02] MEDS: Glimepiride 1 MG TAB PO SCH (10:05)
[2020-01-02] MEDS: Isosorbide Dinitrate 5 MG TAB PO SCH ×2 (10:06→20:59)
[2020-01-02] MEDS: Metoprolol Tartrate 50 MG TAB PO SCH ×2 (10:07→20:59)
[2020-01-02] MEDS: Gabapentin 100 MG CAP PO SCH ×3 (10:07→20:58)
[2020-01-02] MEDS: Fish Oil 1,000 MG CAP PO SCH ×2 (10:07→21:00)
[2020-01-02] MEDS: HEPARIN CATH SCH ×2 (10:10→21:01)
[2020-01-02] MEDS: VANCOMYCIN HCL CATH SCH ×2 (10:10→21:01)
[2020-01-02] MEDS: SODIUM CHLORIDE 0.9% CATH SCH ×2 (10:10→21:01)
--- NOTE | 2020-01-02 11:21 | EKG ---
Test Reason : Blood Pressure : / mmHG Vent. Rate : 079 BPM Atrial Rate : 079 BPM P-R Int : 142 ms QRS Dur : 120 ms QT Int : 380 ms P-R-T Axes : 069 004 059 degrees QTc Int : 435 ms Normal sinus rhythm with sinus arrhythmia Left ventricular hypertrophy with QRS widening Nonspecific ST and T wave abnormality Abnormal ECG Confirmed by DAR OLIVEROS DO ([id number]), editor house organ PHUC LI ([id number] on 01/02/2020 11:21:17 AM Referred By: Confirmed By:DAR OLIVEROS DO
[2020-01-02] MEDS: HumaLOG 300 UNITS/3 ML VIAL SC PRN (11:41)
[2020-01-02] MEDS: Aspirin 81 mg Enteric Coated Tablet PO SCH (11:47)
--- NOTE | 2020-01-02 13:01 | PDOC.HOSPP ---
- Subjective Encounter Date: 01/02/20 Encounter Time: 09:50 Subjective: doing well, no acute complaints, ambulating in the [place] with masks. plan for IJ cath vs.. other tomorrow. - Objective Vital Signs & Weight: Vital Signs (12 hours) Temp Pulse Resp BP BP Pulse Ox 01/02/20 11:40 97.8 F 63 17 134/60 92 L 01/02/20 08:00 98.2 F 68 18 138/63 92 L 01/02/20 03:38 98.9 F 86 18 133/63 95 Weight Weight 262 lb 14.4 oz I&O: 01/01/20 01/02/20 01/03/20 06:59 06:59 06:59 Intake Total 1200 889 240 Output Total 2 975 Balance 1198 -86 240 Result Diagrams: 01/02/20 03:46 01/02/20 03:46 Additional Labs: Accuchecks 01/02/20 01/02/20 01/01/20 10:12 05:43 20:17 POC Glucose 262 H 151 H 192 H 01/01/20 16:44 POC Glucose 156 H Hospitalist ROS - Medication Medications: Active Medications Generic Name Dose Route Start Last Admin Trade Name Freq PRN Reason Stop Dose Admin Acetaminophen 1,000 mg 12/27/19 08:56 12/31/19 01:39 Tylenol PO 1,000 mg Q6H PRN Administration Fever>101/(Mi/Mod/Sev) Pain Amlodipine Besylate 10 mg 12/27/19 21:00 01/01/20 20:24 Norvasc PO 10 mg HS ZANA Administration Aspirin 81 mg 12/27/19 09:00 01/02/20 11:47 Ecotrin PO 81 mg DAILY ZANA Administration Atorvastatin Calcium 10 mg 12/27/19 21:00 01/01/20 20:24 Lipitor PO 10 mg HS ZANA Administration Cyclobenzaprine HCl 5 mg 12/30/19 13:28 01/02/20 06:07 Flexeril PO 5 mg TIDPRN PRN Administration Muscle Spasm Epoetin Venancio-epbx 20,000 unit 12/28/19 08:00 01/01/20 09:46 Retacrit IVP 20,000 unit TuThSa ZANA Administration Famotidine 20 mg 12/31/19 21:00 06/27/20 20:24 Pepcid PO 20 mg QPM ZANA Administration Fish Oil 1,000 mg 12/27/19 09:00 01/02/20 10:07 Fish Oil PO 1,000 mg BID ZANA Administration Furosemide 40 mg 01/01/20 14:00 01/02/20 05:00 Lasix SLOW IVP 01/03/20 14:01 40 mg 0600,1400 ZANA Administration Gabapentin 100 mg 12/27/19 09:00 01/02/20 10:07 Neurontin PO 100 mg TID ZANA Administration Glimepiride 1 mg 12/27/19 08:00 01/02/20 10:05 Amaryl PO 1 mg QAM-WM ZANA Administration Vancomycin HCl 50 mg/ Sodium 10 mls @ 0 mls/hr 12/28/19 21:00 01/02/20 10:10 Chloride 9.5 ml/ Heparin CATH 2 mls Sodium (Porcine) 2,500 units/ Q12HR ZANA Administration Syringe Vancomycin HCl 50 mg/ Sodium 10 mls @ 0 mls/hr 12/28/19 19:27 01/01/20 20:31 Chloride 9.5 ml/ Heparin CATH 2 mls Sodium (Porcine) 2,500 units/ PRN PRN Administration Syringe IV PORT LOCK Insulin Human Lispro 0 units 12/26/19 20:18 01/02/20 11:41 Humalog SC 4 unit .MILD SLIDING SCALE PRN Administration Mild Correctional Scale Insulin Human Lispro 0 units 12/26/19 20:18 12/29/19 21:32 Humalog SC 2 units .BEDTIME SLIDING SC PRN Administration Bedtime Correctional Scale Isosorbide Dinitrate 10 mg 12/27/19 09:00 01/02/20 10:06 Isordil PO 10 mg BID ZANA Administration Metoprolol Tartrate 50 mg 12/27/19 09:00 01/02/20 10:07 Lopressor PO 50 mg BID ZANA Administration Ondansetron HCl 4 mg 12/29/19 20:56 12/29/19 21:27 Zofran Odt PO 4 mg Q6H PRN Administration Nausea/Vomiting Ondansetron HCl 4 mg 12/29/19 20:56 12/30/19 18:50 Zofran IVP 4 mg Q6H PRN Administration Nausea/Vomiting Pramipexole Dihydrochloride 0.125 mg 12/27/19 21:00 01/01/20 20:24 Mirapex PO 0.125 mg QPM ZANA Administration Sodium Chloride 10 ml 12/26/19 19:19 12/27/19 09:42 Flush - Normal Saline IVF 10 ml Q12HR PRN Administration Saline Flush Sodium Chloride 10 ml 12/26/19 19:19 12/27/19 18:31 Flush - Normal Saline IVF 10 ml PRN PRN Administration Saline Flush Tramadol HCl 50 mg 12/27/19 12:05 01/02/20 05:00 Ultram PO 50 mg Q12H PRN Administration Mild-Moderate Pain (1-5) - Exam General Appearance: NAD, awake alert Eye: PERRL ENT: normocephalic atraumatic Neck: supple Heart: RRR Respiratory: CTAB Gastrointestinal: soft, normal bowel sounds Neurological: no focal deficits Hosp A/P - Plan (1) Bacteremia due to coagulase-negative Staphylococcus Code(s): R78.81 - BACTEREMIA; B95.7 - OTH STAPHYLOCOCCUS THE CAUSE OF DISEASES CLASSD ELSWHR Status: Acute (2) Sepsis Code(s): A41.9 - SEPSIS, UNSPECIFIED ORGANISM Status: Acute Qualifiers: Severe sepsis shock status: without septic shock (3) Lower extremity pain, bilateral Code(s): M79.604 - PAIN IN RIGHT LEG; M79.605 - PAIN IN LEFT LEG Status: Acute (4) ESRD on dialysis Code(s): N18.6 - END STAGE RENAL DISEASE; Z99.2 - DEPENDENCE ON RENAL DIALYSIS Status: Chronic (5) Elevated troponin I level Code(s): R79.89 - OTHER SPECIFIED ABNORMAL FINDINGS OF BLOOD CHEMISTRY Status : Acute (6) Lymphoma Status: Chronic (7) CHF (congestive heart failure) Code(s): I50.9 - HEART FAILURE, UNSPECIFIED Status: Chronic Qualifiers: Heart failure type: diastolic Heart failure chronicity: chronic Qualified Code(s): I50.32 - Chronic diastolic (congestive) heart failure (8) Hyperlipidemia Code(s): E78.5 - HYPERLIPIDEMIA, UNSPECIFIED Status: Chronic Qualifiers: Hyperlipidemia type: other hyperlipidemia Qualified Code(s): E78.49 - Other hyperlipidemia; E78.4 - Other hyperlipidemia (9) Hypertension Code(s): I10 - ESSENTIAL (PRIMARY) HYPERTENSION Status: Chronic Qualifiers: Hypertension type: essential hypertension Qualified Code(s): I10 - Essential (primary) hypertension (10) Type 2 diabetes mellitus Status: Chronic Qualifiers: Diabetes mellitus mcfp insulin use: without mcfp use Diabetes mellitus complication status: with kidney complications Diabetes mellitus complication detail: with chronic kidney disease Chronic kidney disease stage : stage 4 (severe) Qualified Code(s): E11.22 - Type 2 diabetes mellitus with diabetic chronic kidney disease; N18.4 - Chronic kidney disease, stage 4 (severe ) (11) Cellulitis Code(s): L03.90 - CELLULITIS, UNSPECIFIED Status: Suspected Qualifiers: Site of cellulitis: extremity Site of cellulitis of extremity: lower extremity Laterality: left Qualified Code(s): L03.116 - Cellulitis of left lower limb - Plan staph epidermis bacteremia - left sided port central line and another blood culture growing back staph epi, -Vancomycin lock port solution in both lines, -need 2 weeks of IV Vancomycin, will be done during HD - Nephrology managing dialysis -Rocephin and Vancomycin since 12/26/2019 Urine cultures with mixed bacteria, likely colonization not infection chronic venous insuff.y and associated stasis dermatitis. U/S lower extremities neg for DVT AOKD - on epoetin she is t/th/sat HD person. she had 2 AVF in the past on left arm. temp IJ dialysis cath placement on friday.
--- NOTE | 2020-01-02 16:22 | PRG ---
DATE OF SERVICE: 01/02/2020 SUBJECTIVE: Patient was seen and examined at bedside and overnight events noted. Patient denies any shortness of breath or chest pain or palpitation. No history of nausea or vomiting or diarrhea or fever or chills or cramps. OBJECTIVE: GENERAL: This is a morbidly obese female, in no apparent distress. VITAL SIGNS: Temperature 97.8. Heart rate 63. Respiratory rate 18. Blood pressure 124/60. HEENT: Atraumatic, normocephalic. Oral mucosa is moist. NECK: Supple. CARDIOVASCULAR: S1, S2 heard. Rate and rhythm regular. RESPIRATORY: Clear to auscultation. GASTROINTESTINAL: Abdomen is soft. MUSCULOSKELETAL: No tenderness. No edema. DERMATOLOGIC: No skin rash. NEUROLOGIC: Alert and awake and oriented x3. No focal neurologic deficits. Moving all the extremities. PSYCHIATRIC: Mood and affect normal. LABORATORY DATA: Potassium 3.8, BUN is 38, and creatinine is 4.8. ASSESSMENT AND PLAN: 1. End-stage renal disease. Continue dialysis and dialysis access. Plan to have dialysis catheter tomorrow. No acute indication for dialysis today. Plan discussed with Dr. Jewell. 2. Bacteremia. 3. Anemia of chronic disease. 4. Morbid obesity. Plan to have a tunneled dialysis catheter tomorrow and then can need dialysis tomorrow and then continue TTS as tolerated. Job ID: [id number]
[2020-01-02] MEDS ORDERED: Calcium Carbonate 500 MG ChewTAB PO PRN (17:21)
[2020-01-02] MEDS ORDERED: Mag-Al 1200 mg/1200 mg/30 ML UDCUP PO PRN (17:21)
[2020-01-02] MEDS: Pramipexole Di-HCl 0.125 MG TAB PO SCH (20:59)
[2020-01-02] MEDS: Amlodipine 10 MG TAB PO SCH (21:00)
[2020-01-02] MEDS: Atorvastatin Calcium 10 MG TAB PO SCH (21:00)
[2020-01-02] MEDS: Famotidine 20 MG TAB PO SCH (21:33)
[2020-01-03 04:16] LABS: Anion Gap 18 mmol/L (10-20); BUN (Urea Nitrogen) 47 mg/dL (9.8-20.1); Calc. Creatinine Clearance 19 mL/min (70-130); Calcium 9.1 mg/dL (7.8-10.44); Carbon Dioxide 23 mmol/L (23-31); Chloride 101 mmol/L (98-107); Estimated GFR-MDRD 8; Glucose 126 mg/dL (83-110); Potassium 3.8 mmol/L (3.5-5.1); Sodium 138 mmol/L (136-145)
[2020-01-03 04:25] LABS: Band 3 % (5-11); Eosinophils 1 % (0-10); Hemoglobin 7.7 g/dL (12.0-16.0); Hypochromia SLIGHT = 6-15 cells (100X) (0-5/hpf); Lymphocytes 27 % (21-51); MDiff Complete? YES; Mean Corpuscular HGB CONC 31.9 g/dL (32.0-36.0); Mean Corpuscular Hemoglobin 28.3 pg (27.0-31.0); Mean Corpuscular Volume 88.7 fL (78.0-98.0); Mean Platelet Volume 7.4 fL (7.4-10.4); Metamyelocyte 2 % (0-0); Monocytes 4 % (0-10); Neutrophil 63 % (42-75); Platelet Count 358 thou/uL (130-400); Platelet Morphology Comment Appears Adequate; RBC Distribution Width 16.9 % (11.5-14.5); Red Blood Cell (RBC) Count 2.74 mill/uL (4.20-5.40); White Blood Cell (WBC) Count 6.3 thou/uL (4.8-10.8)
[2020-01-03] MEDS: Metoprolol Tartrate 50 MG TAB PO SCH ×2 (05:22→21:04)
[2020-01-03] MEDS: Aspirin 81 mg Enteric Coated Tablet PO SCH (05:22)
[2020-01-03] MEDS: Furosemide 40 MG/4 ML VIAL SLOW IVP SCH ×2 (07:09→15:04)
[2020-01-03] MEDS ORDERED: Fentanyl 100 MCG/2 ML VIAL ONE ×3 (09:15→13:30)
[2020-01-03] MEDS ORDERED: Midazolam HCl 2 mg/2 ml Vial ONE ×2 (09:15→09:16)
[2020-01-03] MEDS ORDERED: Heparin 5,000 UNITS/ML VIAL ONE (09:20)
[2020-01-03] MEDS ORDERED: Protamine Sulfate 50 MG/5 ML VIAL ONE (09:20)
[2020-01-03] MEDS ORDERED: Lidocaine 1% w/Epinephrine 1:100K 20 ML VIAL ONE (09:20)
[2020-01-03] MEDS ORDERED: Bupivacaine PF 0.5% 30 ML VIAL ONE (09:20)
[2020-01-03] MEDS ORDERED: Sodium Chloride 0.9% 30 ML ONE (09:21)
[2020-01-03] MEDS ORDERED: Vancomycin 1 GM/200 ML BAG ONE (09:44)
[2020-01-03] MEDS ORDERED: Heparin 10,000 UNITS/1 ML VIAL ONE (10:46)
[2020-01-03] MEDS: Fish Oil 1,000 MG CAP PO SCH ×2 (11:55→21:04)
[2020-01-03] MEDS: Gabapentin 100 MG CAP PO SCH ×3 (11:55→21:05)
[2020-01-03] MEDS ORDERED: Bupivacaine HCl 0.5%/Epinephrine 1:200,000/PF 30 ml Vial ONE (12:24)
[2020-01-03] MEDS ORDERED: PROPOFOL 200 MG/20 ML VIAL ONE (12:24)
[2020-01-03] MEDS ORDERED: Ondansetron PF 4 MG/2 ML Vial ONE (12:24)
[2020-01-03] MEDS ORDERED: EPHEDRINE 25 MG/5 ML SYRINGE ONE (12:24)
[2020-01-03] MEDS ORDERED: Promethazine HCl 25 MG/ML VIAL IM PRN (12:43)
[2020-01-03] MEDS ORDERED: Promethazine HCl 25 MG/ML VIAL SLOW IVP PRN (12:43)
[2020-01-03] MEDS ORDERED: Ondansetron HCl/PF 4 MG/2 ML Vial IVP PRN (12:43)
[2020-01-03] MEDS ORDERED: traMADol HCl 50 MG TAB PO PRN (13:01)
--- NOTE | 2020-01-03 13:16 | RAD ---
Exam: Chest one view HISTORY:Central line. Comparison: 12/31/2019 FINDINGS: Cardiac silhouette:Cardiomegaly. Aorta: Unremarkable Pulmonary vessels: Normal Costophrenic angles: Small left-sided effusion is suspected. LUNGS: Bilateral perihilar and left lower lobe parenchymal changes. Lines and tubes: Stable left-sided Mediport catheter. Interval placement of a left-sided HemoSplit di alysis catheter with the distal tip in the expected region of the superior vena cava. Pneumothorax: None Osseous abnormalities: None IMPRESSION: 1. Cardiomegaly. Lung parenchymal opacities and small left-sided effusion are suspected. Correlate fo r congestive heart failure. 2. Interval placement of a left-sided HemoSplit osseous catheter. No pneumothorax.
--- NOTE | 2020-01-03 13:19 | OP ---
DATE OF PROCEDURE: 01/03/2020 PREOPERATIVE DIAGNOSES: 1. Dislodged right internal jugular cuffed tunneled dialysis catheter. 2. End-stage renal disease. 3. Morbid obesity. 4. Dysfunctional left upper arm fistula with morbid obesity, too deep to access, cephalic vein inadequate in the upper arm. POSTOPERATIVE DIAGNOSES: 1. Dislodged right internal jugular cuffed tunneled dialysis catheter. 2. End-stage renal disease. 3. Morbid obesity. 4. Dysfunctional left upper arm fistula with morbid obesity, too deep to access, cephalic vein inadequate in the upper arm. 5. Occluded right internal jugular outflow. No presence of left internal jugular MediPort. PROCEDURES PERFORMED: 1. Successful cannulation of right internal jugular vein, but the J-wire would not thread. 2. Placement of left internal jugular cuffed tunneled dialysis catheter, ultrasound and fluoroscopy use. 3. Left upper arm basilic vein transposition fistula. ANESTHESIA: General, LMA, regional. ESTIMATED BLOOD LOSS: 100 mL. BLOOD TRANSFUSIONS: None. DESCRIPTION OF PROCEDURE: The patient was taken to the operating room where under regional anesthesia and LMA, her neck and chest and left upper extremity were prepared with ChloraPrep and draped in routine fashion. Local anesthetic infiltrated in the skin and subcutaneous tissue for placement of her line. Right internal jugular vein was cannulated under ultrasound guidance with a J-wire not thread. Left IJ was cannulated under ultrasound guidance at a higher level, then the MediPort entered. The J-wire threaded, trocar catheter removed. Skin site was enlarged sharply. The left chest stab incision made. Using a tunneling device, pre-curved AngioDynamics cuffed tunneled hemodialysis catheter tunneled between 2 incisions, placed the fabric cuff beneath the skin exit site. Catheter secured with 2 interrupted sutures of 3-0 nylon. Small and medium size dilators were placed over the J-wire into the internal jugular vein and removed. Dilator and Peel-Away sheath placed over the J-wire under fluoroscopic visualization in the superior vena cava. Dilator and J-wire removed. Catheter placed with Peel-Away sheath. Peel-Away sheath removed. Fluoroscopically, catheter tip noted to be in the superior vena cava. Aspirated blood without restriction. Catheter flushed with saline solution and heparinized saline solution with 1000 units of heparin per mL, indicating volume of the port. Platysma was approximated with 4-0 Monocryl, skin with subdermal 4-0 Monocryl, and [place] glue and sterile dressings applied. Fluoroscopic images revealed good line placement. An incision was made in the proximal volar forearm below the antecubital fossa through the old scar, carried up the medial upper arm to the axilla, carried down to skin and subcutaneous tissue, deep fascia, identifying the basilic vein, mobilized and divided branches between 4-0 silk ties and 3-0 silk ties and clips. Once the vein was mobilized, it was marked for orientation and prevent torsion and a Loretta Wick tunneler used to create a tunnel anteriorly using a 12-mm head, and using 6-mm head, the vein brought back through the tunnel, had been flushed with heparinized saline solution, distended nicely and had good flow without leak. Once in the tunnel, it was re-flushed again and had good outflow. The patient was given 6000 units of heparin intravenously. After adequate circulation time, the inflow to the basilic vein fistula clamped and the basilic vein divided and the basilic vein stump after division and prior to tunneling had been ligated with 6-0 Prolene. The cephalic vein dissected free as it was patent over a several centimeter in length. The outflow stump doubly clipped with large clips and then divided and spatulated, and accordingly the basilic vein spatulated, end-to-end anastomosis created with continuous suture of 6-0 Prolene, releasing clamps, noting good flow in the fistula. The patient was given 50 mg of protamine intravenously by Anesthesia. Good hemostasis noted and obtained with the cautery. Subcutaneous tissues inspected. Surgicel applied to the basilic vein harvest area. Good hemostasis noted. Subcutaneous tissue was approximated with 3-0 Monocryl, skin with lashawn. Sterile dressing applied. Job ID: [id number]
[2020-01-03] MEDS: Isosorbide Dinitrate 5 MG TAB PO SCH ×2 (13:52→21:08)
[2020-01-03] MEDS: Glimepiride 1 MG TAB PO SCH (13:52)
--- NOTE | 2020-01-03 14:08 | PRG ---
DATE OF SERVICE: 01/03/2020 SUBJECTIVE: A 74-year-old female being seen for end-stage renal disease. The patient denied nausea, vomiting, or chest pain. OBJECTIVE: GENERAL: The patient is awake and alert. VITAL SIGNS: Afebrile. Pulse 75, breathing at 16, blood pressure 133/59. HEENT: Head normocephalic and atraumatic. Eyes intact, no ulcers. Nose intact, no ulcers. Ears intact, no ulcers. NECK: Supple. No JVD. CHEST: Symmetrical and clear. CARDIOVASCULAR: Shows S1 and S2, no rub, no murmur. GASTROINTESTINAL: Abdomen is soft, bowel sounds positive. EXTREMITIES: Show no edema or ulcers. SKIN: Shows no rash or petechiae. MUSCULOSKELETAL: Shows no joint swelling or stiffness. GENITOURINARY: Shows no Sanchez or CVA tenderness. NEUROLOGIC: Motor intact. Cranial nerves intact. LABORATORY DATA: Reviewed. ASSESSMENT AND PLAN: 1. Stage 6 chronic kidney disease. Continue hemodialysis. 2. Hypertension, stable. 3. Anemia, stable. 4. Medication based on GFR appropriate. Job ID: [id number]
[2020-01-03] MEDS: HEPARIN CATH SCH ×2 (14:28→21:09)
[2020-01-03] MEDS: SODIUM CHLORIDE 0.9% CATH SCH ×2 (14:28→21:09)
[2020-01-03] MEDS: VANCOMYCIN HCL CATH SCH ×2 (14:28→21:09)
[2020-01-03] MEDS ORDERED: Cepastat Lozenges 1 LOZ PO PRN (15:43)
--- NOTE | 2020-01-03 16:16 | PDOC.HOSPP ---
- Subjective Encounter Date: 01/03/20 Encounter Time: 16:30 Subjective: pt returned from the procedure, sore throat. s/p Left IJ tunnal cath and Left Upper arm AVF - Objective Vital Signs & Weight: Vital Signs (12 hours) Temp Pulse Resp BP BP Pulse Ox 01/03/20 14:20 98 F 61 20 127/60 99 01/03/20 07:11 98 F 65 18 133/59 L 97 Weight Weight 261 lb I&O: 01/02/20 01/03/20 01/04/20 06:59 06:59 06:59 Intake Total 889 715 Output Total 975 806 Balance -86 -91 Result Diagrams: 01/03/20 03:35 01/03/20 03:35 Additional Labs: Accuchecks 01/03/20 01/02/20 01/02/20 05:16 20:24 17:10 POC Glucose 150 H 184 H 120 H Hospitalist ROS - Medication Medications: Active Medications Generic Name Dose Route Start Last Admin Trade Name Freq PRN Reason Stop Dose Admin Acetaminophen 1,000 mg 12/27/19 08:56 12/31/19 01:39 Tylenol PO 1,000 mg Q6H PRN Administration Fever>101/(Mi/Mod/Sev) Pain Amlodipine Besylate 10 mg 12/27/19 21:00 01/02/20 21:00 Norvasc PO 10 mg HS ZANA Administration Aspirin 81 mg 12/27/19 09:00 01/03/20 05:22 Ecotrin PO 81 mg DAILY ZANA Administration Atorvastatin Calcium 10 mg 12/27/19 21:00 01/02/20 21:00 Lipitor PO 10 mg HS ZANA Administration Cyclobenzaprine HCl 5 mg 12/30/19 13:28 01/02/20 06:07 Flexeril PO 5 mg TIDPRN PRN Administration Muscle Spasm Epoetin Venancio-epbx 20,000 unit 12/28/19 08:00 01/01/20 09:46 Retacrit IVP 20,000 unit TuThSa ZANA Administration Famotidine 20 mg 12/31/19 21:00 01/02/20 21:33 Pepcid PO 20 mg QPM ZANA Administration Fish Oil 1,000 mg 12/27/19 09:00 01/03/20 11:55 Fish Oil PO Not Given BID ZANA Gabapentin 100 mg 12/27/19 09:00 01/03/20 15:05 Neurontin PO Not Given TID ZANA Glimepiride 1 mg 12/27/19 08:00 01/03/20 13:52 Amaryl PO Not Given QAM-WM AZNA Vancomycin HCl 50 mg/ Sodium 10 mls @ 0 mls/hr 12/28/19 21:00 01/03/20 14:28 Chloride 9.5 ml/ Heparin CATH 10 mls Sodium (Porcine) 2,500 units/ Q12HR ZANA Administration Syringe Vancomycin HCl 50 mg/ Sodium 10 mls @ 0 mls/hr 12/28/19 19:27 01/01/20 20:31 Chloride 9.5 ml/ Heparin CATH 2 mls Sodium (Porcine) 2,500 units/ PRN PRN Administration Syringe IV PORT LOCK Insulin Human Lispro 0 units 12/26/19 20:18 01/02/20 11:41 Humalog SC 4 unit .MILD SLIDING SCALE PRN Administration Mild Correctional Scale Insulin Human Lispro 0 units 12/26/19 20:18 12/29/19 21:32 Humalog SC 2 units .BEDTIME SLIDING SC PRN Administration Bedtime Correctional Scale Isosorbide Dinitrate 10 mg 12/27/19 09:00 01/03/20 13:52 Isordil PO Not Given BID [facility] Metoprolol Tartrate 50 mg 12/27/19 09:00 01/03/20 05:22 Lopressor PO 50 mg BID ZANA Administration Ondansetron HCl 4 mg 12/29/19 20:56 12/29/19 21:27 Zofran Odt PO 4 mg Q6H PRN Administration Nausea/Vomiting Ondansetron HCl 4 mg 12/29/19 20:56 12/30/19 18:50 Zofran IVP 4 mg Q6H PRN Administration Nausea/Vomiting Pramipexole Dihydrochloride 0.125 mg 12/27/19 21:00 01/02/20 20:59 Mirapex PO 0.125 mg QPM ZANA Administration Sodium Chloride 10 ml 12/26/19 19:19 12/27/19 09:42 Flush - Normal Saline IVF 10 ml Q12HR PRN Administration Saline Flush Sodium Chloride 10 ml 12/26/19 19:19 12/27/19 18:31 Flush - Normal Saline IVF 10 ml PRN PRN Administration Saline Flush - Exam General Appearance: NAD, awake alert Eye: PERRL ENT: normocephalic atraumatic Neck: supple Neck - other findings: left IJ and left arm - on dry gauze --fistula and old left chemo port Heart: RRR Respiratory: CTAB, normal chest expansion Gastrointestinal: soft, normal bowel sounds Neurological: no focal deficits Hosp A/P - Plan (1) Bacteremia due to coagulase-negative Staphylococcus Code(s): R78.81 - BACTEREMIA; B95.7 - OTH STAPHYLOCOCCUS THE CAUSE OF DISEASES CLASSD ELSWHR Status: Acute (2) Sepsis Code(s): A41.9 - SEPSIS, UNSPECIFIED ORGANISM Status: Acute Qualifiers: Severe sepsis shock status: without septic shock (3) Lower extremity pain, bilateral Code(s): M79.604 - PAIN IN RIGHT LEG; M79.605 - PAIN IN LEFT LEG Status: Acute (4) ESRD on dialysis Code(s): N18.6 - END STAGE RENAL DISEASE; Z99.2 - DEPENDENCE ON RENAL DIALYSIS Status: Chronic (5) Elevated troponin I level Code(s): R79.89 - OTHER SPECIFIED ABNORMAL FINDINGS OF BLOOD CHEMISTRY Status : Acute (6) Lymphoma Status: Chronic (7) CHF (congestive heart failure) Code(s): I50.9 - HEART FAILURE, UNSPECIFIED Status: Chronic Qualifiers: Heart failure type: diastolic Heart failure chronicity: chronic Qualified Code(s): I50.32 - Chronic diastolic (congestive) heart failure (8) Hyperlipidemia Code(s): E78.5 - HYPERLIPIDEMIA, UNSPECIFIED Status: Chronic Qualifiers: Hyperlipidemia type: other hyperlipidemia Qualified Code(s): E78.49 - Other hyperlipidemia; E78.4 - Other hyperlipidemia (9) Hypertension Code(s): I10 - ESSENTIAL (PRIMARY) HYPERTENSION Status: Chronic Qualifiers: Hypertension type: essential hypertension Qualified Code(s): I10 - Essential (primary) hypertension (10) Type 2 diabetes mellitus Status: Chronic Qualifiers: Diabetes mellitus care home insulin use: without care home use Diabetes mellitus complication status: with kidney complications Diabetes mellitus complication detail: with chronic kidney disease Chronic kidney disease stage : stage 4 (severe) Qualified Code(s): E11.22 - Type 2 diabetes mellitus with diabetic chronic kidney disease; N18.4 - Chronic kidney disease, stage 4 (severe ) (11) Cellulitis Code(s): L03.90 - CELLULITIS, UNSPECIFIED Status: Suspected Qualifiers: Site of cellulitis: extremity Site of cellulitis of extremity: lower extremity Laterality: left Qualified Code(s): L03.116 - Cellulitis of left lower limb - Plan staph epidermis bacteremia - left sided port central line and another blood culture growing back staph epi, -Vancomycin lock port solution in both lines, -need 2 weeks of IV Vancomycin, will be done during HD - Nephrology managing dialysis -Rocephin and Vancomycin since 12/26/2019 Urine cultures with mixed bacteria, likely colonization not infection chronic venous insuff.y and associated stasis dermatitis. U/S lower extremities neg for DVT AOKD - on epoetin she is t/th/sat HD person. she had 2 AVF in the past on left arm. Left IJ dialysis cath placement and left upper arm AVF. --likely HD tomorrow.
--- NOTE | 2020-01-03 18:17 | PRG ---
DATE OF SERVICE: 01/03/2020 SUBJECTIVE: Ms. Connor had a left IJ tunneled catheter and AV fistula placed. Little bit of sore throat. No shortness of breath. No abdominal pain. No diarrhea. OBJECTIVE: VITAL SIGNS: She has been afebrile. Other vital signs are normal. O2 sats 99% on 2 L nasal cannula. GENERAL: Appears in no distress. LUNGS: Clear. Surgical site with little bruising. No abdominal tenderness. HEART: S1 and S2 regular rate. ABDOMEN: Soft. LABORATORY DATA: White cell count 6.3, hemoglobin 7.7, platelets 258 bands, 62% neutrophils. Microbiology with Staph epidermidis. Two sets of blood cultures. ASSESSMENT AND DISCUSSION: Type 2 diabetes; end-stage renal disease, on hemodialysis through a tunneled catheter; rheumatoid arthritis; cardiomyopathy; large cell lymphoma, on chemo with Adriamycin, Cytoxan, vincristine Rituxan, prednisone, with possible colonization of port. Vancomycin lock solution and IV vancomycin according to sliding scale for 2 weeks. Now repeat blood cultures after a few days off antimicrobial therapy following completion of the regimen. Job ID: [id number] [facility]
[2020-01-03] MEDS: Cyclobenzaprine 10 MG TAB PO PRN (21:04)
[2020-01-03] MEDS: Atorvastatin Calcium 10 MG TAB PO SCH (21:05)
[2020-01-03] MEDS: Pramipexole Di-HCl 0.125 MG TAB PO SCH (21:05)
[2020-01-03] MEDS: Famotidine 20 MG TAB PO SCH (21:06)
[2020-01-03] MEDS: Amlodipine 10 MG TAB PO SCH (21:06)
[2020-01-04] MEDS: Acetaminophen 500 MG TAB PO PRN (02:58)
[2020-01-04] MEDS ORDERED: Fentanyl 100 MCG/2 ML VIAL ONE (08:31)
[2020-01-04] MEDS ORDERED: Lidocaine 1% w/Epinephrine 1:100K 20 ML VIAL ONE (08:38)
[2020-01-04] MEDS ORDERED: Bupivacaine PF 0.5% 30 ML VIAL ONE (08:38)
[2020-01-04] MEDS ORDERED: Heparin 10,000 UNITS/1 ML VIAL ONE (08:38)
[2020-01-04] MEDS ORDERED: Sodium Chloride 0.9% 10 ML ONE (08:38)
[2020-01-04 09:12] LABS: Vancomycin, Random 25.5 ug/mL (See Comment)
[2020-01-04 09:13] LABS: Anion Gap 18 mmol/L (10-20); BUN (Urea Nitrogen) 45 mg/dL (9.8-20.1); Calc. Creatinine Clearance 21 mL/min (70-130); Calcium 9.5 mg/dL (7.8-10.44); Carbon Dioxide 24 mmol/L (23-31); Chloride 101 mmol/L (98-107); Estimated GFR-MDRD 9; Glucose 168 mg/dL (83-110); Potassium 4.8 mmol/L (3.5-5.1); Sodium 138 mmol/L (136-145)
[2020-01-04] MEDS ORDERED: Heparin 10,000 UNITS/ 10 ML VIAL ONE (09:22)
--- NOTE | 2020-01-04 10:33 | OP ---
DATE OF PROCEDURE: 01/04/2020 PREOPERATIVE DIAGNOSES: 1. Morbid obesity. 2. Lymphoma. 3. End-stage renal disease. 4. Dysfunctional hemodialysis catheter, recent, status post basilic vein transposition fistula. 5. MediPort in the left IJ. POSTOPERATIVE DIAGNOSES: 1. Morbid obesity. 2. Lymphoma. 3. End-stage renal disease. 4. Dysfunctional hemodialysis catheter, recent, status post basilic vein transposition fistula. 5. MediPort in the left IJ. PROCEDURES PERFORMED: 1. Removal of left IJ hemodialysis catheter. 2. Placement of new longer pre-curved AngioDynamics cuffed tunneled hemodialysis catheter, fluoroscopy used. ANESTHESIA: Intravenous sedation and local with 0.5% Marcaine 30 mL, mixed with 1% xylocaine with epi. DESCRIPTION OF PROCEDURE: The patient was taken to the operating room where under intravenous sedation, neck and chest were prepared with ChloraPrep and draped in routine fashion. Sutures had been removed from the old dialysis catheter, placed yesterday. MediPort apparatus sequestered prep. An incision was made through the old incision in the left side of the neck, carried down to skin and subcutaneous tissue, removing the old suture, identifying the catheter, bringing into the filter, controlling with hemostat and transecting it, removing the other catheter at the skin exit site over the left chest and re-prepping the area with ChloraPrep. Using the tunneling device through a new exit site, a stab incision was made and the new longer catheter was placed using the tunneling device, placing the fabric cuff beneath the skin exit site, securing it with 3-0 nylon suture, sterile dressing applied. The old catheter in the left IJ was threaded with a J-wire, removed and dilator and Peel-Away sheath placed under fluoroscopic visualization in the superior vena cava. Dilator and J-wire were removed. Catheter placed with Peel-Away sheath. Peel-Away sheath removed. Platysma was approximated with 4-0 Monocryl, skin with subdermal Monocryl, and Marlow glue applied. Fluoroscopic images revealed good line placement. Sterile dressings applied. Job ID: [id number]
[2020-01-04] MEDS ORDERED: Sterile Water 10 ML VIAL IVP SCH (10:39)
[2020-01-04] MEDS ORDERED: Activase 2 MG VIAL CATH SCH ×3 (10:45→20:00)
--- NOTE | 2020-01-04 11:23 | RAD ---
Exam: Chest one view HISTORY:Central line Comparison: 01/03/2020 FINDINGS: Lines and tubes: Stable left-sided Mediport catheter and redemonstration of HemoSplit dialysis cathet er which has been advanced. Both catheters terminate in the region of the right atrium. Cardiac silhouette: Normal Aorta: Atherosclerosis Pulmonary vessels: Normal Costophrenic angles: Clear LUNGS: Chronic changes, without consolidation or mass. Pneumothorax: None Osseous abnormalities: No acute osseous abnormalities IMPRESSION: 1. No significant interval change with the exception of advancement of the left-sided HemoSplit dialy sis catheter.
[2020-01-04] MEDS: HEPARIN CATH SCH ×2 (12:07→12:46)
[2020-01-04] MEDS: VANCOMYCIN HCL CATH SCH ×2 (12:07→12:46)
[2020-01-04] MEDS: SODIUM CHLORIDE 0.9% CATH SCH ×2 (12:07→12:46)
[2020-01-04] MEDS: Glimepiride 1 MG TAB PO SCH (12:08)
[2020-01-04] MEDS: Isosorbide Dinitrate 5 MG TAB PO SCH ×2 (12:09→20:04)
[2020-01-04] MEDS: Gabapentin 100 MG CAP PO SCH ×3 (12:09→20:04)
[2020-01-04] MEDS: Fish Oil 1,000 MG CAP PO SCH ×2 (12:09→20:04)
[2020-01-04] MEDS ORDERED: EPOETIN ALFA-EPBX (ESRD) 10,000 UNIT/ML VIAL SC SCH (12:15)
[2020-01-04] MEDS: HumaLOG 300 UNITS/3 ML VIAL SC PRN ×2 (13:47→22:08)
--- NOTE | 2020-01-04 14:16 | PDOC.HOSPP ---
- Subjective Encounter Date: 01/04/20 Encounter Time: 14:10 Subjective: pt returned from OR for IJ replacement and going for dialysis now. - Objective Vital Signs & Weight: Vital Signs (12 hours) Temp Pulse Resp BP Pulse Ox 01/04/20 11:02 97 01/04/20 11:00 97.8 F 79 20 163/72 H 96 01/04/20 03:52 98.8 F 72 20 100/51 L 92 L Weight Weight 262 lb 4.8 oz I&O: 01/03/20 01/04/20 01/05/20 06:59 06:59 06:59 Intake Total 715 600 Output Total 806 750 Balance -91 -150 Result Diagrams: 01/03/20 03:35 01/04/20 08:40 Additional Labs: Accuchecks 01/04/20 01/03/20 11:32 20:33 POC Glucose 195 H 196 H Hospitalist ROS - Medication Medications: Active Medications Generic Name Dose Route Start Last Admin Trade Name Freq PRN Reason Stop Dose Admin Acetaminophen 1,000 mg 12/27/19 08:56 01/04/20 02:58 Tylenol PO 1,000 mg Q6H PRN Administration Fever>101/(Mi/Mod/Sev) Pain Amlodipine Besylate 10 mg 12/27/19 21:00 01/03/20 21:06 Norvasc PO 10 mg HS ZANA Administration Aspirin 81 mg 12/27/19 09:00 01/03/20 05:22 Ecotrin PO 81 mg DAILY ZANA Administration Atorvastatin Calcium 10 mg 12/27/19 21:00 01/03/20 21:05 Lipitor PO 10 mg HS ZANA Administration Calcium Carbonate 1,000 mg 01/02/20 17:21 01/03/20 21:05 Tums PO 1,000 mg TIDPRN PRN Administration Indigestion Cyclobenzaprine HCl 5 mg 12/30/19 13:28 01/03/20 21:04 Flexeril PO 5 mg TIDPRN PRN Administration Muscle Spasm Famotidine 20 mg 12/31/19 21:00 01/03/20 21:06 Pepcid PO 20 mg QPM ZANA Administration Fish Oil 1,000 mg 12/27/19 09:00 01/04/20 12:09 Fish Oil PO Not Given BID ZANA Gabapentin 100 mg 12/27/19 09:00 01/04/20 12:09 Neurontin PO Not Given TID [facility] Glimepiride 1 mg 12/27/19 08:00 01/04/20 12:08 Amaryl PO Not Given QAM-WM [facility] Vancomycin HCl 50 mg/ Sodium 10 mls @ 0 mls/hr 12/28/19 19:27 01/01/20 20:31 Chloride 9.5 ml/ Heparin CATH 01/11/20 19:28 2 mls Sodium (Porcine) 2,500 units/ PRN PRN Administration Syringe IV PORT LOCK Insulin Human Lispro 0 units 12/26/19 20:18 01/04/20 13:47 Humalog SC 2 unit .MILD SLIDING SCALE PRN Administration Mild Correctional Scale Insulin Human Lispro 0 units 12/26/19 20:18 12/29/19 21:32 Humalog SC 2 units .BEDTIME SLIDING SC PRN Administration Bedtime Correctional Scale Isosorbide Dinitrate 10 mg 12/27/19 09:00 01/04/20 12:09 Isordil PO Not Given BID [facility] Metoprolol Tartrate 50 mg 12/27/19 09:00 01/03/20 21:04 Lopressor PO 50 mg BID ZANA Administration Ondansetron HCl 4 mg 12/29/19 20:56 12/29/19 21:27 Zofran Odt PO 4 mg Q6H PRN Administration Nausea/Vomiting Ondansetron HCl 4 mg 12/29/19 20:56 12/30/19 18:50 Zofran IVP 4 mg Q6H PRN Administration Nausea/Vomiting Pramipexole Dihydrochloride 0.125 mg 12/27/19 21:00 01/03/20 21:05 Mirapex PO 0.125 mg QPM ZANA Administration Sodium Chloride 10 ml 12/26/19 19:19 12/27/19 09:42 Flush - Normal Saline IVF 10 ml Q12HR PRN Administration Saline Flush Sodium Chloride 10 ml 12/26/19 19:19 12/27/19 18:31 Flush - Normal Saline IVF 10 ml PRN PRN Administration Saline Flush Throat Lozenges 1 bessy 01/03/20 15:43 01/03/20 16:52 Cepastat Lozenges PO 1 bessy Q2H PRN Administration Sore Throat - Exam General Appearance: NAD, awake alert Eye: PERRL ENT: normocephalic atraumatic Neck: supple Heart: RRR, normal peripheral pulses Respiratory: CTAB, normal chest expansion Gastrointestinal: soft, normal bowel sounds Neurological: no focal deficits Hosp A/P - Plan (1) Bacteremia due to coagulase-negative Staphylococcus Code(s): R78.81 - BACTEREMIA; B95.7 - OTH STAPHYLOCOCCUS THE CAUSE OF DISEASES CLASSD ELSWHR Status: Acute (2) Sepsis Code(s): A41.9 - SEPSIS, UNSPECIFIED ORGANISM Status: Acute Qualifiers: Severe sepsis shock status: without septic shock (3) Lower extremity pain, bilateral Code(s): M79.604 - PAIN IN RIGHT LEG; M79.605 - PAIN IN LEFT LEG Status: Acute (4) ESRD on dialysis Code(s): N18.6 - END STAGE RENAL DISEASE; Z99.2 - DEPENDENCE ON RENAL DIALYSIS Status: Chronic (5) Elevated troponin I level Code(s): R79.89 - OTHER SPECIFIED ABNORMAL FINDINGS OF BLOOD CHEMISTRY Status : Acute (6) Lymphoma Status: Chronic (7) CHF (congestive heart failure) Code(s): I50.9 - HEART FAILURE, UNSPECIFIED Status: Chronic Qualifiers: Heart failure type: diastolic Heart failure chronicity: chronic Qualified Code(s): I50.32 - Chronic diastolic (congestive) heart failure (8) Hyperlipidemia Code(s): E78.5 - HYPERLIPIDEMIA, UNSPECIFIED Status: Chronic Qualifiers: Hyperlipidemia type: other hyperlipidemia Qualified Code(s): E78.49 - Other hyperlipidemia; E78.4 - Other hyperlipidemia (9) Hypertension Code(s): I10 - ESSENTIAL (PRIMARY) HYPERTENSION Status: Chronic Qualifiers: Hypertension type: essential hypertension Qualified Code(s): I10 - Essential (primary) hypertension (10) Type 2 diabetes mellitus Status: Chronic Qualifiers: Diabetes mellitus termination clerk insulin use: without nursing home use Diabetes mellitus complication status: with kidney complications Diabetes mellitus complication detail: with chronic kidney disease Chronic kidney disease stage : stage 4 (severe) Qualified Code(s): E11.22 - Type 2 diabetes mellitus with diabetic chronic kidney disease; N18.4 - Chronic kidney disease, stage 4 (severe ) (11) Cellulitis Code(s): L03.90 - CELLULITIS, UNSPECIFIED Status: Suspected Qualifiers: Site of cellulitis: extremity Site of cellulitis of extremity: lower extremity Laterality: left Qualified Code(s): L03.116 - Cellulitis of left lower limb - Plan staph epidermis bacteremia - left sided port central line and another blood culture growing back staph epi, -Vancomycin lock port solution in both lines, -need 2 weeks of IV Vancomycin, will be done during HD - Nephrology managing dialysis -Rocephin and Vancomycin since 12/26/2019 Urine cultures with mixed bacteria, likely colonization not infection chronic venous insuff.y and associated stasis dermatitis. U/S lower extremities neg for DVT AOKD - on epoetin she is t/th/sat HD person. she had 2 AVF in the past on left arm. Left IJ dialysis cath placement and left upper arm AVF. --likely HD tomorrow. 30thprior left IJ -- non-functional --replaced w.. new longer left tunnel catheter placed today and --prob dialysis today--she is going for HD around 2 --plan for dc tomorrow, if stable.
--- NOTE | 2020-01-04 14:44 | PRG ---
DATE OF SERVICE: 01/04/2020 SUBJECTIVE: A 74-year-old female being seen for end-stage renal disease. The patient denies nausea, vomiting, or chest pain. OBJECTIVE: GENERAL: On exam, the patient is awake and alert. VITAL SIGNS: Afebrile, pulse 75, breathing at 16, and blood pressure was 100/51. HEENT: Head normocephalic and atraumatic. Eyes intact, no ulcers. Nose intact, no ulcers. Ears intact, no ulcers. NECK: Supple. No JVD. CHEST: Symmetrical and clear. CARDIOVASCULAR: Shows S1 and S2, no rub, no murmur. GASTROINTESTINAL: Abdomen is soft, bowel sounds positive. EXTREMITIES: Show no edema or ulcers. SKIN: Shows no rash or petechiae. MUSCULOSKELETAL: Shows no joint swelling or stiffness. GENITOURINARY: Shows no Sanchez or CVA tenderness. NEUROLOGIC: Motor intact. Cranial nerves intact. LABORATORY DATA: Reviewed. ASSESSMENT AND PLAN: 1. Stage 6 chronic kidney disease. Plan dialysis. 2. Hypertension, stable. 3. Anemia. Recommend transfusion. 4. Medications based on GFR are appropriate. Job ID: [id number]
[2020-01-04] MEDS ORDERED: PROPOFOL 200 MG/20 ML VIAL ONE (15:15)
[2020-01-04] MEDS ORDERED: Lidocaine 1% PF 5 ML VIAL ONE (15:15)
[2020-01-04] MEDS: EPOETIN ALFA-EPBX (ESRD) 10,000 UNIT/ML VIAL IVP SCH ×2 (15:58→17:54)
[2020-01-04] MEDS: Metoprolol Tartrate 50 MG TAB PO SCH ×2 (16:45→20:04)
[2020-01-04] MEDS: Aspirin 81 mg Enteric Coated Tablet PO SCH (18:14)
[2020-01-04] MEDS: Ondansetron ODT 4 MG TAB PO PRN (20:03)
[2020-01-04] MEDS: Pramipexole Di-HCl 0.125 MG TAB PO SCH (20:04)
[2020-01-04] MEDS: Amlodipine 10 MG TAB PO SCH (20:04)
[2020-01-04] MEDS: Atorvastatin Calcium 10 MG TAB PO SCH (20:04)
[2020-01-04] MEDS: Famotidine 20 MG TAB PO SCH (20:04)
[2020-01-05 05:16] LABS: Anion Gap 15 mmol/L (10-20); BUN (Urea Nitrogen) 27 mg/dL (9.8-20.1); Calc. Creatinine Clearance 25 mL/min (70-130); Calcium 9.4 mg/dL (7.8-10.44); Carbon Dioxide 28 mmol/L (23-31); Chloride 97 mmol/L (98-107); Estimated GFR-MDRD 12; Glucose 213 mg/dL (83-110); Potassium 3.9 mmol/L (3.5-5.1); Sodium 136 mmol/L (136-145)
[2020-01-05] MEDS: HumaLOG 300 UNITS/3 ML VIAL SC PRN ×2 (06:20→11:52)
[2020-01-05] MEDS: Aspirin 81 mg Enteric Coated Tablet PO SCH (09:26)
[2020-01-05] MEDS: Fish Oil 1,000 MG CAP PO SCH ×2 (09:26→20:33)
[2020-01-05] MEDS: Gabapentin 100 MG CAP PO SCH ×3 (09:26→20:34)
[2020-01-05] MEDS: Glimepiride 1 MG TAB PO SCH (09:26)
[2020-01-05] MEDS: Metoprolol Tartrate 50 MG TAB PO SCH ×2 (09:27→20:34)
[2020-01-05] MEDS: Isosorbide Dinitrate 5 MG TAB PO SCH ×2 (09:27→20:34)
[2020-01-05 09:47] LABS: Vancomycin, Random 17.3 ug/mL (See Comment)
--- NOTE | 2020-01-05 10:40 | PRG ---
DATE OF SERVICE: 01/05/2020 SUBJECTIVE: A 74-year-old female, being seen for end-stage renal disease. The patient denied nausea, vomiting, or chest pain. OBJECTIVE: GENERAL: On exam, the patient is awake and alert. VITAL SIGNS: Afebrile, pulse 75, breathing 16, and blood pressure 134/69. HEENT: Head normocephalic and atraumatic. Eyes intact, no ulcers. Nose intact, no ulcers. Ears intact, no ulcers. Neck: Supple. No JVD. Chest: Symmetrical and clear. Cardiovascular: Shows S1 and S2, no rub, no murmur. Gastrointestinal: Abdomen is soft, bowel sounds positive. Extremities: Show no edema or ulcers. Skin: Shows no rash or petechiae. Musculoskeletal: Shows no joint swelling or stiffness. Genitourinary: Shows no Sanchez or CVA tenderness. Neurologic: Motor intact. Cranial nerves intact. LABORATORY DATA: Reviewed. ASSESSMENT AND PLAN: 1. Stage 6 chronic kidney disease, stable. 2. Hypertension, stable. 3. Anemia, stable. 4. Medication based on GFR appropriate. Job ID: [id number]
[2020-01-05] MEDS: SODIUM CHLORIDE 0.9% CATH SCH (11:56)
[2020-01-05] MEDS: VANCOMYCIN HCL CATH SCH (11:56)
[2020-01-05] MEDS: HEPARIN CATH SCH (11:56)
[2020-01-05 13:08] VITALS: BMI 47.2
--- NOTE | 2020-01-05 17:56 | RAD ---
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 Circumferential soft tiss ue swelling of the hand and wrist. No acute displaced fracture of the wrist is appreciated. Advanced interphalangeal joint space narrowing. Impression: Advanced degenerative changes. No acute displaced fracture is appreciated.
--- NOTE | 2020-01-05 18:03 | PRG ---
DATE OF SERVICE: 01/05/2020 Inez Connor is doing well today. She has good thrill and bruit in her left upper arm fistula. Her drains have just been removed. I have told her that she can wash this left upper arm wound with soap and water daily in the bath or shower and pat it dry and leave it open. She can cover it p.r.n. She can place gauze if she has drainage, sometimes drainage is significant and she can use gauze, 4x4s or pads. I will see her in my office in 2 to 3 weeks for staple removal. At this point, I will see her as needed. Please call if necessary. Job ID: [id number]
[2020-01-05] MEDS: Atorvastatin Calcium 10 MG TAB PO SCH (20:34)
[2020-01-05] MEDS: Pramipexole Di-HCl 0.125 MG TAB PO SCH (20:34)
[2020-01-05] MEDS: Amlodipine 10 MG TAB PO SCH (20:34)
[2020-01-05] MEDS: Acetaminophen 500 MG TAB PO PRN (21:27)
[2020-01-06 05:24] LABS: Anion Gap 16 mmol/L (10-20); BUN (Urea Nitrogen) 41 mg/dL (9.8-20.1); Calc. Creatinine Clearance 19 mL/min (70-130); Calcium 9.8 mg/dL (7.8-10.44); Carbon Dioxide 27 mmol/L (23-31); Chloride 96 mmol/L (98-107); Estimated GFR-MDRD 9; Glucose 114 mg/dL (83-110); Potassium 3.8 mmol/L (3.5-5.1); Sodium 135 mmol/L (136-145)
[2020-01-06 08:05] LABS: Vancomycin, Random 15.8 ug/mL (See Comment)
[2020-01-06 08:33] LABS: HBSAg Index 0.15 S/CO (0-0.99); Hep B Surf Ag Non-Reactive S/CO (NonReactive)
[2020-01-06] MEDS ORDERED: Heparin 10,000 UNITS/ 10 ML VIAL ONE (08:39)
--- NOTE | 2020-01-06 11:07 | PRG ---
DATE OF SERVICE: 01/06/2020 SUBJECTIVE: A 74-year-old female, being seen for end-stage renal disease. The patient denied nausea, vomiting, or chest pain. PHYSICAL EXAMINATION: General: The patient is awake and alert. Vital Signs: Afebrile, pulse 74, breathing at 16, blood pressure 134/63. HEENT: Head normocephalic and atraumatic. Eyes intact, no ulcers. Nose intact, no ulcers. Ears intact, no ulcers. Neck: Supple. No JVD. Chest: Symmetrical and clear. Cardiovascular: Shows S1 and S2, no rub, no murmur. Gastrointestinal: Abdomen is soft, bowel sounds positive. Extremities: Show no edema or ulcers. Skin: Shows no rash or petechiae. Musculoskeletal: Shows no joint swelling or stiffness. Genitourinary: Shows no Sanchez or CVA tenderness. Neurologic: Motor intact. Cranial nerves intact. LABORATORY DATA: Labs show hemoglobin 7.7. Potassium . ASSESSMENT AND PLAN: 1. Stage 6 chronic kidney disease, stable. 2. Hypertension, stable. 3. Anemia, stable. 4. Medication based on GFR appropriate. Job ID: [id number]
[2020-01-06] MEDS: Glimepiride 1 MG TAB PO SCH (13:22)
[2020-01-06] MEDS: Aspirin 81 mg Enteric Coated Tablet PO SCH (13:22)
[2020-01-06] MEDS: Metoprolol Tartrate 50 MG TAB PO SCH (13:24)
[2020-01-06] MEDS: Fish Oil 1,000 MG CAP PO SCH (13:24)
[2020-01-06] MEDS: Gabapentin 100 MG CAP PO SCH ×2 (13:24→13:27)
[2020-01-06] MEDS: Isosorbide Dinitrate 5 MG TAB PO SCH (13:24)
[2020-01-06] MEDS: HEPARIN CATH SCH (13:25)
[2020-01-06] MEDS: SODIUM CHLORIDE 0.9% CATH SCH (13:25)
[2020-01-06] MEDS: VANCOMYCIN HCL CATH SCH (13:25)
[2020-01-06] MEDS: EPOETIN ALFA-EPBX (ESRD) 10,000 UNIT/ML VIAL IVP SCH (16:00)
--- NOTE | 2020-01-06 16:40 | PDOC.HOSPP ---
- Subjective Encounter Date: 01/05/20 Encounter Time: 12:05 Subjective: pt discharge on hold as need to arrange iv abx. - Objective Vital Signs & Weight: Vital Signs (12 hours) Temp Pulse Resp BP Pulse Ox 01/06/20 08:00 98.2 F 79 16 150/60 H 94 L Weight Admit Weight 271 lb Weight 258 lb 13.163 oz I&O: 01/05/20 01/06/20 01/07/20 06:59 06:59 06:59 Intake Total 1560 600 Output Total 2740 Balance -1180 600 Result Diagrams: 01/03/20 03:35 01/06/20 04:30 Additional Labs: Accuchecks 01/06/20 01/06/20 01/05/20 13:21 06:05 20:35 POC Glucose 123 H 140 H 192 H 01/05/20 16:23 POC Glucose 133 H Hospitalist ROS - Medication Medications: Active Medications Generic Name Dose Route Start Last Admin Trade Name Freq PRN Reason Stop Dose Admin Acetaminophen 1,000 mg 12/27/19 08:56 01/05/20 21:27 Tylenol PO 1,000 mg Q6H PRN Administration Fever>101/(Mi/Mod/Sev) Pain Amlodipine Besylate 10 mg 12/27/19 21:00 01/05/20 20:34 Norvasc PO 10 mg HS ZANA Administration Aspirin 81 mg 12/27/19 09:00 01/06/20 13:22 Ecotrin PO 81 mg DAILY ZANA Administration Atorvastatin Calcium 10 mg 12/27/19 21:00 01/05/20 20:34 Lipitor PO 10 mg HS ZANA Administration Calcium Carbonate 1,000 mg 01/02/20 17:21 01/03/20 21:05 Tums PO 1,000 mg TIDPRN PRN Administration Indigestion Cyclobenzaprine HCl 5 mg 12/30/19 13:28 01/03/20 21:04 Flexeril PO 5 mg TIDPRN PRN Administration Muscle Spasm Epoetin Venancio-epbx 20,000 unit 01/04/20 14:00 01/04/20 17:54 Retacrit IVP 20,000 unit TuThSa ZANA Administration Fish Oil 1,000 mg 12/27/19 09:00 01/06/20 13:24 Fish Oil PO 1,000 mg BID ZANA Administration Gabapentin 100 mg 12/27/19 09:00 01/06/20 13:27 Neurontin PO Not Given TID ZANA Glimepiride 1 mg 12/27/19 08:00 01/06/20 13:22 Amaryl PO 1 mg QAM-WM ZANA Administration Vancomycin HCl 50 mg/ Sodium 10 mls @ 0 mls/hr 12/28/19 19:27 01/01/20 20:31 Chloride 9.5 ml/ Heparin CATH 01/11/20 19:28 2 mls Sodium (Porcine) 2,500 units/ PRN PRN Administration Syringe IV PORT LOCK Vancomycin HCl 50 mg/ Sodium 10 mls @ 0 mls/hr 01/05/20 09:00 01/06/20 13:25 Chloride 9.5 ml/ Heparin CATH 01/11/20 09:01 10 mls Sodium (Porcine) 2,500 units/ DAILY ZANA Administration Syringe Insulin Human Lispro 0 units 12/26/19 20:18 01/05/20 11:52 Humalog SC 3 unit .MILD SLIDING SCALE PRN Administration Mild Correctional Scale Insulin Human Lispro 0 units 12/26/19 20:18 01/04/20 22:08 Humalog SC 3 units .BEDTIME SLIDING SC PRN Administration Bedtime Correctional Scale Isosorbide Dinitrate 10 mg 12/27/19 09:00 01/06/20 13:24 Isordil PO 10 mg BID ZANA Administration Metoprolol Tartrate 50 mg 12/27/19 09:00 01/06/20 13:24 Lopressor PO 50 mg BID ZANA Administration Ondansetron HCl 4 mg 12/29/19 20:56 01/04/20 20:03 Zofran Odt PO 4 mg Q6H PRN Administration Nausea/Vomiting Ondansetron HCl 4 mg 12/29/19 20:56 12/30/19 18:50 Zofran IVP 4 mg Q6H PRN Administration Nausea/Vomiting Pantoprazole Sodium 40 mg 01/05/20 21:00 01/05/20 21:31 Protonix PO 40 mg 2100 ZANA Administration Pramipexole Dihydrochloride 0.125 mg 12/27/19 21:00 01/05/20 20:34 Mirapex PO 0.125 mg QPM ZANA Administration Sodium Chloride 10 ml 12/26/19 19:19 12/27/19 09:42 Flush - Normal Saline IVF 10 ml Q12HR PRN Administration Saline Flush Sodium Chloride 10 ml 12/26/19 19:19 12/27/19 18:31 Flush - Normal Saline IVF 10 ml PRN PRN Administration Saline Flush Throat Lozenges 1 bessy 01/03/20 15:43 01/03/20 16:52 Cepastat Lozenges PO 1 bessy Q2H PRN Administration Sore Throat Tramadol HCl 50 mg 01/03/20 13:01 01/06/20 13:26 Ultram PO 50 mg Q12H PRN Administration Pain - Exam Eye: PERRL ENT: normocephalic atraumatic Neck: supple Respiratory: CTAB, normal chest expansion Gastrointestinal: soft, normal bowel sounds Hosp A/P - Plan (1) Bacteremia due to coagulase-negative Staphylococcus Code(s): R78.81 - BACTEREMIA; B95.7 - OTH STAPHYLOCOCCUS THE CAUSE OF DISEASES CLASSD ELSWHR Status: Acute (2) Sepsis Code(s): A41.9 - SEPSIS, UNSPECIFIED ORGANISM Status: Acute Qualifiers: Severe sepsis shock status: without septic shock (3) Lower extremity pain, bilateral Code(s): M79.604 - PAIN IN RIGHT LEG; M79.605 - PAIN IN LEFT LEG Status: Acute (4) ESRD on dialysis Code(s): N18.6 - END STAGE RENAL DISEASE; Z99.2 - DEPENDENCE ON RENAL DIALYSIS Status: Chronic (5) Elevated troponin I level Code(s): R79.89 - OTHER SPECIFIED ABNORMAL FINDINGS OF BLOOD CHEMISTRY Status : Acute (6) Lymphoma Status: Chronic (7) CHF (congestive heart failure) Code(s): I50.9 - HEART FAILURE, UNSPECIFIED Status: Chronic Qualifiers: Heart failure type: diastolic Heart failure chronicity: chronic Qualified Code(s): I50.32 - Chronic diastolic (congestive) heart failure (8) Hyperlipidemia Code(s): E78.5 - HYPERLIPIDEMIA, UNSPECIFIED Status: Chronic Qualifiers: Hyperlipidemia type: other hyperlipidemia Qualified Code(s): E78.49 - Other hyperlipidemia; E78.4 - Other hyperlipidemia (9) Hypertension Code(s): I10 - ESSENTIAL (PRIMARY) HYPERTENSION Status: Chronic Qualifiers: Hypertension type: essential hypertension Qualified Code(s): I10 - Essential (primary) hypertension (10) Type 2 diabetes mellitus Status: Chronic Qualifiers: Diabetes mellitus half-way insulin use: without supervisor long goods use Diabetes mellitus complication status: with kidney complications Diabetes mellitus complication detail: with chronic kidney disease Chronic kidney disease stage : stage 4 (severe) Qualified Code(s): E11.22 - Type 2 diabetes mellitus with diabetic chronic kidney disease; N18.4 - Chronic kidney disease, stage 4 (severe ) (11) Cellulitis Code(s): L03.90 - CELLULITIS, UNSPECIFIED Status: Suspected Qualifiers: Site of cellulitis: extremity Site of cellulitis of extremity: lower extremity Laterality: left Qualified Code(s): L03.116 - Cellulitis of left lower limb - Plan staph epidermis bacteremia - left sided port central line and another blood culture growing back staph epi, -Vancomycin lock port solution in both lines, -need 2 weeks of IV Vancomycin, will be done during HD - Nephrology managing dialysis -Rocephin and Vancomycin since 12/26/2019 Urine cultures with mixed bacteria, likely colonization not infection chronic venous insuff.y and associated stasis dermatitis. U/S lower extremities neg for DVT AOKD - on epoetin she is t/th/sat HD person. she had 2 AVF in the past on left arm. Left IJ dialysis cath placement and left upper arm AVF. --likely HD tomorrow. 30thprior left IJ -- non-functional --replaced w.. new longer left tunnel catheter placed today and --prob dialysis today--she is going for HD around 2 --plan for dc tomorrow, if stable. 1st dc orders done and dc summary dictated
--- NOTE | 2020-01-06 16:42 | PDOC.HOSPP ---
- Subjective Encounter Date: 01/06/20 Encounter Time: 14:20 Subjective: pt's dc y'day on hold as CM trying to arrange for IV abx. she got dialysis - Objective Vital Signs & Weight: Vital Signs (12 hours) Temp Pulse Resp BP Pulse Ox 01/06/20 08:00 98.2 F 79 16 150/60 H 94 L Weight Admit Weight 271 lb Weight 258 lb 13.163 oz I&O: 01/05/20 01/06/20 01/07/20 06:59 06:59 06:59 Intake Total 1560 600 Output Total 2740 Balance -1180 600 Result Diagrams: 01/03/20 03:35 01/06/20 04:30 Additional Labs: Accuchecks 01/06/20 01/06/20 01/05/20 13:21 06:05 20:35 POC Glucose 123 H 140 H 192 H 01/05/20 16:23 POC Glucose 133 H Hospitalist ROS - Medication Medications: Active Medications Generic Name Dose Route Start Last Admin Trade Name Matiasq PRN Reason Stop Dose Admin Acetaminophen 1,000 mg 12/27/19 08:56 01/05/20 21:27 Tylenol PO 1,000 mg Q6H PRN Administration Fever>101/(Mi/Mod/Sev) Pain Amlodipine Besylate 10 mg 12/27/19 21:00 01/05/20 20:34 Norvasc PO 10 mg HS ZANA Administration Aspirin 81 mg 12/27/19 09:00 01/06/20 13:22 Ecotrin PO 81 mg DAILY ZANA Administration Atorvastatin Calcium 10 mg 12/27/19 21:00 01/05/20 20:34 Lipitor PO 10 mg HS ZANA Administration Calcium Carbonate 1,000 mg 01/02/20 17:21 01/03/20 21:05 Tums PO 1,000 mg TIDPRN PRN Administration Indigestion Cyclobenzaprine HCl 5 mg 12/30/19 13:28 01/03/20 21:04 Flexeril PO 5 mg TIDPRN PRN Administration Muscle Spasm Epoetin Venancio-epbx 20,000 unit 01/04/20 14:00 01/04/20 17:54 Retacrit IVP 20,000 unit TuThSa ZANA Administration Fish Oil 1,000 mg 12/27/19 09:00 01/06/20 13:24 Fish Oil PO 1,000 mg BID ZANA Administration Gabapentin 100 mg 12/27/19 09:00 01/06/20 13:27 Neurontin PO Not Given TID ZANA Glimepiride 1 mg 12/27/19 08:00 01/06/20 13:22 Amaryl PO 1 mg QAM-WM ZANA Administration Vancomycin HCl 50 mg/ Sodium 10 mls @ 0 mls/hr 12/28/19 19:27 01/01/20 20:31 Chloride 9.5 ml/ Heparin CATH 01/11/20 19:28 2 mls Sodium (Porcine) 2,500 units/ PRN PRN Administration Syringe IV PORT LOCK Vancomycin HCl 50 mg/ Sodium 10 mls @ 0 mls/hr 01/05/20 09:00 01/06/20 13:25 Chloride 9.5 ml/ Heparin CATH 01/11/20 09:01 10 mls Sodium (Porcine) 2,500 units/ DAILY ZANA Administration Syringe Insulin Human Lispro 0 units 12/26/19 20:18 01/05/20 11:52 Humalog SC 3 unit .MILD SLIDING SCALE PRN Administration Mild Correctional Scale Insulin Human Lispro 0 units 12/26/19 20:18 01/04/20 22:08 Humalog SC 3 units .BEDTIME SLIDING SC PRN Administration Bedtime Correctional Scale Isosorbide Dinitrate 10 mg 12/27/19 09:00 01/06/20 13:24 Isordil PO 10 mg BID ZANA Administration Metoprolol Tartrate 50 mg 12/27/19 09:00 01/06/20 13:24 Lopressor PO 50 mg BID ZANA Administration Ondansetron HCl 4 mg 12/29/19 20:56 01/04/20 20:03 Zofran Odt PO 4 mg Q6H PRN Administration Nausea/Vomiting Ondansetron HCl 4 mg 12/29/19 20:56 12/30/19 18:50 Zofran IVP 4 mg Q6H PRN Administration Nausea/Vomiting Pantoprazole Sodium 40 mg 01/05/20 21:00 01/05/20 21:31 Protonix PO 40 mg 2100 ZANA Administration Pramipexole Dihydrochloride 0.125 mg 12/27/19 21:00 01/05/20 20:34 Mirapex PO 0.125 mg QPM ZANA Administration Sodium Chloride 10 ml 12/26/19 19:19 12/27/19 09:42 Flush - Normal Saline IVF 10 ml Q12HR PRN Administration Saline Flush Sodium Chloride 10 ml 12/26/19 19:19 12/27/19 18:31 Flush - Normal Saline IVF 10 ml PRN PRN Administration Saline Flush Throat Lozenges 1 bessy 01/03/20 15:43 01/03/20 16:52 Cepastat Lozenges PO 1 bessy Q2H PRN Administration Sore Throat Tramadol HCl 50 mg 01/03/20 13:01 01/06/20 13:26 Ultram PO 50 mg Q12H PRN Administration Pain - Exam General Appearance: NAD, awake alert Eye: PERRL ENT: normocephalic atraumatic Neck: supple Heart: RRR Respiratory: CTAB, normal chest expansion Gastrointestinal: soft, normal bowel sounds Neurological: no focal deficits Hosp A/P - Plan (1) Bacteremia due to coagulase-negative Staphylococcus Code(s): R78.81 - BACTEREMIA; B95.7 - OTH STAPHYLOCOCCUS THE CAUSE OF DISEASES CLASSD ELSWHR Status: Acute (2) Sepsis Code(s): A41.9 - SEPSIS, UNSPECIFIED ORGANISM Status: Acute Qualifiers: Severe sepsis shock status: without septic shock (3) Lower extremity pain, bilateral Code(s): M79.604 - PAIN IN RIGHT LEG; M79.605 - PAIN IN LEFT LEG Status: Acute (4) ESRD on dialysis Code(s): N18.6 - END STAGE RENAL DISEASE; Z99.2 - DEPENDENCE ON RENAL DIALYSIS Status: Chronic (5) Elevated troponin I level Code(s): R79.89 - OTHER SPECIFIED ABNORMAL FINDINGS OF BLOOD CHEMISTRY Status : Acute (6) Lymphoma Status: Chronic (7) CHF (congestive heart failure) Code(s): I50.9 - HEART FAILURE, UNSPECIFIED Status: Chronic Qualifiers: Heart failure type: diastolic Heart failure chronicity: chronic Qualified Code(s): I50.32 - Chronic diastolic (congestive) heart failure (8) Hyperlipidemia Code(s): E78.5 - HYPERLIPIDEMIA, UNSPECIFIED Status: Chronic Qualifiers: Hyperlipidemia type: other hyperlipidemia Qualified Code(s): E78.49 - Other hyperlipidemia; E78.4 - Other hyperlipidemia (9) Hypertension Code(s): I10 - ESSENTIAL (PRIMARY) HYPERTENSION Status: Chronic Qualifiers: Hypertension type: essential hypertension Qualified Code(s): I10 - Essential (primary) hypertension (10) Type 2 diabetes mellitus Status: Chronic Qualifiers: Diabetes mellitus [facility] insulin use: without [facility] use Diabetes mellitus complication status: with kidney complications Diabetes mellitus complication detail: with chronic kidney disease Chronic kidney disease stage : stage 4 (severe) Qualified Code(s): E11.22 - Type 2 diabetes mellitus with diabetic chronic kidney disease; N18.4 - Chronic kidney disease, stage 4 (severe ) (11) Cellulitis Code(s): L03.90 - CELLULITIS, UNSPECIFIED Status: Suspected Qualifiers: Site of cellulitis: extremity Site of cellulitis of extremity: lower extremity Laterality: left Qualified Code(s): L03.116 - Cellulitis of left lower limb - Plan staph epidermis bacteremia - left sided port central line and another blood culture growing back staph epi, -Vancomycin lock port solution in both lines, -need 2 weeks of IV Vancomycin, will be done during HD - Nephrology managing dialysis -Rocephin and Vancomycin since 12/26/2019 Urine cultures with mixed bacteria, likely colonization not infection chronic venous insuff.y and associated stasis dermatitis. U/S lower extremities neg for DVT AOKD - on epoetin she is t/th/sat HD person. she had 2 AVF in the past on left arm. Left IJ dialysis cath placement and left upper arm AVF. --likely HD tomorrow. 30thprior left IJ -- non-functional --replaced w.. new longer left tunnel catheter placed today and --prob dialysis today--she is going for HD around 2 --plan for dc tomorrow, if stable. 1st dc orders done and dc summary dictated 2nd pending home dc after IV abx arranged.
[2020-01-06 17:34] VITALS: BP 139/68; TEMP 98.2
--- NOTE | 2020-01-07 11:20 | DIS ---
DATE OF ADMISSION: 12/26/2019 DATE OF DISCHARGE: 01/06/2020 DISCHARGE MEDICATIONS: There is no change in her home medications. DISCHARGE DIAGNOSES: 1. Fever. 2. Lower extremity bilateral pain. 3. History of lymphoma. 4. CHF. 5. Hyperlipidemia. 6. Hypertension. 7. Morbid obesity. 8. Type 2 diabetes mellitus. 9. Staphylococcus epidermidis bacteremia. Left-sided port, central line, and another blood culture is growing Staphylococcus epidermidis. Vancomycin during dialysis. Urine culture grew mixed bacteremia colonization, not an infection. 10. Chronic venous insufficiency and associated stasis dermatitis and ultrasound of the lower extremities negative for deep venous thrombosis. 11. Anemia of kidney disease, on epoetin. 12. End-stage renal disease, on hemodialysis on Friday, , Friday. 13. Revisitation of left internal jugular, which was nonfunctional, replaced with new longer left tunneled catheter placed on January 03, and it is functioning. The patient undergone one more dialysis today, on January 04. PHYSICAL EXAMINATION: On the day of discharge, VITAL SIGNS: Temperature 97.5, pulse 79, blood pressure 157/69, saturating 92% in the room air. GENERAL: The patient is alert and oriented. She is sitting on the bed. Nursing at the bedside. Discharge plan discussed. CARDIOVASCULAR: Regular rate and rhythm without murmurs, rubs, or gallops. LUNGS: Clear to auscultation bilaterally without wheezing, rales, or rhonchi. ABDOMEN: Soft, nontender, and nondistended. Good bowel sounds. EXTREMITIES: She has dry gauze on her left upper arm, where she had AV fistula placement. This is a third attempt. She also has a left chemo port and left IJ tunneled catheter. HOSPITAL COURSE: This is a 74-year-old female with type 2 diabetes mellitus; end-stage renal disease, on Friday, , Friday dialysis and right IJ catheter; rheumatoid arthritis; large cell lymphoma, recently diagnosed, and on chemo with Adriamycin, Cytoxan, Rituxan, prednisone; fever; and presented with Staphylococcus epidermis bacteremia. The findings in the blood culture suggestive of colonization in the central line, so they had vancomycin lock solution for both the chemo port and hemodialysis catheter. With the lock solution, 80% chance of successful eradication of the Staphylococcus epidermis bacteremia. She needs IV vancomycin for approximately 2 weeks following sliding scale, and this arranged through home IV infusion. Her last dose will be January 10 vancomycin during her Friday dialysis. The patient had initially right IJ. Somehow, it was displaced during her sleep. She went through the left IJ placement, and it was not functional first time, and a repeat procedure done. It is working well now. She had one dialysis today. The patient is stable to be discharged home today. DISCHARGE INSTRUCTIONS: ACTIVITY: As tolerated. DIET: Renal diet. FOLLOWUP: Follow up with primary care physician in 1 week. Follow up with routine dialysis Friday, , Friday. Last vancomycin during dialysis on January 10. TIME SPENT: Discharge time took over 35 minutes. Job ID: [id number] MTDD
== END 2020-01-06 19:25 | disposition home health service (06) | DRG 853 ==
LOC: ERS 16:21 → 2NO 19:26
PROVIDERS: ADMIT Internal Medicine; ATTEND Internal Medicine
PROC: 05SC0ZZ Reposition Left Basilic Vein, Open Approach (ICD-10-PCS; 2020-01-03)
PROC: 0JH63XZ Insertion of Tunneled Vascular Access Device into Chest Subcutaneous Tissue and Fascia, Percutaneous Approach (ICD-10-PCS; 2020-01-03)
PROC: 02HV33Z Insertion of Infusion Device into Superior Vena Cava, Percutaneous Approach (ICD-10-PCS; 2020-01-03)
PROC: B518ZZA Fluoroscopy of Superior Vena Cava, Guidance (ICD-10-PCS; 2020-01-03)
PROC: B548ZZA Ultrasonography of Superior Vena Cava, Guidance (ICD-10-PCS; 2020-01-03)
PROC: B543ZZA Ultrasonography of Right Jugular Veins, Guidance (ICD-10-PCS; 2020-01-03)
PROC: 5A1D70Z Performance of Urinary Filtration, Intermittent, Less than 6 Hours Per Day (ICD-10-PCS; principal; 2020-01-04)
PROC: 0JPT3XZ Removal of Tunneled Vascular Access Device from Trunk Subcutaneous Tissue and Fascia, Percutaneous Approach (ICD-10-PCS; 2020-01-04)
PROC: 0JH63XZ Insertion of Tunneled Vascular Access Device into Chest Subcutaneous Tissue and Fascia, Percutaneous Approach (ICD-10-PCS; 2020-01-04)
PROC: 02PY33Z Removal of Infusion Device from Great Vessel, Percutaneous Approach (ICD-10-PCS; 2020-01-04)
PROC: 02HV33Z Insertion of Infusion Device into Superior Vena Cava, Percutaneous Approach (ICD-10-PCS; 2020-01-04)
PROC: B518ZZA Fluoroscopy of Superior Vena Cava, Guidance (ICD-10-PCS; 2020-01-04)
DX: A41.1 Sepsis due to other specified staphylococcus (principal); N18.6 End stage renal disease; Z68.42 Body mass index [BMI] 45.0-49.9, adult; L03.116 Cellulitis of left lower limb; I42.9 Cardiomyopathy, unspecified; C83.31 Diffuse large B-cell lymphoma, lymph nodes of head, face, and neck; I13.2 Hypertensive heart and chronic kidney disease with heart failure and with stage 5 chronic kidney disease, or end stage renal disease; T82.42XA Displacement of vascular dialysis catheter, initial encounter; T82.590A Other mechanical complication of surgically created arteriovenous fistula, initial encounter; I50.32 Chronic diastolic (congestive) heart failure; F43.10 Post-traumatic stress disorder, unspecified; M06.9 Rheumatoid arthritis, unspecified; G89.29 Other chronic pain; M54.5 Low back pain; Z96.659 Presence of unspecified artificial knee joint; R79.89 Other specified abnormal findings of blood chemistry; E11.22 Type 2 diabetes mellitus with diabetic chronic kidney disease; E78.5 Hyperlipidemia, unspecified; E66.01 Morbid (severe) obesity due to excess calories; D63.1 Anemia in chronic kidney disease; I87.2 Venous insufficiency (chronic) (peripheral); Y83.8 Other surgical procedures as the cause of abnormal reaction of the patient, or of later complication, without mention of misadventure at the time of the procedure; Z99.2 Dependence on renal dialysis; Z98.84 Bariatric surgery status; Z79.899 Other long term (current) drug therapy; Z88.2 Allergy status to sulfonamides; Z87.891 Personal history of nicotine dependence; Z90.710 Acquired absence of both cervix and uterus; Z11.59 Encounter for screening for other viral diseases; Z88.8 Allergy status to other drugs, medicaments and biological substances; Z88.1 Allergy status to other antibiotic agents; Z91.013 Allergy to seafood
CPT/HCPCS: 36415; 36416; 71045; 76000; 80048; 80053; 80202; 81003; 81015; 82553; 83605; 83735; 84484; 85025; 86140; 87040; 87077; 87086; 87149; 87186; 87340; 87635; 90935; 93005; 93970; 96365; 96366; 96375; C1752; G0257; J0670; J0696; J1200; J1642; J1644; J1940; J2001; J2250; J2405; J2704; J2720; J2997; J3010; J3370; J3490; J7030; J7050; Q0162; Q5105; S0020; S0028; U0003

== ENCOUNTER 2020-01-21 20:45 | Emergency (ER) | payer MEDICARE, BC ==
[2020-01-21] MEDS ORDERED: Lidocaine 1% (PF) 30 ML VIAL ONE (21:01)
[2020-01-21] MEDS ORDERED: Bacitracin 1 PK ONE (21:13)
== END 2020-01-21 21:30 | disposition home or self-care (01) ==
LOC: ERS 20:45
DX: S61.412A Laceration without foreign body of left hand, initial encounter (principal); I50.9 Heart failure, unspecified; N28.9 Disorder of kidney and ureter, unspecified; Z87.891 Personal history of nicotine dependence; Z99.2 Dependence on renal dialysis; F43.10 Post-traumatic stress disorder, unspecified; Z79.899 Other long term (current) drug therapy; W26.0XXA Contact with knife, initial encounter
CPT/HCPCS: 12001; J2001

== ENCOUNTER 2020-01-22 17:32 | Inpatient (IN) | payer MEDICARE, BC ==
[2020-01-22] MEDS ORDERED: Cefepime 2 GM VIAL ONE (18:20)
[2020-01-22] MEDS ORDERED: Vancomycin 1 GM/200 ML BAG ONE (18:20)
[2020-01-22 18:37] LABS: Mean Corpuscular Hemoglobin 29.5 pg (27.0-31.0); Mean Corpuscular Volume 89.3 fL (78.0-98.0); Mean Platelet Volume 7.9 fL (7.4-10.4); Platelet Count 192 thou/uL (130-400); RBC Distribution Width 16.4 % (11.5-14.5); Red Blood Cell (RBC) Count 3.06 mill/uL (4.20-5.40); White Blood Cell (WBC) Count 20.3 thou/uL (4.8-10.8)
[2020-01-22 18:54] LABS: Anisocytosis SLIGHT = 6-15 cells (100X) (0-5/hpf); Band 18 % (5-11); Eosinophils 1 % (0-10); Hypochromia SLIGHT = 6-15 cells (100X) (0-5/hpf); Lymphocytes 6 % (21-51); MDiff Complete? YES; Monocytes 5 % (0-10); Neutrophil 69 % (42-75); Platelet Morphology Comment Appears Adequate; Polychromasia SLIGHT = 2-3 cells (100X) (0-2/hpf); Reactive Lymphocytes 1 % (0-10)
[2020-01-22] MEDS ORDERED: Calcium Carbonate 500 MG ChewTAB PO PRN (18:54)
[2020-01-22] MEDS ORDERED: Dextrose 5% in Water 1,000 ML IV PRN (18:54)
[2020-01-22] MEDS ORDERED: Dextrose 50% Abboject 50 ML SYRINGE SLOW IVP PRN (18:54)
[2020-01-22] MEDS ORDERED: Senokot S 8.6-50 MG TAB PO PRN (18:54)
[2020-01-22] MEDS ORDERED: Acetaminophen 325 MG TAB PO PRN (18:54)
[2020-01-22] MEDS ORDERED: Guaifenesin DM 100-10/5 ML UDCUP PO PRN (18:54)
[2020-01-22] MEDS ORDERED: HYDROcodone/Acetaminophen 5/325 mg Tablet PO PRN (18:54)
[2020-01-22] MEDS ORDERED: Ondansetron PF 4 MG/2 ML Vial IVP PRN (18:54)
[2020-01-22] MEDS ORDERED: Bisacodyl 10 MG SUPP PR PRN (18:54)
[2020-01-22] MEDS ORDERED: Vancomycin HCl 1 GM in Sodium Chloride 0.9% 250 ML 250 ML IVPB SCH (19:00)
[2020-01-22 19:01] LABS: ALT (SGPT) 8 U/L (8-55); AST (SGOT) 19 U/L (5-34); Albumin 3.5 g/dL (3.4-4.8); Alkaline Phosphatase 106 U/L (40-110); Anion Gap 15 mmol/L (10-20); BUN (Urea Nitrogen) 38 mg/dL (9.8-20.1); Bilirubin, Total 0.4 mg/dL (0.2-1.2); Calc. Creatinine Clearance 0 mL/min (70-130); Calcium 9.1 mg/dL (7.8-10.44); Carbon Dioxide 29 mmol/L (23-31); Chloride 99 mmol/L (98-107); Estimated GFR-MDRD 20; Globulin 2.5 g/dL (2.4-3.5); Glucose 194 mg/dL (83-110); Potassium 4.5 mmol/L (3.5-5.1); Sodium 138 mmol/L (136-145)
--- NOTE | 2020-01-22 19:27 | HP ---
REASON FOR ADMISSION: Left AV fistula site infection, possible sepsis. HISTORY OF PRESENTING ILLNESS: The patient came to ER with complaints of increasing drainage in her left arteriovenous fistula site. This has been progressively getting worse for the last 1 week or so. Around 3 in the morning, her entire bed got wet on the left side with drainage from the fistula and it was looking purulent. She did not have any fever at home. She in fact had her hemodialysis done this morning through a tunneled catheter. She was initiated on hemodialysis sometime in November, and she has also received 2 cycles of chemotherapy, the last one being on Friday for lymphoma. The patient states she has finished her vancomycin, both lock solution and through her hemodialysis for staph infection recently. She normally ambulates by herself, but has been getting weaker for the last week or so now. Her granddaughter also moved out recently for her school. She currently has home health per the patient. PAST MEDICAL AND SURGICAL HISTORY: 1. History of lymphoma, on Adriamycin, Cytoxan, vincristine, and Rituxan along with prednisone. 2. Recent colonization of port with Staph epidermidis and has finished a course of vancomycin lock solution and IV vancomycin with hemodialysis sliding scale for 2 weeks. 3. End-stage renal disease, started on hemodialysis sometime in November, follows with Dr. Collins. 4. History of CHF. 5. Dyslipidemia. 6. Hypertension. 7. Obesity. 8. Diabetes mellitus, type 2. 9. Chronic venous insufficiency with stasis dermatitis in lower extremities. 10. Chronic anemia due to renal disease. 11. Hysterectomy. 12. . 13. Total knee replacement. 14. Back surgery on L4-L5. 15. Bariatric surgery in 2013. 16. Left neck mass excision for lymphoma. ALLERGIES: THE PATIENT IS ALLERGIC TO AMBIEN, LEVAQUIN, SHELLFISH, AND SULFA. PERSONAL HISTORY: Does not abuse alcohol or drugs. No history of smoking. FAMILY HISTORY: Mother at the age of 63 from lung cancer and father also of lung cancer at the age of 78, both were heavy smokers. The patient normally ambulates by herself. CODE STATUS: Full. Power of estate planning attorney is her son. REVIEW OF SYSTEMS: CONSTITUTIONAL: Negative for weight loss or gain, ability to conduct usual activities. SKIN: Negative for rash, itching. EYES: Negative for double vision, pain. ENT/MOUTH: Negative for nose bleeding, neck stiffness, pain, tenderness. CARDIOVASCULAR: Negative for palpitations, dyspnea on exertion, orthopnea. RESPIRATORY: Negative for shortness of breath, wheezing, cough, hemoptysis, fever or night sweats. GASTROINTESTINAL: Negative for poor appetite, abdominal pain, heartburn, nausea, vomiting, constipation, or diarrhea. GENITOURINARY: Negative for urgency, frequency, dysuria, nocturia. MUSCULOSKELETAL: Negative for pain, swelling. NEUROLOGIC/PSYCHIATRIC: Negative for anxiety, depression. ALLERGY/IMMUNOLOGIC: Negative for skin rash, bleeding tendency. PHYSICAL EXAMINATION: GENERAL: The patient is a 74-year-old female who is currently not in any acute distress. VITAL SIGNS: Blood pressure 136/74, pulse 86 per minute, respiratory rate 20 per minute, temperature 100 degrees Fahrenheit, and saturating 96% on room air. NECK: Supple. No elevated JVP. EYES: Extraocular muscles intact. Pupils reacting to light. ORAL CAVITY: Mucous membranes are moist. No exudates or congestion. CARDIOVASCULAR SYSTEM: S1 and S2 heard. Regular rhythm. RESPIRATORY SYSTEM: Air entry 1+ bilateral. No rales or rhonchi. ABDOMEN: Soft. Bowel sounds heard. No tenderness, rigidity, or guarding. EXTREMITIES: Left upper extremity; the patient has AV fistula, surgical scar with edema and erythema all the way from her cubital fossa to the axillary area. The patient also has dehiscence of her wound in the cubital fossa with some purulent material on the edges. Has some tenderness to touch on the left arm. Lower extremities; chronic nonpitting edema in the lower extremities. No calf tenderness. VASCULAR SYSTEM: Peripheral pulses 1+ bilateral. Left upper extremity peripheral pulses are felt. There is no ischemic ulcers or gangrene on the left hand fingers. CENTRAL NERVOUS SYSTEM: No gross focal motor deficits noted. The patient is alert, awake, and oriented well. PSYCHIATRIC SYSTEM: The patient's mood is euthymic. No hallucinations or delusions. LABORATORY DATA: White count of 20, hemoglobin and hematocrit of 9 and 27, platelet count 192 with 69% neutrophils and 18% bands, and MCV is 89. Her last BUN and creatinine were 35 and 4.5 on the and current metabolic panel is pending and will follow up on that. The patient has had in fact 2 COVID-19 PCRs done on 11/22/2019 and 12/26/2019, both of which were negative. CLINICAL IMPRESSION AND PLAN: The patient will be admitted to medical floor for left AV fistula surgical site infection. She is also immunosuppressed. The patient has had recent colonization of her port with Staph epidermidis and was on vancomycin lock solution along with hemodialysis sliding scale as well, which she has completed now. Her 2nd cycle of chemotherapy was last Friday. In view of immunosuppressed state and her left upper extremity infection, the patient will be admitted to medical floor. She will be started on cefepime and vancomycin. Wound cultures will be obtained. We will consult Dr. Boone who has seen her during her previous hospitalization here. She has had blood cultures drawn too. We will continue her on Norvasc, Lipitor, Neurontin, glimepiride, Isordil, Lopressor, Ultram, and Mirapex as before. We will also consult Dr. Collins, her cogeneration operator, during her stay here. Job ID: [id number]
[2020-01-22] MEDS: Pramipexole Di-HCl 0.125 MG TAB PO SCH (23:14)
[2020-01-22] MEDS: Amlodipine 10 MG TAB PO SCH (23:15)
[2020-01-22] MEDS: Heparin 5,000 UNITS/ML VIAL SC SCH (23:16)
[2020-01-22] MEDS: Gabapentin 100 MG CAP PO SCH (23:16)
[2020-01-22] MEDS: Losartan 25 MG TAB PO SCH (23:17)
[2020-01-22] MEDS: Metoprolol Tartrate 50 MG TAB PO SCH (23:17)
[2020-01-22] MEDS: Atorvastatin Calcium 10 MG TAB PO SCH (23:18)
[2020-01-22] MEDS: Isosorbide Dinitrate 20 MG TAB PO SCH (23:18)
[2020-01-22 23:47] VITALS: BMI 46.3
[2020-01-23 06:04] LABS: Anion Gap 14 mmol/L (10-20); BUN (Urea Nitrogen) 44 mg/dL (9.8-20.1); Calc. Creatinine Clearance 34 mL/min (70-130); Calcium 8.7 mg/dL (7.8-10.44); Carbon Dioxide 27 mmol/L (23-31); Chloride 102 mmol/L (98-107); Estimated GFR-MDRD 17; Glucose 127 mg/dL (83-110); Potassium 3.5 mmol/L (3.5-5.1); Sodium 139 mmol/L (136-145)
[2020-01-23] MEDS: traMADol HCl 50 MG TAB PO PRN ×2 (06:51→17:15)
[2020-01-23] MEDS: Gabapentin 100 MG CAP PO SCH ×3 (08:38→20:51)
[2020-01-23] MEDS: Isosorbide Dinitrate 20 MG TAB PO SCH ×2 (08:38→20:50)
[2020-01-23] MEDS: Metoprolol Tartrate 50 MG TAB PO SCH ×2 (08:38→20:52)
[2020-01-23] MEDS: Heparin 5,000 UNITS/ML VIAL SC SCH ×3 (08:38→20:51)
[2020-01-23 08:48] LABS: Band 16 % (5-11); Eosinophils 1 % (0-10); Hemoglobin 8.8 g/dL (12.0-16.0); Lymphocytes 7 % (21-51); MDiff Complete? YES; Mean Corpuscular HGB CONC 31.9 g/dL (32.0-36.0); Mean Corpuscular Hemoglobin 29.2 pg (27.0-31.0); Mean Corpuscular Volume 91.8 fL (78.0-98.0); Mean Platelet Volume 7.3 fL (7.4-10.4); Metamyelocyte 1 % (0-0); Neutrophil 75 % (42-75); Platelet Count 171 thou/uL (130-400); RBC Distribution Width 16.3 % (11.5-14.5); White Blood Cell (WBC) Count 16.4 thou/uL (4.8-10.8)
[2020-01-23] MEDS: Glimepiride 1 MG TAB PO SCH (12:25)
[2020-01-23] MEDS: HumaLOG 300 UNITS/3 ML VIAL SC PRN ×3 (12:26→20:52)
--- NOTE | 2020-01-23 12:41 | CON ---
DATE OF CONSULTATION: Reason for consultation: ESRD on hemodialysis. History of present illness: The patient is a 74-year-old female with past medical history of ESRD on hemodialysis, diabetes mellitus, hypertension, lymphoma on chemotherapy, heart failure, who came to the hospital complaining of discharge from left upper extremity AV fistula. As per the patient, she has been noticing discharge from her fistula for last 1 week but yesterday she found that the discharge has "soaked her bed". The patient states that the discharge is pinkish in color. she does not have fever or chills. She was seen by Vascular Surgery, last week. Her hemodialysis schedule is on Friday, , and Friday. Last hemodialysis was yesterday. She has been on vancomycin lock for infected dialysis catheter. Her TDC has been changed to left IJ position due to same. She does not have constipation or diarrhea. She still has residual renal function and makes urine. Review of systems Gen.: No fever, no chills All the 14 systems reviewed except for the ones mentioned above are negative Past medical history: As above Past surgical history: Total knee replacement, , hysterectomy, back surgery, bariatric surgery, Social history: Patient does not abuse drugs or alcohol. She does not smoke cigarettes Family history: Patient's mother had lung cancer and father also had lung cancer. Vitals Blood pressure-124/67 Pulse rate-74/minute Respirate-18/minute Oxygen saturation - 95% on room air Constitutional: comfortable, not in pain, sitting in chair HEENT: Mucous membranes moist, no icterus Neck: Trachea midline,left IJ TDC noted Heart: Regular rate and rhythm; no murmurs Lungs: Air entry equal bilateral; no wheezes Abdomen: Soft; nontender; no guarding/tenderness/rebound Extremities: Left upper extremity Ishan wrapping noted Neurological: Patient is awake, following commands Skin: No rash, no ulcers Psychological: Not agitated Labs WBC 16.4, hemoglobin 8.8, hematocrit 27.5, platelet count 171 Sodium of the 10, potassium 3.5, BUN 44, creatinine 2.72 Assessment and plan ESRD on hemodialysis Hypertension Anemia r/o AV fistula surgical site infection Secondary hyperparathyroidism Will continue with dialysis as per schedule. Anticipate dialysis in a.m.. Patient was started on cefepime and vancomycin, will schedule with dialysis.Patient's blood pressure is stable, she is Norvasc and Isodil. Patient was started on calcium carbonate,schedule with meals. Monitor calcium and phosphate levels. Continue to monitor hemoglobin and crit and transfuse PRBCs p.r.n. for hemoglobin greater than 8. Patient is on glimepiride, monitor for hypoglycemia Discussed with RN. Thank you for allowing me to participate in the management of this pt Job ID: [id number] MTDD
--- NOTE | 2020-01-23 13:26 | PDOC.HOSPP ---
- Subjective Encounter Date: 01/23/20 Encounter Time: 12:20 Subjective: pt has tight linda wrap on her LUE. has mediport and tunnel cath on the left chest. Dr. Collins plans to see her. t/th/sat HD. - Objective Vital Signs & Weight: Vital Signs (12 hours) Temp Pulse Resp BP BP Pulse Ox 01/23/20 11:49 98.4 F 74 18 124/67 01/23/20 07:19 98.4 F 74 18 146/78 H 95 01/23/20 04:00 98.5 F 78 20 132/64 93 L Weight Weight 253 lb 8 oz I&O: 01/22/20 01/23/20 01/24/20 06:59 06:59 06:59 Intake Total 240 Balance 240 Result Diagrams: 01/23/20 05:12 01/23/20 05:12 Hospitalist ROS - Medication Medications: Active Medications Generic Name Dose Route Start Last Admin Trade Name Freq PRN Reason Stop Dose Admin Amlodipine Besylate 10 mg 01/22/20 21:00 01/22/20 23:15 Norvasc PO 10 mg HS ZANA Administration Atorvastatin Calcium 10 mg 01/22/20 21:00 01/22/20 23:18 Lipitor PO 10 mg HS ZANA Administration Gabapentin 100 mg 01/22/20 21:00 01/23/20 08:38 Neurontin PO 100 mg TID ZANA Administration Glimepiride 1 mg 01/23/20 08:00 01/23/20 12:25 Amaryl PO 1 mg QAM-WM ZANA Administration Heparin Sodium (Porcine) 5,000 units 01/22/20 21:00 01/23/20 08:38 Heparin SC 5,000 units TID ZANA Administration Insulin Human Lispro 0 units 01/22/20 18:54 01/23/20 12:26 Humalog SC 4 unit .MODERATE SLIDING SC PRN Administration Moderate Correctional Scale Isosorbide Dinitrate 10 mg 01/22/20 21:00 01/23/20 08:38 Isordil PO 10 mg BID ZANA Administration Losartan Potassium 100 mg 01/22/20 21:00 01/22/20 23:17 Cozaar PO Not Given HS ZANA Metoprolol Tartrate 50 mg 01/22/20 21:00 01/23/20 08:38 Lopressor PO 50 mg BID ZANA Administration Pramipexole Dihydrochloride 0.125 mg 01/22/20 21:00 01/22/20 23:14 Mirapex PO 0.125 mg QPM ZANA Administration Tramadol HCl 50 mg 01/22/20 18:54 01/23/20 06:51 Ultram PO 50 mg QID PRN Administration Pain - Exam General Appearance: NAD, awake alert Eye: PERRL ENT: normocephalic atraumatic Neck: supple Heart: RRR Respiratory: CTAB, normal chest expansion Gastrointestinal: soft, normal bowel sounds Extremities - other findings: pt has tight linda wrap on her LUE. has mediport and tunnel cath on the left Hosp A/P - Plan AVF leak - sux consulte - Dr. Collins,renal would be seeing her as well. Leukocytosis - trending down -hx of staph epi colonization in the port and on vanc lock. -now on vanc and cefepime started. -ID consulted. ESRD on HD - t//fri - had HD y'day Lymphoma - finished 2nd cycle of chemo and has mediport on left hcest full code.
[2020-01-23] MEDS: Cefepime 1 GM in Sodium Chloride 0.9% 100 ML IVPB SCH (17:11)
--- NOTE | 2020-01-23 20:27 | CON ---
DATE OF CONSULTATION: 01/23/2020 REASON FOR CONSULTATION: Left arm inflammatory process following AV fistula surgery. HISTORY OF PRESENT ILLNESS: A 74-year-old with history of type 2 diabetes and CKD stage 5 bariatric sleeve gastrectomy, and rheumatoid arthritis, who presented in December with fever. She also has had a recent diagnosis of large cell lymphoma after lymph node biopsy and had been receiving chemo with Cytoxan, Rituxan, prednisone , and vincristine. The impression at that time was either colonization of the dialysis catheter, an invasive UTI or an opportunistic infectious process associated with the treatment for lymphoma or the possibility of tumor related fever. Two out two sets of blood cultures returned positive for Staphylococcus epidermidis on 12/25 and we decided that was the likely culprit and she was treated with two weeks of IV vancomycin plus vancomycin lock solution. She was discharged and has remained afebrile and came back because of changes at the left AV fistula site with drainage and erythema. She did not have much pain. The drainage was kind of serosanguineous. No respiratory symptoms. No abdominal pain or diarrhea. No genitourinary symptoms. No back pain. PAST MEDICAL HISTORY: Type 2 diabetes, end-stage renal disease with hemodialysis with tunneled catheter in the left IJ position, and fever secondary to tunneled catheter colonization by Staphylococcus epidermidis, which was managed conservatively. History of rheumatoid arthritis, venous insufficiency, stasis dermatitis, and prior hysterectomy, TKR, bariatric surgery, sleeve gastrectomy, and lymphoma large cell after left neck lymph node biopsy. FAMILY HISTORY: Noncontributory. SOCIAL HISTORY: Former smoker. Lives with granddaughter from [place]. MEDICATIONS: At the moment, she is receiving; 1. Atorvastatin. 2. Cefepime. 3. Gabapentin. 4. Insulin. 5. Vancomycin among others. PHYSICAL EXAMINATION: VITAL SIGNS: T-max 98.7, blood pressure 120/60, pulse 74, respirations 18, and O2 saturation 95. SKIN: Shows the left arm AV fistula incision. Right at the very end, there is an area of dehiscence with a sort of necrotic yellow tissue at the base. Remainder aspects of the incision still have lashawn. There is pink erythema anywhere from 0.5 to 1.5 cm at the distal end of the AV fistula surgical incision. Right now , the site is more purplish than pink erythema and it is not swollen, it is not draining a lot, although had been draining in the recent past. The drainage is kind of light yellow serosanguineous drainage. There is not a lot of swelling associated with it. The tunneled catheter in the left IJ position with no significant changes and she has a peripheral IV access in the right upper extremity. No lymphadenopathy. HEENT: Ocular movements conjugate. She has alopecia from chemotherapy. Oral cavity normal. NECK: Supple. LUNGS: Symmetric clear breath sounds. HEART: S1 and S2. Regular rate. No S3 or S4. ABDOMEN: Soft, not distended or tender. She has a quite a bit of a quite prominent panniculus in the abdominal area. No organomegaly. No ascites. No joint inflammatory activity. Trace edema in lower extremities. Stasis dermatitis changes. Pulses 1+ in dorsalis pedis. Moves extremities equally. Cognitive function is perfectly fine. LABORATORY DATA: Initial white cell count 20.3, hemoglobin 9.0, platelets 192 with 18% bands and now 16% bands. Creatinine 2.38. Liver profile within normal limits. Microbiology with 2 sets on blood cultures yet, too early to call. She has 2 more sets from the 15th, which are no growth at 48 hours. ASSESSMENT: End-stage renal disease secondary to type 2 diabetes with previous colonization of tunnel catheter is a coagulase-negative Staph epidermidis, which was managed conservatively. AV fistula surgery, now with dehiscence of the distal end, some inflammatory changes, but they are not dramatic. There is not a lot of swelling or tenderness associated with these changes. There is quite a bit of neutrophilia with bandemia noted. She is clearly higher than during the last admission. DISCUSSION: Differential diagnosis includes inflammatory process, left AV fistula site, mostly soft tissues bacteremia has not yet been demonstrated. If the blood cultures remain negative, then the only management would include continuation of antimicrobials until there is further improvement of the soft tissue changes and the neutrophilia with left shift and continuation of wound care. Dr. Jewell is coming tomorrow and review of the wound and see what else he needs to do, but I believe this is a eklutna vessel AV fistula, so I do not think that there is going to be any requirement for further surgical intervention, but we will wait for his assessment. Evidently, if her blood cultures turn positive, then we will have to address the catheter again. Other sites of involvement lungs and abdomen are not apparent at this time. Also no evidence of bone and joint or back involvement. Job ID: [id number] MTDMitch
[2020-01-23] MEDS: Atorvastatin Calcium 10 MG TAB PO SCH (20:51)
[2020-01-23] MEDS: Amlodipine 10 MG TAB PO SCH (20:51)
[2020-01-23] MEDS: Pramipexole Di-HCl 0.125 MG TAB PO SCH (21:23)
[2020-01-23] MEDS: Losartan 25 MG TAB PO SCH (21:24)
[2020-01-23] MEDS ORDERED: Vancomycin 1 GM in Premix Bag 1 BAG IVPB SCH (23:45)
[2020-01-23] MEDS ORDERED: Vancomycin HCl 1.25 GM in Sodium Chloride 0.9% 250 ML 250 ML IVPB SCH (23:45)
[2020-01-23] MEDS ORDERED: HOLD VANCOMYCIN FOR LEVEL >20 FS SCH (23:45)
[2020-01-23] MEDS ORDERED: Vancomycin HCl 750 MG in Sodium Chloride 0.9% 250 ML 250 ML IVPB SCH (23:45)
[2020-01-23] MEDS ORDERED: Vancomycin Sliding Scale 1 EACH FS ONE (23:45)
[2020-01-23] MEDS ORDERED: Vancomycin HCl 1.5 GM in Sodium Chloride 0.9% 250 ML 300 ML IVPB SCH (23:45)
[2020-01-24] MEDS: traMADol HCl 50 MG TAB PO PRN ×2 (01:08→23:09)
[2020-01-24 05:52] LABS: Band 6 % (5-11); Eosinophils 3 % (0-10); Lymphocytes 18 % (21-51); MDiff Complete? YES; Mean Corpuscular HGB CONC 32.9 g/dL (32.0-36.0); Mean Corpuscular Hemoglobin 29.7 pg (27.0-31.0); Mean Corpuscular Volume 90.2 fL (78.0-98.0); Mean Platelet Volume 7.9 fL (7.4-10.4); Monocytes 3 % (0-10); Neutrophil 68 % (42-75); Platelet Count 139 thou/uL (130-400); Platelet Morphology Comment Appears Adequate; RBC Distribution Width 16.1 % (11.5-14.5); RBC Morphology Normal; Reactive Lymphocytes 2 % (0-10); Red Blood Cell (RBC) Count 2.69 mill/uL (4.20-5.40); White Blood Cell (WBC) Count 7.2 thou/uL (4.8-10.8)
[2020-01-24] MEDS: Glimepiride 1 MG TAB PO SCH (08:04)
[2020-01-24] MEDS: Gabapentin 100 MG CAP PO SCH ×4 (08:04→20:11)
[2020-01-24] MEDS: Metoprolol Tartrate 50 MG TAB PO SCH ×2 (08:05→20:10)
[2020-01-24] MEDS: Isosorbide Dinitrate 20 MG TAB PO SCH ×2 (08:05→20:10)
[2020-01-24] MEDS: Heparin 5,000 UNITS/ML VIAL SC SCH ×3 (08:05→20:10)
[2020-01-24] MEDS: Sacubitril 49 MG/Valsartan 51 MG TABLET PO SCH ×2 (09:33→20:09)
[2020-01-24] MEDS: DULoxetine 60 MG CAP PO SCH (09:33)
[2020-01-24] MEDS: HumaLOG 300 UNITS/3 ML VIAL SC PRN ×3 (11:33→20:14)
--- NOTE | 2020-01-24 11:58 | PDOC.HOSPP ---
- Subjective Encounter Date: 01/24/20 Encounter Time: 09:40 Subjective: Patient seen and examined bedside today, patient has no fever, patient is having mild tenderness at AV fistula site, AV fistula site is covered with a dressing, - Objective Vital Signs & Weight: Vital Signs (12 hours) Temp Pulse Resp BP Pulse Ox 01/24/20 11:05 98.6 F 74 16 136/71 96 01/24/20 07:28 98.4 F 75 18 152/80 H 98 01/24/20 03:34 98.0 F 84 16 136/68 93 L Weight Weight 253 lb 8 oz I&O: 01/23/20 01/24/20 01/25/20 06:59 06:59 06:59 Intake Total 240 Balance 240 Result Diagrams: 01/24/20 04:47 01/23/20 05:12 Hospitalist ROS - Review of Systems Constitutional: denies: fever, chills, sweats, weakness, malaise, other Respiratory: denies: cough, dry, shortness of breath, hemoptysis, SOB with excertion, pleuritic pain, sputum, wheezing, other Cardiovascular: denies: chest pain, palpitations, orthopnea, paroxysmal noc. dyspnea, edema, light headedness, other Gastrointestinal: denies: nausea, vomiting, abdominal pain, diarrhea, constipation, melena, hematochezia, other Genitourinary: denies: dysuria, frequency, incontinence, hematuria, retention, other Musculoskeletal: denies: neck pain, shoulder pain, arm pain, back pain, hand pain, leg pain, foot pain, other Skin: denies: rash, lesions, celeste, bruising, other - Medication Medications: Active Medications Generic Name Dose Route Start Last Admin Trade Name Freq PRN Reason Stop Dose Admin Amlodipine Besylate 10 mg 01/22/20 21:00 01/23/20 20:51 Norvasc PO 10 mg HS ZANA Administration Atorvastatin Calcium 10 mg 01/22/20 21:00 01/23/20 20:51 Lipitor PO 10 mg HS ZANA Administration Duloxetine HCl 60 mg 01/24/20 09:00 01/24/20 09:33 Cymbalta PO 60 mg DAILY ZANA Administration Gabapentin 100 mg 01/22/20 21:00 01/24/20 08:04 Neurontin PO 100 mg TID ZANA Administration Glimepiride 1 mg 01/23/20 08:00 01/24/20 08:04 Amaryl PO 1 mg QAM-WM [facility] Administration Heparin Sodium (Porcine) 5,000 units 01/22/20 21:00 01/24/20 08:05 Heparin SC 5,000 units TID ZANA Administration Cefepime HCl 1 gm/ Sodium 100 mls @ 200 mls/hr 01/23/20 18:00 01/23/20 17:11 Chloride IVPB 100 mls 1800 [facility] Administration Insulin Human Lispro 0 units 01/22/20 18:54 01/24/20 11:33 Humalog SC 4 unit .MODERATE SLIDING SC PRN Administration Moderate Correctional Scale Insulin Human Lispro 0 units 01/22/20 18:54 01/23/20 20:52 Humalog SC 2 unit .BEDTIME SLIDING SC PRN Administration Bedtime Correctional Scale Isosorbide Dinitrate 10 mg 01/22/20 21:00 01/24/20 08:05 Isordil PO 10 mg BID [facility] Administration Losartan Potassium 100 mg 01/22/20 21:00 01/23/20 21:24 Cozaar PO Not Given [facility] Metoprolol Tartrate 50 mg 01/22/20 21:00 01/24/20 08:05 Lopressor PO 50 mg BID [facility] Administration Pramipexole Dihydrochloride 0.125 mg 01/22/20 21:00 01/23/20 21:23 Mirapex PO 0.125 mg QPM [facility] Administration Sacubitril/Valsartan 1 tab 01/24/20 09:00 01/24/20 09:33 Entresto 49 Mg-51 Mg Tablet PO 1 tab BID [facility] Administration Tramadol HCl 50 mg 01/22/20 18:54 01/24/20 01:08 Ultram PO 50 mg QID PRN Administration Pain - Exam General Appearance: NAD, awake alert Eye: PERRL, anicteric sclera ENT: normocephalic atraumatic, no oropharyngeal lesions Neck: supple, symmetric, no JVD, no thyromegaly Heart: RRR, no murmur, no gallops, no rubs Respiratory: CTAB, no wheezes, no rales, no ronchi Gastrointestinal: soft, non-tender, non-distended, normal bowel sounds Gastrointestinal - other findings: Morbid obesity Extremities: no clubbing Extremities - other findings: AV fistula covered with a dressing Skin: normal turgor Neurological: no focal deficits Musculoskeletal: normal tone, normal strength Psychiatric: normal affect, normal behavior Hosp A/P - Plan old records reviewed/req, continue antibiotics Assessment Leukocytosis likely due to inflammatory or infectious process AV fistula site infection versus inflammation ESRD on hemodialysis Anemia of renal disease Morbid obesity with BMI 46 Diabetes type 2 Dyslipidemia Hypertension History of lymphoma on chemotherapy Chronic systolic congestive heart failure Chronic venous insufficiency Plan Discussed with the Dr. Jewell who is thinking that this patient's wound has no infection, currently wound culture is growing Proteus mirabilis, her WBC count has been improved after starting antibiotic therapy, patient is afebrile since in hospital, her blood culture is negative, currently patient is on cefepime and vancomycin, I have reconciled her home medication, patient wanted to stay additional day in hospital to make sure there is no obvious infection and will consider changing to oral antibiotic therapy based on culture result, infectious disease recommendation appreciated, continue hemodialysis as per nephrology, We will consider discharging her home tomorrow based on culture result on oral antibiotic therapy
--- NOTE | 2020-01-24 12:13 | PRG ---
DATE OF SERVICE: 01/24/2020 SUBJECTIVE: Patient was seen and examined at bedside and overnight events noted. Patient denies any shortness of breath or chest pain or palpitation. No history of nausea or vomiting or diarrhea or fever or chills or cramps. OBJECTIVE: GENERAL: This is an obese female, in no apparent distress. Vital Signs: Temperature 98.6, heart rate 74, respiratory rate 16, and blood pressure 136/71. HEENT: Atraumatic, normocephalic. Oral mucosa is moist. NECK: Supple. CARDIOVASCULAR: S1, S2 heard. Rate and rhythm regular. RESPIRATORY: Clear to auscultation. GASTROINTESTINAL: Abdomen is soft. MUSCULOSKELETAL: No tenderness. No edema. DERMATOLOGIC: No skin rash. NEUROLOGIC: Alert and awake and oriented x3. No focal neurologic deficits. Moving all the extremities. PSYCHIATRIC: Mood and affect normal. LABORATORY DATA: Potassium 3.5, BUN is 44, and creatinine is 2.7. ASSESSMENT AND PLAN: 1. End-stage renal disease. Continue on dialysis as tolerated. 2. Edema. 3. Hypertension. 4. Anemia of chronic disease and morbid obesity. 5. Follow up culture results, dialysis access and continue dialysis on Friday, , and Friday as tolerated. Job ID: [id number]
--- NOTE | 2020-01-24 12:21 | CON ---
DATE OF CONSULTATION: I have been asked to see Ms. Connor regarding her left arm. The patient underwent on 01/04/2020 left upper arm basilic vein transposition fistula. I saw her in my office a few days ago late last week. She had some minor wound problems which are being addressed with home health, washing the wound with soap and water every 2 to 3 days and placing a normal saline wet-to-dry dressing. The patient also had some drainage. She was admitted to the hospital. There was some concern about infection. I have reminded the patient as I told in the past, she will have drainage intermittently. There are no signs of infection. The wound looks good. The patient has good thrill and bruit in her fistula. The wound is draining and healing. At this point, the patient does not need any antibiotics for her arms. She has home health already ordered for wound care. She has followup in my office in the near future, and she is ready for discharge from my standpoint. I will see her as needed this hospitalization. Of recollection is that she had a right IJ cuffed tunneled dialysis catheter, became colonized, and she was getting vancomycin dwells. The catheter then later became dysfunctional. I removed it and replaced a new one on the left. Of note is that I removed her right AC IV. She has dialysis catheter and should not have AC IVs. She has a MediPort access necessary. At this point, I will see her as needed this hospitalization, and I will see her as an outpatient. Job ID: [id number]
[2020-01-24] MEDS ORDERED: Cepastat Lozenges 1 LOZ PO PRN (13:56)
[2020-01-24] MEDS ORDERED: cloNIDine 0.1 MG TAB PO PRN (13:56)
[2020-01-24] MEDS ORDERED: Loperamide HCl 2 MG CAP PO PRN (13:56)
[2020-01-24] MEDS ORDERED: Ondansetron ODT 4 MG TAB PO PRN (13:56)
[2020-01-24] MEDS ORDERED: Diabetic Tussin 200 MG/10 ML UDCUP PO PRN (13:56)
[2020-01-24] MEDS ORDERED: Sodium Chloride 0.65% Nasal 44 ML BOT EA NARE PRN (13:56)
[2020-01-24] MEDS ORDERED: Loratadine 10 MG TAB PO PRN (13:56)
[2020-01-24] MEDS: Cefepime 1 GM in Sodium Chloride 0.9% 100 ML IVPB SCH (17:38)
--- NOTE | 2020-01-24 17:59 | PRG ---
DATE OF SERVICE: 01/24/2020 SUBJECTIVE: Ms. Connor is feeling well. [id number] pain at the AV fistula site. No cough. No abdominal pain or diarrhea. OBJECTIVE: GENERAL: She has been afebrile. The area along the AV fistula incision has a proximal segment that is completely normal and then you have those distal areas where there is a rim of erythema about 1.5 cm along the extension of the incision and that there is dehiscence noticeable. There is still persistent drainage, which appears to be serosanguineous. LUNGS: Clear. HEART: S1 and S2. Regular rate. ABDOMEN: Soft, not distended. LABORATORY DATA: White cell count has come down nicely from 20,000 to 7.2, hemoglobin 8, platelets 139, and the bands are down to 6%, so she must have had an infectious process of some sort. Blood cultures are no growth at 48 hours. There is a Proteus mirabilis from the wound and I think we are going to have to continue antimicrobial therapy hopefully with oral agents and there is evidence that suggests an infectious process in view of the response to antimicrobial therapy in terms of decrease in neutrophil count to normal since admission. Job ID: [id number]
[2020-01-24] MEDS: Atorvastatin Calcium 10 MG TAB PO SCH (20:11)
[2020-01-24] MEDS: Amlodipine 10 MG TAB PO SCH (20:11)
[2020-01-24] MEDS: Losartan 25 MG TAB PO SCH (20:12)
[2020-01-24] MEDS ORDERED: Pramipexole Di-HCl 0.125 MG TAB PO SCH (21:00)
[2020-01-25 05:57] LABS: Anion Gap 11 mmol/L (10-20); BUN (Urea Nitrogen) 70 mg/dL (9.8-20.1); Calc. Creatinine Clearance 28 mL/min (70-130); Carbon Dioxide 30 mmol/L (23-31); Chloride 100 mmol/L (98-107); Estimated GFR-MDRD 14; Glucose 138 mg/dL (83-110); Potassium 3.6 mmol/L (3.5-5.1); Sodium 137 mmol/L (136-145)
[2020-01-25] MEDS: Isosorbide Dinitrate 20 MG TAB PO SCH (09:20)
[2020-01-25] MEDS: Glimepiride 1 MG TAB PO SCH (09:20)
[2020-01-25] MEDS: Sacubitril 49 MG/Valsartan 51 MG TABLET PO SCH (09:20)
[2020-01-25] MEDS: Metoprolol Tartrate 50 MG TAB PO SCH ×2 (09:20→11:40)
[2020-01-25] MEDS: Heparin 5,000 UNITS/ML VIAL SC SCH ×2 (11:29→15:06)
[2020-01-25] MEDS: DULoxetine 60 MG CAP PO SCH (11:29)
[2020-01-25] MEDS: Gabapentin 100 MG CAP PO SCH ×2 (11:29→15:05)
--- NOTE | 2020-01-25 12:17 | DIS ---
DATE OF ADMISSION: 01/22/2020 DATE OF DISCHARGE: 01/25/2020 DISCHARGE DISPOSITION: Home. PRIMARY DISCHARGE DIAGNOSIS: Left AV fistula site infection due to Proteus mirabilis. SECONDARY DISCHARGE DIAGNOSES: 1. History of lymphoma. 2. ESRD, on hemodialysis. 3. Chronic systolic heart failure. 4. Hypertension. 5. Dyslipidemia. 6. Obesity. 7. Diabetes type 2. 8. Chronic venous insufficiency with stasis dermatitis in lower extremity. 9. Anemia of renal disease. 10. Osteoarthritis. 11. Chronic low back pain. PRIMARY PROCEDURE/OPERATION: Maintenance hemodialysis. RADIOLOGICAL INVESTIGATION: None. SIGNIFICANT LABORATORY DATA: Hemoglobin 8.0, WBC 7.2, platelet 139. Sodium 137 , potassium 3.6, BUN 70, creatinine 3.33, calcium 9.0. Blood culture negative. Wound culture grew Proteus mirabilis. DISCHARGE MEDICATIONS: New medication: Omnicef 300 mg p.o. daily for 7 days. Continue following medications; 1. Tramadol 50 mg q.6 hourly p.r.n. 2. Tenofovir 300 mg every 7 days. 3. Amlodipine 10 mg p.o. bedtime. 4. Lipitor 10 mg at bedtime. 5. Cetirizine 10 mg p.r.n. 6. Cod liver oil as per home dosage. 7. Cymbalta 60 mg daily. 8. Drisdol 1 capsule as directed. 9. Amaryl 1 mg p.o. daily. 10. Isosorbide dinitrate 10 mg b.i.d. 11. Mirapex 0.125 mg p.o. in evening. 12. Entresto 1 tablet p.o. b.i.d. 13. Neurontin 100 mg t.i.d. 14. Metoprolol tartrate 50 mg p.o. b.i.d. CONTRAINDICATION: None. CODE STATUS: Full code. INPATIENT CONSULTANTS: 1. Dr. Boone was consulted while in hospital. 2. Dr. Jewell was consulted while in hospital. TEST RESULT PENDING ON DISCHARGE: None. ALLERGIES: LEVOFLOXACIN, SULFA. DISCHARGE PLAN: Post hospital, the patient will follow up with Dr. Jewell in 1 to 2 weeks. The patient will follow up with Dr. Boone and the patient will make appointment with primary care physician. HOSPITAL COURSE: A 74-year-old female who had recently AV fistula procedure done, which site was appeared to be infected. Home health nurse evaluated this patient and the wound was draining foul-smelling discharge and that is why the patient was instructed to go to emergency room. She had wound culture done, which showed Proteus mirabilis. Her blood culture was negative. On admission, the patient had bandemia and leukocytosis. The patient was treated with cefepime and vancomycin while in hospital. Her wound culture grew Proteus mirabilis and based on culture and sensitivity result, we changed to Omnicef 300 mg p.o. daily for another 7 days. The patient will follow up with Dr. Jewell as instructed in 1 to 2 weeks for further evaluation. The patient will continue to do wound care with home health. Dr. Boone also recommended oral antibiotic therapy upon discharge. The patient will continue all her previous home medication upon discharge. I have seen and examined the patient at bedside today. DISCHARGE PHYSICAL EXAMINATION: GENERAL: The patient is seen and examined at bedside today. VITAL SIGNS: Currently temperature 97.8, pulse 74, respiratory rate 18, saturation 95% on room air, blood pressure 129/67. Weight 253 pounds. GENERAL: The patient is currently alert and oriented x3. HEENT: Head, normocephalic and atraumatic. NECK: Supple. No JVD. No meningeal signs of irritation. LUNGS: Clear to auscultation without any rhonchi or rales. CARDIAC: S1 and S2 regular. No murmur. No gallop. No rub. ABDOMEN: Soft, bowel sounds present, nontender, nondistended. No organomegaly. No mass. EXTREMITIES: No edema, AV fistula site is covered with dressing. NEUROLOGIC: Nonfocal examination. All new medication prescription given to her. Job ID: [id number] MTDD
[2020-01-25] MEDS ORDERED: Heparin 10,000 UNITS/ 10 ML VIAL ONE (13:02)
--- NOTE | 2020-01-25 13:52 | PRG ---
DATE OF SERVICE: 01/25/2020 SUBJECTIVE: Patient was seen and examined at bedside and overnight events noted. Patient denies any shortness of breath or chest pain or palpitation. No history of nausea or vomiting or diarrhea or fever or chills or cramps. OBJECTIVE: GENERAL: This is an obese female, in no apparent distress. VITAL SIGNS: Temperature 97.8, pulse 74, respiratory rate blood pressure 129/67. HEENT: Atraumatic, normocephalic. Oral mucosa is moist. Neck: Supple. Cardiovascular: S1, S2 heard. Rate and rhythm regular. Respiratory: Clear to auscultation. Gastrointestinal: Abdomen is soft. Musculoskeletal: No tenderness. No edema. Dermatologic: No skin rash. Neurologic: Alert and awake and oriented x3. No focal neurologic deficits. Moving all the extremities. Psychiatric: Mood and affect normal. LABORATORY DATA: Potassium 3.6, BUN is 70, and creatinine is 3.3. ASSESSMENT AND PLAN: 1. End-stage renal disease. Continue dialysis as tolerated. 2. Edema. We will remove fluid. 3. History of hypertension. 4. Anemia of chronic disease. 5. Continue dialysis as tolerated. Continue antibiotics. Job ID: [id number]
[2020-01-25 16:26] VITALS: BP 123/64; TEMP 98.7
--- NOTE | 2020-01-26 05:46 | PQF ---
Dear : Deborah Delgado Date : 01/26/20 Please exercise your independent, professional judgment in responding to the clarification form. Clinical indicators are provided on the bottom of this form for your review Can you please further clarify if Sepsis is ruled in or ruled out? Sepsis [ x ] Ruled in diagnosis [ ] Continue to treat [ x] Resolved [ ] Ruled out diagnosis [ ] Improving [ ] Cannot rule out diagnosis [ ] Other diagnosis [ ] Unable to determine Physician Signature: Date/Time: For continuity of documentation, please document condition throughout progress notes and discharge summary. Thank You. To be completed by CDI/Coding staff for physician review: Present Clinical Indicators - Signs / Symptoms / Labs Results and Location in Medical Record [ x ] Possible Sepsis H and P pg.1 [ x ] VS: BP 121/41, Pulse 81, RR 18, Temp 98.2 ED Provider pg.2 [ x ] Bacterial Culture: Proteus mirabilis Microbiology 01/22 [ x ] Leukocytosis likely due to inflammatory or infectious process Hospitalist PN 01/23 [ x ] WBC 20.3H, 16.4H, 7.2 Laboratory [ x ] Lactic acid 1.7 Laboratory [ x ] Skin: shows the left arm AV fistula incision. Right at the very end, there is an area of dehiscence with a sort of necrotic yellow tissue at the base Consult 01/22 [ x ] Blood culture:no growth Collected 01/21 Present Risk Factors Results and Location in Medical Record [ x ] Left AV fistula site infection H and P pg.1 [ x ] ESRD H and P pg.1 [ x ] HLD H and P pg.1 [ x ] CHF H and P pg.1 [ x ] Obesity H and P pg.1 [ x ] HTN H and P pg.1 [ x ] 74 years old female ED Notes 01/21 [ x ] DM type 2 HP 01/21 [ x ] Former Smoker ED Notes 01/21 [ x ] Immunosuppressed state HP 01/21 Present Treatments Results and Location in Medical Record [ x ] Bacterial culture Microbiology 01/22 [ x ] Infectious Consult Dr. Boone 01/21 [ x ] IV Fluids MAR [ x ] Vancomycin 1gm IV MAR [ x ] Cepefime 2gm IV MAR [ x ] Blood culture Microbiology 01/22 CDS/Hatchery Manager Signature: Tyrone Hi Phone #: ext [phone] Date: 01/26/20 This is a permanent part of the Medical Record [facility]
== END 2020-01-25 16:59 | disposition home health service (06) | DRG 314 ==
LOC: ERS 17:32 → SURG A 18:42
PROVIDERS: ADMIT Internal Medicine; ATTEND Internal Medicine
PROC: 5A1D70Z Performance of Urinary Filtration, Intermittent, Less than 6 Hours Per Day (ICD-10-PCS; principal; 2020-01-22)
DX: T82.7XXA Infection and inflammatory reaction due to other cardiac and vascular devices, implants and grafts, initial encounter (principal); N18.6 End stage renal disease; A41.89 Other specified sepsis; N25.81 Secondary hyperparathyroidism of renal origin; Z68.42 Body mass index [BMI] 45.0-49.9, adult; I50.22 Chronic systolic (congestive) heart failure; T81.30XA Disruption of wound, unspecified, initial encounter; B96.4 Proteus (mirabilis) (morganii) as the cause of diseases classified elsewhere; Y83.8 Other surgical procedures as the cause of abnormal reaction of the patient, or of later complication, without mention of misadventure at the time of the procedure; E78.5 Hyperlipidemia, unspecified; E11.22 Type 2 diabetes mellitus with diabetic chronic kidney disease; E66.01 Morbid (severe) obesity due to excess calories; I87.8 Other specified disorders of veins; I11.0 Hypertensive heart disease with heart failure; M19.90 Unspecified osteoarthritis, unspecified site; M54.5 Low back pain; G89.29 Other chronic pain; M06.9 Rheumatoid arthritis, unspecified; Z96.651 Presence of right artificial knee joint; D63.1 Anemia in chronic kidney disease; I87.2 Venous insufficiency (chronic) (peripheral); Z90.710 Acquired absence of both cervix and uterus; Z98.84 Bariatric surgery status; Z88.1 Allergy status to other antibiotic agents; Z88.2 Allergy status to sulfonamides; Z91.013 Allergy to seafood; Z79.84 Long term (current) use of oral hypoglycemic drugs; Z85.72 Personal history of non-Hodgkin lymphomas; Z79.899 Other long term (current) drug therapy; Z99.2 Dependence on renal dialysis; Z87.891 Personal history of nicotine dependence
CPT/HCPCS: 12001; 36415; 36416; 80048; 80053; 80202; 83605; 85025; 87040; 87070; 87077; 87186; 87205; J0692; J1642; J1644; J2001; J3370; J3490; Q0162

== ENCOUNTER 2020-02-02 10:10 | Emergency (ER) | payer MEDICARE, BC ==
--- NOTE | 2020-02-02 11:25 | RAD ---
EXAM: Single view of the chest HISTORY: Low blood pressure and cough COMPARISON: 01/04/2020 FINDINGS: Single view of the chest shows a normal sized cardiomediastinal silhouette. The dialysis c atheter and Mediport are unchanged in position. There is no evidence of consolidation, mass, or pleural effusion. The bones are unremarkable IMPRESSION: No evidence of acute cardiopulmonary disease
--- NOTE | 2020-02-02 12:26 | ULT ---
Venous duplex sonogram left upper extremity HISTORY: Left arm pain and edema. FINDINGS: Internal echoes are present within the internal jugular vein with lack of compressibility a nd minimal flow. Good color and spectral Doppler flow within the cephalic vein, axillary vein, and brachial vein. At the antecubital fossa, the basilic vein has internal thrombus, abnormal compressibility, and lack of flow. IMPRESSION : Nearly completely occlusive thrombus involving the left internal jugular vein and basilic vein.
[2020-02-02 12:42] LABS: #Basophils 0.1 thou/uL (0.0-0.2); #Eosinphils 0.1 thou/uL (0.0-0.7); #Lymphocytes 1.4 thou/uL (1.20-3.40); #Monocytes 1.1 thou/uL (0.11-0.59); #Neutrophils 5.5 thou/uL (1.40-6.50); %Basophils 0.7 % (0.0-1.0); %Monocytes 13.4 % (0.0-10.0); %Neutrophils 67.9 % (42.0-75.0); Hemoglobin 8.7 g/dL (12.0-16.0); Mean Corpuscular HGB CONC 31.4 g/dL (32.0-36.0); Mean Corpuscular Volume 92.2 fL (78.0-98.0); Mean Platelet Volume 7.2 fL (7.4-10.4); Platelet Count 259 thou/uL (130-400); Red Blood Cell (RBC) Count 3.02 mill/uL (4.20-5.40); White Blood Cell (WBC) Count 8.1 thou/uL (4.8-10.8)
[2020-02-02 13:03] LABS: ALT (SGPT) Less than 7 U/L (8-55); AST (SGOT) 11 U/L (5-34); Albumin 3.6 g/dL (3.4-4.8); Alkaline Phosphatase 93 U/L (40-110); Anion Gap 16 mmol/L (10-20); BUN (Urea Nitrogen) 33 mg/dL (9.8-20.1); Bilirubin, Total 0.3 mg/dL (0.2-1.2); Calc. Creatinine Clearance 0 mL/min (70-130); Calcium 9.8 mg/dL (7.8-10.44); Carbon Dioxide 27 mmol/L (23-31); Chloride 100 mmol/L (98-107); Estimated GFR-MDRD 8; Globulin 2.5 g/dL (2.4-3.5); Glucose 148 mg/dL (83-110); Potassium 3.9 mmol/L (3.5-5.1); Protein, Total 6.1 g/dL (6.0-8.3); Sodium 139 mmol/L (136-145)
--- NOTE | 2020-02-02 16:07 | HP ---
Ms. Connor is a 74-year-old female, dialyzes at [facility] using her left IJ hemodialysis catheter. She has a left subclavian vein MediPort. She was recently hospitalized and MediPort was accessed for difficult IV access. She was sent home with a MediPort. The patient visited one of her speech therapist and noted to have a low blood pressure, sent to the emergency room. In the emergency room, blood pressure is normal and her labs are normal. Chronic anemia. The patient has had a left arm basilic vein transposition fistula. She has had some wound healing problems. [facility] has been attending to this. Most of the lashawn removed on previous visit. While in the emergency room, she underwent ultrasound of her left arm because of her complaints of edema. This revealed nani-jugular hemodialysis catheter thrombus, almost occlusive and thrombus in her left basilic vein AC area. Her left basilic vein fistula is patent with a good thrill and bruit. Evaluation of her left arm reveals that there were a few lashawn in place, that I removed. She has a wound in junction distal 3rd, mid 3rd, medial upper arm with a small opening that tracks cephalad, approximately 5 cm, that has clear serous drainage. There is no evidence of infection. This was packed with a gauze dressing, saline wet-to-dry. Her antecubital wound is granulating, almost completely healed. A wet-to-dry dressing was applied and Ishan wrap applied. Today, in the emergency room, I have asked her nurse to remove her MediPort access and Hepflush it. I have contacted the surgical floor to educate on MediPort removal prior to discharge. We will send a letter to [facility] dialysis unit to begin accessing her left upper arm basilic vein transposition fistula in the next week and half to 2 weeks. She will report to my office in 2 to 4 weeks to evaluate her arm wound. I would not recommend anticoagulation as pericatheter jugular vein thrombus is normal for dialysis catheter and will not resolve until the catheter is removed. The small thrombus seen in the antecubital area is anatomical, surgical and does not need anticoagulation. Job ID: [id number]
== END 2020-02-02 15:28 | disposition home or self-care (01) ==
LOC: ERS 10:10
DX: N18.6 End stage renal disease (principal); I95.9 Hypotension, unspecified; I50.9 Heart failure, unspecified; C85.90 Non-Hodgkin lymphoma, unspecified, unspecified site; F43.10 Post-traumatic stress disorder, unspecified; Z87.891 Personal history of nicotine dependence; Z99.2 Dependence on renal dialysis; Z79.899 Other long term (current) drug therapy; Z79.01 Long term (current) use of anticoagulants
CPT/HCPCS: 36415; 71045; 80053; 83880; 85025; J1642

== ENCOUNTER 2020-02-25 08:34 | Outpatient (CLI) | payer MEDICARE, BC ==
--- NOTE | 2020-02-25 11:54 | PET ---
PET W CT Skull to Mid Thigh History: Diffuse large B-cell lymphoma, lymph nodes of head. Evaluate response to treatment Comparison: PET/CT November 2019 Findings: PET CT from skull-mid thigh was performed after the intravenous administration 11.2 mCi FDG F-18. Extensive background intramuscular uptake. The left anterior cervical adenopathy has decreased in confluence and FDG avidity with SUV max 1.9, p reviously 16.7. Mass had previously measured up to 3.2 cm in AP dimension, now approximately 1 cm. Previously described prevascular lymph node has background FDG avidity without abnormal uptake and is no longer well seen. Previously described lower paraesophageal lymph node is no longer appreciated. Background FDG avidity . Previously described left infrahilar lymph node is no longer appreciated. Background FDG avidity. Pre viously described mesenteric mass has low FDG avidity of 2.4 and has decreased in size measuring up to 3.3 cm in greatest dimension, previously 6.6 cm. There is described left periaortic lymph node had measured 2.5 cm, now measures 9 mm with background FDG avidity. Noncontrast evaluation demonstrates relatively clear lungs. Cholelithiasis without cholecystitis. No hydronephrosis. No dilated loops of large or small bowel. Anterolisthesis of L5 over S1. Similar appearance of the ex ophytic left renal cyst. Small fat-containing umbilical hernia. Impression: Markedly response to therapy with size decreased adenopathy above and below the diaphragm with the confluent right mesenteric and left neck adenopathy having FDG avidity below the blood pool. Deauville score 2.
== END 2020-02-25 08:35 | disposition home or self-care (01) ==
LOC: PET 08:34
PROVIDERS: ATTEND Internal Medicine Hematology & Oncology
DX: C83.31 Diffuse large B-cell lymphoma, lymph nodes of head, face, and neck (principal); R59.0 Localized enlarged lymph nodes
CPT/HCPCS: 78815; A9552

== ENCOUNTER 2020-03-07 15:08 | Inpatient (IN) | payer MEDICARE, BC ==
--- NOTE | 2020-03-07 15:59 | RAD ---
PORTABLE CHEST: HISTORY: Shortness of breath. COMPARISON: 02/02/2020. FINDINGS: Borderline cardiomegaly with mild vascular engorgement. A dual-caliber central line and a MediPort c atheter in place via the left jugular and both catheters overlie the SVC. These are unchanged. IMPRESSION: No acute interval change. POS: AGW
[2020-03-07 16:05] LABS: Hemoglobin 6.8 g/dL (12.0-16.0); Mean Corpuscular HGB CONC 34.1 g/dL (32.0-36.0); Mean Corpuscular Hemoglobin 31.7 pg (27.0-31.0); Mean Corpuscular Volume 92.9 fL (78.0-98.0); Mean Platelet Volume 8.2 fL (7.4-10.4); Platelet Count 128 thou/uL (130-400); RBC Distribution Width 17.3 % (11.5-14.5); Red Blood Cell (RBC) Count 2.14 mill/uL (4.20-5.40)
[2020-03-07] MEDS ORDERED: Cefepime 1 GM VIAL ONE (16:07)
[2020-03-07 16:27] LABS: ALT (SGPT) 17 U/L (8-55); AST (SGOT) 11 U/L (5-34); Albumin 3.3 g/dL (3.4-4.8); Alkaline Phosphatase 92 U/L (40-110); Anion Gap 14 mmol/L (10-20); Anisocytosis SLIGHT = 6-15 cells (100X) (0-5/hpf); BUN (Urea Nitrogen) 39 mg/dL (9.8-20.1); Band 29 % (5-11); Bilirubin, Total 0.3 mg/dL (0.2-1.2); Calc. Creatinine Clearance 0 mL/min (70-130); Calcium 8.3 mg/dL (7.8-10.44); Carbon Dioxide 28 mmol/L (23-31); Chloride 101 mmol/L (98-107); Eosinophils 23 % (0-10); Estimated GFR-MDRD 23; Globulin 1.8 g/dL (2.4-3.5); Glucose 248 mg/dL (83-110); Lymphocytes 28 % (21-51); MDiff Complete? YES; Monocytes 5 % (0-10); Neutrophil 15 % (42-75); Platelet Morphology Comment Appears Decreased; Polychromasia SLIGHT = 2-3 cells (100X) (0-2/hpf); Potassium 3.3 mmol/L (3.5-5.1); Protein, Total 5.1 g/dL (6.0-8.3); Sodium 140 mmol/L (136-145)
[2020-03-07 16:34] LABS: INR-International Normal Ratio 1.1; PTT 25.8 sec (22.9-36.1); Prothrombin Time 13.9 sec (12.0-14.7)
[2020-03-07 16:49] LABS: CKMB 0.7 ng/mL (0-6.6)
[2020-03-07] MEDS ORDERED: Aspirin Chewable 81 MG TAB ONE (17:01)
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
[2020-03-07 17:38] LABS: SARS-CoV-2 NAA Rapid Test Not Detected (NotDetected)
[2020-03-07] MEDS ORDERED: Insulin Regular 300 UNITS/3 ML VIAL SC PRN (17:56)
[2020-03-07] MEDS ORDERED: Dextrose 5% in Water 1,000 ML IV PRN (17:56)
[2020-03-07] MEDS ORDERED: Dextrose 50% Abboject 50 ML SYRINGE SLOW IVP PRN (17:56)
[2020-03-07] MEDS ORDERED: Guaifenesin DM 100-10/5 ML UDCUP PO PRN (17:58)
[2020-03-07] MEDS ORDERED: Ondansetron PF 4 MG/2 ML Vial IVP PRN (17:58)
[2020-03-07] MEDS ORDERED: Acetaminophen 325 MG TAB PO PRN (17:58)
[2020-03-07] MEDS ORDERED: Senokot S 8.6-50 MG TAB PO PRN (17:58)
[2020-03-07] MEDS ORDERED: Acetaminophen 650 MG Suppository PR PRN (17:58)
[2020-03-07] MEDS ORDERED: Calcium Carbonate 500 MG ChewTAB PO PRN (17:58)
[2020-03-07] MEDS ORDERED: Ondansetron ODT 4 MG TAB PO PRN (17:58)
[2020-03-07] MEDS ORDERED: Mag-Al 1200 mg/1200 mg/30 ML UDCUP PO PRN (18:06)
[2020-03-07] MEDS ORDERED: Benzonatate 100 MG CAP PO PRN (18:07)
[2020-03-07] MEDS ORDERED: Vancomycin 1 GM in Premix Bag 1 BAG IVPB SCH ×2 (18:30→22:00)
[2020-03-07 20:18] VITALS: BMI 45.8
[2020-03-07] MEDS ORDERED: Pantoprazole 40 MG VIAL IVP SCH (21:00)
[2020-03-07 21:32] LABS: Troponin I 0.038 ng/mL (< 0.028)
[2020-03-07] MEDS ORDERED: Vancomycin HCl 1.5 GM in Sodium Chloride 0.9% 250 ML 300 ML IVPB SCH (22:00)
[2020-03-07] MEDS ORDERED: Vancomycin HCl 750 MG in Sodium Chloride 0.9% 250 ML 250 ML IVPB SCH (22:00)
[2020-03-07] MEDS ORDERED: Vancomycin HCl 1.25 GM in Sodium Chloride 0.9% 250 ML 250 ML IVPB SCH (22:00)
[2020-03-07] MEDS ORDERED: HOLD VANCOMYCIN FOR LEVEL >20 FS SCH (22:00)
[2020-03-07] MEDS ORDERED: Magnesium 2 GM/50 ML 2 GM in Premix Bag 1 BAG IVPB SCH (23:30)
[2020-03-08 00:26] LABS: Reticulocyte Count 0.3 % (0.5-1.5)
[2020-03-08 00:52] LABS: Troponin I 0.031 ng/mL (< 0.028)
[2020-03-08] MEDS: Aluminum & Magnesium Hydroxide 60 ML, Lidocaine 2% Viscous Solution 30 ML, diphenhydrAM... SSW PRN ×4 (01:09→14:42)
[2020-03-08] MEDS ORDERED: Ergocalciferol 1.25 MG(50,000 UNITS) CAP PO SCH (02:45)
[2020-03-08] MEDS ORDERED: Cefepime 1 GM in Sodium Chloride 0.9% 100 ML IVPB SCH ×2 (05:00→17:00)
[2020-03-08] MEDS: traMADol HCl 50 MG TAB PO SCH ×3 (05:04→20:17)
[2020-03-08] MEDS: HumaLOG 300 UNITS/3 ML VIAL SC PRN ×3 (05:52→17:14)
[2020-03-08 07:19] LABS: #Eosinphils 0.7 thou/uL (0.0-0.7); #Lymphocytes 0.6 thou/uL (1.20-3.40); #Monocytes 0.4 thou/uL (0.11-0.59); #Neutrophils 1.1 thou/uL (1.40-6.50); %Basophils 0.7 % (0.0-1.0); %Eosinophils 23.7 % (0.0-10.0); %Lymphocytes 22.1 % (21.0-51.0); %Monocytes 14.4 % (0.0-10.0); %Neutrophils 39.1 % (42.0-75.0); Hemoglobin 7.8 g/dL (12.0-16.0); Mean Corpuscular HGB CONC 32.3 g/dL (32.0-36.0); Mean Corpuscular Hemoglobin 30.5 pg (27.0-31.0); Mean Corpuscular Volume 94.4 fL (78.0-98.0); Mean Platelet Volume 7.9 fL (7.4-10.4); Platelet Count 135 thou/uL (130-400); RBC Distribution Width 17.1 % (11.5-14.5); Red Blood Cell (RBC) Count 2.55 mill/uL (4.20-5.40); White Blood Cell (WBC) Count 2.8 thou/uL (4.8-10.8)
[2020-03-08 07:43] LABS: Anion Gap 13 mmol/L (10-20); BUN (Urea Nitrogen) 42 mg/dL (9.8-20.1); Calc. Creatinine Clearance 37 mL/min (70-130); Calcium 8.8 mg/dL (7.8-10.44); Carbon Dioxide 28 mmol/L (23-31); Chloride 104 mmol/L (98-107); Estimated GFR-MDRD 19; Glucose 162 mg/dL (83-110); Potassium 3.7 mmol/L (3.5-5.1); Sodium 141 mmol/L (136-145)
[2020-03-08] MEDS: Gabapentin 100 MG CAP PO SCH ×3 (08:27→20:17)
[2020-03-08] MEDS: Aspirin 81 mg Enteric Coated Tablet PO SCH (08:27)
[2020-03-08] MEDS: Metoprolol Tartrate 50 MG TAB PO SCH ×2 (08:27→20:17)
[2020-03-08] MEDS: Isosorbide Dinitrate 20 MG TAB PO SCH ×2 (08:28→20:18)
[2020-03-08] MEDS: Sacubitril 49 MG/Valsartan 51 MG TABLET PO SCH ×2 (08:29→20:17)
[2020-03-08] MEDS ORDERED: Pantoprazole 40 MG VIAL IVP SCH (09:00)
--- NOTE | 2020-03-08 10:43 | CON ---
DATE OF CONSULTATION: REASON FOR CONSULT: Lymphoma, neutropenic fever. HISTORY OF PRESENT ILLNESS: Ms. Connor is a pleasant 74-year-old female, who has completed 4 cycles of R-CHOP chemotherapy for stage III diffuse large B-cell lymphoma. Her last treatment was on 02/27. She did receive Neulasta on March 01. She presented to the emergency room yesterday with complaints of low-grade fever, fatigue, and cough. She was COVID-19 negative. In the emergency room, her white count was 2.0, hemoglobin was 6.8, and her platelet count was 128,000. She was transfused 1 unit. She was admitted for neutropenic fever. She has been getting cefepime and vancomycin plus IV fluids and states she is feeling slightly better today. Her hemoglobin did improve with transfusion up to 7.8. The patient was sitting at bedside on evaluation. She denied any shortness of breath, chest pain, abdominal discomfort. No nausea, diarrhea, constipation. She does have a poor appetite and fatigue. PAST MEDICAL HISTORY: 1. Stage III diffuse large B-cell lymphoma. 2. Congestive heart failure. 3. End-stage renal disease. 4. Diabetes. 5. Rheumatoid arthritis. 6. Hypertension. 7. High cholesterol. 8. History of blood clots. PAST SURGICAL HISTORY: 1. Hysterectomy. 2. Back surgery. 3. Foot surgery. 4. Bariatric surgery. 5. Lymph node biopsy. 6. Dialysis catheter placement. 7. MediPort. FAMILY HISTORY: Father had lung and stomach cancer. Mother had lung cancer. SOCIAL HISTORY: , two children. Former smoker. No alcohol or illicit drug use. ALLERGIES: TO AMBIEN, SULFA, AND TAPE. HOME MEDICATIONS: 1. Amlodipine. 2. Aspirin. 3. Atorvastatin. 4. Entresto. 5. Gabapentin. 6. Glimepiride. 7. Isosorbide. 8. Metoprolol. 9. Pramipexole. 10. Compazine. 11. Zofran. 12. Viread. REVIEW OF SYSTEMS: A 12-point review of systems is negative except for noted in HPI. PHYSICAL EXAMINATION: VITAL SIGNS: Temperature 98.3, pulse is 86, respiratory rate 18, BP is 142/84. She is 95% on room air. GENERAL: Obese female, in no acute distress. HEENT: Normocephalic, atraumatic. Pupils are equal and reactive to light. NECK: Supple. CV: Regular rate and rhythm. LUNGS: Clear. ABDOMEN: Obese. Bowel sounds are positive. EXTREMITIES: No clubbing or cyanosis. SKIN: No rash. HEMATOLOGIC: No petechiae or purpura. NEUROLOGIC: Nonfocal. PERTINENT LABORATORY DATA AND X-RAYS: Current WBCs are 2.8, hemoglobin 7.8, hematocrit 24, platelets are 135,000. She has 39% neutrophils, 22% lymphocytes. PT 13.9, INR is 1.1, PTT is 25.8. Chemistry: Sodium 141, potassium 3.7, chloride 104, CO2 is 28, BUN is 42, creatinine 2.48, calcium is 8.8, magnesium 1.6, bilirubin 0.3, AST is 11, ALT 17, alkaline phosphatase is 92. Troponin is 0.031. BNP is 599. Serum total protein 5.1, albumin 3.3, globulin 1.8. COVID-19 negative. Chest x-ray showed no acute changes. ASSESSMENT: 1. Neutropenic fever. 2. Diffuse large B-cell lymphoma, status post cycle 4 of R-CHOP chemotherapy with Neulasta support. 3. End-stage renal disease, on dialysis. DISCUSSION: The patient has received 1 unit of packed RBCs with improvement in her hemoglobin. She did receive Neulasta approximately 5 days ago. Her white count will likely increase over the next several days. She does state she feels better since admission. We will continue empiric antibiotics until blood cultures are back. She has been afebrile since admission. If she improves, she could go home tomorrow with antibiotics and follow up in our clinic. Thank you for the consult. Job ID: [id number]
--- NOTE | 2020-03-08 10:57 | PDOC.HOSPP ---
- Subjective Encounter Date: 03/08/20 Encounter Time: 10:54 Subjective: No overnight events. Pt reports she feels better s/p blood transfusion. Denies CP, SOB, abdominal pain. Continues to endorse general weakness and malaise. Pt seen and examined at bedside. Chart and medications reviewed. - Objective Vital Signs & Weight: Vital Signs (12 hours) Temp Pulse Resp BP BP Pulse Ox 03/08/20 08:00 98.3 F 86 18 142/84 H 95 03/08/20 04:00 98.2 F 80 16 141/69 H 94 L 03/07/20 23:43 98.1 F 73 16 151/66 H 98 Weight Admit Weight 250 lb 9.6 oz Weight 250 lb 9.6 oz Result Diagrams: 03/08/20 07:03 03/08/20 07:03 Additional Labs: Accuchecks 03/08/20 03/07/20 03/07/20 05:30 21:02 15:27 POC Glucose 205 H 267 H 277 H Radiology Reviewed by me: Yes Hospitalist ROS - Review of Systems Constitutional: reports: weakness, malaise. denies: fever, chills, sweats Eyes: denies: vision change ENT: denies: nose congestion, throat swelling Respiratory: denies: cough, dry, shortness of breath, hemoptysis, SOB with excertion, pleuritic pain, sputum, wheezing, other Cardiovascular: denies: chest pain, palpitations, orthopnea, paroxysmal noc. dyspnea, edema, light headedness, other Gastrointestinal: denies: nausea, vomiting, abdominal pain, diarrhea, constipation, melena, hematochezia, other Genitourinary: denies: dysuria, frequency, incontinence, hematuria, retention, other Musculoskeletal: denies: neck pain Skin: denies: rash, lesions Neurological: denies: weakness, numbness, confusion - Medication Medications: Active Medications Generic Name Dose Route Start Last Admin Trade Name Freq PRN Reason Stop Dose Admin Acetaminophen 650 mg 03/07/20 17:58 03/08/20 08:35 Tylenol PO 650 mg Q4H PRN Administration Headache/Fever/Mild Pain (1-3) Aspirin 81 mg 03/08/20 09:00 03/08/20 08:27 Ecotrin PO 81 mg DAILY ZANA Administration Al Hydroxide/Mg Hydroxide 60 0 ml 03/08/20 00:54 03/08/20 09:42 ml/ Lidocaine HCl 30 ml/ SSW 10 ml Diphenhydramine HCl 75 mg Q4H PRN Administration Mouth Irritation Gabapentin 100 mg 03/08/20 09:00 03/08/20 08:27 Neurontin PO 100 mg TID ZANA Administration Insulin Human Lispro 0 units 03/07/20 17:56 03/08/20 05:52 Humalog SC 4 unit .MODERATE SLIDING SC PRN Administration Moderate Correctional Scale Isosorbide Dinitrate 10 mg 03/08/20 09:00 03/08/20 08:28 Isordil PO 10 mg BID ZANA Administration Metoprolol Tartrate 50 mg 03/08/20 09:00 03/08/20 08:27 Lopressor PO 50 mg BID ZANA Administration Pantoprazole Sodium 40 mg 03/08/20 09:00 03/08/20 08:29 Protonix IVP 40 mg DAILY ZANA Administration Sacubitril/Valsartan 1 tab 03/08/20 09:00 03/08/20 08:29 Entresto 49 Mg-51 Mg Tablet PO 1 tab BID ZANA Administration Tramadol HCl 50 mg 03/08/20 06:00 03/08/20 05:04 Ultram PO 50 mg Q6HR ZANA Administration - Exam General Appearance: NAD, awake alert General - other findings: Pale Eye: anicteric sclera ENT: normocephalic atraumatic, moist mucosa Neck: supple, symmetric, no JVD, no thyromegaly, no lymphadenopathy, no carotid bruit Heart: RRR, no murmur, no gallops, no rubs, normal peripheral pulses Respiratory: CTAB, no wheezes, no rales, no ronchi, normal chest expansion, no tachypnea, normal percussion Gastrointestinal: soft, non-tender, non-distended, normal bowel sounds, no palpable masses, no hepatomegaly, no splenomegaly, no bruit Extremities: no cyanosis, no clubbing, no edema Skin: normal turgor, no lesions, no rashes Neurological: no weakness, no focal deficits Musculoskeletal: normal tone, normal strength, no muscle wasting Psychiatric: normal affect, normal behavior, A&O x 3 Hosp A/P (1) Anemia Code(s): D64.9 - ANEMIA, UNSPECIFIED Status: Acute (2) Hypokalemia Code(s): E87.6 - HYPOKALEMIA Status: Acute (3) Neutropenic fever Code(s): D70.9 - NEUTROPENIA, UNSPECIFIED; R50.81 - FEVER PRESENTING WITH CONDITIONS CLASSIFIED ELSEWHERE Status: Acute (4) CHF (congestive heart failure) Code(s): I50.9 - HEART FAILURE, UNSPECIFIED Status: Chronic (5) DMII (diabetes mellitus, type 2) Status: Chronic (6) ESRD on hemodialysis Code(s): N18.6 - END STAGE RENAL DISEASE; Z99.2 - DEPENDENCE ON RENAL DIALYSIS Status: Chronic (7) HTN (hypertension) Code(s): I10 - ESSENTIAL (PRIMARY) HYPERTENSION Status: Chronic (8) Lymphoma Status: Chronic (9) ESRD (end stage renal disease) Code(s): N18.6 - END STAGE RENAL DISEASE Status: Acute (10) Elevated troponin I level Code(s): R79.89 - OTHER SPECIFIED ABNORMAL FINDINGS OF BLOOD CHEMISTRY Status : Acute - Plan Neutropenic Fever: 74F w/ b-cell lymphoma with recent R-CHOP chemotherapy completed 6 days ago who presented for weakness found to have neutropenic fever to 100.0. CXR no acute process, UA negative. COVID negative. Urine and bcx pending. WBC 2.0, ANC on admission was 880. Now up-trending to 1092. Pt has since been afebrile. Empiric abx started, cefepime and vancomycin. PLAN: -Trend ANC -Empiric abx with cefepime, vancomycin -Monitor fever curve -Blood cultures and urine cx pending B-cell lymphoma: Pt with b-cell lymphoma followed by Dr. Rubio. Pt on 4-cycle R-CHOP therapy with Nulasta. Oncology consulted. PLAN: -Oncology reccs appreciated Symptomatic Anemia: Hg on admission 6.8. Symptomatic with weakness, fatigue. Likely 2/2 recent chemothrapy. Denies melena, hematochezia, or hemetemsis. Pt s/p 1 unit pRBCs with improvement in Hg to 7.8. Will continue to monitor. PLAN: -Trend H/H -Transfuse for Hg <7.0 Elevation in Troponin Level: Initial troponin 0.031, repeat flat 0.038, 0.031. Likely 2/2 ESRD. No chest pain. EKG NSR with no ischemic changes. PLAN: -Monitor for change in symptoms T2DM: On home glimeperide. Held during admission. Recently completed steroid taper post-chemo which she reports significantly elevated her sugars. PLAN: -ISS moderate -[facility] [address] glucose checks ESRD on dialysis: Pt reports she was unable to finish her dialysis session 2/2 weakness before presenting to the ED. Follows with Dr. Coulter. TTa dialysis. BUN/Cr 42/2.48. Ca 8.8, Mg 1.6, K 3.7. PLAN: -Nephrology following -Monitor electrolytes, BMP Diastolic Heart Failure: Hx of ischemic cardiomyopathy with last echo 02/23 showed EF of 55-60% with mild diastolic dysfunction, improved from prior 45%. On home entresto, Imdur, atorvastatin. BNP 599 on admission. No s/s of acute exacerbation. PLAN: -Continue Entresto, Imdur, atorvastatin Hypertension: Hx HTN on home losartan, amlodipine, and metoprolol. PLAN: -Continue amlodipine 5mg daily -Continue losartain 100 mg daily -Continue metoprolol 50 mg BID Peripheral neuropathy: On home gabapentin, duloxetine, and pramipexole PLAN: -Continue home meds FULL CODE Case discussed with attending physician, Dr. Castellanos. Addendum - Physician - Physician Attestation Date/Time: 03/08/20 [id number] I personally performed or re-performed the physical examination and medical decision making. I have verified all PA documentation or findings, including history, physical exam and/or medical decision making. Impression: Neutropenic fever Chronic systolic heart failure compensated Diabetes mellitus type II End-stage renal disease on hemodialysis Hypertension Hypokalemia Hypomagnesemia Morbid obesity with a BMI of 45.8 Diffuse large B-cell lymphoma on chemotherapy Chronic anemia s/p 1 unit PRBC on admission Plan: Continue IV vancomycin with cefepime. Continue neutropenic precautions. Dialysis per nephrology. Replace potassium.Oncology and nephrology input appreciated. Continue sliding scale. Continue Entresto with beta-blockers. Patient received Neulasta 5 days ago. Continue other medications as above. Recheck labs in a.m.
--- NOTE | 2020-03-08 18:33 | CON ---
DATE OF CONSULTATION: 03/08/2020 CONSULTING PHYSICIAN: MATILDA Sams REASON FOR CONSULTATION: End-stage renal disease evaluation. REASON FOR ADMISSION: Fever, shortness of breath. HISTORY OF PRESENT ILLNESS: This is a 74-year-old female with history of end-stage renal disease; recent lymphoma, on chemotherapy; hypertension; hyperlipidemia; diabetes; came to the hospital with a fever. The patient started having fever after dialysis, so she was taken to the ER. No chest pain or palpitation. PAST MEDICAL HISTORY: Positive for; 1. End-stage renal disease. 2. CHF. 3. Hypertension. 4. Hyperlipidemia. 5. Morbid obesity. 6. PTSD. 7. Rheumatoid arthritis. 8. Lymphoma. PAST SURGICAL HISTORY: 1. . 2. Hysterectomy. 3. Total knee replacement. 4. Bariatric surgery. 5. Dialysis access placement. HOME MEDICATIONS: Reviewed. ALLERGIES: NO KNOWN DRUG ALLERGIES. SOCIAL HISTORY: No smoking, alcohol, or illicit drugs. FAMILY HISTORY: No history of kidney disease. REVIEW OF SYSTEMS: CONSTITUTIONAL: Negative for weight loss or gain, ability to conduct usual activities. SKIN: Negative for rash, itching. EYES: Negative for double vision, pain. ENT/MOUTH: Negative for nose bleeding, neck stiffness, pain, tenderness. CARDIOVASCULAR: Negative for palpitations, dyspnea on exertion, orthopnea. RESPIRATORY: Negative for shortness of breath, wheezing, cough, hemoptysis, fever or night sweats. GASTROINTESTINAL: Negative for poor appetite, abdominal pain, heartburn, nausea, vomiting, constipation, or diarrhea. GENITOURINARY: Negative for urgency, frequency, dysuria, nocturia. MUSCULOSKELETAL: Negative for pain, swelling. NEUROLOGIC/PSYCHIATRIC: Negative for anxiety, depression. ALLERGY/IMMUNOLOGIC: Negative for skin rash, bleeding tendency. PHYSICAL EXAMINATION: GENERAL: This is a well-built female, in no apparent distress. VITAL SIGNS: Temperature 98.1, pulse 69, respiratory rate 18, blood pressure 161/72. HEENT: Atraumatic, normocephalic. Oral mucosa moist. NECK: Supple. CV: S1 and S2. Regular rate and rhythm. RESPIRATORY: Clear. GASTROINTESTINAL: Abdomen is soft. MUSCULOSKELETAL: 1+ edema. DERMATOLOGIC: No skin rash. NEUROLOGIC: Alert and awake. PSYCHIATRIC: Mood and affect normal. LABORATORY DATA: Hemoglobin is 7.8. Potassium is 3.7, BUN is 42, creatinine is 2.4. ASSESSMENT AND PLAN: 1. End-stage renal disease. Continue on hemodialysis. 2. Edema. 3. History of hypertension. 4. Anemia of chronic disease. Plan to have dialysis on Friday, , and Friday as tolerated. Dialysis nurse notified. Thank you for the consult. Job ID: [id number]
[2020-03-08] MEDS ORDERED: Amlodipine 10 MG TAB PO SCH (21:00)
[2020-03-08] MEDS ORDERED: Pramipexole Di-HCl 0.125 MG TAB PO SCH (21:00)
[2020-03-08] MEDS ORDERED: busPIRone HCl 5 MG TAB PO SCH (21:00)
[2020-03-08] MEDS ORDERED: Atorvastatin Calcium 10 MG TAB PO SCH (21:00)
[2020-03-09] MEDS: traMADol HCl 50 MG TAB PO SCH ×4 (00:43→14:07)
[2020-03-09] MEDS: Aluminum & Magnesium Hydroxide 60 ML, Lidocaine 2% Viscous Solution 30 ML, diphenhydrAM... SSW PRN ×2 (01:05→09:29)
[2020-03-09] MEDS: HumaLOG 300 UNITS/3 ML VIAL SC PRN ×2 (05:49→14:28)
[2020-03-09 07:07] LABS: Hemoglobin 8.3 g/dL (12.0-16.0); Mean Corpuscular HGB CONC 32.3 g/dL (32.0-36.0); Mean Corpuscular Hemoglobin 30.8 pg (27.0-31.0); Mean Corpuscular Volume 95.2 fL (78.0-98.0); Mean Platelet Volume 8.5 fL (7.4-10.4); Platelet Count 157 thou/uL (130-400); RBC Distribution Width 17.1 % (11.5-14.5); Red Blood Cell (RBC) Count 2.69 mill/uL (4.20-5.40); White Blood Cell (WBC) Count 4.4 thou/uL (4.8-10.8)
[2020-03-09 07:15] LABS: Anion Gap 15 mmol/L (10-20); BUN (Urea Nitrogen) 44 mg/dL (9.8-20.1); Calc. Creatinine Clearance 33 mL/min (70-130); Carbon Dioxide 25 mmol/L (23-31); Chloride 102 mmol/L (98-107); Estimated GFR-MDRD 17; Glucose 207 mg/dL (83-110); Potassium 3.9 mmol/L (3.5-5.1); Sodium 138 mmol/L (136-145)
[2020-03-09 08:38] LABS: Anisocytosis SLIGHT = 6-15 cells (100X) (0-5/hpf); Band 13 % (5-11); Eosinophils 19 % (0-10); Lymphocytes 18 % (21-51); MDiff Complete? YES; Metamyelocyte 1 % (0-0); Monocytes 10 % (0-10); Myelocyte 1 % (0-0); Neutrophil 38 % (42-75); Platelet Morphology Comment Appears Adequate; Polychromasia SLIGHT = 2-3 cells (100X) (0-2/hpf)
[2020-03-09 09:27] VITALS: BP 170/74; TEMP 98.7
[2020-03-09] MEDS: Aspirin 81 mg Enteric Coated Tablet PO SCH (09:27)
[2020-03-09] MEDS: Gabapentin 100 MG CAP PO SCH ×2 (09:27→14:29)
[2020-03-09] MEDS: Isosorbide Dinitrate 20 MG TAB PO SCH (09:28)
[2020-03-09] MEDS: Metoprolol Tartrate 50 MG TAB PO SCH (09:29)
[2020-03-09] MEDS: Sacubitril 49 MG/Valsartan 51 MG TABLET PO SCH (09:29)
--- NOTE | 2020-03-09 09:36 | PDOC.MOPN ---
Interval History: c/o sore in mouth. Otherwise, feels much better. - Vital Signs Vital Signs: Vital Signs (12 hours) Temp Pulse Resp BP BP Pulse Ox 03/09/20 09:14 98.7 F 80 18 176/93 H 170/74 H 97 Weight Admit Weight 250 lb 9.6 oz Weight 250 lb 9.6 oz - Physical Exam General: Alert, Oriented x3, No acute distress HEENT: Other (mucositis) Lungs: Clear to auscultation, Normal air movement Cardiovascular: Regular rate, Normal S1, Normal S2, No murmurs, Gallops, Rubs Abdomen: Normal bowel sounds, Soft, No tenderness, No hepatospenomegaly, No masses Neurological: Normal gait, Normal speech, Strength at 5/5 X4 ext, Normal tone, Sensation intact, Cranial nerves 3-12 NL, Reflexes 2+ Psych/Mental Status: Mental status NL, Mood NL - Labs Result Diagrams: 03/09/20 06:12 03/09/20 06:12 Lab results: Laboratory Results - last 24 hr 03/09/20 06:12: WBC 4.4 L, RBC 2.69 L, Hgb 8.3 L, Hct 25.7 L, MCV 95.2, MCH 30.8 , MCHC 32.3, RDW 17.1 H, Plt Count 157, MPV 8.5, Neutrophils % (Manual) 38 L, Band Neuts % (Manual) 13 H, Lymphocytes % (Manual) 18 L, Monocytes % (Manual) 10 , Eosinophils % (Manual) 19 H, Metamyelocytes % (Man) 1 H, Myelocytes % 1 H, Plt Morphology Comment Appears Adequate, Polychromasia SLIGHT = 2-3 cells, Anisocytosis SLIGHT = 6-15 cells 03/09/20 06:12: Sodium 138, Potassium 3.9, Chloride 102, Carbon Dioxide 25, Anion Gap 15, BUN 44 H, Creatinine 2.77 H, Estimated GFR (MDRD) 17, Glucose 207 H, Calcium 9.0 03/09/20 05:54: POC Glucose 219 H 03/08/20 19:54: POC Glucose 231 H 03/08/20 16:36: POC Glucose 197 H 03/08/20 11:24: POC Glucose 252 H Status: lab reviewed by me A/P - Problem (1) Neutropenic fever Current Visit: Yes Code(s): D70.9 - NEUTROPENIA, UNSPECIFIED; R50.81 - FEVER PRESENTING WITH CONDITIONS CLASSIFIED ELSEWHERE Status: Resolved (2) Lymphoma Current Visit: Yes Status: Chronic - Plan Plan: 1. Magic mouthwash rx sent to her pharmacy 2. dialysis today 3. home this afternoon 4. follow-up next Friday as scheduled.
--- NOTE | 2020-03-09 11:00 | DIS ---
DATE OF ADMISSION: 03/07/2020 DATE OF DISCHARGE: 03/09/2020 DISCHARGE DISPOSITION: Home. FOLLOWUP: 1. Follow up with primary care physician, Dr. Peter Oakley, in 1 week. 2. Follow up with Oncology as scheduled. The patient was seen and examined on the day of discharge. Denies any new complaints. No fever, chills, nausea, or vomiting reported. DISCHARGE MEDICATION: As same as admission medication. The patient was advised to resume the home dose of insulin. BRIEF HOSPITAL COURSE: The patient is a 74-year-old female with lymphoma, presented to the hospital with shortness of breath, fatigue along with low-grade fever. Her temperature in the emergency room was 99.5 and 100 degrees Fahrenheit. She was found to be neutropenic with a total WBC of 2.0 with 15% neutrophils and 29% bandemia. Neutropenic precautions were initiated. She was started on vancomycin along with cefepime. Blood cultures so far have been negative. WBC counts have improved to 4.4 with 38% neutrophils and 13% bandemia. The patient has been cleared by Oncology Service for discharge. She will undergo hemodialysis prior to discharge. No further need for antibiotics per Oncology Service. She will resume all of her home medications. She received Neulasta approximately 6 days ago. She has appointment with Oncology Service next week. FINAL DIAGNOSES: 1. Neutropenic fever. 2. Chronic systolic heart failure, compensated. 3. Diabetes mellitus type 2. 4. End-stage renal disease, on hemodialysis. 5. Hypertension. 6. Hypokalemia. 7. Hypomagnesemia. 8. Morbid obesity with a BMI of 45.8. 9. Diffuse large B-cell lymphoma, on chemotherapy. 10. Chronic anemia, status post 1 unit of PRBC this admission. The patient understands the above plan of care. Job ID: [id number]
[2020-03-09] MEDS ORDERED: Heparin 10,000 UNITS/ 10 ML VIAL ONE (13:14)
--- NOTE | 2020-03-09 16:26 | PRG ---
DATE OF SERVICE: 03/09/2020 SUBJECTIVE: Patient was seen and examined at bedside and overnight events noted. Patient denies any shortness of breath or chest pain or palpitation. No history of nausea or vomiting or diarrhea or fever or chills or cramps. OBJECTIVE: GENERAL: This is an obese female, in no apparent distress. VITAL SIGNS: Temperature 98.7. Heart Rate 80. Respiratory rate 18. Blood pressure HEENT: Atraumatic, normocephalic. Oral mucosa is moist. NECK: Supple. CARDIOVASCULAR: S1, S2 heard. Rate and rhythm regular. RESPIRATORY: Clear to auscultation. GASTROINTESTINAL: Abdomen is soft. MUSCULOSKELETAL: No tenderness. No edema. DERMATOLOGIC: No skin rash. NEUROLOGIC: Alert and awake and oriented x3. No focal neurologic deficits. Moving all the extremities. PSYCHIATRIC: Mood and affect normal. LABORATORY DATA: Potassium 3.9, BUN 44, creatinine is 2.7. ASSESSMENT: 1. End-stage renal disease. Continue dialysis, TTS. 2. Edema. 3. History of hypertension. 4. Anemia of chronic disease. PLAN: Continue dialysis as tolerated. Job ID: [id number]
== END 2020-03-09 16:00 | disposition home or self-care (01) | DRG 808 ==
LOC: ERS 15:08 → ONC 17:34
PROVIDERS: ADMIT Student in an Organized Health Care Education/Training Program; ATTEND Student in an Organized Health Care Education/Training Program
PROC: 30233R1 Transfusion of Nonautologous Platelets into Peripheral Vein, Percutaneous Approach (ICD-10-PCS; principal; 2020-03-07)
DX: D70.9 Neutropenia, unspecified (principal); N18.6 End stage renal disease; I13.2 Hypertensive heart and chronic kidney disease with heart failure and with stage 5 chronic kidney disease, or end stage renal disease; C83.30 Diffuse large B-cell lymphoma, unspecified site; I50.32 Chronic diastolic (congestive) heart failure; Z68.42 Body mass index [BMI] 45.0-49.9, adult; D61.810 Antineoplastic chemotherapy induced pancytopenia; E11.22 Type 2 diabetes mellitus with diabetic chronic kidney disease; E78.5 Hyperlipidemia, unspecified; M06.9 Rheumatoid arthritis, unspecified; E87.6 Hypokalemia; D63.1 Anemia in chronic kidney disease; D64.81 Anemia due to antineoplastic chemotherapy; T45.1X5A Adverse effect of antineoplastic and immunosuppressive drugs, initial encounter; E11.42 Type 2 diabetes mellitus with diabetic polyneuropathy; I25.5 Ischemic cardiomyopathy; E66.01 Morbid (severe) obesity due to excess calories; E83.42 Hypomagnesemia; Z20.828 Contact with and (suspected) exposure to other viral communicable diseases; F43.10 Post-traumatic stress disorder, unspecified; R50.81 Fever presenting with conditions classified elsewhere; Z79.82 Long term (current) use of aspirin; Z99.2 Dependence on renal dialysis; Z92.21 Personal history of antineoplastic chemotherapy; Z79.899 Other long term (current) drug therapy; Z79.84 Long term (current) use of oral hypoglycemic drugs; Z90.710 Acquired absence of both cervix and uterus; Z98.84 Bariatric surgery status; Z98.890 Other specified postprocedural states; Z88.1 Allergy status to other antibiotic agents; Z88.2 Allergy status to sulfonamides; Z91.013 Allergy to seafood
CPT/HCPCS: 36415; 36416; 36430; 71045; 80048; 80053; 82553; 83605; 83735; 83880; 84484; 85007; 85025; 85027; 85046; 85610; 85730; 86850; 86900; 86901; 87040; 90935; 93005; 94760; C9113; G0257; J0692; J1642; J1644; J1815; J3370; J3475; J3490; J7030; P9016; Q0163; U0002

== ENCOUNTER 2020-03-31 18:33 | Observation (INO) | payer MEDICARE, BC ==
[2020-03-31 20:07] LABS: Hemoglobin 6.3 g/dL (12.0-16.0); Mean Corpuscular HGB CONC 33.2 g/dL (32.0-36.0); Mean Corpuscular Hemoglobin 32.4 pg (27.0-31.0); Mean Corpuscular Volume 97.8 fL (78.0-98.0); Mean Platelet Volume 9.7 fL (7.4-10.4); Platelet Count 86 thou/uL (130-400); RBC Distribution Width 16.5 % (11.5-14.5); Red Blood Cell (RBC) Count 1.93 mill/uL (4.20-5.40)
[2020-03-31 20:26] LABS: ALT (SGPT) 8 U/L (8-55); AST (SGOT) 7 U/L (5-34); Albumin 3.6 g/dL (3.4-4.8); Alkaline Phosphatase 101 U/L (40-110); Anion Gap 14 mmol/L (10-20); BUN (Urea Nitrogen) 33 mg/dL (9.8-20.1); Bilirubin, Total 0.4 mg/dL (0.2-1.2); Calc. Creatinine Clearance 0 mL/min (70-130); Calcium 9.3 mg/dL (7.8-10.44); Carbon Dioxide 30 mmol/L (23-31); Chloride 101 mmol/L (98-107); Estimated GFR-MDRD 13; Globulin 2.2 g/dL (2.4-3.5); Glucose 114 mg/dL (83-110); Potassium 3.4 mmol/L (3.5-5.1); Protein, Total 5.8 g/dL (6.0-8.3); Sodium 142 mmol/L (136-145)
[2020-03-31 20:32] LABS: Anisocytosis SLIGHT = 6-15 cells (100X) (0-5/hpf); Band 14 % (5-11); Eosinophils 11 % (0-10); Lymphocytes 24 % (21-51); MDiff Complete? YES; Monocytes 19 % (0-10); Neutrophil 32 % (42-75); Platelet Morphology Comment Appears Decreased; Polychromasia SLIGHT = 2-3 cells (100X) (0-2/hpf); Toxic Granulation SLIGHT
[2020-03-31] MEDS ORDERED: Dextrose 50% Abboject 50 ML SYRINGE SLOW IVP PRN (23:26)
[2020-03-31] MEDS ORDERED: Dextrose 5% in Water 1,000 ML IV PRN (23:26)
[2020-03-31] MEDS ORDERED: Acetaminophen 500 MG TAB PO PRN (23:26)
[2020-03-31] MEDS ORDERED: HumaLOG 300 UNITS/3 ML VIAL SC PRN ×2 (23:26)
[2020-03-31] MEDS ORDERED: Ondansetron ODT 4 MG TAB PO PRN (23:26)
[2020-03-31] MEDS ORDERED: Ondansetron PF 4 MG/2 ML Vial IVP PRN (23:26)
[2020-03-31] MEDS ORDERED: Labetalol HCl 100 MG/20 ML VIAL SLOW IVP PRN (23:26)
[2020-04-01] MEDS: traMADol HCl 50 MG TAB PO SCH ×3 (00:31→13:19)
--- NOTE | 2020-04-01 02:21 | CON ---
DATE OF CONSULTATION: REASON FOR CONSULTATION: End-stage renal disease and anemia. HISTORY OF PRESENT ILLNESS: A 74-year-old female, on dialysis Friday, , Friday, presented to the hospital with worsening anemia, so we were consulted. The patient denies any nausea, vomiting, chest pain. PAST MEDICAL HISTORY: Significant for hypertension, congestive heart failure, anemia, morbid obesity, PTSD, lymphoma, , hysterectomy, total knee replacement, history of bariatric surgery. SOCIOECONOMIC HISTORY: No alcohol or drug abuse. FAMILY HISTORY: Negative for ESRD. ALLERGIES: REVIEWED. HOME MEDICATIONS: List reviewed. HOSPITAL MEDICATIONS: List reviewed. REVIEW OF SYSTEMS: A 15-point review of system was performed, negative except for positives noted above. HEENT: Eyes intact, no diplopia. Ears: No hearing loss or earache. Nose: No discharge or bleeding. Chest: No cough or phlegm. Abdomen: No nausea or vomiting. Genitourinary: No hematuria. No Sanchez catheter. Musculoskeletal: No low back pain. No joint swelling or pain. Neurological: No syncope. No seizures. Skin: No complaints of rash or itching. Psychiatric: No depression. Constitutional: No weight loss or loss of appetite. PHYSICAL EXAMINATION: GENERAL: The patient is awake and alert. VITAL SIGNS: Afebrile. Pulse 75, breathing 16, blood pressure 161/72. HEENT: Head normocephalic and atraumatic. Eyes intact, no ulcers. Nose intact, no ulcers. Ears intact, no ulcers. Neck: Supple. No JVD. Chest: Symmetrical and clear. Cardiovascular: Shows S1 and S2, no rub, no murmur. Gastrointestinal: Abdomen is soft, bowel sounds positive. Extremities: Show no edema or ulcers. Skin: Shows no rash or petechiae. Musculoskeletal: Shows no joint swelling or stiffness. Genitourinary: Shows no Sanchez or CVA tenderness. Neurologic: Motor intact. Cranial nerves intact. LABORATORY DATA: Reviewed. ASSESSMENT AND PLAN: 1. Stage 6 chronic kidney disease. Plan, dialysis tomorrow. 2. Anemia, we will give 1 unit of blood. Medication based on GFR appropriate. 3. Hypertension, stable. Job ID: [id number]
--- NOTE | 2020-04-01 02:40 | HP ---
PRIMARY CARE PROVIDER: Dr. Peter Oakley. PRIMARY ONCOLOGIST: Dr. Clark Rubio. CHIEF COMPLAINT: General malaise and anemia. HISTORY OF PRESENT ILLNESS: This is a 74-year-old female, who presents to [facility] after being sent by her oncologist for progressive anemia and leukopenia in the context of diffuse large B-cell lymphoma, undergoing current chemotherapy with plans to complete chemotherapy on 04/10/2020. The patient was admitted to [facility] as recently as 03/09/2020, receiving 1 unit of packed red blood cells due to anemia. The patient did not require any further transfusions since 03/09/2020. The patient admits to increasing fatigue, feeling cold, and generally run down. The patient states her last chemotherapy session was approximately 2-1/2 weeks prior to this evaluation and otherwise denied any change to her chronic medication regimen. The patient denied any dark stools, hematuria, or frequency. The patient does admit to decreased appetite, but no specific weight loss documented. The patient denies any change to her chronic medication regimen, exposure history, or recent travel. In the emergency room, the patient underwent general evaluation including metabolic screening with hemoglobin noted at 6.3, previously noted 8.3 on 03/09/2020. The patient has been typed and crossed for 1 unit of packed red blood cells with plans to transfuse this p.m. PAST MEDICAL HISTORY: 1. Diffuse B-cell lymphoma with current chemotherapy. 2. Pancytopenia with recent Neulasta and chemotherapy 2 weeks prior to this evaluation. 3. End-stage renal disease with hemodialysis Friday, , and Friday. 4. Chronic systolic congestive heart failure, compensated. 5. Diabetes mellitus, type 2. 6. Hypertension. 7. Morbid obesity with BMI of 46. 8. Normocytic anemia, multifactorial including chronic kidney disease and current chemotherapy. PAST SURGICAL HISTORY: 1. Status post section. 2. Status post hysterectomy. 3. Status post total knee arthroplasty. 4. Status post lumbar spine surgery at L4 and L5. 5. Status post bariatric surgery in 2013. 6. Status post right internal jugular hemodialysis catheter placement with subsequent removal. 7. Status post AV fistula placement. 8. Status post lymph node dissection, confirming lymphoma. CURRENT MEDICATIONS: 1. Amaryl 1 mg p.o. q.a.m. 2. Lipitor 10 mg p.o. at bedtime. 3. BuSpar 5 mg p.o. at bedtime. 4. Drisdol 1.25 mg p.o. weekly. 5. Entresto 49/51 mg p.o. b.i.d. 6. Humalog 100 units subcutaneously before meals and at bedtime. 7. Isosorbide dinitrate 10 mg p.o. b.i.d. 8. Mirapex 0.125 mg p.o. at bedtime. 9. Amlodipine 10 mg p.o. at bedtime. 10. Tramadol 50 mg p.o. q.6 hours p.r.n. 11. Metoprolol tartrate 50 mg p.o. b.i.d. 12. Gabapentin 100 mg p.o. t.i.d. ALLERGIES: TO LEVAQUIN, SHELLFISH, SULFA. FAMILY HISTORY: Mother and father with history of cancer. SOCIAL HISTORY: Resides in [place], [place]. Remote tobacco use, quitting in the . No alcohol or illicit drug use. Ambulates with a rolling walker. No recent falls reported. Retired. REVIEW OF SYSTEMS: CONSTITUTIONAL: Negative for weight loss or gain, sense of well-being, ability to conduct usual activities, exercise tolerance. SKIN/BREAST: Negative for rash, itching, changes in hair growth or loss, nail changes, breast lumps, tenderness, swelling, nipple discharge. EYES: Negative for vision, double vision, tearing, blind spots, pain. ENT/MOUTH: Negative for headaches, vertigo, lightheadedness, injury. Vision, double vision, tearing, blind spots, pain, nose bleeding, colds, obstruction, discharge, dental difficulties, gingival bleeding, dentures, neck stiffness, pain, tenderness, masses in thyroid or other areas. CARDIOVASCULAR: Negative for precordial pain, substernal distress, palpitations, syncope, dyspnea on exertion, orthopnea, nocturnal paroxysmal dyspnea, edema, cyanosis, hypertension, heart murmurs, varicosities, phlebitis, claudication. RESPIRATORY: Negative for pain, shortness of breath, wheezing, stridor, cough, hemoptysis, fever or night sweats. GASTROINTESTINAL: Negative for poor appetite, dysphagia, indigestion, abdominal pain, heartburn, eructation, nausea, vomiting, hematemesis, jaundice, constipation, or diarrhea, abnormal stools (meredith-colored, tarry, bloody, greasy, foul smelling), flatulence, hemorrhoids, recent changes in bowel habits. GENITOURINARY: Negative for urgency, frequency, dysuria, nocturia, hematuria, polyuria, oliguria, unusual (or change in) color of urine, stones, hesitancy, change in size of stream, dribbling, acute retention or incontinence, libido, potency. MUSCULOSKELETAL: Negative for pain, swelling, redness or heat of muscles or joints, limitation of motion, muscular weakness, atrophy, cramps. NEUROLOGIC/PSYCHIATRIC: Negative for convulsions, paralyses, tremor, incoordination, paresthesias, difficulties with memory of speech, sensory or motor disturbances, or muscular coordination (ataxia, tremor), emotional problems, anxiety, depression, previous psychiatric care, unusual perceptions, hallucinations. ALLERGY/IMMUNOLOGIC: Negative for skin rash, anemia, bleeding tendency, polydipsia, polyuria, intolerance to heat or cold. Otherwise, negative except as stated per HPI. PHYSICAL EXAMINATION: VITAL SIGNS: On admission, blood pressure 108/53, pulse 71, respiratory rate 19, temperature 99.7 degrees Fahrenheit, O2 saturation 93% on room air. GENERAL APPEARANCE: This is a 74-year-old female, alert and oriented x3, pleasant, responsive, in no acute distress. HEENT: Pupils are equal, round, reactive to light and accommodation. Extraocular muscles are intact. No scleral icterus. No conjunctival injection. Nares patent. OP is clear. Teeth in fair repair. NECK: Supple. No cervical adenopathy. No thyromegaly. No carotid bruits. No JVD appreciated. Cervical spine with full active and passive range of motion. No meningeal signs noted. CHEST: Lungs are clear to auscultation bilaterally. CARDIOVASCULAR: S1 and S2 without noted murmur, rub, or gallop. ABDOMEN: Obese, soft, nontender, and nondistended. Bowel sounds are positive in all 4 quadrants. There is no hepatosplenomegaly. No abdominal bruits. No rebound or guarding appreciated. EXTREMITIES: Warm and dry with fair turgor, pale appearing. Capillary refill less than 2 seconds. No asymmetric edema appreciated. Pulses palpable distally at the dorsalis pedis, posterior tibial, and popliteal arteries bilaterally. Capillary refill less 2 seconds. NEUROLOGIC: Cranial nerves II through XII are grossly intact. No focal or lateralizing signs appreciated. PERTINENT LABORATORY AND X-RAY FINDINGS: Sodium 142, potassium 3.4, chloride 101, CO2 of 30, BUN 33, creatinine 3.42, estimated GFR of 13, glucose 114, calcium 9.3. LFTs within normal limits. CBC showed a white blood cell count of 2.0, hemoglobin 6.3, hematocrit 19, MCV 98, platelet count 86 with 32% neutrophils, 14% bands. Telemetry monitoring shows sinus tachycardia with heart rates in the low 110s. ASSESSMENT/PLAN: 1. Symptomatic anemia. The patient will be observed on the medical oncology unit. We will type and cross and transfuse 1 unit of packed red blood cells this p.m. Continue serial H and H monitoring. Suspect recurrent anemia due to ongoing chemotherapy in the context of end-stage renal disease. No active blood loss noted. 2. Pancytopenia. Secondarily to current chemotherapy due to diffuse B-cell lymphoma. We will place on neutropenic precautions. Consult Medical Oncology Service in the a.m. for any further recommendations. Likely will need outpatient Neulasta on discharge. 3. End-stage renal disease with hemodialysis. Plan for hemodialysis in the a.m. Consult Nephrology Service for ongoing monitoring. 4. Diabetes mellitus, type 2, insulin requiring. Insulin sliding scale for reflexive coverage. Serial Accu-Cheks before meals and at bedtime. ADA diet when tolerating p.o. intake. 5. Hypertension. Resume home blood pressure regimen and monitor clinical response. 6. Diffuse B-cell lymphoma. We will follow up with Medical Oncology Service to resume chemotherapy scheduled for 04/10/2020. 7. Prophylaxis. SCDs while in bed. Pepcid 20 mg p.o. b.i.d. 8. Code status is full. Surrogate medical decision maker is the patient's daughter, Ludivina Connor. Job ID: [id number]
[2020-04-01 03:05] VITALS: BMI 44.7
[2020-04-01 04:54] LABS: Band 11 % (5-11); Eosinophils 10 % (0-10); Hemoglobin 7.1 g/dL (12.0-16.0); Lymphocytes 31 % (21-51); MDiff Complete? YES; Mean Corpuscular HGB CONC 33.3 g/dL (32.0-36.0); Mean Corpuscular Hemoglobin 32.3 pg (27.0-31.0); Mean Platelet Volume 9.6 fL (7.4-10.4); Monocytes 11 % (0-10); Neutrophil 37 % (42-75); Nucleated RBC 1 % (0); Platelet Count 86 thou/uL (130-400); Platelet Morphology Comment Appears Decreased; RBC Distribution Width 16.2 % (11.5-14.5); White Blood Cell (WBC) Count 2.5 thou/uL (4.8-10.8)
[2020-04-01 04:56] LABS: ALT (SGPT) 7 U/L (8-55); AST (SGOT) 6 U/L (5-34); Albumin 3.2 g/dL (3.4-4.8); Alkaline Phosphatase 92 U/L (40-110); Anion Gap 13 mmol/L (10-20); BUN (Urea Nitrogen) 35 mg/dL (9.8-20.1); Bilirubin, Total 0.3 mg/dL (0.2-1.2); Calc. Creatinine Clearance 26 mL/min (70-130); Calcium 8.8 mg/dL (7.8-10.44); Carbon Dioxide 29 mmol/L (23-31); Chloride 102 mmol/L (98-107); Estimated GFR-MDRD 13; Globulin 2.1 g/dL (2.4-3.5); Glucose 180 mg/dL (83-110); Potassium 3.6 mmol/L (3.5-5.1); Protein, Total 5.3 g/dL (6.0-8.3); Sodium 140 mmol/L (136-145)
[2020-04-01] MEDS ORDERED: Isosorbide Dinitrate 20 MG TAB PO SCH (09:00)
[2020-04-01] MEDS ORDERED: Famotidine 20 MG TAB PO SCH (09:00)
[2020-04-01] MEDS ORDERED: Gabapentin 100 MG CAP PO SCH (09:00)
[2020-04-01] MEDS ORDERED: Sacubitril 49 MG/Valsartan 51 MG TABLET PO SCH (09:00)
[2020-04-01] MEDS ORDERED: Metoprolol Tartrate 50 MG TAB PO SCH (09:00)
[2020-04-01] MEDS ORDERED: Heparin 10,000 UNITS/ 10 ML VIAL ONE (09:16)
[2020-04-01 09:39] VITALS: BP 126/60; TEMP 98.6
[2020-04-01 11:50] LABS: HBSAg Index 0.21 S/CO (0-0.99); Hep B Surf Ag Non-Reactive S/CO (NonReactive)
[2020-04-01 14:16] LABS: Hemoglobin 9.1 g/dL (12.0-16.0); Mean Corpuscular HGB CONC 33.7 g/dL (32.0-36.0); Mean Corpuscular Hemoglobin 32.3 pg (27.0-31.0); Mean Corpuscular Volume 95.9 fL (78.0-98.0); Mean Platelet Volume 8.8 fL (7.4-10.4); Platelet Count 103 thou/uL (130-400); RBC Distribution Width 16.7 % (11.5-14.5); White Blood Cell (WBC) Count 3.7 thou/uL (4.8-10.8)
--- NOTE | 2020-04-01 16:02 | PRG ---
DATE OF SERVICE: 04/01/2020 Nephrology Progress note Subjective: Seen and examined in the room. Patient had hemodialysis today. She does not report any complaints at present. She is apparently being discharged today. Review of systems Gen.: No fever, no chills All the 14 systems reviewed except for the ones mentioned above are negative Physical examination Vitals: Patient's blood pressure, pulse rate, respiratory rate and temperature were reviewed. Blood pressure-126/60 Pulse rate-83/minute Respiratory rate-18/minute Pulse oximetry-92% on room air Constitutional: comfortable, not in pain; HEENT: Mucous membranes moist, no icterus Neck: Trachea midline, no lymphadenopathy; left IJ TDC noted Heart: Regular rate and rhythm; no murmurs Lungs: Air entry equal bilateral; no wheezes Abdomen: Soft; nontender; no guarding/tenderness/rebound Extremities: No calf tenderness; no ulcers, no bruises Neurological: Patient is awake, following commands Skin: No rash, no ulcers Psychological: Not agitated Labs and Imaging reviewed Hemoglobin/hematocrit-9.1/26.8 Medications review All medications reviewed; patient is on Entresto Assessment and plan Stage 4 chronic kidney disease Hypertension Anemia Patient tolerated hemodialysis today. Anticipate dialysis on Friday if patient stays in the hospital. Will continue to monitor blood pressure. Patient is on Entresto,amlodipine. Discussed with dialysis nurse RADHA
[2020-04-01] MEDS ORDERED: Pramipexole Di-HCl 0.125 MG TAB PO SCH (21:00)
[2020-04-01] MEDS ORDERED: busPIRone HCl 5 MG TAB PO SCH (21:00)
[2020-04-01] MEDS ORDERED: Amlodipine 10 MG TAB PO SCH (21:00)
--- NOTE | 2020-04-01 22:08 | DIS ---
DATE OF ADMISSION: 03/31/2020 DATE OF DISCHARGE: 04/01/2020 DISCHARGE DIAGNOSES: 1. Acute symptomatic anemia. 2. Pancytopenia. 3. Hypokalemia. 4. End-stage renal disease. CONSULTATIONS: Dr. Aldair Shi with Nephrology. PROCEDURES: Blood transfusion. BRIEF HISTORY OF PRESENT ILLNESS: This is a 74-year-old female with a history of diffuse large B-cell lymphoma, who recently underwent chemotherapy on 03/09, who presented to the emergency room due to increasing weakness, fatigue, chills, and malaise. The patient presented to the ER and was found to have a hemoglobin of 6.3. She was given 1 unit of PRBCs and admitted for symptomatic anemia. HOSPITAL COURSE: Pancytopenia with symptomatic anemia: Hemoglobin increased to 7. The patient had significant improvement in her weakness. She is due for chemotherapy on 04/10, therefore an additional 1 unit of PRBC was given 04/01. Hemoglobin was 9.1 at the time of discharge. She will follow up with Dr. Rubio next week. Consider additional anemia workup as an outpatient. ESRD: Nephrology was consulted on admission. The patient underwent dialysis on the day of discharge. Follow up with outpatient die engraving supervisor. DISCHARGE PHYSICAL EXAMINATION: VITAL SIGNS: Temperature 98.6, heart rate 83, respiratory rate 18, O2 saturation 95% on room air, and blood pressure 126/60. GENERAL: The patient is alert, awake, and oriented x3. She has alopecia. CVS: Regular rate and rhythm with no murmurs, rubs, or gallops. LUNGS: Clear to auscultation bilaterally. ABDOMEN: Positive bowel sounds. Soft, nontender, nondistended. EXTREMITIES: 2+ pulses radially. She has no significant edema. LABORATORY DATA: Hemoglobin: Was 6.3 on 03/31, which improved to 9.1 on 04/01. White count 03/31: 2.0. White count 04/01: 3.7. Potassium: 3.4 on 03/31, which improved to 3.6 on 04/01. Creatinine 04/01: 3.38. LFTs: Normal. Hepatitis B surface antigen 04/01: Negative. DISCHARGE CONDITION: Stable. ACTIVITY: As tolerated. DIET: Dialysis diet. DISCHARGE MEDICATIONS: All home medications were resumed. Please refer to discharge work sheet. DISCHARGE INSTRUCTIONS: The patient is to follow up with her PCP in a week and her oncologist to resume chemotherapy as scheduled. Should continue dialysis as scheduled. Job ID: [id number] MTDD
== END 2020-04-01 15:45 | disposition home or self-care (01) ==
LOC: ERS 18:33 → ONC 21:42
PROVIDERS: ADMIT Emergency Medicine; ATTEND Emergency Medicine
DX: I13.2 Hypertensive heart and chronic kidney disease with heart failure and with stage 5 chronic kidney disease, or end stage renal disease (principal); E11.22 Type 2 diabetes mellitus with diabetic chronic kidney disease; N18.6 End stage renal disease; I50.22 Chronic systolic (congestive) heart failure; D63.1 Anemia in chronic kidney disease; D61.810 Antineoplastic chemotherapy induced pancytopenia; T45.1X5A Adverse effect of antineoplastic and immunosuppressive drugs, initial encounter; C83.30 Diffuse large B-cell lymphoma, unspecified site; E87.6 Hypokalemia; E66.01 Morbid (severe) obesity due to excess calories; Z68.42 Body mass index [BMI] 45.0-49.9, adult; Z87.891 Personal history of nicotine dependence; Z79.4 Long term (current) use of insulin; Z79.899 Other long term (current) drug therapy; Z88.1 Allergy status to other antibiotic agents; Z88.2 Allergy status to sulfonamides; Z98.84 Bariatric surgery status; Z99.2 Dependence on renal dialysis
CPT/HCPCS: 36430; 80053 ×2; 85025 ×3; 85027; 86850; 86900; 86901; 86920; 87040; 87149 ×2; 87340; 99285; P9016; 36415; 90935; G0257; G0378; J1644

== ENCOUNTER 2020-04-20 14:57 | Inpatient (IN) | payer MEDICARE, BC, OTHER ==
[2020-04-20] MEDS ORDERED: Acetaminophen 500 MG TAB ONE (15:21)
[2020-04-20 15:58] LABS: Hemoglobin 7.1 g/dL (12.0-16.0); Mean Corpuscular HGB CONC 33.6 g/dL (32.0-36.0); Mean Corpuscular Volume 95.2 fL (78.0-98.0); Mean Platelet Volume 10.7 fL (7.4-10.4); Platelet Count 60 thou/uL (130-400); RBC Distribution Width 14.8 % (11.5-14.5); Red Blood Cell (RBC) Count 2.21 mill/uL (4.20-5.40); White Blood Cell (WBC) Count 2.2 thou/uL (4.8-10.8)
[2020-04-20] MEDS ORDERED: Benzonatate 100 MG CAP ONE (16:13)
[2020-04-20] MEDS ORDERED: Cefepime 2 GM VIAL ONE (16:13)
[2020-04-20] MEDS ORDERED: Ondansetron PF 4 MG/2 ML Vial ONE (16:13)
--- NOTE | 2020-04-20 16:20 | RAD ---
XR Chest 1 View Portable HISTORY: Fever COMPARISON: 03/07/2020 FINDINGS: Borderline cardiomegaly is again seen. There is mild prominence of the pulmonary vascularit y. Left-sided Mediport catheter and left sided dialysis catheter remains in place with tips in the projection of the SVC/cavoatrial junction. No lobar consolidation or pneumothoraces, or large effusio ns are seen.
[2020-04-20 16:27] LABS: Band 16 % (5-11); Differential Comment Immature Cell(s); Dohle Bodies SLIGHT; Eosinophils 11 % (0-10); Lymphocytes 24 % (21-51); MDiff Complete? YES; Monocytes 9 % (0-10); Myelocyte 1 % (0-0); Neutrophil 36 % (42-75); Platelet Morphology Comment Appears Decreased; Polychromasia SLIGHT = 2-3 cells (100X) (0-2/hpf); Reactive Lymphocytes 1 % (0-10); Reflex for Review?? YES
[2020-04-20 16:44] LABS: CKMB 0.8 ng/mL (0-6.6)
[2020-04-20] MEDS ORDERED: Vancomycin 1.5 GRAM/300 ML BAG 1.5 GM in Premix Bag 1 BAG IVPB SCH (18:00)
[2020-04-20] MEDS ORDERED: Acetaminophen 325 MG TAB PO PRN (20:39)
[2020-04-20] MEDS ORDERED: [UNRECOGNIZED DRUG - REMARK] IVPB PRN (20:39)
[2020-04-20] MEDS ORDERED: Vancomycin HCl 1 GM in Sodium Chloride 0.9% 250 ML 250 ML IVPB SCH (20:45)
[2020-04-20] MEDS ORDERED: Sodium Chloride 0.9% 1,000 ML IV SCH (20:45)
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
[2020-04-20] MEDS ORDERED: Famotidine/PF 20 mg/2ml Vial SLOW IVP SCH (21:00)
--- NOTE | 2020-04-20 21:17 | PDOC.FMACP ---
Advance Care Planning - Problem (1) Fever of unknown origin Status: Acute (2) Immunosuppression Status: Acute Code(s): D84.9 - IMMUNODEFICIENCY, UNSPECIFIED (3) Diffuse large B cell lymphoma Status: Acute Code(s): C83.30 - DIFFUSE LARGE B-CELL LYMPHOMA, UNSPECIFIED SITE (4) ESRD on dialysis Status: Chronic Code(s): N18.6 - END STAGE RENAL DISEASE; Z99.2 - DEPENDENCE ON RENAL DIALYSIS (5) Pancytopenia Status: Chronic Code(s): D61.818 - OTHER PANCYTOPENIA (6) Type 2 diabetes mellitus Status: Chronic Qualifiers: Diabetes mellitus terminal computer operator insulin use: without long-term use Diabetes mellitus complication status: with kidney complications Diabetes mellitus complication detail: with chronic kidney disease Chronic kidney disease stage: stage 4 (severe) Qualified Code(s): E11.22 - Type 2 diabetes mellitus with diabetic chronic kidney disease; N18.4 - Chronic kidney disease, stage 4 (severe) - Note Summary: Advanced Care Planning was discussed. The diagnosis, prognosis and goals of care were discussed. Patient has been written advanced directive. She wishes to be DNR. She has a documented MPOA which is her son Víctor Connor. Time Spent (mins): 16
[2020-04-20] MEDS ORDERED: Famotidine 20 MG TAB PO SCH (22:30)
[2020-04-21] MEDS ORDERED: Ondansetron ODT 8 MG TAB PO PRN (00:22)
[2020-04-21] MEDS ORDERED: traMADol HCl 50 MG TAB PO PRN (00:22)
[2020-04-21] MEDS ORDERED: Dextrose 50% Abboject 50 ML SYRINGE SLOW IVP PRN (00:25)
[2020-04-21] MEDS ORDERED: Dextrose 5% in Water 1,000 ML IV PRN (00:25)
[2020-04-21] MEDS ORDERED: Gabapentin 100 MG CAP PO SCH (01:00)
[2020-04-21] MEDS ORDERED: Sacubitril 49 MG/Valsartan 51 MG TABLET PO SCH (01:00)
[2020-04-21] MEDS ORDERED: Atorvastatin Calcium 10 MG TAB PO SCH (01:00)
[2020-04-21] MEDS ORDERED: traZODone HCl 50 MG TAB PO SCH (01:00)
[2020-04-21] MEDS ORDERED: Pramipexole Di-HCl 0.125 MG TAB PO SCH (01:00)
[2020-04-21] MEDS ORDERED: Metoprolol Tartrate 50 MG TAB PO SCH (01:00)
[2020-04-21] MEDS ORDERED: Isosorbide Dinitrate 5 MG TAB PO SCH (01:00)
[2020-04-21 05:12] LABS: Anion Gap 14 mmol/L (10-20); BUN (Urea Nitrogen) 20 mg/dL (9.8-20.1); Calc. Creatinine Clearance 40 mL/min (70-130); Calcium 8.8 mg/dL (7.8-10.44); Carbon Dioxide 27 mmol/L (23-31); Chloride 101 mmol/L (98-107); Estimated GFR-MDRD 22; Glucose 121 mg/dL (83-110); Potassium 3.3 mmol/L (3.5-5.1); Sodium 139 mmol/L (136-145)
[2020-04-21 05:30] LABS: Band 26 % (5-11); Eosinophils 2 % (0-10); Hemoglobin 6.4 g/dL (12.0-16.0); Lymphocytes 24 % (21-51); MDiff Complete? YES; Mean Corpuscular HGB CONC 32.6 g/dL (32.0-36.0); Mean Corpuscular Hemoglobin 31.8 pg (27.0-31.0); Mean Corpuscular Volume 97.7 fL (78.0-98.0); Mean Platelet Volume 10.2 fL (7.4-10.4); Metamyelocyte 2 % (0-0); Monocytes 14 % (0-10); Myelocyte 2 % (0-0); Neutrophil 30 % (42-75); Platelet Count 76 thou/uL (130-400); Platelet Morphology Comment Appears Decreased; RBC Distribution Width 15.3 % (11.5-14.5); Red Blood Cell (RBC) Count 2.02 mill/uL (4.20-5.40); White Blood Cell (WBC) Count 2.5 thou/uL (4.8-10.8)
[2020-04-21 06:19] LABS: Bacteria/HPF 1+ HPF (None Seen); Bilirubin Negative (Negative); Blood, Urine Trace (Negative); Clarity Turbid (Clear); Glucose, Urine (Dipstick) Normal (Negative); Ketone, Urine Trace mg/dL (Negative); Leukocyte 500 Leu/uL (Negative); Nitrite Negative (Negative); Protein, Urine (Dipstick) 100 mg/dL (Neg-Trace); Specific Gravity, Urine 1.021 (1.002-1.036); Urobilinogen Normal mg/dL (Less than 2); WBC/HPF Greater than 50 HPF (0-3); pH, Urine 5.5 (5.0-9.0)
[2020-04-21 06:20] LABS: Urine Culture Reflex No No
[2020-04-21] MEDS ORDERED: HOLD VANCOMYCIN FOR LEVEL >20 IVP SCH (09:00)
[2020-04-21] MEDS ORDERED: Vancomycin HCl 1.25 GM in Sodium Chloride 0.9% 250 ML 250 ML IVPB SCH (09:00)
[2020-04-21] MEDS: Sacubitril 49 MG/Valsartan 51 MG TABLET PO SCH ×2 (09:00→21:20)
[2020-04-21] MEDS ORDERED: Vancomycin HCl 750 MG in Sodium Chloride 0.9% 250 ML 250 ML IVPB SCH (09:00)
[2020-04-21] MEDS ORDERED: Vancomycin 1 GM in Premix Bag 1 BAG IVPB SCH (09:00)
[2020-04-21] MEDS: Metoprolol Tartrate 50 MG TAB PO SCH ×2 (09:00→21:20)
[2020-04-21] MEDS: Isosorbide Dinitrate 5 MG TAB PO SCH ×2 (09:00→21:15)
[2020-04-21] MEDS ORDERED: Famotidine 20 MG TAB PO SCH (09:00)
[2020-04-21] MEDS ORDERED: Heparin 10,000 UNITS/ 10 ML VIAL ONE (09:28)
[2020-04-21 09:43] LABS: Vancomycin, Random 17.9 ug/mL (See Comment)
[2020-04-21] MEDS: Sevelamer Carbonate 800 MG TAB PO SCH ×3 (09:54→21:15)
[2020-04-21] MEDS: Pramipexole Di-HCl 0.125 MG TAB PO SCH ×2 (09:57→21:20)
[2020-04-21] MEDS: Gabapentin 100 MG CAP PO SCH ×3 (09:58→21:20)
[2020-04-21] MEDS: Benzonatate 100 MG CAP PO PRN (11:19)
[2020-04-21 12:56] LABS: SARS-CoV-2 MS2 Positive; SARS-CoV-2 N Gene Negative; SARS-CoV-2 S Gene Negative; SARS-CoV-2 by NAA Not Detected (NotDetected); SARS-CoV-2 orf1ab Negative
[2020-04-21] MEDS: Ondansetron PF 4 MG/2 ML Vial IVP PRN (13:55)
--- NOTE | 2020-04-21 15:55 | PDOC.HOSPP ---
- Subjective Encounter Date: 04/21/20 Encounter Time: 15:53 Subjective: Ms. Connor was seen today in follow-up of sepsis. She notes a cough which she describes as a " chemo cough". She also notes some warmth at her AV fistula site. She also notes some pressure at the lower abdomen, and a sensation like she needs to urinate. - Objective Vital Signs & Weight: Vital Signs (12 hours) Temp Pulse Resp BP Pulse Ox 04/21/20 12:19 99.0 F 76 143/67 H 99 04/21/20 08:00 99 04/21/20 07:41 99.1 F 77 20 154/71 H 97 04/21/20 05:07 98.5 F 73 18 146/89 H 99 Weight Admit Weight 245 lb 6.4 oz Weight 244 lb 8 oz I&O: 04/20/20 04/21/20 04/22/20 06:59 06:59 06:59 Intake Total 540 Output Total 250 Balance 290 Result Diagrams: 04/21/20 03:57 04/21/20 03:57 Additional Labs: Accuchecks 04/21/20 04/20/20 11:02 20:42 POC Glucose 160 H 125 H Hospitalist ROS - Medication Medications: Active Medications Generic Name Dose Route Start Last Admin Trade Name Freq PRN Reason Stop Dose Admin Benzonatate 100 mg 04/21/20 00:22 04/21/20 11:19 Benzonatate 100 Mg Cap PO 100 mg TID PRN Administration Cough Famotidine 20 mg 04/21/20 09:00 04/21/20 09:58 Famotidine 20 Mg Tab PO 20 mg Q12HR ZANA Administration Gabapentin 100 mg 04/21/20 09:00 04/21/20 09:58 Gabapentin 100 Mg Cap PO 100 mg TID ZANA Administration Ondansetron HCl 4 mg 04/20/20 20:39 04/21/20 13:55 Ondansetron Pf 4 Mg/2 Ml Vial IVP 4 mg Q6H PRN Administration Nausea/Vomiting Pramipexole Dihydrochloride 0.125 mg 04/21/20 09:00 04/21/20 09:57 Pramipexole Di-Hcl 0.125 Mg Tab PO 0.125 mg BID ZANA Administration Sevelamer Carbonate 1,600 mg 04/21/20 09:00 04/21/20 09:54 Sevelamer Carbonate 800 Mg Tab PO 1,600 mg TID ZANA Administration Tramadol HCl 50 mg 04/21/20 00:22 04/21/20 10:09 Tramadol Hcl 50 Mg Tab PO 50 mg Q6HR PRN Administration Moderate Pain (4-6) - Exam Eye: PERRL, anicteric sclera Heart: RRR, no murmur, no gallops, no rubs, normal peripheral pulses Respiratory: CTAB, no wheezes, no rales, normal chest expansion, rhonchi (+ occasional rhonchi and upper airway noise) Gastrointestinal: soft, non-distended, normal bowel sounds, no palpable masses, no hepatomegaly, tender to palpation (+ mild lower abdominal tenderness) Extremities: no cyanosis, no edema Hosp A/P (1) Diffuse large B cell lymphoma Code(s): C83.30 - DIFFUSE LARGE B-CELL LYMPHOMA, UNSPECIFIED SITE Status: Acute (2) ESRD (end stage renal disease) Code(s): N18.6 - END STAGE RENAL DISEASE Status: Acute (3) Fever Code(s): R50.9 - FEVER, UNSPECIFIED Status: Acute (4) Diabetes mellitus Code(s): E11.9 - TYPE 2 DIABETES MELLITUS WITHOUT COMPLICATIONS Status: Chronic (5) HTN (hypertension) Code(s): I10 - ESSENTIAL (PRIMARY) HYPERTENSION Status: Chronic (6) Pancytopenia Code(s): D61.818 - OTHER PANCYTOPENIA Status: Chronic (7) UTI (urinary tract infection) Status: Acute (8) Immunosuppression Code(s): D84.9 - IMMUNODEFICIENCY, UNSPECIFIED Status: Chronic - Plan * UTI- this could be the source of the infection- will continue IV antibiotics * Consider abdominal Ultrasound to check her gallbladder ( given the nausea and vomiting) * Will consult ID- patient has a history of AV fistula infection,and is concerned this is the problem again * ESRD- continue Dialysis * HTN- blood pressure is stable * Pancytopenia- likely from Lymphoma
[2020-04-21] MEDS: Cefepime 0.5 GM in Sodium Chloride 0.9% 100 ML IVPB SCH (18:32)
[2020-04-21] MEDS: Guaifenesin DM 100-10/5 ML UDCUP PO PRN (18:32)
--- NOTE | 2020-04-21 19:18 | CON ---
DATE OF CONSULTATION: 04/21/2020 CONSULTING PHYSICIAN: Dr. Bass. REASON FOR CONSULTATION: End-stage renal disease evaluation and care. REASON FOR ADMISSION: Fatigue and fever. HISTORY OF PRESENT ILLNESS: This is a 74-year-old female with history of lymphoma, PTSD, back pain, rheumatoid arthritis, came to the hospital with fever. She just had finished her chemo last week. No chest pain or palpitation. No shortness of breath. PAST MEDICAL HISTORY: Positive for end-stage renal disease; lymphoma, on chemotherapy; PTSD; low back pain; rheumatoid arthritis; type 2 diabetes; pancytopenia; CHF; morbid obesity. PAST SURGICAL HISTORY: , hysterectomy, total knee replacement, dialysis access placement, bariatric surgery. HOME MEDICATIONS: Reviewed. ALLERGIES: TO LEVOFLOXACIN, SHELLFISH, SULFA, ZOLPIDEM. SOCIAL HISTORY: No smoking, alcohol, or illicit drugs. FAMILY HISTORY: No history of kidney disease. REVIEW OF SYSTEMS: CONSTITUTIONAL: Negative for weight loss or gain, ability to conduct usual activities. SKIN: Negative for rash, itching. EYES: Negative for double vision, pain. ENT/MOUTH: Negative for nose bleeding, neck stiffness, pain, tenderness. CARDIOVASCULAR: Negative for palpitations, dyspnea on exertion, orthopnea. RESPIRATORY: Negative for shortness of breath, wheezing, cough, hemoptysis, fever or night sweats. GASTROINTESTINAL: Negative for poor appetite, abdominal pain, heartburn, nausea, vomiting, constipation, or diarrhea. GENITOURINARY: Negative for urgency, frequency, dysuria, nocturia. MUSCULOSKELETAL: Negative for pain, swelling. NEUROLOGIC/PSYCHIATRIC: Negative for anxiety, depression. ALLERGY/IMMUNOLOGIC: Negative for skin rash, bleeding tendency. PHYSICAL EXAMINATION: GENERAL: Reveals a well-built female, in no apparent distress. VITAL SIGNS: Temperature 99.7, pulse 76, respirations 19, blood pressure 143/67. HEENT: Atraumatic, normocephalic. Oral mucosa moist. NECK: Supple. CV: S1 and S2. Rate and rhythm regular. RESPIRATORY: Clear. GI: Abdomen is soft. MUSCULOSKELETAL: No tenderness. No edema. DERMATOLOGIC: No skin rash. NEUROLOGIC: Alert and awake. PSYCHIATRIC: Normal mood and affect. LABORATORY DATA: Hemoglobin is 6.5. Potassium 3.3, BUN is 20, creatinine is 2.2. ASSESSMENT AND PLAN: 1. End-stage renal disease. Continue dialysis as tolerated. 2. Edema. 3. Hypertension. 4. Anemia. We will transfuse with dialysis today and then continue dialysis TTS. 5. History of hypertension. Plan to have 2 hours of dialysis today with blood transfusion and we will then continue dialysis on Friday, , and Friday as tolerated. Thank you for the consult. We will follow. Job ID: [id number]
[2020-04-21] MEDS: traZODone HCl 50 MG TAB PO SCH (21:20)
[2020-04-21] MEDS: Atorvastatin Calcium 10 MG TAB PO SCH (21:20)
[2020-04-21] MEDS: traMADol HCl 50 MG TAB PO PRN (21:25)
[2020-04-21] MEDS ORDERED: Vancomycin HCl 1.5 GM in Sodium Chloride 0.9% 250 ML 300 ML IVPB SCH (22:15)
[2020-04-21] MEDS: HumaLOG 300 UNITS/3 ML VIAL SC PRN (22:25)
[2020-04-22 04:59] LABS: Anion Gap 11 mmol/L (10-20); BUN (Urea Nitrogen) 17 mg/dL (9.8-20.1); Calc. Creatinine Clearance 39 mL/min (70-130); Calcium 8.7 mg/dL (7.8-10.44); Carbon Dioxide 31 mmol/L (23-31); Chloride 101 mmol/L (98-107); Estimated GFR-MDRD 21; Glucose 122 mg/dL (83-110); Potassium 3.5 mmol/L (3.5-5.1); Sodium 139 mmol/L (136-145)
[2020-04-22 05:27] LABS: Band 8 % (5-11); Elliptocytes SLIGHT = 2-5 cells (100X) (0-1/hpf); Hemoglobin 7.2 g/dL (12.0-16.0); Lymphocytes 10 % (21-51); MDiff Complete? YES; Mean Corpuscular HGB CONC 33.1 g/dL (32.0-36.0); Mean Corpuscular Hemoglobin 31.6 pg (27.0-31.0); Mean Corpuscular Volume 95.3 fL (78.0-98.0); Metamyelocyte 4 % (0-0); Monocytes 13 % (0-10); Neutrophil 65 % (42-75); Platelet Count 96 thou/uL (130-400); Platelet Morphology Comment Appears Decreased; RBC Distribution Width 15.7 % (11.5-14.5); Red Blood Cell (RBC) Count 2.27 mill/uL (4.20-5.40); White Blood Cell (WBC) Count 3.2 thou/uL (4.8-10.8)
[2020-04-22] MEDS: Sevelamer Carbonate 800 MG TAB PO SCH ×3 (08:37→16:01)
[2020-04-22] MEDS: Pramipexole Di-HCl 0.125 MG TAB PO SCH ×2 (08:41→20:00)
[2020-04-22] MEDS: Famotidine 20 MG TAB PO SCH (08:44)
[2020-04-22] MEDS: Gabapentin 100 MG CAP PO SCH ×3 (08:46→19:59)
[2020-04-22] MEDS: Guaifenesin DM 100-10/5 ML UDCUP PO PRN ×4 (09:13→20:02)
[2020-04-22] MEDS ORDERED: Heparin 10,000 UNITS/ 10 ML VIAL ONE (09:25)
--- NOTE | 2020-04-22 10:59 | PRG ---
DATE OF SERVICE: 04/22/2020 SUBJECTIVE: The patient was seen and examined at bedside and overnight events noted. The patient denies any shortness of breath or chest pain or palpitation. No history of nausea or vomiting or diarrhea or fever or chills or cramps. OBJECTIVE: GENERAL: This is an obese female, in no apparent distress. VITAL SIGNS: Temperature 99.7. Heart rate 74. Respiratory rate 20. Blood pressure 159/75. HEENT: Atraumatic, normocephalic. Oral mucosa is moist. NECK: Supple. CARDIOVASCULAR: S1, S2 heard. Rate and rhythm regular. RESPIRATORY: Clear to auscultation. GASTROINTESTINAL: Abdomen is soft. MUSCULOSKELETAL: No tenderness. No edema. DERMATOLOGIC: No skin rash. NEUROLOGIC: Alert and awake and oriented x3. No focal neurologic deficits. Moving all the extremities. PSYCHIATRIC: Mood and affect normal. LABORATORY DATA: Potassium is 3.5, BUN is 17, creatinine is 2.3. ASSESSMENT AND PLAN: 1. End-stage renal disease. Continue dialysis as tolerated. 2. Edema, controlled. 3. Hypertension. 4. Anemia, status post transfusion. Continue antibiotics. We will continue dialysis Friday, , and Friday. Status post transfusion. Monitor hemoglobin to rule out any bleeding. Job ID: [id number]
--- NOTE | 2020-04-22 11:48 | PDOC.HOSPP ---
- Subjective Encounter Date: 04/22/20 Encounter Time: 11:15 Subjective: feels better this morning ate her breakfast is getting ready for HD today - Objective Vital Signs & Weight: Vital Signs (12 hours) Temp Pulse Resp BP Pulse Ox 04/22/20 07:52 98 04/22/20 07:12 99 F 75 20 159/75 H 98 04/22/20 03:08 98.4 F 80 18 138/61 92 L 04/21/20 23:55 81 133/73 Weight Admit Weight 245 lb 6.4 oz Weight 244 lb 4.355 oz I&O: 04/21/20 04/22/20 04/23/20 06:59 06:59 06:59 Intake Total 540 1250 Output Total 250 1350 Balance 290 -100 Result Diagrams: 04/22/20 04:25 04/22/20 04:25 Additional Labs: Accuchecks 04/22/20 04/22/20 10:50 06:06 POC Glucose 154 H 119 H Hospitalist ROS - Medication Medications: Active Medications Generic Name Dose Route Start Last Admin Trade Name Freq PRN Reason Stop Dose Admin Atorvastatin Calcium 10 mg 04/21/20 21:00 04/21/20 21:20 Atorvastatin Calcium 10 Mg Tab PO 10 mg HS ZANA Administration Benzonatate 100 mg 04/21/20 00:22 04/21/20 11:19 Benzonatate 100 Mg Cap PO 100 mg TID PRN Administration Cough Famotidine 20 mg 04/22/20 09:00 04/22/20 08:44 Famotidine 20 Mg Tab PO 20 mg DAILY ZANA Administration Gabapentin 100 mg 04/21/20 09:00 04/22/20 08:46 Gabapentin 100 Mg Cap PO 100 mg TID ZANA Administration Guaifenesin/Dextromethorphan 15 ml 04/20/20 20:39 04/22/20 09:13 Guaifenesin Dm 100-10/5 Ml Udcup PO 15 ml Q4H PRN Administration Cough Cefepime HCl 0.5 gm/ Sodium 100 mls @ 200 mls/hr 04/21/20 16:00 04/21/20 18:32 Chloride IVPB 100 mls Q24HR ZANA Administration Insulin Human Lispro 0 units 04/21/20 22:02 04/21/20 22:25 Humalog 300 Units/3 Ml Vial SC 2 unit .BEDTIME SLIDING SC PRN Administration Bedtime Correctional Scale Isosorbide Dinitrate 10 mg 04/21/20 09:00 04/21/20 21:15 Isosorbide Dinitrate 5 Mg Tab PO 10 mg BID ZANA Administration Metoprolol Tartrate 50 mg 04/21/20 09:00 04/21/20 21:20 Metoprolol Tartrate 50 Mg Tab PO 50 mg BID ZANA Administration Ondansetron HCl 4 mg 04/20/20 20:39 04/21/20 13:55 Ondansetron Pf 4 Mg/2 Ml Vial IVP 4 mg Q6H PRN Administration Nausea/Vomiting Pramipexole Dihydrochloride 0.125 mg 04/21/20 09:00 04/22/20 08:41 Pramipexole Di-Hcl 0.125 Mg Tab PO 0.125 mg BID ZANA Administration Sacubitril/Valsartan 1 tab 04/21/20 09:00 04/21/20 21:20 Sacubitril 49 Mg/Valsartan 51 Mg Tablet PO 1 tab BID ZANA Administration Sevelamer Carbonate 1,600 mg 04/21/20 09:00 04/22/20 08:37 Sevelamer Carbonate 800 Mg Tab PO 1,600 mg TID ZANA Administration Tramadol HCl 50 mg 04/21/20 17:00 04/21/20 21:25 Tramadol Hcl 50 Mg Tab PO 50 mg Q12H PRN Administration Moderate Pain (4-6) Trazodone HCl 50 mg 04/21/20 21:00 04/21/20 21:20 Trazodone Hcl 50 Mg Tab PO 50 mg HS ZANA Administration - Exam General Appearance: awake alert Eye: PERRL, anicteric sclera ENT: no oropharyngeal lesions, moist mucosa Neck: supple, no JVD Heart: RRR, no murmur Respiratory: no wheezes, no rales, rhonchi Gastrointestinal: soft, non-tender, non-distended, normal bowel sounds Extremities: no cyanosis, no edema Neurological: cranial nerve grossly intact, no focal deficits Psychiatric: normal affect, A&O x 3 Hosp A/P (1) UTI (urinary tract infection) Status: Suspected Qualifiers: Urinary tract infection type: acute cystitis Hematuria presence: without hematuria Qualified Code(s): N30.00 - Acute cystitis without hematuria (2) Diffuse large B cell lymphoma Code(s): C83.30 - DIFFUSE LARGE B-CELL LYMPHOMA, UNSPECIFIED SITE Status: Chr onic Qualifiers: Lymphoma site: unspecified region Qualified Code(s): C83.30 - Diffuse large B-cell lymphoma, unspecified site (3) ESRD on hemodialysis Code(s): N18.6 - END STAGE RENAL DISEASE; Z99.2 - DEPENDENCE ON RENAL DIALYSIS Status: Chronic (4) Hyperlipidemia Code(s): E78.5 - HYPERLIPIDEMIA, UNSPECIFIED Status: Chronic Qualifiers: Hyperlipidemia type: other hyperlipidemia Qualified Code(s): E78.49 - Other hyperlipidemia; E78.4 - Other hyperlipidemia (5) Hypertension Code(s): I10 - ESSENTIAL (PRIMARY) HYPERTENSION Status: Chronic Qualifiers: Hypertension type: essential hypertension Qualified Code(s): I10 - Essential (primary) hypertension (6) Morbid obesity Code(s): E66.01 - MORBID (SEVERE) OBESITY DUE TO EXCESS CALORIES Status: [facility] (7) Pancytopenia Code(s): D61.818 - OTHER PANCYTOPENIA Status: Chronic (8) Type 2 diabetes mellitus Status: Chronic Qualifiers: Diabetes mellitus chemist physical insulin use: without chemist physical use Diabetes mellitus complication status: with kidney complications Diabetes mellitus complication detail: with chronic kidney disease Chronic kidney disease stage: on chronic dialysis Qualified Code(s): E11.22 - Type 2 diabetes mellitus with diabetic chronic kidney disease; N18.6 - End stage renal disease; Z99.2 - Dependence on renal dialysis (9) Fever Code(s): R50.9 - FEVER, UNSPECIFIED Status: Acute Qualifiers: Fever type: unspecified Qualified Code(s): R50.9 - Fever, unspecified - Plan is on cefepime and vanc with HD blood cs are -ve so far, ID consult is getting her HD today continue lopressor, entresto, renvela, lipitor, gabapentin and mirapex last ef was 55% likely is on R-CHOP regimen with neupogen ? for diffuse large B cell lymphoma diagnosed in December of this yr per patient got 1 u prbc 04/21 to amb with walker in the room and hallway as tolerated
[2020-04-22] MEDS: Isosorbide Dinitrate 5 MG TAB PO SCH ×2 (13:26→20:00)
[2020-04-22] MEDS: Metoprolol Tartrate 50 MG TAB PO SCH ×2 (13:26→20:00)
[2020-04-22] MEDS: Sacubitril 49 MG/Valsartan 51 MG TABLET PO SCH ×2 (13:26→20:01)
[2020-04-22] MEDS: HumaLOG 300 UNITS/3 ML VIAL SC PRN ×2 (13:28→21:34)
[2020-04-22] MEDS: Cefepime 0.5 GM in Sodium Chloride 0.9% 100 ML IVPB SCH (15:04)
[2020-04-22] MEDS: Ondansetron PF 4 MG/2 ML Vial IVP PRN (15:08)
[2020-04-22 18:18] LABS: SARS-CoV-2 NAA Rapid Test Not Detected (NotDetected)
[2020-04-22] MEDS: Atorvastatin Calcium 10 MG TAB PO SCH (19:59)
[2020-04-22] MEDS: traZODone HCl 50 MG TAB PO SCH (20:01)
[2020-04-22] MEDS: traMADol HCl 50 MG TAB PO PRN (20:01)
[2020-04-22] MEDS: Benzonatate 100 MG CAP PO PRN (20:02)
[2020-04-22] MEDS ORDERED: Cepastat Lozenges 1 LOZ PO PRN (22:16)
[2020-04-22] MEDS ORDERED: Aluminum & Magnesium Hydroxide 60 ML, diphenhydrAMINE 150 MG, Lidocaine 2% Viscous Solu... SSW PRN (22:17)
[2020-04-23] MEDS: Gabapentin 100 MG CAP PO SCH ×3 (08:30→20:14)
[2020-04-23] MEDS: Sevelamer Carbonate 800 MG TAB PO SCH ×3 (08:30→16:53)
[2020-04-23] MEDS: Metoprolol Tartrate 50 MG TAB PO SCH ×2 (08:30→20:15)
[2020-04-23] MEDS: Pramipexole Di-HCl 0.125 MG TAB PO SCH ×2 (08:30→20:15)
[2020-04-23] MEDS: Famotidine 20 MG TAB PO SCH (08:30)
[2020-04-23] MEDS: Ondansetron PF 4 MG/2 ML Vial IVP PRN ×2 (08:40→18:37)
--- NOTE | 2020-04-23 09:12 | CON ---
DATE OF CONSULTATION: REASON FOR CONSULTATION: Neutropenia, fever. HISTORY OF PRESENT ILLNESS: A 74-year-old whom I saw earlier this year in January when she presented with a history of type 2 diabetes, CKD stage 5, bariatric sleeve gastrectomy, history of rheumatoid arthritis, and a recent diagnosis of large cell lymphoma, on chemotherapy. She had a left arm inflammatory process following AV fistula surgery and the blood cultures were negative, but the culture in the arm showed Proteus mirabilis and MRSA, so she was treated accordingly, and the inflammatory process has completely resolved. She still has a tunneled catheter for hemodialysis in the left IJ location and she still has a port there as well for the chemotherapy. She was admitted twice since January this year for complications of chemotherapy, particularly neutropenia, and now she presents with weakness, nausea, cough for the past few days, which is a dry cough mostly, some dyspnea. Initial findings included BP 150/62, heart rate 117, breathing 32 times a minute, temperature 101, saturating 87% on room air, then 95% and then 100% on 2 L nasal cannula. Other findings on admission; white cell count 2.2, hemoglobin 7.1 with about 36% neutrophils, 16% bands, and creatinine 2.22, which is actually the best creatinine she has had in a while. Urinalysis with greater than 50 wbc's, but she did not have dysuria. SARS-CoV was done on April 20, which was not detected. Right now, she is still having persistent coughing spells and she is saturating ranging from 92% to 98% on room air. She had a chest x-ray on the , which showed borderline cardiomegaly, prominence of pulmonary vascularity and the lines in place. No consolidation noted. She had a PET from February, which showed marked response to chemotherapy with reduction in the areas of lymphadenopathy. No headaches. No abdominal pain or diarrhea. Voiding without difficulty at bedside commode. She appears chronically ill, but pleasant. PAST MEDICAL HISTORY: Includes type 2 diabetes; end-stage renal disease, on hemodialysis with tunneled catheter; a recent inflammatory process of the left AV fistula, which was treated with antimicrobial therapy and resolution of the inflammatory process. 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 History of rheumatoid arthritis, venous insufficiency, stasis dermatitis, hysterectomy, bariatric surgery, sleeve gastrectomy, TKR, large cell lymphoma after left neck lymph node biopsy. FAMILY HISTORY: Noncontributory. SOCIAL HISTORY: Former smoker. CURRENT MEDICATION LIST: Includes: 1. Lipitor. 2. Tessalon. 3. Cefepime. 4. Pepcid. 5. Neurontin. 6. Insulin. 7. Isordil. 8. Lopressor. 9. Zofran. 10. Vancomycin. 11. Sliding scale. PHYSICAL EXAMINATION: VITAL SIGNS: T-max just recently 100.4, BP 160/77, heart rate 88, respiratory rate 22, O2 saturation 96%. GENERAL: She has alopecia. She has a tunneled catheter in the left IJ position with no inflammatory changes. She has the port in the left IJ position with no inflammatory changes either and she is voiding at the bedside commode. HEENT: Ocular movements are conjugate. Oral cavity is normal. LUNGS: Symmetric air entry. Faint crackles at the bases. HEART: S1 and S2. Regular rate. No S3 or S4. ABDOMEN: Soft, not distended or tender. No ascites. No bladder distention. EXTREMITIES: No joint inflammatory activity. Pulses 1+ in dorsalis pedis. Trace edema in lower extremities. Moves all extremities equally. NEUROLOGIC: Cognitive function is normal. Speech and orientation normal. LABORATORY DATA: White cell count is 3.2, hemoglobin 7.2, platelet count 96, 65% neutrophils and 10% lymphocytes, and the other findings have been discussed. MICROBIOLOGY: Two sets of blood culture, no growth from the . ASSESSMENT: 1. Type 2 diabetes; end-stage renal disease, on hemodialysis with tunneled catheter; recent episode of inflammatory change in January of the arteriovenous fistula, which has resolved completely. Hopefully, she will be able to start arteriovenous fistula use for hemodialysis soon, so we can remove the catheter. 2. Large cell lymphoma, on chemotherapy with episodes of neutropenia, which had led to admission in the past. 3. New onset of fever with cough, general malaise, hypoxemia with one SARS-CoV negative. DISCUSSION: The differential diagnosis includes a bacterial infection, a fungal infection, Pneumocystis, or SARS-CoV-2 infection. In a time of high prevalence of SARS-CoV-2 activity in the community in the face of at least an intermediate to high probability of SARS-CoV-2 infection, one negative test does not rule out that problem and we will have to repeat the test. We will send an antibody level as well. Continue antimicrobial therapy. Submit Dorian, CMV assay in view of her immunosuppression. Job ID: [id number] [facility]ENTER[facility]itch
[2020-04-23] MEDS: Sacubitril 49 MG/Valsartan 51 MG TABLET PO SCH ×2 (09:52→20:15)
[2020-04-23] MEDS: Isosorbide Dinitrate 5 MG TAB PO SCH ×2 (09:52→20:15)
--- NOTE | 2020-04-23 11:15 | PDOC.HOSPP ---
- Subjective Encounter Date: 04/23/20 Encounter Time: 11:00 Subjective: still has cough with expectoration is able to ambulate a bit in the room - Objective Vital Signs & Weight: Vital Signs (12 hours) Temp Pulse Resp BP BP Pulse Ox 04/23/20 08:00 99.8 F H 84 20 174/85 H 90 L 04/23/20 04:00 99.3 F 97 20 132/78 93 L 04/23/20 00:00 99.4 F 97 22 H 162/79 H 94 L Weight Admit Weight 245 lb 6.4 oz Weight 244 lb 4.355 oz I&O: 04/22/20 04/23/20 04/24/20 06:59 06:59 06:59 Intake Total 1250 1800 Output Total 1350 1800 Balance -100 0 Result Diagrams: 04/22/20 04:25 04/22/20 04:25 Additional Labs: Accuchecks 04/23/20 04/23/20 04/22/20 10:43 05:48 20:37 POC Glucose 214 H 127 H 223 H 04/22/20 16:25 POC Glucose 172 H Hospitalist ROS - Medication Medications: Active Medications Generic Name Dose Route Start Last Admin Trade Name Freq PRN Reason Stop Dose Admin Atorvastatin Calcium 10 mg 04/21/20 21:00 04/22/20 19:59 Atorvastatin Calcium 10 Mg Tab PO 10 mg HS ZANA Administration Benzonatate 100 mg 04/21/20 00:22 04/22/20 20:02 Benzonatate 100 Mg Cap PO 100 mg TID PRN Administration Cough Al Hydroxide/Mg Hydroxide 60 0 ml 04/22/20 22:17 04/22/20 22:55 ml/ Diphenhydramine HCl 150 mg SSW 10 ml / Lidocaine HCl 60 ml/ PRN PRN Administration Nystatin 6,000,000 units Mouth Irritation Famotidine 20 mg 04/22/20 09:00 04/23/20 08:30 Famotidine 20 Mg Tab PO 20 mg DAILY ZANA Administration Gabapentin 100 mg 04/21/20 09:00 04/23/20 08:30 Gabapentin 100 Mg Cap PO 100 mg TID ZANA Administration Guaifenesin/Dextromethorphan 15 ml 04/20/20 20:39 04/22/20 20:02 Guaifenesin Dm 100-10/5 Ml Udcup PO 15 ml Q4H PRN Administration Cough Cefepime HCl 0.5 gm/ Sodium 100 mls @ 200 mls/hr 04/21/20 16:00 04/22/20 15:04 Chloride IVPB 100 mls Q24HR ZANA Administration Insulin Human Lispro 0 units 04/21/20 00:25 04/22/20 13:28 Humalog 300 Units/3 Ml Vial SC 2 unit .MODERATE SLIDING SC PRN Administration Moderate Correctional Scale Insulin Human Lispro 0 units 04/21/20 22:02 04/22/20 21:34 Humalog 300 Units/3 Ml Vial SC 2 unit .BEDTIME SLIDING SC PRN Administration Bedtime Correctional Scale Isosorbide Dinitrate 10 mg 04/21/20 09:00 04/23/20 09:52 Isosorbide Dinitrate 5 Mg Tab PO 10 mg BID ZANA Administration Metoprolol Tartrate 50 mg 04/21/20 09:00 04/23/20 08:30 Metoprolol Tartrate 50 Mg Tab PO 50 mg BID ZANA Administration Ondansetron HCl 4 mg 04/20/20 20:39 04/23/20 08:40 Ondansetron Pf 4 Mg/2 Ml Vial IVP 4 mg Q6H PRN Administration Nausea/Vomiting Pramipexole Dihydrochloride 0.125 mg 04/21/20 09:00 04/23/20 08:30 Pramipexole Di-Hcl 0.125 Mg Tab PO 0.125 mg BID ZANA Administration Sacubitril/Valsartan 1 tab 04/21/20 09:00 04/23/20 09:52 Sacubitril 49 Mg/Valsartan 51 Mg Tablet PO 1 tab BID ZANA Administration Sevelamer Carbonate 1,600 mg 04/22/20 17:00 04/23/20 08:30 Sevelamer Carbonate 800 Mg Tab PO 1,600 mg TID-WM ZANA Administration Throat Lozenges 1 anson 04/22/20 22:16 04/22/20 22:55 Cepastat Lozenges 1 Anson PO 1 anson Q2H PRN Administration Sore Throat Tramadol HCl 50 mg 04/21/20 17:00 04/22/20 20:01 Tramadol Hcl 50 Mg Tab PO 50 mg Q12H PRN Administration Moderate Pain (4-6) Trazodone HCl 50 mg 04/21/20 21:00 04/22/20 20:01 Trazodone Hcl 50 Mg Tab PO 50 mg HS ZANA Administration - Exam General Appearance: awake alert Eye: PERRL, anicteric sclera ENT: no oropharyngeal lesions, moist mucosa Neck: supple, no JVD Heart: RRR, no murmur Respiratory: no wheezes, no rales, rhonchi Gastrointestinal: soft, non-tender, non-distended, normal bowel sounds Extremities: no cyanosis, 1+ LE edema Neurological: cranial nerve grossly intact, no focal deficits Psychiatric: normal affect, A&O x 3 Hosp A/P (1) UTI (urinary tract infection) Status: Suspected Qualifiers: Urinary tract infection type: acute cystitis Hematuria presence: without hematuria Qualified Code(s): N30.00 - Acute cystitis without hematuria (2) Diffuse large B cell lymphoma Code(s): C83.30 - DIFFUSE LARGE B-CELL LYMPHOMA, UNSPECIFIED SITE Status: Chronic Qualifiers: Lymphoma site: unspecified region Qualified Code(s): C83.30 - Diffuse large B-cell lymphoma, unspecified site (3) ESRD on hemodialysis Code(s): N18.6 - END STAGE RENAL DISEASE; Z99.2 - DEPENDENCE ON RENAL DIALYSIS Status: Chronic (4) Hyperlipidemia Code(s): E78.5 - HYPERLIPIDEMIA, UNSPECIFIED Status: Chronic Qualifiers: Hyperlipidemia type: other hyperlipidemia Qualified Code(s): E78.49 - Other hyperlipidemia; E78.4 - Other hyperlipidemia (5) Hypertension Code(s): I10 - ESSENTIAL (PRIMARY) HYPERTENSION Status: Chronic Qualifiers: Hypertension type: essential hypertension Qualified Code(s): I10 - Essential (primary) hypertension (6) Morbid obesity Code(s): E66.01 - MORBID (SEVERE) OBESITY DUE TO EXCESS CALORIES Status: Chronic (7) Pancytopenia Code(s): D61.818 - OTHER PANCYTOPENIA Status: Chronic (8) Type 2 diabetes mellitus Status: Chronic Qualifiers: Diabetes mellitus prison insulin use: without prison use Diabetes mellitus complication status: with kidney complications Diabetes mellitus complication detail: with chronic kidney disease Chronic kidney disease stage: on chronic dialysis Qualified Code(s): E11.22 - Type 2 diabetes mellitus with diabetic chronic kidney disease; N18.6 - End stage renal disease; Z99.2 - Dependence on renal dialysis (9) Fever Code(s): R50.9 - FEVER, UNSPECIFIED Status: Acute Qualifiers: Fever type: unspecified Qualified Code(s): R50.9 - Fever, unspecified - Plan is on cefepime and vanc with HD, tmax of 99 last 24 hrs blood cs are -ve so far, covid 19 pcr x2 is -ve, will repeat cxr, fungitell and cmv pcr is ordered by had HD yesterday continue lopressor, entresto, renvela, lipitor, gabapentin and mirapex last ef was 55% likely is on R-CHOP regimen with neupogen ? for diffuse large B cell lymphoma diagnosed in December of this yr per patient got 1 u prbc 04/21 to amb with walker in the room and hallway as tolerated
[2020-04-23] MEDS: Guaifenesin DM 100-10/5 ML UDCUP PO PRN ×2 (11:40→15:48)
[2020-04-23] MEDS: Benzonatate 100 MG CAP PO PRN (11:40)
[2020-04-23] MEDS: HumaLOG 300 UNITS/3 ML VIAL SC PRN ×2 (11:52→17:54)
--- NOTE | 2020-04-23 14:14 | PRG ---
DATE OF SERVICE: 04/23/2020 SUBJECTIVE: Patient was seen and examined at bedside and overnight events noted. Patient denies any shortness of breath or chest pain or palpitation. No history of nausea or vomiting or diarrhea or fever or chills or cramps. OBJECTIVE: GENERAL: This is well-built female, in no apparent distress. VITAL SIGNS: Temperature 99.3. Heart Rate 97. Respiratory rate 20. Blood pressure 132/70. HEENT: Atraumatic, normocephalic. Oral mucosa is moist. NECK: Supple. CARDIOVASCULAR: S1, S2 heard. Rate and rhythm regular. RESPIRATORY: Clear to auscultation. GASTROINTESTINAL: Abdomen is soft. MUSCULOSKELETAL: No tenderness. No edema. DERMATOLOGIC: No skin rash. NEUROLOGIC: Alert and awake and oriented x3. No focal neurologic deficits. Moving all the extremities. PSYCHIATRIC: Mood and affect normal. LABORATORY DATA: Not done today. ASSESSMENT AND PLAN: 1. End-stage renal disease. Continue dialysis as tolerated. 2. Edema. 3. Hypertension. 4. Anemia, status post transfusion. Continue dialysis Friday, , and Friday as tolerated. Job ID: [id number]
[2020-04-23 14:19] LABS: SARS-CoV-2 IgG Ab Non-Reactive (NonReactive); SARS-CoV-2 IgG Index 0.03 S/CO (< 1.40)
--- NOTE | 2020-04-23 14:23 | RAD ---
PORTABLE CHEST: Date: 04-23-2020 PROVIDED CLINICAL HISTORY: Fever and cough FINDINGS: Comparison 04-20-2020. The cardiac silhouette remains enlarged. Left IJ dialysis catheter and left IJ implanted recorded red emonstrated in similar position. Prominence of the pulmonary vasculature and pulmonary interstitium. No lobar consolidation, pleural fluid, or pneumothorax apparent. IMPRESSION: No evidence for lobar consolidation. POS: JUAN
[2020-04-23] MEDS: Cefepime 0.5 GM in Sodium Chloride 0.9% 100 ML IVPB SCH (15:45)
[2020-04-23] MEDS: Atorvastatin Calcium 10 MG TAB PO SCH (20:15)
[2020-04-23] MEDS: traZODone HCl 50 MG TAB PO SCH (20:15)
[2020-04-24] MEDS: traMADol HCl 50 MG TAB PO PRN (02:45)
[2020-04-24] MEDS: Benzonatate 100 MG CAP PO PRN ×2 (02:47→08:25)
[2020-04-24 06:52] LABS: Hemoglobin 7.2 g/dL (12.0-16.0); Mean Corpuscular HGB CONC 32.3 g/dL (32.0-36.0); Mean Corpuscular Hemoglobin 31.3 pg (27.0-31.0); Mean Platelet Volume 7.7 fL (7.4-10.4); Platelet Count 178 thou/uL (130-400); RBC Distribution Width 15.1 % (11.5-14.5); White Blood Cell (WBC) Count 4.8 thou/uL (4.8-10.8)
[2020-04-24 07:14] LABS: ALT (SGPT) 8 U/L (8-55); AST (SGOT) 7 U/L (5-34); Albumin 3.1 g/dL (3.4-4.8); Alkaline Phosphatase 85 U/L (40-110); Anion Gap 11 mmol/L (10-20); BUN (Urea Nitrogen) 24 mg/dL (9.8-20.1); Bilirubin, Total 0.4 mg/dL (0.2-1.2); Calc. Creatinine Clearance 30 mL/min (70-130); Calcium 9.2 mg/dL (7.8-10.44); Carbon Dioxide 29 mmol/L (23-31); Chloride 99 mmol/L (98-107); Estimated GFR-MDRD 16; Globulin 2.7 g/dL (2.4-3.5); Glucose 151 mg/dL (83-110); Potassium 3.5 mmol/L (3.5-5.1); Protein, Total 5.8 g/dL (6.0-8.3); Sodium 135 mmol/L (136-145)
[2020-04-24] MEDS ORDERED: Sodium Chloride 0.9% 1,000 ML IV SCH (07:30)
[2020-04-24 08:08] LABS: Band 19 % (5-11); Eosinophils 3 % (0-10); Lymphocytes 6 % (21-51); MDiff Complete? YES; Metamyelocyte 2 % (0-0); Monocytes 25 % (0-10); Neutrophil 44 % (42-75); Platelet Morphology Comment Appears Adequate; Polychromasia SLIGHT = 2-3 cells (100X) (0-2/hpf)
[2020-04-24] MEDS: Sevelamer Carbonate 800 MG TAB PO SCH ×3 (08:23→16:30)
[2020-04-24] MEDS: Famotidine 20 MG TAB PO SCH (08:24)
[2020-04-24] MEDS: Metoprolol Tartrate 50 MG TAB PO SCH ×2 (08:24→20:19)
[2020-04-24] MEDS: Isosorbide Dinitrate 5 MG TAB PO SCH ×2 (08:24→20:19)
[2020-04-24] MEDS: Gabapentin 100 MG CAP PO SCH ×3 (08:24→20:19)
[2020-04-24] MEDS: Pramipexole Di-HCl 0.125 MG TAB PO SCH ×2 (08:24→20:19)
[2020-04-24] MEDS: Guaifenesin DM 100-10/5 ML UDCUP PO PRN ×3 (09:14→23:40)
--- NOTE | 2020-04-24 10:33 | PRG ---
DATE OF SERVICE: 04/24/2020 SUBJECTIVE: A female, being seen for end-stage kidney disease. The patient denies any nausea, vomiting, or chest pain. PHYSICAL EXAMINATION: General: The patient is awake and alert. Vital Signs: Afebrile, pulse 75, breathing at 16, blood pressure 160/78. HEENT: Head normocephalic and atraumatic. Eyes intact, no ulcers. Nose intact, no ulcers. Ears intact, no ulcers. Neck: Supple. No JVD. Chest: Symmetrical and clear. Cardiovascular: Shows S1 and S2, no rub, no murmur. Gastrointestinal: Abdomen is soft, bowel sounds positive. Extremities: Show no edema or ulcers. Skin: Shows no rash or petechiae. Musculoskeletal: Shows no joint swelling or stiffness. Genitourinary: Shows no Sanchez or CVA tenderness. Neurologic: Motor intact. Cranial nerves intact. LABORATORY DATA: Labs reviewed. ASSESSMENT AND PLAN: 1. Stage 6 chronic kidney disease, plan dialysis. 2. Anemia, plan transfusion. 3. Hypertension, plan ultrafiltration. 4. Medication based on GFR appropriate. Job ID: [id number]
[2020-04-24] MEDS: HumaLOG 300 UNITS/3 ML VIAL SC PRN ×2 (11:30→16:30)
[2020-04-24 12:32] VITALS: BMI 44.6
--- NOTE | 2020-04-24 13:18 | PDOC.HOSPP ---
- Subjective Encounter Date: 04/24/20 Encounter Time: 11:00 Subjective: c/o dry coughing spells, unable to talk without coughing no sputum now - Objective Vital Signs & Weight: Vital Signs (12 hours) Temp Pulse Resp BP Pulse Ox 04/24/20 12:19 76 16 100 04/24/20 08:00 98.5 F 107 H 18 160/78 H 94 L Weight Admit Weight 245 lb 6.4 oz Weight 244 lb 4.355 oz I&O: 04/23/20 04/24/20 04/25/20 06:59 06:59 06:59 Intake Total 1800 2000 Output Total 1800 Balance 0 1999 Result Diagrams: 04/24/20 06:26 04/24/20 06:26 Additional Labs: Accuchecks 04/24/20 04/23/20 04/23/20 11:13 21:19 16:35 POC Glucose 175 H 205 H 163 H 04/21/20 20:02 POC Glucose 220 H Hospitalist ROS - Medication Medications: Active Medications Generic Name Dose Route Start Last Admin Trade Name Freq PRN Reason Stop Dose Admin Albuterol/Ipratropium 3 ml 04/24/20 11:00 04/24/20 12:19 Ipratropium/Albuterol Sulfate 3 Ml Neb NEB 3 ml QID-RT ZANA Administration Atorvastatin Calcium 10 mg 04/21/20 21:00 04/23/20 20:15 Atorvastatin Calcium 10 Mg Tab PO 10 mg HS ZANA Administration Al Hydroxide/Mg Hydroxide 60 0 ml 04/22/20 22:17 04/22/20 22:55 ml/ Diphenhydramine HCl 150 mg SSW 10 ml / Lidocaine HCl 60 ml/ PRN PRN Administration Nystatin 6,000,000 units Mouth Irritation Famotidine 20 mg 04/22/20 09:00 04/24/20 08:24 Famotidine 20 Mg Tab PO 20 mg DAILY ZANA Administration Gabapentin 100 mg 04/21/20 09:00 04/24/20 08:24 Gabapentin 100 Mg Cap PO 100 mg TID ZANA Administration Guaifenesin/Dextromethorphan 15 ml 04/20/20 20:39 04/24/20 09:14 Guaifenesin Dm 100-10/5 Ml Udcup PO 15 ml Q4H PRN Administration Cough Insulin Human Lispro 0 units 04/21/20 00:25 04/24/20 11:30 Humalog 300 Units/3 Ml Vial SC 2 unit .MODERATE SLIDING SC PRN Administration Moderate Correctional Scale Insulin Human Lispro 0 units 04/21/20 22:02 04/22/20 21:34 Humalog 300 Units/3 Ml Vial SC 2 unit .BEDTIME SLIDING SC PRN Administration Bedtime Correctional Scale Isosorbide Dinitrate 10 mg 04/21/20 09:00 04/24/20 08:24 Isosorbide Dinitrate 5 Mg Tab PO 10 mg BID ZANA Administration Metoprolol Tartrate 50 mg 04/21/20 09:00 04/24/20 08:24 Metoprolol Tartrate 50 Mg Tab PO 50 mg BID ZANA Administration Ondansetron HCl 4 mg 04/20/20 20:39 04/23/20 18:37 Ondansetron Pf 4 Mg/2 Ml Vial IVP 4 mg Q6H PRN Administration Nausea/Vomiting Pramipexole Dihydrochloride 0.125 mg 04/21/20 09:00 04/24/20 08:24 Pramipexole Di-Hcl 0.125 Mg Tab PO 0.125 mg BID ZANA Administration Sevelamer Carbonate 1,600 mg 04/22/20 17:00 04/24/20 11:31 Sevelamer Carbonate 800 Mg Tab PO 1,600 mg TID-WM ZANA Administration Throat Lozenges 1 anson 04/22/20 22:16 04/22/20 22:55 Cepastat Lozenges 1 Anson PO 1 anson Q2H PRN Administration Sore Throat Tramadol HCl 50 mg 04/21/20 17:00 04/24/20 02:45 Tramadol Hcl 50 Mg Tab PO 50 mg Q12H PRN Administration Moderate Pain (4-6) Trazodone HCl 50 mg 04/21/20 21:00 04/23/20 20:15 Trazodone Hcl 50 Mg Tab PO 50 mg HS ZANA Administration - Exam General Appearance: awake alert Eye: PERRL, anicteric sclera ENT: no oropharyngeal lesions, moist mucosa Neck: supple, no JVD Heart: RRR, no murmur Respiratory: no wheezes, no rales, rhonchi Gastrointestinal: soft, non-tender, non-distended, normal bowel sounds Extremities: no cyanosis, no edema Neurological: cranial nerve grossly intact, no focal deficits Psychiatric: normal affect, A&O x 3 Hosp A/P (1) UTI (urinary tract infection) Status: Suspected Qualifiers: Urinary tract infection type: acute cystitis Hematuria presence: without hematuria Qualified Code(s): N30.00 - Acute cystitis without hematuria (2) Diffuse large B cell lymphoma Code(s): C83.30 - DIFFUSE LARGE B-CELL LYMPHOMA, UNSPECIFIED SITE Status: Chronic Qualifiers: Lymphoma site: unspecified region Qualified Code(s): C83.30 - Diffuse large B-cell lymphoma, unspecified site (3) ESRD on hemodialysis Code(s): N18.6 - END STAGE RENAL DISEASE; Z99.2 - DEPENDENCE ON RENAL DIALYSIS Status: Chronic (4) Hyperlipidemia Code(s): E78.5 - HYPERLIPIDEMIA, UNSPECIFIED Status: Chronic Qualifiers: Hyperlipidemia type: other hyperlipidemia Qualified Code(s): E78.49 - Other hyperlipidemia; E78.4 - Other hyperlipidemia (5) Hypertension Code(s): I10 - ESSENTIAL (PRIMARY) HYPERTENSION Status: Chronic Qualifiers: Hypertension type: essential hypertension Qualified Code(s): I10 - Essential (primary) hypertension (6) Morbid obesity Code(s): E66.01 - MORBID (SEVERE) OBESITY DUE TO EXCESS CALORIES Status: Chronic (7) Pancytopenia Code(s): D61.818 - OTHER PANCYTOPENIA Status: Chronic (8) Type 2 diabetes mellitus Status: Chronic Qualifiers: Diabetes mellitus intermodal customer service insulin use: without intermodal customer service use Diabetes mellitus complication status: with kidney complications Diabetes mellitus complication detail: with chronic kidney disease Chronic kidney disease stage: on chronic dialysis Qualified Code(s): E11.22 - Type 2 diabetes mellitus with diabetic chronic kidney disease; N18.6 - End stage renal disease; Z99.2 - Dependence on renal dialysis (9) Fever Code(s): R50.9 - FEVER, UNSPECIFIED Status: Acute Qualifiers: Fever type: unspecified Qualified Code(s): R50.9 - Fever, unspecified - Plan off antibiotics, tmax of 99 last 24 hrs add mucinex and tessalon, needs volume removal with HD as tolerated. blood cs are -ve so far, covid 19 pcr x2 is -ve, repeat cxr shows no infiltrated, fungitell and cmv pcr is ordered by For HD today continue lopressor, renvela, lipitor, gabapentin and mirapex last ef was 55%, will dc entresto likely is on R-CHOP regimen with neupogen ? for diffuse large B cell lymphoma diagnosed in December of this yr per patient got 1 u prbc 04/21 to amb with walker in the room and hallway as tolerated dc plan when cough is better
[2020-04-24] MEDS: Benzonatate 100 MG CAP PO SCH ×2 (14:18→20:19)
[2020-04-24] MEDS: traZODone HCl 50 MG TAB PO SCH (20:19)
[2020-04-24] MEDS: guaiFENesin ER 600 MG TAB PO SCH (20:19)
[2020-04-24] MEDS: Atorvastatin Calcium 10 MG TAB PO SCH (20:19)
[2020-04-24] MEDS ORDERED: Montelukast Sodium 10 mg Tablet PO SCH (23:59)
[2020-04-25] MEDS: Guaifenesin DM 100-10/5 ML UDCUP PO PRN ×3 (04:08→17:17)
[2020-04-25] MEDS: Sevelamer Carbonate 800 MG TAB PO SCH ×3 (08:10→17:19)
[2020-04-25] MEDS: guaiFENesin ER 600 MG TAB PO SCH ×2 (08:10→20:21)
[2020-04-25] MEDS: Gabapentin 100 MG CAP PO SCH ×3 (08:10→20:21)
[2020-04-25] MEDS: Famotidine 20 MG TAB PO SCH (08:10)
[2020-04-25] MEDS: Benzonatate 100 MG CAP PO SCH ×3 (08:11→20:21)
[2020-04-25] MEDS: Metoprolol Tartrate 50 MG TAB PO SCH ×3 (08:12→20:31)
[2020-04-25] MEDS: Isosorbide Dinitrate 5 MG TAB PO SCH ×3 (08:12→20:20)
[2020-04-25] MEDS: Pramipexole Di-HCl 0.125 MG TAB PO SCH ×2 (08:12→20:21)
--- NOTE | 2020-04-25 10:01 | PRG ---
DATE OF SERVICE: 04/25/2020 SUBJECTIVE: A 74-year-old female being seen for end-stage renal disease. The patient denies any nausea, vomiting, or chest pain. PHYSICAL EXAMINATION: General: The patient is awake and alert. Vital Signs: Afebrile, pulse 88, breathing at 16, blood pressure 151/70. HEENT: Head normocephalic and atraumatic. Eyes intact, no ulcers. Nose intact, no ulcers. Ears intact, no ulcers. Neck: Supple. No JVD. Chest: Symmetrical and clear. Cardiovascular: Shows S1 and S2, no rub, no murmur. Gastrointestinal: Abdomen is soft, bowel sounds positive. Extremities: Show no edema or ulcers. Skin: Shows no rash or petechiae. Musculoskeletal: Shows no joint swelling or stiffness. Genitourinary: Shows no Sanchez or CVA tenderness. Neurologic: Motor intact. Cranial nerves intact. LABORATORY DATA: Labs reviewed. ASSESSMENT AND PLAN: 1. Stage 6 chronic kidney disease, plan dialysis. 2. Anemia, plan transfusion. 3. Hypertension, stable. 4. Medication based on GFR appropriate. Job ID: [id number]
[2020-04-25] MEDS ORDERED: Heparin 10,000 UNITS/ 10 ML VIAL ONE (10:35)
--- NOTE | 2020-04-25 15:01 | PQF ---
CLINICAL DOCUMENTATION CLARIFICATION FORM: Dear Dr. Amado Date: 04/25/2020 Please exercise your independent, professional judgment in responding to the clarification form. Clinical indicators are provided on the bottom of this form for your review. Please check appropriate box(es) to clarify if the following diagnosis has been ruled in our ruled out: SEPSIS [ x ] Ruled in diagnosis [ ] Continue to treat [ x ] Resolved [ ] Ruled out diagnosis [ ] Cannot rule out diagnosis [ ] Other diagnosis [ ] Unable to determine In addition, please specify: Present on Admission (POA): [ x] Yes [ ] No [ ] Unable to determine For continuity of documentation, please document condition throughout progress notes and discharge summary. Thank You. CLINICAL INDICATORS - SIGNS / SYMPTOMS / LABS / RESULTS AND LOCATION IN EMR *ED 04/20: * Vital Signs: O2 Sat 87-95% RA to 100% on 2L Oxygen RR 17-32 Pulse 81-121 Temp (max) 101.0 (oral) * EKG Sinus tachycardia * Sepsis * Neutropenic fever *LAB (EMR): WBC Band Neuts % Lactic Acid 04/20 2.2 16 1.4 04/21 2.5 26 04/22 3.2 8 04/24 4.8 19 *H&P 04/20 (Kali): * Obtain UA * Blood culture from the dialysis catheter if peripheral blood cultures comes back positive. *PN 04/21 (Art): * Seen today in follow-up of sepsis. * UTI- this could be the source of the infection will continue IV antibiotics * Will consult ID-patient has a history AV fistula infection, and is concerned this is the problem again. *Microbiology (EMR): Blood Culture Collected 04/20 1539 Preliminary No growth at 48 hours *Consultation 04/23 (Paolo): * Recent episode of inflammatory change in January of the arteriovenous fistula, which has resolved completely. * The differential diagnosis includes a bacterial infection, fungal infection, Pneumocystis, or SARS-CoV-2 infection. *PN 04/23 (Aneudy): covid 19 pcr x2 is -ve *PN 04/24 (Aneudy): Off antibiotics, tmax of 99 last 24 hrs. RISK FACTORS / RESULTS AND LOCATION IN EMR *ED 04/20: On chemo currently. *H&P 04/20 (Baidoo): * 74-year-old * Diffuse B-cell lymphoma on ongoing chemotherapy * .. Hemodialysis via temporary catheter, there is concern for bloodstream infection in the context of immunosuppression. *PN 04/21 (Art): UTI TREATMENTS / RESULTS AND LOCATION IN EMR *ED 04/20: Vancomycin IV, Cefepime IV, NS 1L IV, Oxygen *H&P 04/20 (Kali): Obtain UA. Start broad-spectrum antibiotics- IV cefepime and vancomyin. Follow peripheral blood culture. Blood culture from the dialysis catheter if peripheral blood cultures comes back positive. *Infectious Disease Consultation 04/23 (Paolo): SARS-CoV-2 infection, one negative test does not rule out that problem and we will have to repeat the test. We will send an antibody level as well. Continue antimicrobial therapy. Submit Fungitell, CMV assay *LAB (EMR): CBC Daily 04/20-04/22, and 04/24, Lactic Acid 04/20 *Microbiology 04/20: Blood Cultures x2 *Reports (EMR): Chest X-Ray 04/20, 04/23 Thank you, Elis CDS/Police Booking Officer Signature: Elis Evans RN, CDS Phone #: [phone] [email or web address] This is a permanent part of the Medical Record [facility]
[2020-04-25] MEDS: traMADol HCl 50 MG TAB PO PRN (16:34)
[2020-04-25] MEDS: HumaLOG 300 UNITS/3 ML VIAL SC PRN (17:16)
[2020-04-25] MEDS: Atorvastatin Calcium 10 MG TAB PO SCH (20:21)
[2020-04-25] MEDS: traZODone HCl 50 MG TAB PO SCH (20:22)
[2020-04-25] MEDS ORDERED: Montelukast Sodium 10 mg Tablet PO SCH (21:00)
[2020-04-26] MEDS: guaiFENesin/Codeine Phosphate 200 mg/20 mg 10 ml UD Cup PO PRN ×2 (02:17→08:44)
[2020-04-26] MEDS: Guaifenesin DM 100-10/5 ML UDCUP PO PRN (06:33)
--- NOTE | 2020-04-26 08:11 | PRG ---
DATE OF SERVICE: SUBJECTIVE: A 74-year-old female, being seen for end-stage renal disease. The patient denies any nausea, vomiting, or chest pain. PHYSICAL EXAMINATION: GENERAL: The patient is awake and alert. VITAL SIGNS: Afebrile, pulse 85, breathing at 16, blood pressure 139/66. HEENT: Head normocephalic and atraumatic. Eyes intact, no ulcers. Nose intact, no ulcers. Ears intact, no ulcers. Neck: Supple. No JVD. Chest: Symmetrical and clear. Cardiovascular: Shows S1 and S2, no rub, no murmur. Gastrointestinal: Abdomen is soft, bowel sounds positive. Extremities: Show no edema or ulcers. Skin: Shows no rash or petechiae. Musculoskeletal: Shows no joint swelling or stiffness. Genitourinary: Shows no Sanchez or CVA tenderness. Neurologic: Motor intact. Cranial nerves intact. LABORATORY DATA: Reviewed. ASSESSMENT: Chronic kidney disease stage 6. Continue dialysis. Hypertension stable. Anemia. The patient was transfused yesterday. Please check hemoglobin. Medication based on GFR appropriate. Job ID: [id number]
[2020-04-26] MEDS: Famotidine 20 MG TAB PO SCH (08:43)
[2020-04-26] MEDS: guaiFENesin ER 600 MG TAB PO SCH (08:43)
[2020-04-26] MEDS: Gabapentin 100 MG CAP PO SCH (08:43)
[2020-04-26] MEDS: Metoprolol Tartrate 50 MG TAB PO SCH (08:44)
[2020-04-26] MEDS: Benzonatate 100 MG CAP PO SCH (08:44)
[2020-04-26] MEDS: Sevelamer Carbonate 800 MG TAB PO SCH (08:44)
[2020-04-26] MEDS: Isosorbide Dinitrate 5 MG TAB PO SCH (08:45)
[2020-04-26] MEDS: Pramipexole Di-HCl 0.125 MG TAB PO SCH (08:46)
[2020-04-26 09:59] VITALS: BP 150/82; TEMP 98.4
--- NOTE | 2020-04-26 15:11 | DIS ---
DATE OF ADMISSION: 04/20/2020 DATE OF DISCHARGE: 04/26/2020 DISCHARGE DISPOSITION: Home. PRIMARY DISCHARGE DIAGNOSES: Fever with the patient being immunosuppressed, urinary tract infection, diffuse large B-cell lymphoma, end-stage renal disease on hemodialysis, morbid obesity, , dyslipidemia, type 2 diabetes, pancytopenia due to chemotherapy. PROCEDURES DONE DURING HOSPITALIZATION: Chest x-ray done showed mild cardiomegaly, otherwise no acute infiltrate. Blood cultures x2, no growth. White count of 4.8, hemoglobin and hematocrit 7 and 22, platelet count 178. BUN 24, creatinine 2.9, serum bicarb 29, albumin 3.1. BNP is 923. COVID-19 PCR x2 negative. Fungitell assay 33 pg/mL, which is within normal range less than 80. DISCHARGE MEDICATIONS: 1. Glimepiride 1 mg p.o. q.a.m. 2. Atorvastatin 10 mg p.o. at bedtime. 3. Cetirizine p.r.n. 4. Ergocalciferol 1.25 mg capsule as directed. 5. Aspirin 81 mg p.o. daily. 6. Humalog sliding scale. 7. Isosorbide dinitrate 10 mg twice daily. 8. Pramipexole 0.125 mg p.o. twice daily. 9. Sevelamer 1600 mg three times daily. 10. Ultram 50 mg q.6 hourly p.r.n. 11. Trazodone 50 mg p.o. at bedtime. 12. Mucinex p.r.n. 13. Lopressor 50 mg twice daily. 14. Gabapentin 100 mg p.o. three times daily. 15. Singulair 10 mg p.o. daily. ALLERGIES: TO LEVAQUIN, SHELLFISH, SULFA, AND ZOLPIDEM. DISCHARGE PLAN: The patient to follow up with her oncologist in 1 week. BRIEF COURSE DURING HOSPITALIZATION: The patient initially came to ER with complaints of generalized weakness and fatigue. She had nonproductive cough. As the patient is on chemotherapy for her large B-cell lymphoma, the patient was admitted to telemetry initially later downgraded to Oncology Floor. She has had pancultures drawn. She was on broad-spectrum antibiotics. Blood cultures have not grown any organism. She was suspected to have urinary tract infection. The patient makes small amount of urine with her end-stage renal disease. Her antibiotics were discontinued from last 2 days and the patient has remained hemodynamically stable. She still has dry hacking cough at times. She has had 2 chest x-rays done, which have not shown any infiltrate. The patient does not have any oral thrush on clinical exam. She needs to follow up with Dr. Rubio, her primary oncologist in a week. Please note, I have seen and examined the patient on the day of discharge. Job ID: [id number]
[2020-04-26 22:13] LABS: CMV DNA-PCR Test Negative (Negative)
--- NOTE | 2020-04-27 16:01 | PDOC.HOSPP ---
- Subjective Encounter Date: 04/25/20 Encounter Time: 12:00 Subjective: c/o cough, but better than yesterday - Objective Vital Signs & Weight: Weight Admit Weight 245 lb 6.4 oz Weight 244 lb 4.355 oz I&O: 04/26/20 04/27/20 04/28/20 06:59 06:59 06:59 Intake Total 1690 Balance 1690 Result Diagrams: 04/24/20 06:26 04/24/20 06:26 - Exam General Appearance: awake alert Eye: PERRL, anicteric sclera ENT: no oropharyngeal lesions, moist mucosa Neck: supple, no JVD Heart: RRR, no murmur Respiratory: no wheezes, no rales, rhonchi Gastrointestinal: soft, non-tender, non-distended, normal bowel sounds Extremities: no cyanosis, 1+ LE edema Neurological: cranial nerve grossly intact, no focal deficits Psychiatric: A&O x 3 Hosp A/P (1) UTI (urinary tract infection) Status: Suspected Qualifiers: Urinary tract infection type: acute cystitis Hematuria presence: without hematuria Qualified Code(s): N30.00 - Acute cystitis without hematuria (2) Diffuse large B cell lymphoma Code(s): C83.30 - DIFFUSE LARGE B-CELL LYMPHOMA, UNSPECIFIED SITE Status: Chronic Qualifiers: Lymphoma site: unspecified region Qualified Code(s): C83.30 - Diffuse large B-cell lymphoma, unspecified site (3) ESRD on hemodialysis Code(s): N18.6 - END STAGE RENAL DISEASE; Z99.2 - DEPENDENCE ON RENAL DIALYSIS Status: Chronic (4) Hyperlipidemia Code(s): E78.5 - HYPERLIPIDEMIA, UNSPECIFIED Status: Chronic Qualifiers: Hyperlipidemia type: other hyperlipidemia Qualified Code(s): E78.49 - Other hyperlipidemia; E78.4 - Other hyperlipidemia (5) Hypertension Code(s): I10 - ESSENTIAL (PRIMARY) HYPERTENSION Status: Chronic Qualifiers: Hypertension type: essential hypertension Qualified Code(s): I10 - Essential (primary) hypertension (6) Morbid obesity Code(s): E66.01 - MORBID (SEVERE) OBESITY DUE TO EXCESS CALORIES Status: Chronic (7) Pancytopenia Code(s): D61.818 - OTHER PANCYTOPENIA Status: Chronic (8) Type 2 diabetes mellitus Status: Chronic Qualifiers: Diabetes mellitus intermediate frame tender insulin use: without intermediate frame tender use Diabetes mellitus complication status: with kidney complications Diabetes mellitus complication detail: with chronic kidney disease Chronic kidney disease stage: on chronic dialysis Qualified Code(s): E11.22 - Type 2 diabetes mellitus with diabetic chronic kidney disease; N18.6 - End stage renal disease; Z99.2 - Dependence on renal dialysis (9) Fever Code(s): R50.9 - FEVER, UNSPECIFIED Status: Acute Qualifiers: Fever type: unspecified Qualified Code(s): R50.9 - Fever, unspecified - Plan off antibiotics add mucinex and tessalon, needs volume removal with HD as tolerated. blood cs are -ve so far, covid 19 pcr x2 is -ve, repeat cxr shows no infiltrated, fungitell and cmv pcr is ordered by Dr.Lemos dinh lopressor, renvela, lipitor, gabapentin and mirapex last ef was 55%, will dc entresto likely is on R-CHOP regimen with neupogen ? for diffuse large B cell lymphoma diagnosed in December of this yr per patient got 1 u prbc 04/21 to amb with walker in the room and hallway as tolerated dc plan when cough is better
--- NOTE | 2020-04-28 02:28 | PQF ---
CLINICAL DOCUMENTATION CLARIFICATION FORM: Dear : Gerri Amado Date / Time: 04/28/20 0228 Please exercise your independent, professional judgment in responding to the clarification form. Clinical indicators are provided on the bottom of this form for your review In your clinical opinion based on clinical findings below can you please identify the etiology of fever if due to: Please check appropriate box(es): [ x ] UTI [ ] Pancytopenia [ ] Lymphoma [ ] Other diagnosis [ ] Unable to determine Physician Signature: Date/Time: For continuity of documentation, please document condition throughout progress notes and discharge summary. Thank You. To be completed by CDI/Coding staff for physician review: Present Clinical Indicators - Signs / Symptoms / Labs Results and Location in Medical Record [X] WBC 2.2, RBC 2.21, Hgb 7.1, Hct 21.1, Plt count 60, Neutrophils 36, Band 16 Laboratory 04/20 [X] Temp 101.0, Pulse 79, Resp 18, BP 172/72 Vital signs 04/06 [X] Urinalysis: Turbid, trace Blood, Leukocyte Laboratory 04/20 [X] Complaint of general malaise fever and fatigue H&P p1 04/20 Dr Bsas [X] Fever of unknown origin H&P p3 04/20 Dr Bass [X] Fever with the pt being immunosuppressed DS p1 04/26 Dr Amado [X] UTI DS p1 04/26 Dr Amado [X] Pancytopenia due to Chemotherapy DS p1 04/26 Dr Amado Present Risk Factors Results and Location in Medical Record [X] 74 year-old Female H&P p1 04/20 Dr Bass [X] Hx pf Diffuse B-Cell Lymphoma on ongoing chemotherapy H&P p1 04/20 Dr Bass [X] RA H&P p2 04/20 Dr Bass [X] ESRD on HD H&P p2 04/20 Dr Bass [X] Morbid Obesity H&P p2 04/20 Dr Bass [X] CHF H&P p2 04/20 Dr Bass [X] Former Smoker H&P p2 04/20 Dr Bass Present Treatments Results and Location in Medical Record [X] IV Cefepime 2 gm SEP 13 [X] IV NS 1L SEP 13 [X] Blood chemistry Laboratory 04/20 [X] Urinalysis Laboratory 04/20 [X] Transfused: RBC Blood Bank 04/21 CDS/District Resource Officer Signature: Joan Felder Phone #: ext [phone] Date/Time: 04/28/2020 0228 This is a permanent part of the Medical Record [facility]
== END 2020-04-26 11:29 | disposition home health service (06) | DRG 871 ==
LOC: ERS 14:57 → 2NO 18:33 → ONC 04-22 21:48
PROVIDERS: ADMIT Student in an Organized Health Care Education/Training Program; ATTEND Student in an Organized Health Care Education/Training Program
PROC: 30233N1 Transfusion of Nonautologous Red Blood Cells into Peripheral Vein, Percutaneous Approach (ICD-10-PCS; principal; 2020-04-21)
PROC: 5A1D70Z Performance of Urinary Filtration, Intermittent, Less than 6 Hours Per Day (ICD-10-PCS; 2020-04-21)
DX: A41.9 Sepsis, unspecified organism (principal); N18.6 End stage renal disease; D61.810 Antineoplastic chemotherapy induced pancytopenia; C83.30 Diffuse large B-cell lymphoma, unspecified site; Z68.41 Body mass index [BMI] 40.0-44.9, adult; I50.22 Chronic systolic (congestive) heart failure; I13.2 Hypertensive heart and chronic kidney disease with heart failure and with stage 5 chronic kidney disease, or end stage renal disease; N30.00 Acute cystitis without hematuria; Z66 Do not resuscitate; E66.01 Morbid (severe) obesity due to excess calories; E78.5 Hyperlipidemia, unspecified; E11.22 Type 2 diabetes mellitus with diabetic chronic kidney disease; T45.1X5A Adverse effect of antineoplastic and immunosuppressive drugs, initial encounter; Z20.828 Contact with and (suspected) exposure to other viral communicable diseases; M06.9 Rheumatoid arthritis, unspecified; F43.10 Post-traumatic stress disorder, unspecified; G89.29 Other chronic pain; M54.5 Low back pain; D63.1 Anemia in chronic kidney disease; Z96.659 Presence of unspecified artificial knee joint; Z99.2 Dependence on renal dialysis; Z88.2 Allergy status to sulfonamides; Z88.8 Allergy status to other drugs, medicaments and biological substances; Z88.1 Allergy status to other antibiotic agents; Z91.013 Allergy to seafood; Z79.899 Other long term (current) drug therapy; Z79.82 Long term (current) use of aspirin; Z79.4 Long term (current) use of insulin; Z90.710 Acquired absence of both cervix and uterus; Z87.891 Personal history of nicotine dependence
CPT/HCPCS: 36415; 36416; 36430; 71045; 80048; 80053; 80202; 81001; 82550; 82553; 83605; 83880; 84484; 85025; 85060; 86769; 86850; 86900; 86901; 87040; 87449; 87497; 87635; 90935; 93005; 94640; 96365; 96375; G0257; J0692; J1642; J1644; J2405; J3370; J3490; J7620; P9016; Q0163; U0002; U0003

== ENCOUNTER 2020-05-12 07:26 | Outpatient (CLI) | payer MEDICARE, BC ==
--- NOTE | 2020-05-12 11:19 | PET ---
Radionucleotide PET scan with CT attenuation correction HISTORY: Diffuse large B-cell lymphoma. Restaging. COMPARISON: 02/25/2020. FINDINGS: Prominent muscular uptake is less pronounced than on the prior study, most evident on today 's exam at each levator scapula muscle and erector spinae muscle and the left gluteus minimus muscle. No hypermetabolic abnormalities are evident within the mediastinum or elsewhere within the chest. The soft tissue density mass within the right posterior mesentery just above the level of the aortic bifurcation now shows max SUV 2.7 (previously 2.4). It is 3.0 cm transverse diameter on today's exam where it was previously 3.3 cm. No new abdominal adenopathy. Very mild heterogeneous uptake associated with a subtle area of groundglass opacity within the customer program manager ior segment right upper lobe. Nondiagnostic CT attenuation correction images again show large stone within the gallbladder lumen. L eft renal cyst again demonstrated. IMPRESSION : Very mild residual uptake associated with a shrinking lower mesenteric mass. No recurrent or new abno rmalities are demonstrated. Douville score 2.
== END 2020-05-12 07:27 | disposition home or self-care (01) ==
LOC: PET 07:26
PROVIDERS: ATTEND Internal Medicine Hematology & Oncology
DX: C83.31 Diffuse large B-cell lymphoma, lymph nodes of head, face, and neck (principal); R19.00 Intra-abdominal and pelvic swelling, mass and lump, unspecified site
CPT/HCPCS: 78815; A9552

== ENCOUNTER 2020-05-18 14:59 | Emergency (ER) | payer MEDICARE, BC ==
[2020-05-18 15:35] LABS: #Eosinphils 0.2 thou/uL (0.0-0.7); #Lymphocytes 0.7 thou/uL (1.20-3.40); #Monocytes 0.7 thou/uL (0.11-0.59); #Neutrophils 3.4 thou/uL (1.40-6.50); %Basophils 0.4 % (0.0-1.0); %Eosinophils 3.5 % (0.0-10.0); %Lymphocytes 13.6 % (21.0-51.0); %Monocytes 13.6 % (0.0-10.0); %Neutrophils 68.9 % (42.0-75.0); Hemoglobin 9.3 g/dL (12.0-16.0); Mean Corpuscular HGB CONC 32.6 g/dL (32.0-36.0); Mean Corpuscular Hemoglobin 31.1 pg (27.0-31.0); Mean Corpuscular Volume 95.2 fL (78.0-98.0); Mean Platelet Volume 6.9 fL (7.4-10.4); Platelet Count 190 thou/uL (130-400); RBC Distribution Width 16.1 % (11.5-14.5); Red Blood Cell (RBC) Count 2.99 mill/uL (4.20-5.40)
--- NOTE | 2020-05-18 15:36 | RAD ---
Exam: Chest one view HISTORY:Cough. Nausea and vomiting. Comparison: 05/02/2020 FINDINGS: Lines and tubes: Stable left-sided Mediport catheter and left-sided HemoSplit dialysis catheter. Cardiac silhouette:Enlarged cardiac silhouette Aorta: Unremarkable Pulmonary vessels: Normal Costophrenic angles: Clear LUNGS: Scattered interstitial and alveolar opacities, unchanged. More focal opacity in the left lower lobe. Pneumothorax: None Osseous abnormalities: None IMPRESSION: 1. Scattered interstitial and alveolar opacities more focal opacity in the left lower lobe. Correlate for edema or infiltrate.
[2020-05-18] MEDS ORDERED: Promethazine HCl 25 MG/ML VIAL ONE (15:45)
[2020-05-18 15:56] LABS: ALT (SGPT) 7 U/L (8-55); AST (SGOT) 17 U/L (5-34); Albumin 3.9 g/dL (3.4-4.8); Alkaline Phosphatase 118 U/L (40-110); Anion Gap 17 mmol/L (10-20); BUN (Urea Nitrogen) 22 mg/dL (9.8-20.1); Bilirubin, Total 0.5 mg/dL (0.2-1.2); Calc. Creatinine Clearance 0 mL/min (70-130); Calcium 9.5 mg/dL (7.8-10.44); Carbon Dioxide 28 mmol/L (23-31); Chloride 100 mmol/L (98-107); Estimated GFR-MDRD 22; Globulin 3.1 g/dL (2.4-3.5); Glucose 202 mg/dL (83-110); Sodium 141 mmol/L (136-145)
[2020-05-18 16:18] LABS: CKMB 1.2 ng/mL (0-6.6)
== END 2020-05-18 19:00 | disposition home or self-care (01) ==
LOC: ERS 14:59
DX: R05 Cough (principal); R11.2 Nausea with vomiting, unspecified; Z85.72 Personal history of non-Hodgkin lymphomas; I50.9 Heart failure, unspecified; Z87.891 Personal history of nicotine dependence; Z79.899 Other long term (current) drug therapy
CPT/HCPCS: 71045; 80053; 82553; 83880; 84484; 85025; 93005; 96374; J2550

== ENCOUNTER 2020-07-10 14:02 | Outpatient (CLI) | payer MEDICARE, BC ==
--- NOTE | 2020-07-10 15:52 | BD ---
BONE DENSITOMETRY: INDICATION: Postmenopausal screening. FINDINGS: Lumbar Spine: BMD (g/cm2) L1 0.958 T-Score: -0.3 L2 0.913 T-Score: -1.0 L3 0.839 T-Score: -2.2 L4 1.016 T-Score: -0.4 L1-L4 0.935 T-Score: -1.0 Femoral Neck: 0.625 T-Score: -2.0 Total Femur: 0.907 T-Score: -0.3 Impression: 1. Bone mineral density of the lumbar spine within normal range. 2. Bone mineral density of the femoral neck indicates osteopenia. Ten-Year Fracture Risk: Major osteoporotic fracture: 11%. Hip fracture: 2.1%. POS: AGW
== END 2020-07-10 14:03 | disposition home or self-care (01) ==
LOC: BICMAMMO 14:02
PROVIDERS: ATTEND Physician Assistant
DX: Z13.820 Encounter for screening for osteoporosis (principal); Z78.0 Asymptomatic menopausal state; M85.89 Other specified disorders of bone density and structure, multiple sites
CPT/HCPCS: 77063; 77067; 77080

== ENCOUNTER 2020-07-20 07:38 | Outpatient (CLI) | payer MEDICARE, BC ==
--- NOTE | 2020-07-20 10:06 | PET ---
Radionucleotide PET scan with CT attenuation correction HISTORY: Diffuse large B-cell lymphoma, lymph nodes of head and neck. Restaging. COMPARISON: 05/12/2020. FINDINGS: In the area of hypermetabolic activity associated with a lower mesenteric mass on previous study, no residual mass or hypermetabolic activity are apparent. Minimal uptake again associated with an area of patchy inflammation at the superior segment right low er lobe. Less pronounced than on the prior exam. Muscular uptake about the shoulders is also less prominent. No new pathologic areas of uptake are apparent. Physiologic uptake of radiotracer throughout the enteric system and along each urinary tract. Nondiagnostic CT attenuation correction images again show postoperative changes of the stomach and a gallstone. IMPRESSION : Resolution of the lower mesenteric mass and hypermetabolic activity. No new abnormalities.
== END 2020-07-20 07:39 | disposition home or self-care (01) ==
LOC: PET 07:38
PROVIDERS: ATTEND Internal Medicine Hematology & Oncology
DX: C83.30 Diffuse large B-cell lymphoma, unspecified site (principal)
CPT/HCPCS: 78815; 80053; 82248; 83615; 84100; 84550; A9552

== ENCOUNTER 2020-09-25 10:06 | Outpatient (CLI) | payer MEDICARE, BC ==
[2020-09-25 11:00] LABS: #Eosinphils 0.2 10x3/uL (0.0-0.5); #Monocytes 0.5 10x3/uL (0.0-1.1); #Neutrophils 2.3 10x3/uL (1.5-8.4); %Basophils 0.9 % (0.0-2.0); %Lymphocytes 31.3 % (18.0-47.0); %Monocytes 11.4 % (0.0-10.0); Hemoglobin 10.9 g/dL (12.0-15.5); Mean Corpuscular HGB CONC 30.8 g/dL (32.0-36.0); Mean Corpuscular Hemoglobin 28.9 pg (27.0-33.0); Mean Corpuscular Volume 93.9 fl (81.6-98.3); Mean Platelet Volume 9.2 fl (7.4-10.4); Platelet Count 173 10x3/uL (150-450); RBC Distribution Width 15.7 % (11.5-14.5); Red Blood Cell (RBC) Count 3.77 10x6/uL (3.90-5.03); White Blood Cell (WBC) Count 4.5 10x3/uL (3.5-10.5)
[2020-09-25 11:17] LABS: ALT (SGPT) 13 U/L (8-55); AST (SGOT) 12 U/L (5-34); Alkaline Phosphatase 165 U/L (40-110); Anion Gap 18 mmol/L (10-20); BUN (Urea Nitrogen) 49 mg/dL (9.8-20.1); Bilirubin, Total 0.4 mg/dL (0.2-1.2); Calc. Creatinine Clearance 0 mL/min (70-130); Calcium 8.9 mg/dL (7.8-10.44); Carbon Dioxide 27 mmol/L (23-31); Chloride 103 mmol/L (98-107); Globulin 2.2 g/dL (2.4-3.5); Glucose 177 mg/dL (83-110); Potassium 4.4 mmol/L (3.5-5.1); Protein, Total 6.2 g/dL (5.8-8.1); Sodium 144 mmol/L (136-145)
[2020-09-25 22:42] LABS: SARS-CoV-2 PCR by NAA Not Detected (NotDetected)
== END 2020-09-25 10:07 | disposition home or self-care (01) ==
LOC: LABBT 10:06
PROVIDERS: ATTEND Internal Medicine Cardiovascular Disease
DX: Z01.812 Encounter for preprocedural laboratory examination (principal); I42.0 Dilated cardiomyopathy; Z20.822 Contact with and (suspected) exposure to COVID-19
CPT/HCPCS: 80053; 85025; U0003; U0005; 87635

== ENCOUNTER 2020-09-29 06:45 | Observation (INO) | payer MEDICARE, BC ==
[2020-09-29] MEDS ORDERED: Lidocaine 1% (PF) 30 ML VIAL ONE (07:23)
[2020-09-29 09:05] LABS: Cardiac Risk 2.3 (Less than 4.5)
[2020-09-29] MEDS ORDERED: Midazolam HCl 2 mg/2 ml Vial ONE (09:37)
[2020-09-29] MEDS ORDERED: Fentanyl 100 MCG/2 ML VIAL ONE ×2 (09:37→13:21)
[2020-09-29] MEDS ORDERED: Atropine Sulfate 1 mg/10 ml Syringe ONE (09:57)
[2020-09-29] MEDS ORDERED: Heparin 10,000 UNITS/ 10 ML VIAL ONE (09:57)
[2020-09-29] MEDS ORDERED: TICAGRELOR 90 MG TABLET ONE (10:15)
[2020-09-29] MEDS ORDERED: hydrALAZINE 20 MG/ML VIAL ONE (12:32)
[2020-09-29] MEDS ORDERED: hydrALAZINE 20 MG/ML VIAL SLOW IVP SCH (12:45)
[2020-09-29] MEDS ORDERED: Fentanyl 100 MCG/2 ML VIAL SLOW IVP SCH (14:30)
[2020-09-29] MEDS ORDERED: Iopamidol 370 76% 50 ML VIAL FS ONE (15:04)
[2020-09-29] MEDS ORDERED: Iopamidol 370 76% 100 ML VIAL ONE (15:04)
[2020-09-29] MEDS ORDERED: traMADol HCl 50 MG TAB PO PRN (15:09)
[2020-09-29] MEDS ORDERED: Ondansetron ODT 4 MG TAB PO PRN (15:13)
[2020-09-29 16:29] VITALS: BMI 45.7
[2020-09-29] MEDS: predniSONE 50 MG TAB PO SCH (16:52)
[2020-09-29] MEDS: Sevelamer Carbonate 800 MG TAB PO SCH (16:52)
[2020-09-29 17:03] LABS: Hemoglobin 10.6 g/dL (12.0-16.0)
[2020-09-29 17:27] LABS: Anion Gap 16 mmol/L (10-20); BUN (Urea Nitrogen) 62 mg/dL (9.8-20.1); Calc. Creatinine Clearance 31 mL/min (70-130); Carbon Dioxide 25 mmol/L (23-31); Chloride 103 mmol/L (98-107); Glucose 169 mg/dL (83-110); Potassium 4.1 mmol/L (3.5-5.1); Sodium 140 mmol/L (136-145)
[2020-09-29] MEDS ORDERED: Atorvastatin Calcium 10 MG TAB PO SCH (21:00)
[2020-09-29] MEDS: Gabapentin 300 MG CAP PO SCH (21:23)
[2020-09-29] MEDS: Metoprolol Tartrate 50 MG TAB PO SCH (21:24)
[2020-09-29] MEDS: TICAGRELOR 90 MG TABLET PO SCH (21:24)
[2020-09-30 04:19] LABS: #Lymphocytes 0.6 thou/uL (1.20-3.40); #Monocytes 0.3 thou/uL (0.11-0.59); #Neutrophils 6.5 thou/uL (1.40-6.50); %Eosinophils 0.1 % (0.0-10.0); %Lymphocytes 8.3 % (21.0-51.0); %Neutrophils 87.6 % (42.0-75.0); Hemoglobin 9.5 g/dL (12.0-16.0); Mean Corpuscular HGB CONC 33.2 g/dL (32.0-36.0); Mean Corpuscular Hemoglobin 29.6 pg (27.0-31.0); Mean Corpuscular Volume 89.3 fL (78.0-98.0); Mean Platelet Volume 6.9 fL (7.4-10.4); Platelet Count 206 thou/uL (130-400); RBC Distribution Width 15.2 % (11.5-14.5); Red Blood Cell (RBC) Count 3.21 mill/uL (4.20-5.40); White Blood Cell (WBC) Count 7.4 thou/uL (4.8-10.8)
[2020-09-30 04:35] LABS: ALT (SGPT) 9 U/L (8-55); AST (SGOT) 6 U/L (5-34); Albumin 3.4 g/dL (3.4-4.8); Alkaline Phosphatase 112 U/L (40-110); Anion Gap 17 mmol/L (10-20); BUN (Urea Nitrogen) 76 mg/dL (9.8-20.1); Bilirubin, Total 0.4 mg/dL (0.2-1.2); Calc. Creatinine Clearance 26 mL/min (70-130); Calcium 8.4 mg/dL (7.8-10.44); Carbon Dioxide 22 mmol/L (23-31); Chloride 102 mmol/L (98-107); Globulin 2.1 g/dL (2.4-3.5); Glucose 206 mg/dL (83-110); Potassium 4.3 mmol/L (3.5-5.1); Protein, Total 5.5 g/dL (5.8-8.1); Sodium 137 mmol/L (136-145)
[2020-09-30] MEDS ORDERED: Glimepiride 1 MG TAB PO SCH (08:00)
[2020-09-30] MEDS: Sevelamer Carbonate 800 MG TAB PO SCH ×2 (08:42→12:30)
[2020-09-30] MEDS ORDERED: Loperamide HCl 2 MG CAP PO SCH (09:00)
[2020-09-30] MEDS ORDERED: Aspirin 81 mg Enteric Coated Tablet PO SCH (09:00)
[2020-09-30] MEDS ORDERED: Loratadine 10 MG TAB PO SCH (09:00)
[2020-09-30] MEDS ORDERED: Folic Acid/Vit B Comp W-C PO SCH (09:00)
[2020-09-30 12:28] VITALS: BP 129/66; TEMP 98.1
[2020-09-30] MEDS: predniSONE 50 MG TAB PO SCH (12:29)
[2020-09-30] MEDS: TICAGRELOR 90 MG TABLET PO SCH (12:30)
[2020-09-30] MEDS: Metoprolol Tartrate 50 MG TAB PO SCH (12:30)
[2020-09-30] MEDS: Gabapentin 300 MG CAP PO SCH (12:31)
== END 2020-09-30 15:25 | disposition home or self-care (01) ==
LOC: CCL 06:45 → 2NO 14:45
PROVIDERS: ADMIT Internal Medicine Cardiovascular Disease; ATTEND Internal Medicine Cardiovascular Disease
PROC: 02703DZ Dilation of Coronary Artery, One Artery with Intraluminal Device, Percutaneous Approach (ICD-10-PCS; principal; 2020-09-29)
PROC: 4A023N7 Measurement of Cardiac Sampling and Pressure, Left Heart, Percutaneous Approach (ICD-10-PCS; 2020-09-29)
PROC: B2111ZZ Fluoroscopy of Multiple Coronary Arteries using Low Osmolar Contrast (ICD-10-PCS; 2020-09-29)
DX: I25.10 Atherosclerotic heart disease of native coronary artery without angina pectoris (principal); I12.0 Hypertensive chronic kidney disease with stage 5 chronic kidney disease or end stage renal disease; E11.22 Type 2 diabetes mellitus with diabetic chronic kidney disease; N18.6 End stage renal disease; D63.1 Anemia in chronic kidney disease; I42.0 Dilated cardiomyopathy; E78.5 Hyperlipidemia, unspecified; L03.116 Cellulitis of left lower limb; G25.81 Restless legs syndrome; G47.33 Obstructive sleep apnea (adult) (pediatric); M19.90 Unspecified osteoarthritis, unspecified site; M06.9 Rheumatoid arthritis, unspecified; E66.01 Morbid (severe) obesity due to excess calories; Z68.42 Body mass index [BMI] 45.0-49.9, adult; Z85.72 Personal history of non-Hodgkin lymphomas; Z87.891 Personal history of nicotine dependence; Z79.52 Long term (current) use of systemic steroids; Z79.82 Long term (current) use of aspirin; Z79.84 Long term (current) use of oral hypoglycemic drugs; Z79.899 Other long term (current) drug therapy; Z88.2 Allergy status to sulfonamides; Z88.8 Allergy status to other drugs, medicaments and biological substances; Z91.013 Allergy to seafood; Z98.84 Bariatric surgery status; Z99.2 Dependence on renal dialysis
CPT/HCPCS: 76942; 80048; 80053; 80061; 82962 ×2; 85014; 85018; 85025; 85347; 92928; 93005; 93458; C1760; C1876; 36415; 36416; 90935; 93010; 99152; 99153; G0257; G0378; J0360; J0461; J1644; J2001; J2250; J3010; J7512; Q9967

== ENCOUNTER 2020-10-11 09:59 | Outpatient (CLI) | payer MEDICARE, BC | END 2020-10-11 10:00 | disposition home or self-care (01) | LOC: BICRAD 09:59 | PROVIDERS: ATTEND Internal Medicine Hematology & Oncology | DX: R09.89 Other specified symptoms and signs involving the circulatory and respiratory systems (principal); C83.31 Diffuse large B-cell lymphoma, lymph nodes of head, face, and neck; D50.0 Iron deficiency anemia secondary to blood loss (chronic) | CPT/HCPCS: 36415; 71046; 80053; 82248; 83615; 84100; 84550 ==

== ENCOUNTER 2020-11-15 08:39 | Emergency (ER) | payer MEDICARE, BC ==
[2020-11-15 09:07] LABS: #Eosinphils 0.2 thou/uL (0.0-0.7); #Lymphocytes 1.4 thou/uL (1.20-3.40); #Monocytes 0.7 thou/uL (0.11-0.59); #Neutrophils 2.4 thou/uL (1.40-6.50); %Basophils 0.4 % (0.0-1.0); %Eosinophils 3.5 % (0.0-10.0); %Lymphocytes 29.3 % (21.0-51.0); %Monocytes 14.5 % (0.0-10.0); %Neutrophils 52.2 % (42.0-75.0); Mean Corpuscular HGB CONC 31.1 g/dL (32.0-36.0); Mean Corpuscular Hemoglobin 29.1 pg (27.0-31.0); Mean Corpuscular Volume 93.7 fL (78.0-98.0); Mean Platelet Volume 6.4 fL (7.4-10.4); Platelet Count 223 thou/uL (130-400); RBC Distribution Width 16.4 % (11.5-14.5); Red Blood Cell (RBC) Count 2.75 mill/uL (4.20-5.40); White Blood Cell (WBC) Count 4.7 thou/uL (4.8-10.8)
[2020-11-15 09:30] LABS: ALT (SGPT) 9 U/L (8-55); AST (SGOT) 10 U/L (5-34); Albumin 3.6 g/dL (3.4-4.8); Alkaline Phosphatase 152 U/L (40-110); Anion Gap 15 mmol/L (10-20); BUN (Urea Nitrogen) 41 mg/dL (9.8-20.1); Bilirubin, Total 0.5 mg/dL (0.2-1.2); Calc. Creatinine Clearance 0 mL/min (70-130); Calcium 9.6 mg/dL (7.8-10.44); Carbon Dioxide 29 mmol/L (23-31); Chloride 99 mmol/L (98-107); Globulin 2.3 g/dL (2.4-3.5); Glucose 172 mg/dL (83-110); Protein, Total 5.9 g/dL (5.8-8.1); Sodium 139 mmol/L (136-145)
== END 2020-11-15 13:24 | disposition home or self-care (01) ==
LOC: ERS 08:39
DX: I95.9 Hypotension, unspecified (principal); E86.0 Dehydration; I50.9 Heart failure, unspecified; Z85.72 Personal history of non-Hodgkin lymphomas; Z87.891 Personal history of nicotine dependence; Z79.82 Long term (current) use of aspirin; Z79.899 Other long term (current) drug therapy
CPT/HCPCS: 71045; 80053; 84484; 85025; 93005

== ENCOUNTER 2020-11-17 08:43 | Outpatient (CLI) | payer MEDICARE, BC | END 2020-11-17 08:44 | disposition home or self-care (01) | LOC: BICULT 08:43 | PROVIDERS: ATTEND Surgery | DX: R11.10 Vomiting, unspecified (principal); K80.20 Calculus of gallbladder without cholecystitis without obstruction; K76.0 Fatty (change of) liver, not elsewhere classified; K82.9 Disease of gallbladder, unspecified | CPT/HCPCS: 76705 ==

== ENCOUNTER 2021-01-01 12:10 | Outpatient (CLI) | payer MEDICARE, BC ==
[2021-01-01 14:06] LABS: #Eosinphils 0.2 10x3/uL (0.0-0.5); #Monocytes 0.6 10x3/uL (0.0-1.1); #Neutrophils 1.9 10x3/uL (1.5-8.4); %Lymphocytes 32.7 % (18.0-47.0); %Monocytes 14.2 % (0.0-10.0); %Neutrophils 47.9 % (40.0-75.0); Hemoglobin 8.4 g/dL (12.0-15.5); Mean Corpuscular HGB CONC 30.8 g/dL (32.0-36.0); Mean Corpuscular Hemoglobin 28.6 pg (27.0-33.0); Mean Corpuscular Volume 92.9 fl (81.6-98.3); Mean Platelet Volume 9.2 fl (7.4-10.4); Platelet Count 173 10x3/uL (150-450); RBC Distribution Width 16.8 % (11.5-14.5); Red Blood Cell (RBC) Count 2.94 10x6/uL (3.90-5.03)
[2021-01-01 16:02] LABS: ALT (SGPT) 13 U/L (8-55); AST (SGOT) 12 U/L (5-34); Alkaline Phosphatase 174 U/L (40-110); Anion Gap 17 mmol/L (10-20); BUN (Urea Nitrogen) 53 mg/dL (9.8-20.1); Bilirubin, Direct 0.1 mg/dL (0.1-0.3); Bilirubin, Total 0.4 mg/dL (0.2-1.2); Calc. Creatinine Clearance 0 mL/min (70-130); Calcium 9.7 mg/dL (7.8-10.44); Carbon Dioxide 29 mmol/L (23-31); Chloride 99 mmol/L (98-107); Globulin 2.2 g/dL (2.4-3.5); Glucose 82 mg/dL (83-110); Potassium 4.3 mmol/L (3.5-5.1); Protein, Total 6.2 g/dL (5.8-8.1); Sodium 141 mmol/L (136-145)
== END 2021-01-01 12:11 | disposition home or self-care (01) ==
LOC: LABBT 12:10
PROVIDERS: ATTEND Surgery
DX: Z01.818 Encounter for other preprocedural examination (principal); K80.20 Calculus of gallbladder without cholecystitis without obstruction
CPT/HCPCS: 80053; 80076; 85025; 93005; 93010

== ENCOUNTER 2021-01-03 07:07 | Day surgery (SDC) | payer MEDICARE, BC ==
[2021-01-02 11:40] VITALS: BMI 43.7
[2021-01-03] MEDS ORDERED: cefOXitin Sodium/Dextrose 2 GM/50 ML BAG ONE (07:12)
[2021-01-03] MEDS ORDERED: Fentanyl 100 MCG/2 ML VIAL ONE ×2 (07:20)
[2021-01-03] MEDS ORDERED: Famotidine/PF 20 mg/2ml Vial ONE (07:20)
[2021-01-03] MEDS ORDERED: SUGAMMADEX SODIUM 200 MG/2 ML VIAL ONE (07:20)
[2021-01-03] MEDS ORDERED: Bupivacaine 0.25% HCL 30 ML VIAL ONE (07:27)
[2021-01-03] MEDS ORDERED: Lidocaine 1% w/Epinephrine 1:100K 20 ML VIAL ONE (07:27)
[2021-01-03] MEDS ORDERED: PROPOFOL 200 MG/20 ML VIAL ONE (07:56)
[2021-01-03] MEDS ORDERED: PHENYLEPHRINE-NS 100 MCG/ML 10 ML SYRINGE ONE (07:56)
[2021-01-03] MEDS ORDERED: Rocuronium Bromide 10 MG/ML (10ML VIAL) ONE (07:56)
[2021-01-03] MEDS ORDERED: Ondansetron PF 4 MG/2 ML Vial ONE (07:56)
[2021-01-03] MEDS ORDERED: Metoclopramide HCl 10 MG/2 ML VIAL ONE (07:56)
[2021-01-03] MEDS ORDERED: HYDROcodone/Acetaminophen 5/325 mg Tablet ONE (10:08)
== END 2021-01-03 11:25 | disposition home or self-care (01) ==
LOC: SDC 07:07
PROVIDERS: ATTEND Surgery
PROC: 0FT44ZZ Resection of Gallbladder, Percutaneous Endoscopic Approach (ICD-10-PCS; principal; 2021-01-03)
DX: K80.20 Calculus of gallbladder without cholecystitis without obstruction (principal); K82.8 Other specified diseases of gallbladder; I42.9 Cardiomyopathy, unspecified; I12.0 Hypertensive chronic kidney disease with stage 5 chronic kidney disease or end stage renal disease; E11.22 Type 2 diabetes mellitus with diabetic chronic kidney disease; N18.6 End stage renal disease; E11.40 Type 2 diabetes mellitus with diabetic neuropathy, unspecified; E78.5 Hyperlipidemia, unspecified; G25.81 Restless legs syndrome; G47.33 Obstructive sleep apnea (adult) (pediatric); M19.90 Unspecified osteoarthritis, unspecified site; E66.01 Morbid (severe) obesity due to excess calories; Z68.41 Body mass index [BMI] 40.0-44.9, adult; Z87.891 Personal history of nicotine dependence; Z79.4 Long term (current) use of insulin; Z79.82 Long term (current) use of aspirin; Z79.899 Other long term (current) drug therapy; Z88.1 Allergy status to other antibiotic agents; Z88.2 Allergy status to sulfonamides; Z88.8 Allergy status to other drugs, medicaments and biological substances; Z91.013 Allergy to seafood; Z95.5 Presence of coronary angioplasty implant and graft; Z99.2 Dependence on renal dialysis
CPT/HCPCS: 88304; J0694; J2405; J2704; J2765; J3010; S0020; S0028

== ENCOUNTER 2021-04-13 12:13 | Outpatient (CLI) | payer MEDICARE, BC | END 2021-04-13 12:14 | disposition home or self-care (01) | LOC: BICMRI 12:13 | PROVIDERS: ATTEND Specialist | DX: M51.17 Intervertebral disc disorders with radiculopathy, lumbosacral region (principal); M47.816 Spondylosis without myelopathy or radiculopathy, lumbar region; M48.061 Spinal stenosis, lumbar region without neurogenic claudication; M51.86 Other intervertebral disc disorders, lumbar region | CPT/HCPCS: 72148 ==

== ENCOUNTER 2021-06-20 08:18 | Outpatient (CLI) | payer MEDICARE, BC | END 2021-06-20 08:19 | disposition home or self-care (01) | LOC: NM 08:18 | PROVIDERS: ATTEND Internal Medicine Nephrology | DX: E21.3 Hyperparathyroidism, unspecified (principal) | CPT/HCPCS: 78072; A9500 ==

== ENCOUNTER 2021-07-02 07:42 | Outpatient (CLI) | payer MEDICARE, BC | END 2021-07-02 07:43 | disposition home or self-care (01) | LOC: BICCT 07:42 | PROVIDERS: ATTEND Internal Medicine Hematology & Oncology | DX: C83.31 Diffuse large B-cell lymphoma, lymph nodes of head, face, and neck (principal) | CPT/HCPCS: 71260; 74177; 82565 ==

== ENCOUNTER 2021-07-27 08:34 | Outpatient (CLI) | payer MEDICARE, BC ==
[2021-07-27 09:44] LABS: Hemoglobin 11.5 g/dL (12.0-15.5); Mean Corpuscular HGB CONC 29.9 g/dL (32.0-36.0); Mean Corpuscular Hemoglobin 30.2 pg (27.0-33.0); Mean Platelet Volume 9.3 fl (7.4-10.4); Platelet Count 158 10x3/uL (150-450); RBC Distribution Width 15.7 % (11.5-14.5); Red Blood Cell (RBC) Count 3.81 10x6/uL (3.90-5.03); White Blood Cell (WBC) Count 4.5 10x3/uL (3.5-10.5)
[2021-07-27 10:07] LABS: Anion Gap 18 mmol/L (10-20); BUN (Urea Nitrogen) 39 mg/dL (9.8-20.1); Calc. Creatinine Clearance 0 mL/min (70-130); Calcium 8.6 mg/dL (7.8-10.44); Carbon Dioxide 33 mmol/L (23-31); Chloride 96 mmol/L (98-107); Glucose 149 mg/dL (83-110); Potassium 3.7 mmol/L (3.5-5.1); Sodium 143 mmol/L (136-145)
[2021-07-27 19:34] LABS: SARS-CoV-2 PCR by NAA Not Detected (NotDetected)
== END 2021-07-27 08:35 | disposition home or self-care (01) ==
LOC: LABBT 08:34
PROVIDERS: ATTEND Otolaryngology Plastic Surgery within the Head & Neck
DX: Z01.818 Encounter for other preprocedural examination (principal); Z20.822 Contact with and (suspected) exposure to COVID-19
CPT/HCPCS: 80048; 85027; 93005; U0003; U0005; 93010

== ENCOUNTER 2021-08-01 06:58 | Day surgery (SDC) | payer MEDICARE, BC ==
[2021-07-30 09:11] VITALS: BMI 44.2
[2021-08-01] MEDS ORDERED: Xylocaine 1% w/ Epi 1:100K 10 ML VIAL ONE (08:50)
[2021-08-01] MEDS ORDERED: Fentanyl 100 MCG/2 ML VIAL ONE ×4 (08:52→11:29)
[2021-08-01 09:03] LABS: #Eosinphils 0.1 thou/uL (0.0-0.7); #Lymphocytes 1.2 thou/uL (1.20-3.40); #Monocytes 0.6 thou/uL (0.11-0.59); #Neutrophils 2.3 thou/uL (1.40-6.50); %Basophils 0.2 % (0.0-1.0); %Eosinophils 2.6 % (0.0-10.0); %Lymphocytes 28.8 % (21.0-51.0); %Monocytes 13.9 % (0.0-10.0); %Neutrophils 54.5 % (42.0-75.0); Mean Corpuscular HGB CONC 31.5 g/dL (32.0-36.0); Mean Corpuscular Hemoglobin 31.3 pg (27.0-31.0); Mean Corpuscular Volume 99.3 fL (78.0-98.0); Mean Platelet Volume 6.5 fL (7.4-10.4); Platelet Count 180 thou/uL (130-400); RBC Distribution Width 15.3 % (11.5-14.5); Red Blood Cell (RBC) Count 3.83 mill/uL (4.20-5.40); White Blood Cell (WBC) Count 4.2 thou/uL (4.8-10.8)
[2021-08-01 09:26] LABS: ALT (SGPT) 15 U/L (8-55); AST (SGOT) 16 U/L (5-34); Alkaline Phosphatase 139 U/L (40-110); Anion Gap 22 mmol/L (10-20); BUN (Urea Nitrogen) 32 mg/dL (9.8-20.1); Bilirubin, Total 0.6 mg/dL (0.2-1.2); Calc. Creatinine Clearance 17 mL/min (70-130); Calcium 8.8 mg/dL (7.8-10.44); Carbon Dioxide 30 mmol/L (23-31); Chloride 97 mmol/L (98-107); Globulin 2.6 g/dL (2.4-3.5); Glucose 74 mg/dL (83-110); Potassium 3.7 mmol/L (3.5-5.1); Protein, Total 6.6 g/dL (5.8-8.1); Sodium 145 mmol/L (136-145)
[2021-08-01] MEDS ORDERED: Glycopyrrolate 0.2 MG/ML 5 ML SYRINGE ONE (09:35)
[2021-08-01] MEDS ORDERED: Succinylcholine 200 MG/10 ml SYRINGE FS ONE (09:35)
[2021-08-01] MEDS ORDERED: PHENYLEPHRINE-NS 100 MCG/ML 10 ML SYRINGE ONE (09:35)
[2021-08-01] MEDS ORDERED: Ondansetron PF 4 MG/2 ML Vial ONE (09:35)
[2021-08-01] MEDS ORDERED: PROPOFOL 200 MG/20 ML VIAL ONE (09:35)
[2021-08-01] MEDS ORDERED: Labetalol HCl 100 MG/20 ML VIAL ONE (13:13)
[2021-08-01] MEDS ORDERED: HYDROcodone/Acetaminophen 5/325 mg Tablet ONE (13:31)
== END 2021-08-01 14:31 | disposition home or self-care (01) ==
LOC: SDC 06:58
PROVIDERS: ATTEND Otolaryngology Plastic Surgery within the Head & Neck
PROC: 0GTQ0ZZ Resection of Multiple Parathyroid Glands, Open Approach (ICD-10-PCS; principal; 2021-08-01)
DX: D35.1 Benign neoplasm of parathyroid gland (principal); E21.3 Hyperparathyroidism, unspecified; M19.90 Unspecified osteoarthritis, unspecified site; E78.5 Hyperlipidemia, unspecified; I12.0 Hypertensive chronic kidney disease with stage 5 chronic kidney disease or end stage renal disease; E11.22 Type 2 diabetes mellitus with diabetic chronic kidney disease; N18.6 End stage renal disease; E11.40 Type 2 diabetes mellitus with diabetic neuropathy, unspecified; G25.81 Restless legs syndrome; E66.01 Morbid (severe) obesity due to excess calories; Z68.41 Body mass index [BMI] 40.0-44.9, adult; Z87.891 Personal history of nicotine dependence; Z95.5 Presence of coronary angioplasty implant and graft; Z99.2 Dependence on renal dialysis; Z79.84 Long term (current) use of oral hypoglycemic drugs; Z79.82 Long term (current) use of aspirin; Z79.899 Other long term (current) drug therapy; Z88.1 Allergy status to other antibiotic agents; Z88.2 Allergy status to sulfonamides; Z88.4 Allergy status to anesthetic agent; Z88.8 Allergy status to other drugs, medicaments and biological substances; Z91.013 Allergy to seafood
CPT/HCPCS: 60500; 80053; 82962; 85025; C1776; C1889; 36416; 88305; 88331; J2405; J2704; J3010

== ENCOUNTER 2021-08-19 19:30 | Outpatient (CLI) | payer MEDICARE, BC | END 2021-08-19 19:31 | disposition home or self-care (01) | LOC: SLEEPLAB 19:30 | PROVIDERS: ATTEND Internal Medicine Pulmonary Disease | DX: G47.31 Primary central sleep apnea (principal); G47.33 Obstructive sleep apnea (adult) (pediatric); E11.22 Type 2 diabetes mellitus with diabetic chronic kidney disease; N18.6 End stage renal disease; I50.9 Heart failure, unspecified; R53.83 Other fatigue; F32.9 Major depressive disorder, single episode, unspecified; G47.61 Periodic limb movement disorder; I25.10 Atherosclerotic heart disease of native coronary artery without angina pectoris; C85.90 Non-Hodgkin lymphoma, unspecified, unspecified site; I42.0 Dilated cardiomyopathy; E66.9 Obesity, unspecified; Z68.41 Body mass index [BMI] 40.0-44.9, adult; Z79.899 Other long term (current) drug therapy | CPT/HCPCS: 95810 ==

== ENCOUNTER 2021-12-17 07:58 | Outpatient (CLI) | payer MEDICARE, BC ==
[2021-12-17] MEDS ORDERED: Iopamidol-370 76% 500 ML 1 ML ONE (08:32)
== END 2021-12-17 07:59 | disposition home or self-care (01) ==
LOC: BICCT 07:58
PROVIDERS: ATTEND Internal Medicine Hematology & Oncology
DX: C83.31 Diffuse large B-cell lymphoma, lymph nodes of head, face, and neck (principal); R91.8 Other nonspecific abnormal finding of lung field
CPT/HCPCS: 71260; 74177; 82565; Q9967

== ENCOUNTER 2022-01-14 09:25 | Outpatient (CLI) | payer MEDICARE, BC | END 2022-01-14 09:26 | disposition home or self-care (01) | LOC: BICRAD 09:25 | PROVIDERS: ATTEND Family Medicine | DX: R09.02 Hypoxemia (principal) | CPT/HCPCS: 71046 ==

== ENCOUNTER 2022-02-05 13:46 | Emergency (ER) | payer MEDICARE, BC ==
[2022-02-05 14:30] LABS: #Eosinphils 0.1 thou/uL (0.0-0.7); #Lymphocytes 0.8 thou/uL (1.20-3.40); #Monocytes 0.7 thou/uL (0.11-0.59); %Basophils 0.5 % (0.0-1.0); %Eosinophils 2.8 % (0.0-10.0); %Lymphocytes 16.6 % (21.0-51.0); %Monocytes 14.4 % (0.0-10.0); %Neutrophils 65.7 % (42.0-75.0); Hemoglobin 9.9 g/dL (12.0-16.0); Mean Corpuscular HGB CONC 32.1 g/dL (32.0-36.0); Mean Corpuscular Hemoglobin 32.6 pg (27.0-31.0); Mean Platelet Volume 6.7 fL (7.4-10.4); Platelet Count 189 thou/uL (130-400); RBC Distribution Width 14.2 % (11.5-14.5); Red Blood Cell (RBC) Count 3.05 mill/uL (4.20-5.40); White Blood Cell (WBC) Count 4.6 thou/uL (4.8-10.8)
[2022-02-05 14:50] LABS: ALT (SGPT) 10 U/L (8-55); AST (SGOT) 10 U/L (5-34); Albumin 3.8 g/dL (3.4-4.8); Alkaline Phosphatase 109 U/L (40-110); Anion Gap 15 mmol/L (10-20); BUN (Urea Nitrogen) 13 mg/dL (9.8-20.1); Bilirubin, Total 0.6 mg/dL (0.2-1.2); Calc. Creatinine Clearance 0 mL/min (70-130); Calcium 8.9 mg/dL (7.8-10.44); Carbon Dioxide 29 mmol/L (23-31); Chloride 100 mmol/L (98-107); Estimated GFR 23; Globulin 2.4 g/dL (2.4-3.5); Glucose 184 mg/dL (83-110); Potassium 3.4 mmol/L (3.5-5.1); Protein, Total 6.2 g/dL (5.8-8.1); Sodium 141 mmol/L (136-145)
[2022-02-05 15:04] LABS: Magnesium 1.7 mg/dL (1.6-2.6)
[2022-02-05 15:07] LABS: CKMB 2.1 ng/mL (0-6.6)
[2022-02-05 20:12] LABS: SARS-CoV-2 NAA Rapid Test Not Detected (NotDetected)
== END 2022-02-05 18:45 | disposition home or self-care (01) ==
LOC: ERS 13:46
DX: R06.02 Shortness of breath (principal); Z20.822 Contact with and (suspected) exposure to COVID-19; N18.6 End stage renal disease; I50.9 Heart failure, unspecified; Z99.2 Dependence on renal dialysis; Z87.891 Personal history of nicotine dependence; Z79.82 Long term (current) use of aspirin; Z79.899 Other long term (current) drug therapy
CPT/HCPCS: 71045; 80053; 82553; 83735; 83880; 84484; 85025; 93005; 94760; 99285; U0002; 36415

== ENCOUNTER 2022-02-19 11:20 | Outpatient (CLI) | payer MEDICARE, BC ==
[2022-02-19 13:01] LABS: #Eosinphils 0.1 10x3/uL (0.0-0.5); #Monocytes 0.6 10x3/uL (0.0-1.1); #Neutrophils 2.7 10x3/uL (1.5-8.4); %Basophils 0.7 % (0.0-2.0); %Eosinophils 2.7 % (0.0-6.0); %Lymphocytes 20.9 % (18.0-47.0); %Monocytes 13.6 % (0.0-10.0); %Neutrophils 61.2 % (40.0-75.0); Hemoglobin 9.4 g/dL (12.0-15.5); Mean Corpuscular Hemoglobin 31.5 pg (27.0-33.0); Mean Corpuscular Volume 101.7 fl (81.6-98.3); Mean Platelet Volume 9.6 fl (7.4-10.4); Platelet Count 183 10x3/uL (150-450); RBC Distribution Width 14.9 % (11.5-14.5); Red Blood Cell (RBC) Count 2.98 10x6/uL (3.90-5.03); White Blood Cell (WBC) Count 4.4 10x3/uL (3.5-10.5)
[2022-02-19 13:34] LABS: ALT (SGPT) 18 U/L (8-55); AST (SGOT) 12 U/L (5-34); Albumin 4.2 g/dL (3.4-4.8); Alkaline Phosphatase 119 U/L (40-110); Anion Gap 17 mmol/L (10-20); BUN (Urea Nitrogen) 18 mg/dL (9.8-20.1); Bilirubin, Total 0.5 mg/dL (0.2-1.2); Calc. Creatinine Clearance 0 mL/min (70-130); Calcium 8.6 mg/dL (7.8-10.44); Carbon Dioxide 32 mmol/L (23-31); Chloride 100 mmol/L (98-107); Estimated GFR 22; Glucose 122 mg/dL (83-110); Potassium 3.6 mmol/L (3.5-5.1); Protein, Total 6.2 g/dL (5.8-8.1); Sodium 145 mmol/L (136-145)
== END 2022-02-19 11:21 | disposition home or self-care (01) ==
LOC: LABBT 11:20
PROVIDERS: ATTEND Internal Medicine Cardiovascular Disease
DX: Z01.812 Encounter for preprocedural laboratory examination (principal); Z20.822 Contact with and (suspected) exposure to COVID-19
CPT/HCPCS: 80053; 85025; 87811

== ENCOUNTER 2022-02-22 08:52 | Day surgery (SDC) | payer MEDICARE, BC ==
[2022-02-21 09:55] VITALS: BMI 44.2
[~2022-02-22 08:52] MED LIST: Iopamidol 370 76% 100 ML VIAL ONE
[2022-02-22 10:31] LABS: Cardiac Risk 2.9 (Less than 4.5)
[2022-02-22] MEDS ORDERED: Lidocaine 1% MPF 2 ML VIAL ONE (10:58)
[2022-02-22] MEDS ORDERED: Midazolam HCl 2 mg/2 ml Vial ONE (11:57)
[2022-02-22] MEDS ORDERED: Fentanyl 100 MCG/2 ML VIAL ONE (11:57)
[2022-02-22] MEDS ORDERED: Ondansetron PF 4 MG/2 ML Vial ONE (12:47)
== END 2022-02-22 15:29 | disposition home or self-care (01) ==
LOC: CCL 08:52
PROVIDERS: ATTEND Internal Medicine Cardiovascular Disease
DX: I25.10 Atherosclerotic heart disease of native coronary artery without angina pectoris (principal); I12.9 Hypertensive chronic kidney disease with stage 1 through stage 4 chronic kidney disease, or unspecified chronic kidney disease; E11.22 Type 2 diabetes mellitus with diabetic chronic kidney disease; N18.4 Chronic kidney disease, stage 4 (severe); I42.0 Dilated cardiomyopathy; E78.5 Hyperlipidemia, unspecified; G25.81 Restless legs syndrome; G47.33 Obstructive sleep apnea (adult) (pediatric); Z79.82 Long term (current) use of aspirin; Z79.899 Other long term (current) drug therapy; Z87.891 Personal history of nicotine dependence
CPT/HCPCS: 80061; 93458; 99152; C1769; J2250; J2405; J3010; Q9967

== ENCOUNTER 2022-03-18 17:39 | Inpatient (IN) | payer MEDICARE, BC ==
[2022-03-18 19:12] LABS: Hemoglobin 7.8 g/dL (12.0-16.0); Mean Corpuscular HGB CONC 31.7 g/dL (32.0-36.0); Mean Corpuscular Hemoglobin 31.9 pg (27.0-31.0); Mean Platelet Volume 6.7 fL (7.4-10.4); Platelet Count 203 thou/uL (130-400); RBC Distribution Width 14.1 % (11.5-14.5); Red Blood Cell (RBC) Count 2.46 mill/uL (4.20-5.40); White Blood Cell (WBC) Count 4.5 thou/uL (4.8-10.8)
[2022-03-18 19:32] LABS: ALT (SGPT) 10 U/L (8-55); AST (SGOT) 9 U/L (5-34); Albumin 3.7 g/dL (3.4-4.8); Alkaline Phosphatase 117 U/L (40-110); Anion Gap 16 mmol/L (10-20); BUN (Urea Nitrogen) 37 mg/dL (9.8-20.1); Bilirubin, Total 0.4 mg/dL (0.2-1.2); CK (CPK) 36 U/L (29-168); Calc. Creatinine Clearance 0 mL/min (70-130); Calcium 9.1 mg/dL (7.8-10.44); Carbon Dioxide 27 mmol/L (23-31); Chloride 102 mmol/L (98-107); Estimated GFR 10; Glucose 168 mg/dL (83-110); Potassium 3.8 mmol/L (3.5-5.1); Protein, Total 5.7 g/dL (5.8-8.1); Sodium 141 mmol/L (136-145)
[2022-03-18 19:41] LABS: Lymphocytes 13 % (21-51); MDiff Complete? YES; Macrocytosis SLIGHT = 6-15 cells (100X) (0-5/hpf); Monocytes 11 % (0-10); Neutrophil 71 % (42-75); Platelet Morphology Comment Appears Adequate; Polychromasia SLIGHT = 2-3 cells (100X) (0-2/hpf); Reactive Lymphocytes 4 % (0-10)
[2022-03-18 19:55] LABS: CKMB 1.3 ng/mL (0-6.6)
[2022-03-18] MEDS ORDERED: HumaLOG 300 UNITS/3 ML VIAL SC PRN ×2 (21:14)
[2022-03-18] MEDS ORDERED: Dextrose 50% Abboject 50 ML SYRINGE SLOW IVP PRN (21:14)
[2022-03-18] MEDS ORDERED: Dextrose 5% in Water 1,000 ML IV PRN (21:14)
[2022-03-18] MEDS ORDERED: Bisacodyl 5 MG TAB PO PRN (21:14)
[2022-03-18] MEDS ORDERED: hydrALAZINE 20 MG/ML VIAL SLOW IVP PRN (21:17)
[2022-03-18] MEDS ORDERED: Furosemide 100 MG/10 ML VIAL SLOW IVP SCH (21:30)
[2022-03-18] MEDS ORDERED: Vancomycin 1 GM in Premix Bag 1 BAG IVPB SCH (21:30)
[2022-03-19] MEDS ORDERED: Azithromycin 500 MG VIAL ONE (00:57)
[2022-03-19] MEDS ORDERED: Sodium Chloride 0.9% 100 ML ONE (00:57)
[2022-03-19] MEDS ORDERED: cefTRIAXone\\ROCEPHIN 2 GM VIAL ONE (00:57)
[2022-03-19] MEDS ORDERED: VANCOMYCIN 2 GRAM/500 ML BAG 2 GM in Premix Bag 1 BAG IVPB SCH (01:15)
[2022-03-19] MEDS ORDERED: Vancomycin Dialysis Sliding Scale (Wt > 99) FS SCH (01:15)
[2022-03-19] MEDS ORDERED: Cefepime 0.5 GM, Admixture Fee 1 EACH in Sodium Chloride 0.9% 100 ML IVPB SCH (01:30)
[2022-03-19] MEDS ORDERED: Furosemide 100 MG/10 ML VIAL ONE (01:44)
[2022-03-19] MEDS ORDERED: Ondansetron PF 4 MG/2 ML Vial ONE (02:04)
[2022-03-19] MEDS: Ondansetron PF 4 MG/2 ML Vial IVP PRN ×3 (02:13→19:04)
[2022-03-19 02:14] LABS: SARS-CoV-2 NAA Rapid Test Not Detected (NotDetected)
[2022-03-19] MEDS ORDERED: Morphine 2 MG/ML VIAL ONE (04:26)
[2022-03-19] MEDS: Morphine 2 MG/ML VIAL SLOW IVP PRN (04:31)
[2022-03-19 07:33] LABS: #Eosinphils 0.1 thou/uL (0.0-0.7); #Monocytes 0.6 thou/uL (0.11-0.59); #Neutrophils 3.2 thou/uL (1.40-6.50); %Basophils 0.3 % (0.0-1.0); %Eosinophils 1.8 % (0.0-10.0); %Lymphocytes 20.5 % (21.0-51.0); %Monocytes 12.7 % (0.0-10.0); %Neutrophils 64.5 % (42.0-75.0); Mean Corpuscular HGB CONC 31.9 g/dL (32.0-36.0); Mean Corpuscular Hemoglobin 32.6 pg (27.0-31.0); Mean Platelet Volume 6.7 fL (7.4-10.4); Platelet Count 212 thou/uL (130-400); RBC Distribution Width 14.1 % (11.5-14.5); Red Blood Cell (RBC) Count 2.45 mill/uL (4.20-5.40)
[2022-03-19 07:37] LABS: ALT (SGPT) 14 U/L (8-55); AST (SGOT) 16 U/L (5-34); Albumin 3.7 g/dL (3.4-4.8); Alkaline Phosphatase 120 U/L (40-110); Anion Gap 17 mmol/L (10-20); BUN (Urea Nitrogen) 42 mg/dL (9.8-20.1); Bilirubin, Total 0.4 mg/dL (0.2-1.2); Calc. Creatinine Clearance 20 mL/min (70-130); Calcium 8.9 mg/dL (7.8-10.44); Carbon Dioxide 27 mmol/L (23-31); Chloride 102 mmol/L (98-107); Estimated GFR 10; Globulin 2.5 g/dL (2.4-3.5); Glucose 162 mg/dL (83-110); Protein, Total 6.2 g/dL (5.8-8.1); Sodium 142 mmol/L (136-145)
[2022-03-19 07:42] LABS: Vancomycin, Random 35.9 ug/mL (See Comment)
[2022-03-19 07:47] LABS: Troponin I 0.055 ng/mL (< 0.028)
[2022-03-19] MEDS ORDERED: Cefepime 2 GM in Sodium Chloride 0.9% 100 ML IVPB SCH (09:00)
[2022-03-19] MEDS ORDERED: Aspirin 81 mg Enteric Coated Tablet PO SCH (09:00)
[2022-03-19] MEDS ORDERED: guaiFENesin 200 MG TAB PO PRN (09:12)
[2022-03-19 09:20] VITALS: BMI 45.2
[2022-03-19 10:12] LABS: Troponin I 0.052 ng/mL (< 0.028)
[2022-03-19] MEDS: Gabapentin 300 MG CAP PO SCH ×2 (10:19→21:10)
[2022-03-19] MEDS: Loratadine 10 MG TAB PO SCH (10:19)
[2022-03-19] MEDS: Folic Acid/Vit B Comp W-C PO SCH (10:19)
[2022-03-19] MEDS: Heparin 5,000 UNITS/ML VIAL SC SCH ×3 (10:20→21:11)
[2022-03-19] MEDS: Aspirin 81 mg Enteric Coated Tablet PO SCH (10:20)
[2022-03-19] MEDS: HYDROcodone/Acetaminophen 5/325 mg Tablet PO PRN ×2 (10:23→15:01)
[2022-03-19 11:13] LABS: Bilirubin Negative (Negative); Blood, Urine Trace (Negative); Clarity Clear (Clear); Glucose, Urine (Dipstick) Normal (Negative); Ketone, Urine Negative (Negative); Leukocyte Negative Leu/uL (Negative); Nitrite Negative (Negative); Protein, Urine (Dipstick) 30 mg/dL (Neg-Trace); RBC/HPF 0-3 HPF (0-3); Specific Gravity, Urine 1.016 (1.002-1.036); Squamous Epithelial 0-3 HPF (0-3); Urobilinogen Normal mg/dL (Less than 2); WBC/HPF 0-3 HPF (0-3); pH, Urine 5.5 (5.0-9.0)
[2022-03-19 11:14] LABS: Bacteria/HPF Rare-Few HPF (None Seen)
[2022-03-19 11:15] LABS: Urine Culture Reflex No No
[2022-03-19 12:46] LABS: Troponin I 0.054 ng/mL (< 0.028)
[2022-03-19 15:00] LABS: HBSAg Index 0.33 S/CO (0-0.99); Hep B Surf Ag Non-Reactive S/CO (NonReactive)
[2022-03-19] MEDS: Epoetin (ESRD) 10,000 UNITS/ML VIAL IVP SCH (15:01)
[2022-03-19 15:06] LABS: HBSAB Concentration 126.97 mIU/mL; Hep B Surf AB Reactive (NonReactive)
[2022-03-19] MEDS: Cefepime 0.5 GM, Admixture Fee 1 EACH in Sodium Chloride 0.9% 100 ML IVPB SCH (17:28)
[2022-03-19] MEDS: Acetaminophen 325 MG TAB PO PRN (21:09)
[2022-03-19] MEDS: Atorvastatin Calcium 10 MG TAB PO SCH (21:10)
[2022-03-19] MEDS: traZODone HCl 50 MG TAB PO PRN (21:44)
[2022-03-20] MEDS: HYDROcodone/Acetaminophen 5/325 mg Tablet PO PRN ×2 (03:44→16:41)
[2022-03-20] MEDS: Ondansetron PF 4 MG/2 ML Vial IVP PRN ×2 (03:46→17:49)
[2022-03-20 05:41] LABS: Anion Gap 14 mmol/L (10-20); BUN (Urea Nitrogen) 24 mg/dL (9.8-20.1); Calc. Creatinine Clearance 27 mL/min (70-130); Calcium 9.1 mg/dL (7.8-10.44); Carbon Dioxide 29 mmol/L (23-31); Chloride 101 mmol/L (98-107); Estimated GFR 15; Glucose 167 mg/dL (83-110); Potassium 3.6 mmol/L (3.5-5.1); Sodium 140 mmol/L (136-145)
[2022-03-20 06:13] LABS: Band 6 % (5-11); Eosinophils 3 % (0-10); Hemoglobin 7.9 g/dL (12.0-16.0); Lymphocytes 23 % (21-51); MDiff Complete? YES; Mean Corpuscular Hemoglobin 31.6 pg (27.0-31.0); Mean Platelet Volume 6.7 fL (7.4-10.4); Monocytes 12 % (0-10); Neutrophil 56 % (42-75); Platelet Count 183 thou/uL (130-400); RBC Distribution Width 14.3 % (11.5-14.5); White Blood Cell (WBC) Count 3.4 thou/uL (4.8-10.8)
[2022-03-20] MEDS: Folic Acid/Vit B Comp W-C PO SCH (07:50)
[2022-03-20] MEDS: Aspirin 81 mg Enteric Coated Tablet PO SCH (07:52)
[2022-03-20] MEDS: Gabapentin 300 MG CAP PO SCH ×2 (07:52→19:49)
[2022-03-20] MEDS: Heparin 5,000 UNITS/ML VIAL SC SCH ×3 (07:52→19:50)
[2022-03-20] MEDS ORDERED: Iopamidol 370 76% 100 ML VIAL ONE (09:02)
[2022-03-20] MEDS: Cefepime 0.5 GM, Admixture Fee 1 EACH in Sodium Chloride 0.9% 100 ML IVPB SCH (17:32)
[2022-03-20] MEDS: Acetylcysteine 10% 100 MG/ML 30 ml Vial INH SCH ×2 (18:50→23:59)
[2022-03-20] MEDS: Atorvastatin Calcium 10 MG TAB PO SCH (19:49)
[2022-03-20] MEDS: traZODone HCl 50 MG TAB PO PRN (23:55)
[2022-03-21] MEDS: Morphine 2 MG/ML VIAL SLOW IVP PRN (01:43)
[2022-03-21 06:09] LABS: Anion Gap 16 mmol/L (10-20); BUN (Urea Nitrogen) 32 mg/dL (9.8-20.1); Calc. Creatinine Clearance 20 mL/min (70-130); Calcium 9.2 mg/dL (7.8-10.44); Carbon Dioxide 28 mmol/L (23-31); Chloride 100 mmol/L (98-107); Estimated GFR 11; Glucose 167 mg/dL (83-110); Magnesium 2.1 mg/dL (1.6-2.6); Potassium 3.9 mmol/L (3.5-5.1); Sodium 140 mmol/L (136-145); Uric Acid 5.6 mg/dL (2.6-6.0)
[2022-03-21 06:14] LABS: Band 2 % (5-11); Eosinophils 2 % (0-10); Hemoglobin 7.7 g/dL (12.0-16.0); Lymphocytes 16 % (21-51); MDiff Complete? YES; Mean Corpuscular HGB CONC 31.5 g/dL (32.0-36.0); Mean Corpuscular Hemoglobin 31.8 pg (27.0-31.0); Mean Platelet Volume 6.6 fL (7.4-10.4); Metamyelocyte 1 % (0-0); Monocytes 16 % (0-10); Myelocyte 2 % (0-0); Neutrophil 61 % (42-75); Platelet Count 171 thou/uL (130-400); RBC Distribution Width 14.2 % (11.5-14.5); Red Blood Cell (RBC) Count 2.41 mill/uL (4.20-5.40); White Blood Cell (WBC) Count 4.4 thou/uL (4.8-10.8)
[2022-03-21] MEDS: Acetylcysteine 10% 100 MG/ML 30 ml Vial INH SCH ×3 (07:21→18:52)
[2022-03-21 07:33] LABS: Vancomycin, Random 17.1 ug/mL (See Comment)
[2022-03-21] MEDS ORDERED: Pantoprazole 40 MG GRANULES PACKET PO SCH (09:00)
[2022-03-21] MEDS: HYDROcodone/Acetaminophen 5/325 mg Tablet PO PRN ×3 (09:23→21:42)
[2022-03-21] MEDS: Gabapentin 300 MG CAP PO SCH ×2 (09:24→21:31)
[2022-03-21] MEDS: Heparin 5,000 UNITS/ML VIAL SC SCH ×3 (09:25→21:31)
[2022-03-21] MEDS: Aspirin 81 mg Enteric Coated Tablet PO SCH (09:25)
[2022-03-21] MEDS: Loratadine 10 MG TAB PO SCH (09:25)
[2022-03-21] MEDS: Folic Acid/Vit B Comp W-C PO SCH (14:30)
[2022-03-21] MEDS: Epoetin (ESRD) 10,000 UNITS/ML VIAL IVP SCH (14:30)
[2022-03-21] MEDS: Cefepime 0.5 GM, Admixture Fee 1 EACH in Sodium Chloride 0.9% 100 ML IVPB SCH (16:27)
[2022-03-21] MEDS ORDERED: Vancomycin HCl 750 MG in Sodium Chloride 0.9% 250 ML 250 ML IVPB SCH ×2 (17:00→18:00)
[2022-03-21] MEDS: Acetaminophen 325 MG TAB PO PRN (17:09)
[2022-03-21] MEDS: Atorvastatin Calcium 10 MG TAB PO SCH (21:31)
[2022-03-22] MEDS: Acetylcysteine 10% 100 MG/ML 30 ml Vial INH SCH ×2 (00:01→07:09)
[2022-03-22] MEDS: Morphine 2 MG/ML VIAL SLOW IVP PRN (00:36)
[2022-03-22] MEDS: HYDROcodone/Acetaminophen 5/325 mg Tablet PO PRN ×2 (01:46→10:22)
[2022-03-22 05:50] LABS: Anion Gap 17 mmol/L (10-20); BUN (Urea Nitrogen) 21 mg/dL (9.8-20.1); Calc. Creatinine Clearance 27 mL/min (70-130); Calcium 8.7 mg/dL (7.8-10.44); Carbon Dioxide 23 mmol/L (23-31); Chloride 102 mmol/L (98-107); Estimated GFR 15; Glucose 174 mg/dL (83-110); Magnesium 1.9 mg/dL (1.6-2.6); Potassium 3.8 mmol/L (3.5-5.1); Sodium 138 mmol/L (136-145)
[2022-03-22 06:16] LABS: Band 2 % (5-11); Eosinophils 1 % (0-10); Hemoglobin 7.3 g/dL (12.0-16.0); Lymphocytes 18 % (21-51); MDiff Complete? YES; Mean Corpuscular HGB CONC 31.5 g/dL (32.0-36.0); Mean Corpuscular Hemoglobin 31.9 pg (27.0-31.0); Monocytes 20 % (0-10); Neutrophil 59 % (42-75); Platelet Count 173 thou/uL (130-400); RBC Distribution Width 14.3 % (11.5-14.5); Red Blood Cell (RBC) Count 2.27 mill/uL (4.20-5.40); White Blood Cell (WBC) Count 3.5 thou/uL (4.8-10.8)
[2022-03-22 08:39] VITALS: TEMP 97
[2022-03-22] MEDS: Aspirin 81 mg Enteric Coated Tablet PO SCH (08:53)
[2022-03-22] MEDS: Gabapentin 300 MG CAP PO SCH (08:53)
[2022-03-22] MEDS: Folic Acid/Vit B Comp W-C PO SCH (08:54)
[2022-03-22] MEDS: Heparin 5,000 UNITS/ML VIAL SC SCH (08:54)
[2022-03-22] MEDS ORDERED: Cefdinir 300 MG CAP PO SCH (09:00)
[2022-03-22 12:01] VITALS: BP 142/65
== END 2022-03-22 14:10 | disposition home or self-care (01) | DRG 602 ==
LOC: ERS 17:39 → 2SW 20:46 → ERHOLD 20:56 → 2SW 03-19 08:52 → OBSVTOIN 03-20 12:21 → MSONC 03-20 16:19
PROVIDERS: ADMIT Internal Medicine; ATTEND Internal Medicine
PROC: 5A1D70Z Performance of Urinary Filtration, Intermittent, Less than 6 Hours Per Day (ICD-10-PCS; principal; 2022-03-19)
DX: L03.116 Cellulitis of left lower limb (principal); J18.9 Pneumonia, unspecified organism; J96.01 Acute respiratory failure with hypoxia; N18.6 End stage renal disease; I12.0 Hypertensive chronic kidney disease with stage 5 chronic kidney disease or end stage renal disease; Z20.822 Contact with and (suspected) exposure to COVID-19; M70.32 Other bursitis of elbow, left elbow; E78.2 Mixed hyperlipidemia; E11.22 Type 2 diabetes mellitus with diabetic chronic kidney disease; M06.9 Rheumatoid arthritis, unspecified; G89.29 Other chronic pain; M54.9 Dorsalgia, unspecified; Z96.659 Presence of unspecified artificial knee joint; D63.1 Anemia in chronic kidney disease; R79.89 Other specified abnormal findings of blood chemistry; I95.89 Other hypotension; F43.10 Post-traumatic stress disorder, unspecified; I25.10 Atherosclerotic heart disease of native coronary artery without angina pectoris; K21.9 Gastro-esophageal reflux disease without esophagitis; R49.0 Dysphonia; L03.115 Cellulitis of right lower limb; Z99.2 Dependence on renal dialysis; Z88.2 Allergy status to sulfonamides; Z88.4 Allergy status to anesthetic agent; Z88.1 Allergy status to other antibiotic agents; Z88.5 Allergy status to narcotic agent; Z91.013 Allergy to seafood; Z85.72 Personal history of non-Hodgkin lymphomas; Z92.21 Personal history of antineoplastic chemotherapy; Z79.899 Other long term (current) drug therapy; Z79.82 Long term (current) use of aspirin; Z90.710 Acquired absence of both cervix and uterus; Z98.84 Bariatric surgery status; Z87.891 Personal history of nicotine dependence; Z98.890 Other specified postprocedural states; Z86.018 Personal history of other benign neoplasm
CPT/HCPCS: 36415; 36416; 70491; 71045; 71260; 80048; 80053; 80202; 81001; 82550; 82553; 83605; 83735; 84443; 84484; 84550; 85025; 86706; 87040; 87081; 87340; 87633; 87804; 90935; 93005; 94640; 94667; 94668; 94760; 96365; 96367; 96372; 96375; 96376; G0257; G0378; J0360; J0456; J0692; J0696; J1644; J1815; J1940; J2270; J2405; J3370; J3490; J7050; J7608; J7620; Q4081; Q9967; U0002

== ENCOUNTER 2022-06-17 07:51 | Outpatient (CLI) | payer MEDICARE, BC | END 2022-06-17 07:52 | disposition home or self-care (01) | LOC: BICCT 07:51 | PROVIDERS: ATTEND Internal Medicine Hematology & Oncology | DX: C83.31 Diffuse large B-cell lymphoma, lymph nodes of head, face, and neck (principal); D50.0 Iron deficiency anemia secondary to blood loss (chronic) | CPT/HCPCS: 71250; 74177; 82565 ==

== ENCOUNTER 2022-06-26 08:14 | Outpatient (CLI) | payer MEDICARE, BC | END 2022-06-26 08:15 | disposition home or self-care (01) | LOC: BICCT 08:14 | PROVIDERS: ATTEND Internal Medicine Hematology & Oncology | DX: C83.31 Diffuse large B-cell lymphoma, lymph nodes of head, face, and neck (principal); N28.89 Other specified disorders of kidney and ureter | CPT/HCPCS: 71260; 74177 ==

== ENCOUNTER 2022-07-23 06:25 | Observation (INO) | payer MEDICARE, BC ==
[2022-07-23] MEDS ORDERED: Ondansetron PF 4 MG/2 ML Vial ONE (07:50)
[2022-07-23] MEDS ORDERED: Morphine 4 MG/ML VIAL ONE (07:50)
[2022-07-23 08:18] LABS: #Lymphocytes 0.6 thou/uL (1.20-3.40); #Monocytes 0.4 thou/uL (0.11-0.59); #Neutrophils 4.3 thou/uL (1.40-6.50); %Basophils 0.4 % (0.0-1.0); %Eosinophils 0.6 % (0.0-10.0); %Lymphocytes 10.7 % (21.0-51.0); %Monocytes 7.7 % (0.0-10.0); %Neutrophils 80.6 % (42.0-75.0); Hemoglobin 12.2 g/dL (12.0-16.0); Mean Corpuscular Volume 99.8 fl (78.0-98.0); Platelet Count 160 10x3/uL (130-400); RBC Distribution Width 16.8 % (11.5-14.5); Red Blood Cell (RBC) Count 3.94 mill/uL (4.20-5.40); White Blood Cell (WBC) Count 5.4 10x3/uL (4.8-10.8)
[2022-07-23] MEDS ORDERED: Heparin 10,000 UNITS/ 10 ML VIAL ONE (08:32)
[2022-07-23 08:33] LABS: ALT (SGPT) 16 U/L (8-55); AST (SGOT) 15 U/L (5-34); Albumin 4.1 g/dL (3.4-4.8); Alkaline Phosphatase 64 U/L (40-110); Anion Gap 23 mmol/L (10-20); BUN (Urea Nitrogen) 54 mg/dL (9.8-20.1); Bilirubin, Total 0.5 mg/dL (0.2-1.2); Calc. Creatinine Clearance 0 mL/min (70-130); Calcium 10.7 mg/dL (7.8-10.44); Carbon Dioxide 20 mmol/L (23-31); Chloride 103 mmol/L (98-107); Estimated GFR 6; Globulin 2.3 g/dL (2.4-3.5); Glucose 98 mg/dL (83-110); Lipase 36 U/L (8-78); Potassium 4.7 mmol/L (3.5-5.1); Protein, Total 6.4 g/dL (5.8-8.1); Sodium 141 mmol/L (136-145)
[2022-07-23 09:34] LABS: CKMB 3.1 ng/mL (0-6.6)
[2022-07-23 10:05] LABS: Bilirubin Negative (Negative); Blood, Urine Large (Negative); Clarity Turbid (Clear); Glucose, Urine (Dipstick) Negative (Negative); Ketone, Urine Negative (Negative); Leukocyte Negative (Negative); Nitrite Negative (Negative); Protein, Urine (Dipstick) 100 mg/dL (Neg-Trace); Urobilinogen 0.2 mg/dL (Less than 2); pH, Urine 6.5 (5.0-9.0)
[2022-07-23 10:30] LABS: Bacteria/HPF 4+ HPF (None Seen); RBC/HPF 0-3 HPF (0-3); Squamous Epithelial 0-3 HPF (0-3); WBC/HPF 0-3 HPF (0-3)
[2022-07-23] MEDS ORDERED: Acetaminophen 325 MG TAB PO PRN (11:13)
[2022-07-23] MEDS ORDERED: Dextrose 50% Abboject 50 ML SYRINGE SLOW IVP PRN (11:57)
[2022-07-23] MEDS ORDERED: HumaLOG 300 UNITS/3 ML VIAL SC PRN ×2 (11:57)
[2022-07-23] MEDS ORDERED: Dextrose 5% in Water 1,000 ML IV PRN (11:57)
[2022-07-23 12:21] LABS: SARS-CoV-2 NAA Rapid Test Not Detected (NotDetected)
[2022-07-23 12:44] LABS: Magnesium 2.3 mg/dL (1.6-2.6)
[2022-07-23] MEDS ORDERED: Iopamidol-370 76% 500 ML 1 ML ONE (12:50)
[2022-07-23] MEDS ORDERED: Aspirin Chewable 81 MG TAB PO SCH (13:00)
[2022-07-23 14:07] LABS: HBSAg Index 0.26 S/CO (0-0.99); Hep B Surf Ag Non-Reactive S/CO (NonReactive)
[2022-07-23 14:09] LABS: HBSAB Concentration 196.45 mIU/mL; Hep B Surf AB Reactive (NonReactive)
[2022-07-23 15:26] LABS: Hep B Core Total Ab Reactive (NonReactive); Hep B Core Total Index 9.07 S/CO (0-0.79)
[2022-07-23] MEDS ORDERED: traZODone HCl 50 MG TAB PO PRN (17:52)
[2022-07-23] MEDS ORDERED: HYDROcodone/Acetaminophen 5/325 mg Tablet PO PRN (18:13)
[2022-07-23 20:02] VITALS: BMI 39.3
[2022-07-23] MEDS: Cinacalcet HCl 30 MG TAB PO SCH (20:53)
[2022-07-23] MEDS: Gabapentin 300 MG CAP PO SCH (20:54)
[2022-07-23] MEDS: HYDROcodone/Acetaminophen 5/325 mg Tablet PO PRN (20:54)
[2022-07-23] MEDS ORDERED: Atorvastatin Calcium 10 MG TAB PO SCH (21:00)
[2022-07-23 21:23] LABS: Troponin I 0.057 ng/mL (< 0.028)
[2022-07-23] MEDS: Ondansetron PF 4 MG/2 ML Vial IVP PRN (21:33)
[2022-07-24] MEDS: HYDROcodone/Acetaminophen 5/325 mg Tablet PO PRN (03:13)
[2022-07-24 04:33] LABS: #Eosinphils 0.1 thou/uL (0.0-0.7); #Monocytes 0.5 thou/uL (0.11-0.59); #Neutrophils 2.2 thou/uL (1.40-6.50); %Basophils 0.6 % (0.0-1.0); %Eosinophils 3.2 % (0.0-10.0); %Monocytes 13.2 % (0.0-10.0); Hemoglobin 10.7 g/dL (12.0-16.0); Mean Corpuscular HGB CONC 32.4 g/dL (32.0-36.0); Mean Corpuscular Volume 98.9 fl (78.0-98.0); Mean Platelet Volume 7.1 fL (7.4-10.4); Platelet Count 140 10x3/uL (130-400); RBC Distribution Width 16.7 % (11.5-14.5); Red Blood Cell (RBC) Count 3.35 mill/uL (4.20-5.40); White Blood Cell (WBC) Count 3.9 10x3/uL (4.8-10.8)
[2022-07-24 04:58] LABS: Anion Gap 14 mmol/L (10-20); BUN (Urea Nitrogen) 26 mg/dL (9.8-20.1); Calc. Creatinine Clearance 19 mL/min (70-130); Calcium 8.4 mg/dL (7.8-10.44); Carbon Dioxide 30 mmol/L (23-31); Chloride 100 mmol/L (98-107); Estimated GFR 11; Glucose 103 mg/dL (83-110); Potassium 3.8 mmol/L (3.5-5.1); Sodium 140 mmol/L (136-145)
[2022-07-24] MEDS: Cinacalcet HCl 30 MG TAB PO SCH ×2 (08:30→14:16)
[2022-07-24] MEDS: Gabapentin 300 MG CAP PO SCH ×2 (08:30→14:16)
[2022-07-24] MEDS ORDERED: Ergocalciferol 1.25 MG(50,000 UNITS) CAP PO SCH (09:00)
[2022-07-24] MEDS ORDERED: Aspirin Chewable 81 MG TAB PO SCH (09:00)
[2022-07-24] MEDS ORDERED: Loratadine 10 MG TAB PO SCH (09:00)
[2022-07-24] MEDS: Ondansetron PF 4 MG/2 ML Vial IVP PRN (09:09)
[2022-07-24 13:09] VITALS: BP 130/58; TEMP 98
[2022-07-24] MEDS ORDERED: Midodrine HCl 5 MG TAB PO SCH (21:00)
[2022-07-25] MEDS ORDERED: Midodrine HCl 5 MG TAB PO SCH (09:00)
== END 2022-07-24 17:53 | disposition home or self-care (01) ==
LOC: ERS 06:25 → ERHOLD 11:13 → 2SW 17:25
PROVIDERS: ADMIT Internal Medicine; ATTEND Internal Medicine
DX: R07.9 Chest pain, unspecified (principal); E11.43 Type 2 diabetes mellitus with diabetic autonomic (poly)neuropathy; K31.84 Gastroparesis; I13.2 Hypertensive heart and chronic kidney disease with heart failure and with stage 5 chronic kidney disease, or end stage renal disease; E11.22 Type 2 diabetes mellitus with diabetic chronic kidney disease; N18.6 End stage renal disease; I50.32 Chronic diastolic (congestive) heart failure; D63.1 Anemia in chronic kidney disease; I25.10 Atherosclerotic heart disease of native coronary artery without angina pectoris; E78.5 Hyperlipidemia, unspecified; M06.9 Rheumatoid arthritis, unspecified; G89.29 Other chronic pain; M54.9 Dorsalgia, unspecified; N28.89 Other specified disorders of kidney and ureter; E66.01 Morbid (severe) obesity due to excess calories; Z68.39 Body mass index [BMI] 39.0-39.9, adult; Z85.72 Personal history of non-Hodgkin lymphomas; Z86.010 Personal history of colon polyps; Z87.891 Personal history of nicotine dependence; Z79.82 Long term (current) use of aspirin; Z79.84 Long term (current) use of oral hypoglycemic drugs; Z79.899 Other long term (current) drug therapy; Z88.1 Allergy status to other antibiotic agents; Z88.2 Allergy status to sulfonamides; Z88.4 Allergy status to anesthetic agent; Z88.8 Allergy status to other drugs, medicaments and biological substances; Z91.013 Allergy to seafood; Z95.5 Presence of coronary angioplasty implant and graft; Z98.84 Bariatric surgery status; Z99.2 Dependence on renal dialysis; Z20.822 Contact with and (suspected) exposure to COVID-19
CPT/HCPCS: 71045; 74177; 80048; 82553; 82962 ×2; 83690; 83735; 83880; 84484 ×2; 85025; 86704; 86706; 87340; 93005; 94760; 96374; 96375; 96376; 99285; G0378 ×2; U0002; 36415; 36416; 80053; 81003; 81015; 84443; 90935; G0257; J1642; J1644; J2270; J2405; Q9967

== ENCOUNTER 2022-08-14 09:10 | Outpatient (CLI) | payer MEDICARE, BC ==
[2022-08-14 11:28] LABS: Hemoglobin 11.7 g/dL (12.0-15.5); Mean Corpuscular HGB CONC 31.9 g/dL (32.0-36.0); Mean Corpuscular Hemoglobin 31.8 pg (27.0-33.0); Mean Corpuscular Volume 99.7 fl (81.6-98.3); Mean Platelet Volume 9.1 fl (7.4-10.4); Platelet Count 187 10x3/uL (150-450); RBC Distribution Width 18.2 % (11.5-14.5); Red Blood Cell (RBC) Count 3.68 10x6/uL (3.90-5.03); White Blood Cell (WBC) Count 4.2 10x3/uL (3.5-10.5)
[2022-08-14 11:49] LABS: Eosinophils 4 % (0-10); Lymphocytes 23 % (21-51); Monocytes 15 % (0-10); Neutrophil 57 % (42-75); Platelet Morphology Comment Appears Adequate; Reactive Lymphocytes 1 % (0-10)
[2022-08-14 11:50] LABS: MDiff Complete? YES
[2022-08-14 11:51] LABS: Macrocytosis SLIGHT = 6-15 cells (100X) (0-5/hpf); Ovalocytes SLIGHT = 2-5 cells (100X) (0-1/hpf)
[2022-08-14 11:59] LABS: ALT (SGPT) 22 U/L (8-55); AST (SGOT) 21 U/L (5-34); Alkaline Phosphatase 68 U/L (40-110); Anion Gap 20 mmol/L (10-20); BUN (Urea Nitrogen) 39 mg/dL (9.8-20.1); Bilirubin, Total 0.4 mg/dL (0.2-1.2); Calc. Creatinine Clearance 0 mL/min (70-130); Calcium 10.2 mg/dL (7.8-10.44); Carbon Dioxide 26 mmol/L (23-31); Chloride 99 mmol/L (98-107); Estimated GFR 8; Globulin 2.2 g/dL (2.4-3.5); Glucose 90 mg/dL (83-110); Potassium 5.1 mmol/L (3.5-5.1); Protein, Total 6.2 g/dL (5.8-8.1); Sodium 140 mmol/L (136-145)
== END 2022-08-14 09:11 | disposition home or self-care (01) ==
LOC: LABBT 09:10
PROVIDERS: ATTEND Surgery
DX: Z01.812 Encounter for preprocedural laboratory examination (principal); C85.90 Non-Hodgkin lymphoma, unspecified, unspecified site
CPT/HCPCS: 80053; 85025

== ENCOUNTER 2022-08-19 05:44 | Day surgery (SDC) | payer MEDICARE, BC ==
[2022-08-15 14:59] VITALS: BMI 38.2
[2022-08-19] MEDS ORDERED: fentaNYL PF 100 MCG/2 ML SYRINGE ONE (06:11)
[2022-08-19] MEDS ORDERED: Lidocaine 2% 6 ML SYR ONE (06:11)
[2022-08-19] MEDS ORDERED: Propofol 500 MG/50 ML VIAL ONE (06:27)
[2022-08-19] MEDS ORDERED: Midazolam HCl 2 mg/2 ml Vial ONE (06:33)
[2022-08-19] MEDS ORDERED: Ketamine 50 MG/ML (10ML VIAL) ONE (06:33)
[2022-08-19] MEDS ORDERED: CEFAZOLIN 2 GM VIAL ONE (07:07)
[2022-08-19] MEDS ORDERED: Sodium Chloride 0.9% 100 ML ONE (07:07)
[2022-08-19] MEDS ORDERED: Bupivacaine/Epinephrine 0.25% 30 ML VIAL ONE (07:49)
[2022-08-19] MEDS ORDERED: Ondansetron PF 4 MG/2 ML Vial ONE ×2 (08:07→08:48)
== END 2022-08-19 09:35 | disposition home or self-care (01) ==
LOC: SDC 05:44
PROVIDERS: ATTEND Surgery
PROC: 0JPT0WZ Removal of Totally Implantable Vascular Access Device from Trunk Subcutaneous Tissue and Fascia, Open Approach (ICD-10-PCS; principal; 2022-08-19)
DX: Z45.2 Encounter for adjustment and management of vascular access device (principal); I10 Essential (primary) hypertension; E78.5 Hyperlipidemia, unspecified; E11.9 Type 2 diabetes mellitus without complications; M19.90 Unspecified osteoarthritis, unspecified site; G89.29 Other chronic pain; M54.32 Sciatica, left side; Z85.72 Personal history of non-Hodgkin lymphomas; Z87.891 Personal history of nicotine dependence; Z92.21 Personal history of antineoplastic chemotherapy; Z79.82 Long term (current) use of aspirin; Z79.84 Long term (current) use of oral hypoglycemic drugs; Z79.899 Other long term (current) drug therapy; Z88.1 Allergy status to other antibiotic agents; Z88.2 Allergy status to sulfonamides; Z88.4 Allergy status to anesthetic agent; Z88.8 Allergy status to other drugs, medicaments and biological substances; Z91.013 Allergy to seafood
CPT/HCPCS: J2250; J2405; J2704; J3490

== ENCOUNTER 2022-12-18 08:33 | Outpatient (CLI) | payer MEDICARE, BC | END 2022-12-18 08:34 | disposition home or self-care (01) | LOC: SCSMRI 08:33 | PROVIDERS: ATTEND Internal Medicine Hematology & Oncology | DX: C83.31 Diffuse large B-cell lymphoma, lymph nodes of head, face, and neck (principal); N28.89 Other specified disorders of kidney and ureter | CPT/HCPCS: 74183 ==

== ENCOUNTER 2023-01-28 17:39 | Emergency (ER) | payer MEDICARE, BC ==
[2023-01-28 18:43] LABS: #Eosinphils 0.1 thou/uL (0.0-0.7); #Monocytes 0.6 thou/uL (0.11-0.59); #Neutrophils 3.7 thou/uL (1.40-6.50); %Basophils 0.2 % (0.0-1.0); %Eosinophils 1.2 % (0.0-10.0); %Lymphocytes 12.4 % (21.0-51.0); %Monocytes 12.2 % (0.0-10.0); %Neutrophils 73.2 % (42.0-75.0); Hemoglobin 9.7 g/dL (12.0-16.0); Mean Corpuscular HGB CONC 32.7 g/dL (32.0-36.0); Mean Corpuscular Hemoglobin 32.9 pg (27.0-31.0); Mean Corpuscular Volume 100.7 fl (78.0-98.0); Platelet Count 170 10x3/uL (130-400); RBC Distribution Width 15.9 % (11.5-14.5); Red Blood Cell (RBC) Count 2.95 mill/uL (4.20-5.40)
[2023-01-28] MEDS ORDERED: Metoclopramide HCl 10 MG/2 ML VIAL ONE (18:50)
[2023-01-28 19:22] LABS: ALT (SGPT) 20 U/L (8-55); AST (SGOT) 26 U/L (5-34); Albumin 3.8 g/dL (3.4-4.8); Alkaline Phosphatase 79 U/L (40-110); Anion Gap 20 mmol/L (10-20); BUN (Urea Nitrogen) 20 mg/dL (9.8-20.1); Bilirubin, Total 0.3 mg/dL (0.2-1.2); Calc. Creatinine Clearance 0 mL/min (70-130); Calcium 9.4 mg/dL (7.8-10.44); Carbon Dioxide 26 mmol/L (23-31); Chloride 97 mmol/L (98-107); Estimated GFR 12; Globulin 2.9 g/dL (2.4-3.5); Glucose 98 mg/dL (83-110); Lipase 30 U/L (8-78); Potassium 4.2 mmol/L (3.5-5.1); Protein, Total 6.7 g/dL (5.8-8.1); Sodium 139 mmol/L (136-145)
== END 2023-01-28 20:41 | disposition home or self-care (01) ==
LOC: ERS 17:39
DX: E86.0 Dehydration (principal); R11.2 Nausea with vomiting, unspecified; Z87.891 Personal history of nicotine dependence; I50.9 Heart failure, unspecified; N18.6 End stage renal disease; Z79.899 Other long term (current) drug therapy; Z79.82 Long term (current) use of aspirin
CPT/HCPCS: 36415; 80053; 83605; 83690; 85025; 96365; J2765

== ENCOUNTER 2023-02-25 06:40 | Emergency (ER) | payer MEDICARE, BC ==
[2023-02-25 07:24] LABS: #Eosinphils 0.1 thou/uL (0.0-0.7); #Monocytes 0.6 thou/uL (0.11-0.59); #Neutrophils 4.3 thou/uL (1.40-6.50); %Basophils 0.5 % (0.0-1.0); %Eosinophils 2.4 % (0.0-10.0); %Lymphocytes 12.7 % (21.0-51.0); %Monocytes 9.9 % (0.0-10.0); %Neutrophils 73.5 % (42.0-75.0); Hematocrit 26.7 % (36.0-47.0); Hemoglobin 8.2 g/dL (12.0-16.0); Mean Corpuscular HGB CONC 30.7 g/dL (32.0-36.0); Mean Corpuscular Hemoglobin 31.8 pg (27.0-31.0); Mean Corpuscular Volume 103.5 fl (78.0-98.0); Mean Platelet Volume 9.2 fL (7.4-10.4); Platelet Count 211 10x3/uL (130-400); RBC Distribution Width 16.1 % (11.5-14.5); Red Blood Cell (RBC) Count 2.58 mill/uL (4.20-5.40); White Blood Cell (WBC) Count 5.8 10x3/uL (4.8-10.8)
[2023-02-25 07:46] LABS: ALT (SGPT) 17 U/L (8-55); AST (SGOT) 17 U/L (5-34); Albumin 3.6 g/dL (3.4-4.8); Alkaline Phosphatase 79 U/L (40-110); Anion Gap 21 mmol/L (10-20); BUN (Urea Nitrogen) 51 mg/dL (9.8-20.1); Bilirubin, Total 0.3 mg/dL (0.2-1.2); Calc. Creatinine Clearance 0 mL/min (70-130); Calcium 9.5 mg/dL (7.8-10.44); Carbon Dioxide 22 mmol/L (23-31); Chloride 100 mmol/L (98-107); Estimated GFR 7; Globulin 2.1 g/dL (2.4-3.5); Glucose 88 mg/dL (83-110); Potassium 3.9 mmol/L (3.5-5.1); Protein, Total 5.7 g/dL (5.8-8.1); Sodium 139 mmol/L (136-145)
[2023-02-25 07:50] LABS: Troponin I 0.109 ng/mL (< 0.028)
[2023-02-25] MEDS ORDERED: Iopamidol-370 76% 500 ML MDV (1 ML CHARGE) ONE (09:24)
[2023-02-25] MEDS ORDERED: Heparin 10,000 UNITS/ 10 ML VIAL ONE (10:09)
[2023-02-25 11:54] LABS: Troponin I 0.113 ng/mL (< 0.028)
[2023-02-25] MEDS ORDERED: Epoetin (ESRD) 10,000 UNITS/ML VIAL SC SCH (14:15)
[2023-02-25] MEDS ORDERED: Epoetin (ESRD) 10,000 UNITS/ML VIAL IVP SCH (18:00)
== END 2023-02-25 20:19 | disposition home or self-care (01) ==
LOC: ERS 06:40
DX: N17.9 Acute kidney failure, unspecified (principal); I48.91 Unspecified atrial fibrillation; N18.6 End stage renal disease; R06.02 Shortness of breath; Z87.891 Personal history of nicotine dependence; Z79.899 Other long term (current) drug therapy; Z79.82 Long term (current) use of aspirin; Z99.2 Dependence on renal dialysis
CPT/HCPCS: 36416; 71045; 71275; 80053; 84484; 85025; 85379; 90935; 93005; G0257; J1644; Q4081; Q9967

== ENCOUNTER 2023-03-04 09:04 | Inpatient (IN) | payer MEDICARE, BC ==
[~2023-03-04 09:04] MED LIST changes: +Heparin 10,000 UNITS/ 10 ML VIAL ONE; -Iopamidol 370 76% 100 ML VIAL ONE
[2023-03-04 09:55] LABS: #Eosinphils 0.1 thou/uL (0.0-0.7); #Monocytes 0.6 thou/uL (0.11-0.59); #Neutrophils 4.4 thou/uL (1.40-6.50); %Basophils 0.4 % (0.0-1.0); %Eosinophils 1.8 % (0.0-10.0); %Lymphocytes 8.8 % (21.0-51.0); %Monocytes 9.9 % (0.0-10.0); %Neutrophils 77.9 % (42.0-75.0); Hematocrit 27.9 % (36.0-47.0); Hemoglobin 8.4 g/dL (12.0-16.0); Mean Corpuscular HGB CONC 30.1 g/dL (32.0-36.0); Mean Corpuscular Hemoglobin 32.4 pg (27.0-31.0); Mean Corpuscular Volume 107.7 fl (78.0-98.0); Mean Platelet Volume 8.9 fL (7.4-10.4); Platelet Count 226 10x3/uL (130-400); Red Blood Cell (RBC) Count 2.59 mill/uL (4.20-5.40); White Blood Cell (WBC) Count 5.7 10x3/uL (4.8-10.8)
[2023-03-04 10:36] LABS: Troponin I 0.114 ng/mL (< 0.028)
[2023-03-04 10:40] LABS: ALT (SGPT) 14 U/L (8-55); AST (SGOT) 14 U/L (5-34); Albumin 3.6 g/dL (3.4-4.8); Alkaline Phosphatase 85 U/L (40-110); Anion Gap 16 mmol/L (10-20); BUN (Urea Nitrogen) 50 mg/dL (9.8-20.1); Bilirubin, Total 0.5 mg/dL (0.2-1.2); Calc. Creatinine Clearance 0 mL/min (70-130); Calcium 9.4 mg/dL (7.8-10.44); Carbon Dioxide 27 mmol/L (23-31); Chloride 104 mmol/L (98-107); Estimated GFR 7; Glucose 162 mg/dL (83-110); Lipase 29 U/L (8-78); Potassium 3.9 mmol/L (3.5-5.1); Protein, Total 5.6 g/dL (5.8-8.1); Sodium 143 mmol/L (136-145)
[2023-03-04 12:08] LABS: Bacteria/HPF None Seen HPF (None Seen); Bilirubin Negative (Negative); Blood, Urine 1+ (Negative); CAUTI Indications for Culture < 2yrs of age; Clarity Clear (Clear); Glucose, Urine (Dipstick) 30 mg/dL (Negative); Ketone, Urine Negative (Negative); Leukocyte Negative Leu/uL (Negative); Nitrite Negative (Negative); Protein, Urine (Dipstick) 100 mg/dL (Neg-Trace); RBC/HPF 0-3 HPF (0-3); Specific Gravity, Urine 1.028 (1.002-1.036); Squamous Epithelial None Seen HPF (0-3); Urobilinogen Normal mg/dL (Less than 2); WBC/HPF 0-3 HPF (0-3); pH, Urine 5.5 (5.0-9.0)
[2023-03-04 12:12] LABS: Urine Culture Reflex Yes Yes
[2023-03-04] MEDS ORDERED: hydrALAZINE 20 MG/ML VIAL SLOW IVP PRN (13:23)
[2023-03-04] MEDS ORDERED: Dextrose 50% Abboject 50 ML SYRINGE SLOW IVP PRN (13:23)
[2023-03-04] MEDS ORDERED: Acetaminophen 650 MG Suppository PR PRN (13:23)
[2023-03-04] MEDS ORDERED: Dextrose 5% in Water 1,000 ML IV PRN (13:23)
[2023-03-04] MEDS ORDERED: Acetaminophen 325 MG TAB PO PRN (13:23)
[2023-03-04] MEDS ORDERED: HumaLOG 300 UNITS/3 ML VIAL SC PRN ×2 (13:23)
[2023-03-04] MEDS ORDERED: Glucagon 1 MG/ML KIT IM PRN (13:23)
[2023-03-04 14:21] LABS: Troponin I 0.177 ng/mL (< 0.028)
[2023-03-04] MEDS ORDERED: Pantoprazole 40 MG VIAL IVP SCH (15:15)
[2023-03-04 17:52] LABS: Troponin I 0.183 ng/mL (< 0.028)
[2023-03-04] MEDS ORDERED: Epoetin (ESRD) 20,000 UNITS/ML MDV SC SCH (20:00)
[2023-03-04 21:53] LABS: Troponin I 0.131 ng/mL (< 0.028)
[2023-03-04] MEDS: Heparin 5,000 UNITS/ML VIAL SC SCH ×2 (21:54→21:55)
[2023-03-04] MEDS: Atorvastatin Calcium 40 MG TAB PO SCH (21:55)
[2023-03-04] MEDS: Gabapentin 300 MG CAP PO SCH ×2 (23:21→23:25)
[2023-03-05] MEDS: HYDROcodone/Acetaminophen 10/325 mg Tablet PO PRN ×2 (00:35→20:47)
[2023-03-05 01:32] LABS: Troponin I 0.111 ng/mL (< 0.028)
[2023-03-05 05:00] LABS: #Eosinphils 0.1 thou/uL (0.0-0.7); #Monocytes 0.6 thou/uL (0.11-0.59); #Neutrophils 2.7 thou/uL (1.40-6.50); %Basophils 0.5 % (0.0-1.0); %Eosinophils 3.2 % (0.0-10.0); %Lymphocytes 18.8 % (21.0-51.0); %Neutrophils 62.6 % (42.0-75.0); Hematocrit 27.6 % (36.0-47.0); Hemoglobin 8.3 g/dL (12.0-16.0); Mean Corpuscular HGB CONC 30.1 g/dL (32.0-36.0); Mean Corpuscular Hemoglobin 32.3 pg (27.0-31.0); Mean Corpuscular Volume 107.4 fl (78.0-98.0); Mean Platelet Volume 9.1 fL (7.4-10.4); Platelet Count 184 10x3/uL (130-400); RBC Distribution Width 16.7 % (11.5-14.5); Red Blood Cell (RBC) Count 2.57 mill/uL (4.20-5.40); White Blood Cell (WBC) Count 4.4 10x3/uL (4.8-10.8)
[2023-03-05 05:29] LABS: Anion Gap 13 mmol/L (10-20); BUN (Urea Nitrogen) 19 mg/dL (9.8-20.1); Calc. Creatinine Clearance 23 mL/min (70-130); Calcium 9.2 mg/dL (7.8-10.44); Carbon Dioxide 28 mmol/L (23-31); Chloride 101 mmol/L (98-107); Estimated GFR 16; Glucose 123 mg/dL (83-110); Potassium 3.1 mmol/L (3.5-5.1); Sodium 139 mmol/L (136-145)
[2023-03-05] MEDS ORDERED: Potassium Chloride 20 MEQ TAB PO SCH (08:45)
[2023-03-05] MEDS: Heparin 5,000 UNITS/ML VIAL SC SCH ×3 (09:15→20:47)
[2023-03-05] MEDS: Gabapentin 300 MG CAP PO SCH ×2 (09:16→20:47)
[2023-03-05] MEDS: Aspirin 81 mg Enteric Coated Tablet PO SCH (09:16)
[2023-03-05 14:09] VITALS: BMI 34.0
[2023-03-05] MEDS: Atorvastatin Calcium 40 MG TAB PO SCH (20:47)
[2023-03-06 04:40] LABS: #Eosinphils 0.1 thou/uL (0.0-0.7); #Monocytes 0.6 thou/uL (0.11-0.59); #Neutrophils 2.4 thou/uL (1.40-6.50); %Basophils 0.5 % (0.0-1.0); %Eosinophils 3.4 % (0.0-10.0); %Lymphocytes 21.7 % (21.0-51.0); %Monocytes 15.5 % (0.0-10.0); %Neutrophils 57.9 % (42.0-75.0); Hematocrit 35.8 % (36.0-47.0); Hemoglobin 10.6 g/dL (12.0-16.0); Mean Corpuscular HGB CONC 29.6 g/dL (32.0-36.0); Mean Corpuscular Hemoglobin 32.2 pg (27.0-31.0); Mean Corpuscular Volume 108.8 fl (78.0-98.0); Mean Platelet Volume 9.9 fL (7.4-10.4); Platelet Count 167 10x3/uL (130-400); RBC Distribution Width 16.7 % (11.5-14.5); Red Blood Cell (RBC) Count 3.29 mill/uL (4.20-5.40); White Blood Cell (WBC) Count 4.1 10x3/uL (4.8-10.8)
[2023-03-06 05:05] LABS: Anion Gap 20 mmol/L (10-20); BUN (Urea Nitrogen) 31 mg/dL (9.8-20.1); Carbon Dioxide 24 mmol/L (23-31); Chloride 100 mmol/L (98-107); Potassium 4.1 mmol/L (3.5-5.1); Sodium 140 mmol/L (136-145)
[2023-03-06 05:06] LABS: Calc. Creatinine Clearance 16 mL/min (70-130); Estimated GFR 10; Glucose 117 mg/dL (83-110)
[2023-03-06] MEDS: Heparin 5,000 UNITS/ML VIAL SC SCH ×3 (09:00→20:08)
[2023-03-06] MEDS ORDERED: Ergocalciferol 1.25 MG(50,000 UNITS) CAP PO SCH (09:00)
[2023-03-06] MEDS ORDERED: Heparin 10,000 UNITS/ 10 ML VIAL ONE (11:28)
[2023-03-06] MEDS: Aspirin 81 mg Enteric Coated Tablet PO SCH (12:48)
[2023-03-06] MEDS: Gabapentin 300 MG CAP PO SCH ×2 (12:50→20:09)
[2023-03-06] MEDS: HYDROcodone/Acetaminophen 10/325 mg Tablet PO PRN ×2 (13:00→20:13)
[2023-03-06] MEDS: Cinacalcet HCl 30 MG TAB PO SCH ×2 (14:53→20:09)
[2023-03-06] MEDS ORDERED: CINACALCET HCL 60 MG PO SCH (15:00)
[2023-03-06] MEDS ORDERED: Ondansetron PF 4 MG/2 ML Vial IVP PRN (15:35)
[2023-03-06] MEDS: Pramipexole Di-HCl 0.125 MG TAB PO SCH (20:36)
[2023-03-06] MEDS ORDERED: Atorvastatin Calcium 10 MG TAB PO SCH (21:00)
[2023-03-07] MEDS: Aspirin 81 mg Enteric Coated Tablet PO SCH (08:56)
[2023-03-07] MEDS: Gabapentin 300 MG CAP PO SCH (08:56)
[2023-03-07] MEDS: HYDROcodone/Acetaminophen 10/325 mg Tablet PO PRN (08:57)
[2023-03-07] MEDS: Cinacalcet HCl 30 MG TAB PO SCH (08:58)
[2023-03-07] MEDS: Heparin 5,000 UNITS/ML VIAL SC SCH (08:58)
[2023-03-07] MEDS ORDERED: Multivitamin W/ Minerals 1 TAB PO SCH (09:00)
[2023-03-07] MEDS ORDERED: Non-Formulary Item 1 EACH (Mv-Mn/Folic Ac/Calcium/Vit K1 [Women's 50 Plus Multivit Tab] 1 PO SCH (09:00)
[2023-03-07] MEDS ORDERED: Non-Formulary Item 1 EACH (Calcium Acetate [Calcium Acetate] 667 MG Tablet) PO SCH (09:00)
[2023-03-07] MEDS ORDERED: Calcium Acetate 667 MG CAP PO SCH (09:00)
[2023-03-07] MEDS: Pramipexole Di-HCl 0.125 MG TAB PO SCH (10:39)
[2023-03-07 13:16] VITALS: BP 144/67; TEMP 97.9
[2023-03-13] MEDS ORDERED: Non-Formulary Item 1 EACH (Cholecalciferol (Vitamin D3) [Vitamin D3] 5,000 UNITS Capsule) PO SCH (09:00)
== END 2023-03-07 13:30 | disposition home or self-care (01) | DRG 280 ==
LOC: ERS 09:04 → ERHOLD 12:44 → 2NO 18:15 → OBSVTOIN 03-05 13:35
PROVIDERS: ADMIT Family Medicine; ATTEND Hospitalist
PROC: 4A10X4Z Monitoring of Central Nervous Electrical Activity, External Approach (ICD-10-PCS; principal; 2023-03-07)
DX: I13.2 Hypertensive heart and chronic kidney disease with heart failure and with stage 5 chronic kidney disease, or end stage renal disease (principal); I21.A1 Myocardial infarction type 2; I50.43 Acute on chronic combined systolic (congestive) and diastolic (congestive) heart failure; J96.01 Acute respiratory failure with hypoxia; N18.6 End stage renal disease; C83.30 Diffuse large B-cell lymphoma, unspecified site; D63.1 Anemia in chronic kidney disease; E11.40 Type 2 diabetes mellitus with diabetic neuropathy, unspecified; E78.2 Mixed hyperlipidemia; E66.01 Morbid (severe) obesity due to excess calories; I25.10 Atherosclerotic heart disease of native coronary artery without angina pectoris; I25.5 Ischemic cardiomyopathy; F41.9 Anxiety disorder, unspecified; F43.10 Post-traumatic stress disorder, unspecified; E11.22 Type 2 diabetes mellitus with diabetic chronic kidney disease; I44.7 Left bundle-branch block, unspecified; E87.6 Hypokalemia; Z88.1 Allergy status to other antibiotic agents; Z91.013 Allergy to seafood; Z88.2 Allergy status to sulfonamides; Z91.09 Other allergy status, other than to drugs and biological substances; Z95.5 Presence of coronary angioplasty implant and graft; Z99.2 Dependence on renal dialysis; Z79.82 Long term (current) use of aspirin; Z79.899 Other long term (current) drug therapy; Z90.49 Acquired absence of other specified parts of digestive tract; Z90.710 Acquired absence of both cervix and uterus; Z98.890 Other specified postprocedural states; Z87.891 Personal history of nicotine dependence; Z68.34 Body mass index [BMI] 34.0-34.9, adult
CPT/HCPCS: 36415; 36416; 51701; 70450; 70551; 71045; 80048; 80053; 81001; 83605; 83690; 83735; 83880; 84484; 85025; 87086; 93005; 93010; 93306; 95816; 95819; 95957; J1644; J2405; Q4081

== ENCOUNTER 2023-03-08 03:36 | Emergency (ER) | payer MEDICARE, BC ==
[2023-03-08 06:50] LABS: #Eosinphils 0.2 thou/uL (0.0-0.7); #Monocytes 0.9 thou/uL (0.11-0.59); %Basophils 0.3 % (0.0-1.0); %Eosinophils 2.2 % (0.0-10.0); %Lymphocytes 13.3 % (21.0-51.0); %Neutrophils 70.2 % (42.0-75.0); Hematocrit 28.8 % (36.0-47.0); Hemoglobin 8.4 g/dL (12.0-16.0); Mean Corpuscular HGB CONC 29.2 g/dL (32.0-36.0); Mean Corpuscular Hemoglobin 31.7 pg (27.0-31.0); Mean Corpuscular Volume 108.7 fl (78.0-98.0); Platelet Count 183 10x3/uL (130-400); RBC Distribution Width 16.3 % (11.5-14.5); Red Blood Cell (RBC) Count 2.65 mill/uL (4.20-5.40); White Blood Cell (WBC) Count 7.2 10x3/uL (4.8-10.8)
[2023-03-08 07:12] LABS: ALT (SGPT) 16 U/L (8-55); AST (SGOT) 16 U/L (5-34); Albumin 3.7 g/dL (3.4-4.8); Alkaline Phosphatase 83 U/L (40-110); Anion Gap 15 mmol/L (10-20); BUN (Urea Nitrogen) 38 mg/dL (9.8-20.1); Bilirubin, Total 0.3 mg/dL (0.2-1.2); Calc. Creatinine Clearance 0 mL/min (70-130); Carbon Dioxide 26 mmol/L (23-31); Chloride 102 mmol/L (98-107); Estimated GFR 8; Globulin 2.5 g/dL (2.4-3.5); Glucose 107 mg/dL (83-110); Potassium 4.5 mmol/L (3.5-5.1); Protein, Total 6.2 g/dL (5.8-8.1); Sodium 138 mmol/L (136-145)
[2023-03-08 09:44] LABS: Bilirubin Negative (Negative); Blood, Urine 1+ (Negative); CAUTI Indications for Culture Dysuria,urgency,freq; Clarity Clear (Clear); Glucose, Urine (Dipstick) Normal (Negative); Ketone, Urine Negative (Negative); Leukocyte 250 Leu/uL (Negative); Nitrite Negative (Negative); Protein, Urine (Dipstick) 100 mg/dL (Neg-Trace); Specific Gravity, Urine 1.021 (1.002-1.036); Urobilinogen Normal mg/dL (Less than 2); pH, Urine 6.5 (5.0-9.0)
[2023-03-08 09:58] LABS: Bacteria/HPF 1+ HPF (None Seen)
[2023-03-08 09:59] LABS: Urine Culture Reflex No No
[2023-03-08] MEDS ORDERED: Heparin 10,000 UNITS/ 10 ML VIAL ONE (12:31)
== END 2023-03-08 19:37 ==
LOC: ERS 03:36
DX: N18.6 End stage renal disease (principal); I50.9 Heart failure, unspecified; Z87.891 Personal history of nicotine dependence; Z99.2 Dependence on renal dialysis
CPT/HCPCS: 36415; 70450; 80053; 81001; 85025; J1644

== ENCOUNTER 2023-05-02 08:07 | Day surgery (SDC) | payer MEDICARE, BC ==
[2023-05-02 08:27] LABS: #Eosinphils 0.1 thou/uL (0.0-0.7); #Neutrophils 3.3 thou/uL (1.40-6.50); %Basophils 0.2 % (0.0-1.0); %Lymphocytes 17.9 % (21.0-51.0); %Monocytes 18.3 % (0.0-10.0); %Neutrophils 59.8 % (42.0-75.0); Hematocrit 21.1 % (36.0-47.0); Hemoglobin 6.2 g/dL (12.0-16.0); Mean Corpuscular HGB CONC 29.4 g/dL (32.0-36.0); Mean Corpuscular Hemoglobin 32.3 pg (27.0-31.0); Mean Corpuscular Volume 109.9 fl (78.0-98.0); Mean Platelet Volume 8.7 fL (7.4-10.4); Platelet Count 229 10x3/uL (130-400); RBC Distribution Width 19.9 % (11.5-14.5); Red Blood Cell (RBC) Count 1.92 mill/uL (4.20-5.40); White Blood Cell (WBC) Count 5.6 10x3/uL (4.8-10.8)
[2023-05-02 08:44] LABS: INR-International Normal Ratio 1.2; PTT 32.5 sec (22.9-36.1); Prothrombin Time 15.5 sec (12.0-14.7)
[2023-05-02 09:39] VITALS: BP 125/63; TEMP 98.4
== END 2023-05-02 14:37 | disposition home or self-care (01) ==
LOC: CT 08:07
PROVIDERS: ATTEND Urology
PROC: 0TB13ZX Excision of Left Kidney, Percutaneous Approach, Diagnostic (ICD-10-PCS; principal; 2023-05-02)
DX: C83.36 Diffuse large B-cell lymphoma, intrapelvic lymph nodes (principal); I13.2 Hypertensive heart and chronic kidney disease with heart failure and with stage 5 chronic kidney disease, or end stage renal disease; N28.89 Other specified disorders of kidney and ureter; N18.6 End stage renal disease; E11.22 Type 2 diabetes mellitus with diabetic chronic kidney disease; I50.30 Unspecified diastolic (congestive) heart failure; I25.10 Atherosclerotic heart disease of native coronary artery without angina pectoris; E66.9 Obesity, unspecified; E11.42 Type 2 diabetes mellitus with diabetic polyneuropathy; E87.5 Hyperkalemia; F33.2 Major depressive disorder, recurrent severe without psychotic features; E66.01 Morbid (severe) obesity due to excess calories; G47.33 Obstructive sleep apnea (adult) (pediatric); J18.9 Pneumonia, unspecified organism; Z98.890 Other specified postprocedural states; Z88.1 Allergy status to other antibiotic agents; Z88.0 Allergy status to penicillin; Z88.2 Allergy status to sulfonamides; Z91.013 Allergy to seafood; Z91.040 Latex allergy status; Z99.2 Dependence on renal dialysis; Z99.81 Dependence on supplemental oxygen; Z87.891 Personal history of nicotine dependence; Z79.899 Other long term (current) drug therapy; Z79.84 Long term (current) use of oral hypoglycemic drugs
CPT/HCPCS: 50200; 77012; 85025; 85610; 85730; 88305; 88333; 88334; 88341; 88342

== ENCOUNTER 2023-05-03 07:20 | Observation (INO) | payer MEDICARE, BC ==
[2023-05-03 07:51] LABS: #Eosinphils 0.1 thou/uL (0.0-0.7); #Monocytes 0.9 thou/uL (0.11-0.59); #Neutrophils 4.6 thou/uL (1.40-6.50); %Basophils 0.3 % (0.0-1.0); %Eosinophils 1.9 % (0.0-10.0); %Lymphocytes 14.5 % (21.0-51.0); %Monocytes 13.7 % (0.0-10.0); %Neutrophils 68.1 % (42.0-75.0); Hemoglobin 6.1 g/dL (12.0-16.0); Mean Corpuscular Hemoglobin 32.3 pg (27.0-31.0); Mean Corpuscular Volume 111.1 fl (78.0-98.0); Mean Platelet Volume 9.3 fL (7.4-10.4); Platelet Count 240 10x3/uL (130-400); RBC Distribution Width 20.7 % (11.5-14.5); Red Blood Cell (RBC) Count 1.89 mill/uL (4.20-5.40); White Blood Cell (WBC) Count 6.8 10x3/uL (4.8-10.8)
[2023-05-03 08:05] LABS: INR-International Normal Ratio 1.1; Prothrombin Time 14.4 sec (12.0-14.7)
[2023-05-03 08:14] LABS: ALT (SGPT) 34 U/L (8-55); AST (SGOT) 24 U/L (5-34); Albumin 4.1 g/dL (3.4-4.8); Alkaline Phosphatase 146 U/L (40-110); Anion Gap 20 mmol/L (10-20); BUN (Urea Nitrogen) 33 mg/dL (9.8-20.1); Bilirubin, Total 0.3 mg/dL (0.2-1.2); Calc. Creatinine Clearance 0 mL/min (70-130); Calcium 8.8 mg/dL (7.8-10.44); Carbon Dioxide 28 mmol/L (23-31); Chloride 96 mmol/L (98-107); Estimated GFR 9; Globulin 1.8 g/dL (2.4-3.5); Glucose 258 mg/dL (83-110); Potassium 3.8 mmol/L (3.5-5.1); Protein, Total 5.9 g/dL (5.8-8.1); Sodium 140 mmol/L (136-145)
[2023-05-03 08:44] LABS: Anisocytosis MARKED = >30 cells HPF (0-5); CellaVision Operator ID LAB.NR; Elliptocytes SLIGHT = 2-5 cells HPF (0-1); Hypochromia SLIGHT = 6-15 cells HPF (0-5); Macrocytosis SLIGHT = 6-15 cells HPF (0-5); Platelet Adequacy Comment Platelets Normal; Polychromasia MODERATE = 3-4 cells HPF (0-2); Tear Drops SLIGHT = 2-5 cells HPF (0-1)
[2023-05-03] MEDS ORDERED: Gabapentin 100 MG CAP ONE (10:14)
[2023-05-03] MEDS ORDERED: Glucagon 1 MG/ML KIT IM PRN (11:32)
[2023-05-03] MEDS ORDERED: Dextrose 5% in Water 1,000 ML IV PRN (11:32)
[2023-05-03] MEDS ORDERED: Dextrose 50% Abboject 50 ML SYRINGE SLOW IVP PRN (11:32)
[2023-05-03] MEDS ORDERED: HumaLOG 300 UNITS/3 ML VIAL SC PRN ×2 (11:32)
[2023-05-03] MEDS ORDERED: Ondansetron PF 4 MG/2 ML Vial IVP PRN (11:34)
[2023-05-03] MEDS ORDERED: Ondansetron ODT 4 MG TAB PO PRN (11:34)
[2023-05-03] MEDS ORDERED: Acetaminophen 325 MG TAB PO PRN (11:34)
[2023-05-03 11:39] LABS: Troponin I 0.057 ng/mL (< 0.028)
[2023-05-03] MEDS ORDERED: Epoetin (ESRD) 10,000 UNITS/ML VIAL IVP SCH (12:00)
[2023-05-03 13:38] VITALS: BMI 38.1
[2023-05-03] MEDS: Gabapentin 300 MG CAP PO SCH ×2 (14:00→22:03)
[2023-05-03] MEDS ORDERED: Midodrine HCl 5 MG TAB PO SCH (14:30)
[2023-05-03] MEDS: HYDROcodone/Acetaminophen 10/325 mg Tablet PO SCH ×2 (16:33→23:42)
[2023-05-03 18:11] LABS: Hematocrit 24.2 % (36.0-47.0); Hemoglobin 7.4 g/dL (12.0-16.0); Platelet Count 224 10x3/uL (130-400)
[2023-05-03] MEDS: Pramipexole Di-HCl 0.125 MG TAB PO SCH (22:03)
[2023-05-03] MEDS: Atorvastatin Calcium 10 MG TAB PO SCH (22:04)
[2023-05-04] MEDS: HYDROcodone/Acetaminophen 10/325 mg Tablet PO SCH ×3 (06:50→17:02)
[2023-05-04 07:09] LABS: #Eosinphils 0.1 thou/uL (0.0-0.7); #Monocytes 0.9 thou/uL (0.11-0.59); #Neutrophils 3.8 thou/uL (1.40-6.50); %Basophils 0.3 % (0.0-1.0); %Lymphocytes 17.2 % (21.0-51.0); %Monocytes 15.3 % (0.0-10.0); Hematocrit 25.5 % (36.0-47.0); Hemoglobin 7.6 g/dL (12.0-16.0); Mean Corpuscular HGB CONC 29.8 g/dL (32.0-36.0); Mean Corpuscular Hemoglobin 31.4 pg (27.0-31.0); Mean Platelet Volume 9.5 fL (7.4-10.4); Platelet Count 223 10x3/uL (130-400); RBC Distribution Width 23.7 % (11.5-14.5); Red Blood Cell (RBC) Count 2.42 mill/uL (4.20-5.40); White Blood Cell (WBC) Count 5.9 10x3/uL (4.8-10.8)
[2023-05-04 07:32] LABS: Mean Corpuscular Volume 105.4 fl (78.0-98.0)
[2023-05-04 07:36] LABS: Anion Gap 18 mmol/L (10-20); BUN (Urea Nitrogen) 21 mg/dL (9.8-20.1); Calc. Creatinine Clearance 18 mL/min (70-130); Calcium 9.2 mg/dL (7.8-10.44); Carbon Dioxide 27 mmol/L (23-31); Chloride 98 mmol/L (98-107); Estimated GFR 11; Glucose 147 mg/dL (83-110); Potassium 3.9 mmol/L (3.5-5.1); Sodium 139 mmol/L (136-145)
[2023-05-04] MEDS: Calcium Acetate 667 MG CAP PO SCH (08:24)
[2023-05-04] MEDS: Gabapentin 300 MG CAP PO SCH ×3 (08:25→21:07)
[2023-05-04] MEDS: Pramipexole Di-HCl 0.125 MG TAB PO SCH ×2 (08:25→21:07)
[2023-05-04] MEDS: Cinacalcet HCl 30 MG TAB PO SCH (08:25)
[2023-05-04] MEDS: Multivitamin W/ Minerals 1 TAB PO SCH (08:25)
[2023-05-04] MEDS: Loratadine 10 MG TAB PO PRN (10:49)
[2023-05-04 17:15] LABS: Hemoglobin 7.5 g/dL (12.0-16.0)
[2023-05-04] MEDS: Atorvastatin Calcium 10 MG TAB PO SCH (21:07)
[2023-05-05] MEDS: HYDROcodone/Acetaminophen 10/325 mg Tablet PO SCH ×2 (01:22→05:42)
[2023-05-05 05:28] LABS: #Eosinphils 0.2 thou/uL (0.0-0.7); #Monocytes 0.7 thou/uL (0.11-0.59); #Neutrophils 2.8 thou/uL (1.40-6.50); %Basophils 0.2 % (0.0-1.0); %Eosinophils 3.8 % (0.0-10.0); %Lymphocytes 20.7 % (21.0-51.0); %Monocytes 15.6 % (0.0-10.0); %Neutrophils 58.6 % (42.0-75.0); Hematocrit 27.3 % (36.0-47.0); Hemoglobin 8.1 g/dL (12.0-16.0); Mean Corpuscular HGB CONC 29.7 g/dL (32.0-36.0); Mean Corpuscular Hemoglobin 31.9 pg (27.0-31.0); Mean Corpuscular Volume 107.5 fl (78.0-98.0); Mean Platelet Volume 9.2 fL (7.4-10.4); Platelet Count 210 10x3/uL (130-400); Red Blood Cell (RBC) Count 2.54 mill/uL (4.20-5.40); White Blood Cell (WBC) Count 4.7 10x3/uL (4.8-10.8)
[2023-05-05] MEDS: Loratadine 10 MG TAB PO PRN (05:45)
[2023-05-05 05:54] LABS: Anion Gap 18 mmol/L (10-20); BUN (Urea Nitrogen) 35 mg/dL (9.8-20.1); Calc. Creatinine Clearance 13 mL/min (70-130); Calcium 8.8 mg/dL (7.8-10.44); Carbon Dioxide 26 mmol/L (23-31); Chloride 97 mmol/L (98-107); Estimated GFR 8; Glucose 125 mg/dL (83-110); Potassium 4.4 mmol/L (3.5-5.1); Sodium 137 mmol/L (136-145)
[2023-05-05] MEDS: Gabapentin 300 MG CAP PO SCH (09:11)
[2023-05-05] MEDS: Cinacalcet HCl 30 MG TAB PO SCH (09:11)
[2023-05-05] MEDS: Calcium Acetate 667 MG CAP PO SCH (09:11)
[2023-05-05] MEDS: Pramipexole Di-HCl 0.125 MG TAB PO SCH (09:12)
[2023-05-05] MEDS: Multivitamin W/ Minerals 1 TAB PO SCH (09:12)
[2023-05-05 11:45] VITALS: BP 145/85; TEMP 97.9
[2023-05-05] MEDS ORDERED: Midodrine HCl 5 MG TAB PO SCH (21:00)
[2023-05-06] MEDS ORDERED: Midodrine HCl 5 MG TAB PO SCH (08:00)
[2023-05-06] MEDS ORDERED: Epoetin (ESRD) 10,000 UNITS/ML VIAL IVP SCH (12:00)
[2023-05-10] MEDS ORDERED: Ergocalciferol 1.25 MG(50,000 UNITS) CAP PO SCH (09:00)
== END 2023-05-05 12:10 | disposition home or self-care (01) ==
LOC: ERS 07:20 → 2SW 11:44
PROVIDERS: ADMIT Internal Medicine; ATTEND Internal Medicine
DX: I13.2 Hypertensive heart and chronic kidney disease with heart failure and with stage 5 chronic kidney disease, or end stage renal disease (principal); N18.6 End stage renal disease; I50.9 Heart failure, unspecified; I25.5 Ischemic cardiomyopathy; D63.1 Anemia in chronic kidney disease; Z99.2 Dependence on renal dialysis; E66.01 Morbid (severe) obesity due to excess calories; R60.0 Localized edema; E11.22 Type 2 diabetes mellitus with diabetic chronic kidney disease; F43.10 Post-traumatic stress disorder, unspecified; I48.91 Unspecified atrial fibrillation; E11.43 Type 2 diabetes mellitus with diabetic autonomic (poly)neuropathy; K31.84 Gastroparesis; F41.9 Anxiety disorder, unspecified; Z88.1 Allergy status to other antibiotic agents; Z88.6 Allergy status to analgesic agent; Z91.013 Allergy to seafood; Z88.8 Allergy status to other drugs, medicaments and biological substances; Z95.5 Presence of coronary angioplasty implant and graft; Z88.2 Allergy status to sulfonamides; Z87.891 Personal history of nicotine dependence; Z68.33 Body mass index [BMI] 33.0-33.9, adult
CPT/HCPCS: 36430; 74176; 80048 ×2; 80053; 82607; 82962 ×2; 84484; 85014; 85018 ×2; 85025 ×3; 85049; 85610; 85730; 86850; 86900; 86901; 86920; 93005; 96374; 96375; 99285; G0378 ×4; P9016; Q4081; 36415; 36416; 90935; G0257; J2405

== ENCOUNTER 2023-06-14 07:15 | Observation (INO) | payer MEDICARE, BC ==
[2023-06-14] MEDS ORDERED: diphenhydrAMINE 25 MG CAP ONE (07:49)
[2023-06-14] MEDS ORDERED: Metoclopramide HCl 10 MG/2 ML VIAL ONE (07:50)
[2023-06-14 07:51] LABS: #Eosinphils 0.3 thou/uL (0.0-0.7); #Monocytes 0.9 thou/uL (0.11-0.59); #Neutrophils 5.5 thou/uL (1.40-6.50); %Basophils 0.1 % (0.0-1.0); %Eosinophils 3.5 % (0.0-10.0); %Lymphocytes 11.9 % (21.0-51.0); %Monocytes 11.4 % (0.0-10.0); %Neutrophils 72.4 % (42.0-75.0); Hematocrit 20.2 % (36.0-47.0); Hemoglobin 6.3 g/dL (12.0-16.0); Mean Corpuscular HGB CONC 31.2 g/dL (32.0-36.0); Mean Corpuscular Hemoglobin 31.8 pg (27.0-31.0); Mean Platelet Volume 8.6 fL (7.4-10.4); Platelet Count 209 10x3/uL (130-400); RBC Distribution Width 18.9 % (11.5-14.5); Red Blood Cell (RBC) Count 1.98 mill/uL (4.20-5.40); White Blood Cell (WBC) Count 7.6 10x3/uL (4.8-10.8)
[2023-06-14 08:14] LABS: ALT (SGPT) 15 U/L (8-55); AST (SGOT) 16 U/L (5-34); Albumin 3.7 g/dL (3.4-4.8); Alkaline Phosphatase 94 U/L (40-110); Anion Gap 22 mmol/L (10-20); BUN (Urea Nitrogen) 44 mg/dL (9.8-20.1); Bilirubin, Total 0.4 mg/dL (0.2-1.2); Calc. Creatinine Clearance 0 mL/min (70-130); Calcium 9.3 mg/dL (7.8-10.44); Carbon Dioxide 25 mmol/L (23-31); Chloride 98 mmol/L (98-107); Estimated GFR 10; Globulin 2.4 g/dL (2.4-3.5); Glucose 165 mg/dL (83-110); Potassium 3.9 mmol/L (3.5-5.1); Protein, Total 6.1 g/dL (5.8-8.1); Sodium 141 mmol/L (136-145)
[2023-06-14] MEDS ORDERED: Acetaminophen 325 MG TAB PO PRN (09:45)
[2023-06-14] MEDS ORDERED: Ondansetron PF 4 MG/2 ML Vial IVP PRN (09:45)
[2023-06-14] MEDS ORDERED: Bisacodyl 5 MG TAB PO PRN (09:45)
[2023-06-14 09:55] VITALS: BMI 36.2
[2023-06-14] MEDS ORDERED: Gabapentin 300 MG CAP PO SCH (10:00)
[2023-06-14] MEDS ORDERED: HYDROcodone/Acetaminophen 10/325 mg Tablet PO SCH (14:00)
[2023-06-14] MEDS: Gabapentin 300 MG CAP PO SCH ×2 (14:13→21:30)
[2023-06-14] MEDS ORDERED: Non-Formulary Item 1 EACH (Gabapentin [Gabapentin] 600 MG Tablet) PO SCH (15:00)
[2023-06-14] MEDS: HYDROcodone/Acetaminophen 10/325 mg Tablet PO SCH ×2 (17:32→23:54)
[2023-06-14] MEDS ORDERED: Atorvastatin Calcium 10 MG TAB PO SCH (21:00)
[2023-06-14] MEDS: Apixaban 5 MG TAB PO SCH (21:30)
[2023-06-14] MEDS: Midodrine HCl 5 MG TAB PO SCH (21:31)
[2023-06-14] MEDS: Pramipexole Di-HCl 0.25 MG TAB PO SCH (21:32)
[2023-06-15] MEDS: HYDROcodone/Acetaminophen 10/325 mg Tablet PO SCH (06:07)
[2023-06-15 07:17] LABS: #Eosinphils 0.4 thou/uL (0.0-0.7); #Monocytes 0.9 thou/uL (0.11-0.59); #Neutrophils 3.4 thou/uL (1.40-6.50); %Basophils 0.4 % (0.0-1.0); %Eosinophils 6.4 % (0.0-10.0); %Lymphocytes 16.1 % (21.0-51.0); %Monocytes 15.9 % (0.0-10.0); %Neutrophils 60.3 % (42.0-75.0); Hematocrit 26.5 % (36.0-47.0); Hemoglobin 8.3 g/dL (12.0-16.0); Mean Corpuscular HGB CONC 31.3 g/dL (32.0-36.0); Mean Corpuscular Hemoglobin 31.4 pg (27.0-31.0); Mean Corpuscular Volume 100.4 fl (78.0-98.0); Mean Platelet Volume 9.1 fL (7.4-10.4); Platelet Count 221 10x3/uL (130-400); RBC Distribution Width 19.2 % (11.5-14.5); Red Blood Cell (RBC) Count 2.64 mill/uL (4.20-5.40); White Blood Cell (WBC) Count 5.6 10x3/uL (4.8-10.8)
[2023-06-15 07:40] LABS: Anion Gap 20 mmol/L (10-20); BUN (Urea Nitrogen) 32 mg/dL (9.8-20.1); Calc. Creatinine Clearance 19 mL/min (70-130); Calcium 9.3 mg/dL (7.8-10.44); Carbon Dioxide 26 mmol/L (23-31); Chloride 98 mmol/L (98-107); Estimated GFR 12; Glucose 122 mg/dL (83-110); Potassium 4.5 mmol/L (3.5-5.1); Sodium 139 mmol/L (136-145)
[2023-06-15] MEDS: Gabapentin 300 MG CAP PO SCH (08:43)
[2023-06-15] MEDS: Pramipexole Di-HCl 0.25 MG TAB PO SCH (08:43)
[2023-06-15] MEDS: Apixaban 5 MG TAB PO SCH (08:44)
[2023-06-15] MEDS: Midodrine HCl 5 MG TAB PO SCH (08:45)
[2023-06-15 08:57] VITALS: BP 142/65; TEMP 98.5
[2023-06-15] MEDS ORDERED: Cinacalcet HCl 30 MG TAB PO SCH (09:00)
[2023-06-15] MEDS ORDERED: CINACALCET HCL 60 MG PO SCH (09:00)
[2023-06-15] MEDS ORDERED: Folic Acid/Vit B Comp W-C PO SCH (09:00)
[2023-06-15] MEDS ORDERED: Non-Formulary Item 1 EACH (Mv-Mn/Folic Ac/Calcium/Vit K1 [Women's 50 Plus Multivit Tab] 1 PO SCH (09:00)
[2023-06-15] MEDS ORDERED: Calcium Acetate 667 MG CAP PO SCH (09:00)
[2023-06-15] MEDS ORDERED: Multivitamin W/ Minerals 1 TAB PO SCH (09:00)
[2023-06-18] MEDS ORDERED: Ergocalciferol 1.25 MG(50,000 UNITS) CAP PO SCH (09:00)
== END 2023-06-15 12:50 | disposition home or self-care (01) ==
LOC: ERS 07:15 → ERHOLD 09:03 → 2NO 14:10
PROVIDERS: ADMIT Internal Medicine; ATTEND Internal Medicine
DX: I12.0 Hypertensive chronic kidney disease with stage 5 chronic kidney disease or end stage renal disease (principal); N18.6 End stage renal disease; E11.22 Type 2 diabetes mellitus with diabetic chronic kidney disease; D63.1 Anemia in chronic kidney disease; Z99.2 Dependence on renal dialysis; E11.42 Type 2 diabetes mellitus with diabetic polyneuropathy; E78.5 Hyperlipidemia, unspecified; E66.9 Obesity, unspecified; R60.0 Localized edema; C64.9 Malignant neoplasm of unspecified kidney, except renal pelvis; F41.9 Anxiety disorder, unspecified; I42.9 Cardiomyopathy, unspecified; I25.10 Atherosclerotic heart disease of native coronary artery without angina pectoris; C85.10 Unspecified B-cell lymphoma, unspecified site; F43.10 Post-traumatic stress disorder, unspecified; Z90.710 Acquired absence of both cervix and uterus; Z90.49 Acquired absence of other specified parts of digestive tract; Z98.890 Other specified postprocedural states; Z88.1 Allergy status to other antibiotic agents; Z88.4 Allergy status to anesthetic agent; Z91.013 Allergy to seafood; Z88.8 Allergy status to other drugs, medicaments and biological substances; Z87.891 Personal history of nicotine dependence; Z68.36 Body mass index [BMI] 36.0-36.9, adult; Z79.899 Other long term (current) drug therapy
CPT/HCPCS: 36430; 71045; 80048; 80053; 82607; 83090; 85025 ×2; 86850; 86900; 86901; 86920; 96374; 97139; 97530; 99285; G0378 ×3; P9016; 36415; 90935; G0257; J2765

== ENCOUNTER 2023-12-26 17:34 | Observation (INO) | payer MEDICARE, BC ==
[2023-12-26 18:58] LABS: #Basophils Less than 0.03 10x3/uL (0.0-0.2); %Basophils 0.2 % (0.0-1.0); %Eosinophils 2.9 % (0.0-10.0); %Lymphocytes 14.5 % (21.0-51.0); %Monocytes 13.2 % (0.0-10.0); Hematocrit 22.4 % (36.0-47.0); Hemoglobin 6.7 g/dL (12.0-16.0); Mean Corpuscular HGB CONC 29.9 g/dL (32.0-36.0); Mean Corpuscular Hemoglobin 28.8 pg (27.0-31.0); Mean Corpuscular Volume 96.1 fL (78.0-98.0); Mean Platelet Volume 8.8 fL (7.4-10.4); Platelet Count 203 10x3/uL (130-400); RBC Distribution Width 18.6 % (11.5-14.5); Red Blood Cell (RBC) Count 2.33 mill/uL (4.20-5.40)
[2023-12-26 19:17] LABS: ALT (SGPT) 21 U/L (8-55); AST (SGOT) 16 U/L (5-34); Albumin 3.2 g/dL (3.4-4.8); Alkaline Phosphatase 107 U/L (40-110); Anion Gap 19 mmol/L (10-20); BUN (Urea Nitrogen) 41 mg/dL (9.8-20.1); Bilirubin, Total 0.3 mg/dL (0.2-1.2); Calc. Creatinine Clearance 0 mL/min (70-130); Calcium 9.6 mg/dL (7.8-10.44); Carbon Dioxide 26 mmol/L (23-31); Chloride 99 mmol/L (98-107); Estimated GFR 10; Globulin 2.8 g/dL (2.4-3.5); Glucose 121 mg/dL (83-110); Potassium 4.8 mmol/L (3.5-5.1); Sodium 139 mmol/L (136-145)
[2023-12-26 19:22] LABS: INR-International Normal Ratio 1.3; Prothrombin Time 15.9 sec (12.0-14.7)
[2023-12-26] MEDS ORDERED: Acetaminophen 325 MG TAB PO PRN (20:36)
[2023-12-26] MEDS: Pramipexole Di-HCl 0.125 MG TAB PO SCH (21:53)
[2023-12-26] MEDS: Atorvastatin Calcium 10 MG TAB PO SCH (21:54)
[2023-12-26] MEDS: EPOETIN ALFA-EPBX (ESRD) 10,000 UNITS/ML VIAL SC SCH (21:55)
[2023-12-26] MEDS: HYDROcodone/Acetaminophen 7.5/325 mg Tablet PO PRN (22:02)
[2023-12-26 22:12] LABS: Hep C Index 0.17 S/CO (0-0.79)
[2023-12-26 22:17] LABS: HBSAB Concentration 146.64 mIU/mL; HBsAg Index 0.29 S/CO (0-0.99); Hep B Surf AB REACTIVE (NonReactive); Hep B Surf Ag NONREACTIVE S/CO (NonReactive); Hep C IgG Ab NONREACTIVE S/CO (NonReactive)
[2023-12-26 22:25] VITALS: BMI 37.8
[2023-12-26] MEDS: Gabapentin 300 MG CAP PO SCH (22:29)
[2023-12-26 22:42] LABS: Hep B Core Total Ab REACTIVE (NonReactive); Hep B Core Total Index 5.59 S/CO (0-0.79)
[2023-12-27 04:30] LABS: #Basophils Less than 0.03 10x3/uL (0.0-0.2); %Basophils 0.3 % (0.0-1.0); %Eosinophils 4.1 % (0.0-10.0); %Lymphocytes 16.7 % (21.0-51.0); %Monocytes 16.4 % (0.0-10.0); Hematocrit 27.2 % (36.0-47.0); Hemoglobin 8.4 g/dL (12.0-16.0); Mean Corpuscular HGB CONC 30.9 g/dL (32.0-36.0); Mean Corpuscular Hemoglobin 29.3 pg (27.0-31.0); Mean Corpuscular Volume 94.8 fL (78.0-98.0); Mean Platelet Volume 9.1 fL (7.4-10.4); Platelet Count 211 10x3/uL (130-400); RBC Distribution Width 18.6 % (11.5-14.5); Red Blood Cell (RBC) Count 2.87 mill/uL (4.20-5.40)
[2023-12-27 04:49] LABS: ALT (SGPT) 20 U/L (8-55); AST (SGOT) 16 U/L (5-34); Albumin 3.2 g/dL (3.4-4.8); Alkaline Phosphatase 102 U/L (40-110); Anion Gap 16 mmol/L (10-20); BUN (Urea Nitrogen) 18 mg/dL (9.8-20.1); Bilirubin, Total 1.5 mg/dL (0.2-1.2); Calc. Creatinine Clearance 30 mL/min (70-130); Calcium 9.5 mg/dL (7.8-10.44); Carbon Dioxide 28 mmol/L (23-31); Chloride 98 mmol/L (98-107); Estimated GFR 21; Globulin 2.9 g/dL (2.4-3.5); Glucose 113 mg/dL (83-110); Potassium 3.6 mmol/L (3.5-5.1); Protein, Total 6.1 g/dL (5.8-8.1); Sodium 138 mmol/L (136-145)
[2023-12-27] MEDS: Folic Acid/Vit B Comp W-C PO SCH (09:08)
[2023-12-27] MEDS: Gabapentin 300 MG CAP PO SCH (09:08)
[2023-12-27] MEDS: Modafinil 100 MG TAB PO SCH (09:08)
[2023-12-27 11:20] VITALS: BMI 37.8
[2023-12-27 12:08] VITALS: BP 141/63; TEMP 98.5
[2023-12-27] MEDS: Ondansetron ODT 4 MG TAB PO PRN (13:15)
== END 2023-12-27 16:21 | disposition home or self-care (01) ==
LOC: ERS 17:34 → 2SW 20:10
PROVIDERS: ADMIT Internal Medicine; ATTEND Internal Medicine
DX: I13.2 Hypertensive heart and chronic kidney disease with heart failure and with stage 5 chronic kidney disease, or end stage renal disease (principal); E11.22 Type 2 diabetes mellitus with diabetic chronic kidney disease; N18.6 End stage renal disease; I50.20 Unspecified systolic (congestive) heart failure; D63.1 Anemia in chronic kidney disease; I48.91 Unspecified atrial fibrillation; G25.81 Restless legs syndrome; G47.419 Narcolepsy without cataplexy; Z88.1 Allergy status to other antibiotic agents; Z88.2 Allergy status to sulfonamides; Z88.8 Allergy status to other drugs, medicaments and biological substances; Z88.4 Allergy status to anesthetic agent; Z91.013 Allergy to seafood
CPT/HCPCS: 36430; 71045; 73620; 80053 ×2; 85025 ×2; 85610; 85730; 86141; 86704; 86706; 86803; 86850; 86900; 86901; 86920; 87340; 93005; 97139; 99285; P9016 ×2; Q0162; Q5105; 36415; G0378

== ENCOUNTER 2024-04-08 07:02 | Emergency (ER) | payer MEDICARE, BC ==
[2024-04-08 08:02] LABS: #Basophils Less than 0.03 10x3/uL (0.0-0.2); %Basophils 0.2 % (0.0-1.0); %Eosinophils 2.8 % (0.0-10.0); %Lymphocytes 18.3 % (21.0-51.0); %Monocytes 12.7 % (0.0-10.0); %Neutrophils 65.5 % (42.0-75.0); ALT (SGPT) 13 U/L (8-55); AST (SGOT) 15 U/L (5-34); Albumin 3.4 g/dL (3.4-4.8); Alkaline Phosphatase 72 U/L (40-110); Anion Gap 17 mmol/L (10-20); BUN (Urea Nitrogen) 61 mg/dL (9.8-20.1); Bilirubin, Total 0.4 mg/dL (0.2-1.2); Calc. Creatinine Clearance 0 mL/min (70-130); Calcium 9.8 mg/dL (7.8-10.44); Carbon Dioxide 29 mmol/L (23-31); Chloride 100 mmol/L (98-107); Estimated GFR 9; Globulin 2.4 g/dL (2.4-3.5); Glucose 119 mg/dL (83-110); Hematocrit 18.3 % (36.0-47.0); Hemoglobin 5.5 g/dL (12.0-16.0); Mean Corpuscular HGB CONC 30.1 g/dL (32.0-36.0); Mean Corpuscular Hemoglobin 30.2 pg (27.0-31.0); Mean Corpuscular Volume 100.5 fL (78.0-98.0); Platelet Count 174 10x3/uL (130-400); Potassium 4.8 mmol/L (3.5-5.1); Protein, Total 5.8 g/dL (5.8-8.1); RBC Distribution Width 17.9 % (11.5-14.5); Red Blood Cell (RBC) Count 1.82 mill/uL (4.20-5.40); Sodium 141 mmol/L (136-145)
[2024-04-08] MEDS ORDERED: Epoetin (ESRD) 10,000 UNITS/ML VIAL SC SCH (10:45)
[2024-04-08] MEDS ORDERED: EPOETIN ALFA-EPBX (ESRD) 40,000 UNITS/ML VIAL SC SCH (12:00)
== END 2024-04-08 21:17 | disposition home or self-care (01) ==
LOC: ERS 07:02
DX: D64.9 Anemia, unspecified (principal); N18.6 End stage renal disease; I50.9 Heart failure, unspecified; I48.91 Unspecified atrial fibrillation; Z87.891 Personal history of nicotine dependence; Z99.2 Dependence on renal dialysis; Z79.899 Other long term (current) drug therapy; Z79.01 Long term (current) use of anticoagulants
CPT/HCPCS: 36430; 71045; 80053; 85025; 86850; 86900; 86901; 86920; 93005; P9016; 36415; 82274; 90935; G0257

== ENCOUNTER 2024-05-05 17:04 | Inpatient (IN) | payer MEDICARE, BC ==
[2024-05-05 17:47] LABS: #Basophils Less than 0.03 10x3/uL (0.0-0.2); %Basophils 0.3 % (0.0-1.0); %Eosinophils 2.6 % (0.0-10.0); %Lymphocytes 20.6 % (21.0-51.0); %Monocytes 13.8 % (0.0-10.0); %Neutrophils 62.1 % (42.0-75.0); Hematocrit 19.1 % (36.0-47.0); Hemoglobin 5.8 g/dL (12.0-16.0); Mean Corpuscular HGB CONC 30.4 g/dL (32.0-36.0); Mean Corpuscular Hemoglobin 29.9 pg (27.0-31.0); Mean Corpuscular Volume 98.5 fL (78.0-98.0); Mean Platelet Volume 8.8 fL (7.4-10.4); Platelet Count 180 10x3/uL (130-400); RBC Distribution Width 17.7 % (11.5-14.5); Red Blood Cell (RBC) Count 1.94 mill/uL (4.20-5.40)
[2024-05-05 18:05] LABS: Troponin I 0.039 ng/mL (< 0.028)
[2024-05-05 18:41] LABS: ALT (SGPT) 16 U/L (8-55); AST (SGOT) 20 U/L (5-34); Albumin 3.4 g/dL (3.4-4.8); Alkaline Phosphatase 83 U/L (40-110); Anion Gap 18 mmol/L (10-20); BUN (Urea Nitrogen) 44 mg/dL (9.8-20.1); Bilirubin, Total 0.3 mg/dL (0.2-1.2); Calc. Creatinine Clearance 0 mL/min (70-130); Calcium 9.6 mg/dL (7.8-10.44); Carbon Dioxide 28 mmol/L (23-31); Chloride 100 mmol/L (98-107); Estimated GFR 12; Globulin 2.6 g/dL (2.4-3.5); Glucose 154 mg/dL (83-110); Lipase 24 U/L (8-78); Potassium 4.7 mmol/L (3.5-5.1); Sodium 141 mmol/L (136-145)
[2024-05-05 19:16] LABS: Bacteria/HPF 4+ HPF (None Seen); Bilirubin Negative (Negative); Blood, Urine Trace (Negative); CAUTI Indications for Culture Pelvic or flank pain; Clarity Turbid (Clear); Glucose, Urine (Dipstick) Normal (Negative); Ketone, Urine Negative (Negative); Leukocyte 500 Leu/uL (Negative); Nitrite Negative (Negative); Protein, Urine (Dipstick) 100 mg/dL (Neg-Trace); Specific Gravity, Urine 1.009 (1.002-1.036); Urobilinogen Normal mg/dL (Less than 2); WBC/HPF Greater than 50 HPF (0-3)
[2024-05-05 19:31] LABS: Urine Culture Reflex Yes Yes
[2024-05-05] MEDS ORDERED: Acetaminophen 650 MG Suppository PR PRN (20:49)
[2024-05-05] MEDS ORDERED: Ondansetron PF 4 MG/2 ML Vial IVP PRN (20:49)
[2024-05-05] MEDS: cefTRIAXone\\ROCEPHIN 1 GM in Sodium Chloride 0.9% 100 ML IVPB SCH (23:24)
[2024-05-05] MEDS: Famotidine/PF 20 mg/2ml Vial SLOW IVP SCH (23:27)
[2024-05-05] MEDS: Acetaminophen 325 MG TAB PO SCH (23:27)
[2024-05-05 23:45] VITALS: BMI 39.5
[2024-05-05] MEDS ORDERED: Midodrine HCl 5 MG TAB PO SCH (23:45)
[2024-05-05] MEDS ORDERED: HYDROcodone/Acetaminophen 10/325 mg Tablet PO PRN (23:59)
[2024-05-06] MEDS: HYDROcodone/Acetaminophen 10/325 mg Tablet PO PRN (00:36)
[2024-05-06 04:48] LABS: #Basophils Less than 0.03 10x3/uL (0.0-0.2); %Basophils 0.3 % (0.0-1.0); %Monocytes 15.3 % (0.0-10.0); %Neutrophils 59.8 % (42.0-75.0); Hematocrit 23.2 % (36.0-47.0); Hemoglobin 7.3 g/dL (12.0-16.0); Mean Corpuscular HGB CONC 31.5 g/dL (32.0-36.0); Mean Corpuscular Hemoglobin 30.2 pg (27.0-31.0); Mean Corpuscular Volume 95.9 fL (78.0-98.0); Mean Platelet Volume 8.8 fL (7.4-10.4); Platelet Count 166 10x3/uL (130-400); RBC Distribution Width 19.9 % (11.5-14.5); Red Blood Cell (RBC) Count 2.42 mill/uL (4.20-5.40)
[2024-05-06 05:02] LABS: Anion Gap 18 mmol/L (10-20); BUN (Urea Nitrogen) 29 mg/dL (9.8-20.1); Calc. Creatinine Clearance 24 mL/min (70-130); Carbon Dioxide 27 mmol/L (23-31); Chloride 102 mmol/L (98-107); Estimated GFR 15; Glucose 141 mg/dL (83-110); Potassium 4.7 mmol/L (3.5-5.1); Sodium 142 mmol/L (136-145)
[2024-05-06] MEDS ORDERED: Epoetin (ESRD) 10,000 UNITS/ML VIAL SC SCH (09:15)
[2024-05-06 09:18] LABS: Troponin I 0.039 ng/mL (< 0.028)
[2024-05-06] MEDS: Aspirin 81 mg Enteric Coated Tablet PO SCH (10:37)
[2024-05-06] MEDS: Pramipexole Di-HCl 0.125 MG TAB PO SCH (10:37)
[2024-05-06] MEDS: Gabapentin 300 MG CAP PO SCH (10:38)
[2024-05-06] MEDS: Midodrine HCl 5 MG TAB PO SCH (10:39)
[2024-05-06] MEDS: Multivit, Therapeutic 1 TAB PO SCH (10:39)
[2024-05-06] MEDS: Apixaban 5 MG TAB PO SCH (10:39)
[2024-05-06] MEDS: Folic Acid/Vit B Comp W-C PO SCH (10:39)
[2024-05-06] MEDS: Ondansetron ODT 4 MG TAB PO PRN (13:28)
[2024-05-06 16:10] VITALS: BMI 39.6
[2024-05-06] MEDS: EPOETIN ALFA-EPBX (ESRD) 10,000 UNITS/ML VIAL SC SCH (18:23)
[2024-05-06] MEDS: Atorvastatin Calcium 10 MG TAB PO SCH (20:11)
[2024-05-06] MEDS ORDERED: Famotidine 20 MG TAB PO SCH (21:00)
[2024-05-07 04:13] LABS: #Basophils Less than 0.03 10x3/uL (0.0-0.2); %Basophils 0.2 % (0.0-1.0); %Eosinophils 3.6 % (0.0-10.0); %Lymphocytes 19.6 % (21.0-51.0); %Monocytes 17.2 % (0.0-10.0); %Neutrophils 58.7 % (42.0-75.0); Hematocrit 24.2 % (36.0-47.0); Hemoglobin 7.3 g/dL (12.0-16.0); Mean Corpuscular HGB CONC 30.2 g/dL (32.0-36.0); Mean Corpuscular Hemoglobin 29.4 pg (27.0-31.0); Mean Corpuscular Volume 97.6 fL (78.0-98.0); Platelet Count 174 10x3/uL (130-400); RBC Distribution Width 19.4 % (11.5-14.5); Red Blood Cell (RBC) Count 2.48 mill/uL (4.20-5.40)
[2024-05-07 04:42] LABS: Anion Gap 19 mmol/L (10-20); BUN (Urea Nitrogen) 45 mg/dL (9.8-20.1); Calc. Creatinine Clearance 17 mL/min (70-130); Calcium 9.3 mg/dL (7.8-10.44); Carbon Dioxide 25 mmol/L (23-31); Chloride 102 mmol/L (98-107); Estimated GFR 10; Glucose 106 mg/dL (83-110); Potassium 4.6 mmol/L (3.5-5.1); Sodium 141 mmol/L (136-145)
[2024-05-07] MEDS: GoLYTELY 4,000 ml Bottle PO SCH (17:22)
[2024-05-07] MEDS: Pantoprazole 40 MG VIAL IVP SCH (18:24)
[2024-05-07] MEDS ORDERED: Famotidine 20 MG TAB PO SCH (21:00)
[2024-05-07] MEDS ORDERED: Famotidine/PF 20 mg/2ml Vial SLOW IVP SCH (21:00)
[2024-05-08 05:48] LABS: #Basophils Less than 0.03 10x3/uL (0.0-0.2); %Basophils 0.3 % (0.0-1.0); %Eosinophils 3.7 % (0.0-10.0); %Lymphocytes 20.5 % (21.0-51.0); %Monocytes 18.2 % (0.0-10.0); %Neutrophils 56.7 % (42.0-75.0); Hematocrit 24.1 % (36.0-47.0); Hemoglobin 7.8 g/dL (12.0-16.0); Mean Corpuscular HGB CONC 32.4 g/dL (32.0-36.0); Mean Corpuscular Hemoglobin 29.9 pg (27.0-31.0); Mean Corpuscular Volume 92.3 fL (78.0-98.0); Mean Platelet Volume 8.8 fL (7.4-10.4); Platelet Count 161 10x3/uL (130-400); RBC Distribution Width 18.3 % (11.5-14.5); Red Blood Cell (RBC) Count 2.61 mill/uL (4.20-5.40)
[2024-05-08 06:20] LABS: Anion Gap 21 mmol/L (10-20); BUN (Urea Nitrogen) 36 mg/dL (9.8-20.1); Calc. Creatinine Clearance 19 mL/min (70-130); Calcium 9.3 mg/dL (7.8-10.44); Carbon Dioxide 26 mmol/L (23-31); Chloride 100 mmol/L (98-107); Estimated GFR 11; Glucose 99 mg/dL (83-110); Potassium 4.1 mmol/L (3.5-5.1); Sodium 143 mmol/L (136-145)
[2024-05-08 07:21] VITALS: BP 175/75; TEMP 97.8
[2024-05-08] MEDS ORDERED: EPOETIN ALFA-EPBX (ESRD) 10,000 UNITS/ML VIAL SC SCH (09:15)
[2024-05-08] MEDS: Pantoprazole 40 MG VIAL IVP SCH (09:37)
[2024-05-08] MEDS ORDERED: PROPOFOL 200 MG/20 ML VIAL ONE (11:52)
[2024-05-08] MEDS ORDERED: Ondansetron HCl/PF 4 MG/2 ML Vial IVP PRN (13:11)
[2024-05-08] MEDS ORDERED: Promethazine HCl 25 MG/ML VIAL IM PRN (13:11)
[2024-05-08] MEDS: EPOETIN ALFA-EPBX (ESRD) 10,000 UNITS/ML VIAL SC SCH (14:16)
[2024-05-09] MEDS ORDERED: Pantoprazole DR 40 MG TAB PO SCH (09:00)
[2024-05-12] MEDS ORDERED: Ergocalciferol 1.25 MG(50,000 UNITS) CAP PO SCH (09:00)
== END 2024-05-08 18:06 | disposition home or self-care (01) | DRG 377 ==
LOC: ERS 17:04 → OBS 20:39 → OBSVTOIN 05-06 13:02
PROVIDERS: ADMIT Student in an Organized Health Care Education/Training Program; ATTEND Internal Medicine
PROC: 0DB68ZX Excision of Stomach, Via Natural or Artificial Opening Endoscopic, Diagnostic (ICD-10-PCS; principal; 2024-05-06)
PROC: 0DBK8ZZ Excision of Ascending Colon, Via Natural or Artificial Opening Endoscopic (ICD-10-PCS; 2024-05-06)
PROC: 0DBL8ZZ Excision of Transverse Colon, Via Natural or Artificial Opening Endoscopic (ICD-10-PCS; 2024-05-06)
PROC: 0DBN8ZZ Excision of Sigmoid Colon, Via Natural or Artificial Opening Endoscopic (ICD-10-PCS; 2024-05-06)
PROC: 0DBM8ZZ Excision of Descending Colon, Via Natural or Artificial Opening Endoscopic (ICD-10-PCS; 2024-05-06)
PROC: 0DBH8ZZ Excision of Cecum, Via Natural or Artificial Opening Endoscopic (ICD-10-PCS; 2024-05-06)
DX: K55.21 Angiodysplasia of colon with hemorrhage (principal); N18.6 End stage renal disease; I50.42 Chronic combined systolic (congestive) and diastolic (congestive) heart failure; C85.10 Unspecified B-cell lymphoma, unspecified site; C64.9 Malignant neoplasm of unspecified kidney, except renal pelvis; I48.20 Chronic atrial fibrillation, unspecified; N39.0 Urinary tract infection, site not specified; I13.2 Hypertensive heart and chronic kidney disease with heart failure and with stage 5 chronic kidney disease, or end stage renal disease; D64.9 Anemia, unspecified; K29.71 Gastritis, unspecified, with bleeding; Z99.2 Dependence on renal dialysis; D63.1 Anemia in chronic kidney disease; I25.10 Atherosclerotic heart disease of native coronary artery without angina pectoris; Z90.49 Acquired absence of other specified parts of digestive tract; Z90.710 Acquired absence of both cervix and uterus; Z98.890 Other specified postprocedural states; Z91.048 Other nonmedicinal substance allergy status; Z91.013 Allergy to seafood; Z88.2 Allergy status to sulfonamides; Z88.8 Allergy status to other drugs, medicaments and biological substances; Z79.01 Long term (current) use of anticoagulants; E11.22 Type 2 diabetes mellitus with diabetic chronic kidney disease; K63.5 Polyp of colon; K64.8 Other hemorrhoids
CPT/HCPCS: 36415; 36430; 71045; 80048; 80053; 81001; 83690; 84484; 85025; 86850; 86900; 86901; 87077; 87086; 87186; 88184; 88185; 88305; 93005; 96374; 96375; C1889; G0378; J0696; J2470; J2704; J3490; P9016; Q0162; Q5105

== ENCOUNTER 2024-06-01 11:15 | Outpatient (CLI) | payer MEDICARE, BC ==
[2024-06-01 12:51] LABS: #Basophils Less than 0.03 10x3/uL (0.0-0.2); %Basophils 0.4 % (0.0-1.0); %Eosinophils 4.3 % (0.0-10.0); %Lymphocytes 15.4 % (21.0-51.0); %Monocytes 16.3 % (0.0-10.0); %Neutrophils 63.2 % (42.0-75.0); Hematocrit 35.7 % (36.0-47.0); Hemoglobin 11.3 g/dL (12.0-16.0); Mean Corpuscular HGB CONC 31.7 g/dL (32.0-36.0); Mean Corpuscular Hemoglobin 29.6 pg (27.0-31.0); Mean Corpuscular Volume 93.5 fL (78.0-98.0); Mean Platelet Volume 8.9 fL (7.4-10.4); Platelet Count 170 10x3/uL (130-400); Red Blood Cell (RBC) Count 3.82 mill/uL (4.20-5.40)
[2024-06-01 13:04] LABS: INR-International Normal Ratio 1.2; Prothrombin Time 15.2 sec (12.0-14.7)
[2024-06-01 13:05] LABS: PTT 34.9 sec (22.9-36.1)
[2024-06-01 13:15] LABS: ALT (SGPT) 15 U/L (8-55); AST (SGOT) 20 U/L (5-34); Albumin 3.9 g/dL (3.4-4.8); Alkaline Phosphatase 97 U/L (40-110); Anion Gap 14 mmol/L (10-20); BUN (Urea Nitrogen) 22 mg/dL (9.8-20.1); Bilirubin, Total 0.6 mg/dL (0.2-1.2); Calc. Creatinine Clearance 0 mL/min (70-130); Calcium 9.9 mg/dL (7.8-10.44); Carbon Dioxide 33 mmol/L (23-31); Chloride 97 mmol/L (98-107); Estimated GFR 15; Glucose 116 mg/dL (83-110); Potassium 4.2 mmol/L (3.5-5.1); Protein, Total 6.9 g/dL (5.8-8.1); Sodium 140 mmol/L (136-145)
== END 2024-06-01 11:16 | disposition home or self-care (01) ==
LOC: LABBT 11:15
PROVIDERS: ATTEND Internal Medicine Cardiovascular Disease
DX: Z01.818 Encounter for other preprocedural examination (principal); I48.0 Paroxysmal atrial fibrillation; R29.6 Repeated falls
CPT/HCPCS: 80053; 85025; 85610; 85730; 86850; 86900; 86901

== ENCOUNTER 2024-06-01 11:30 | Inpatient (IN) | payer MEDICARE, BC ==
[2024-06-01 11:42] VITALS: BMI 37.8
[2024-06-09] MEDS ORDERED: Heparin 10,000 UNITS/ 10 ML VIAL ONE (07:10)
[2024-06-09] MEDS ORDERED: CEFAZOLIN 2 GM VIAL ONE (07:10)
[2024-06-09] MEDS ORDERED: Protamine Sulfate 50 MG/5 ML VIAL ONE (07:10)
[2024-06-09] MEDS ORDERED: diphenhydrAMINE 50 MG/ML VIAL ONE (08:19)
[2024-06-09] MEDS ORDERED: methylPREDNISolone Sod Succ/PF 125 MG/2 ML VIAL ONE (08:19)
[2024-06-09] MEDS ORDERED: Famotidine/PF 20 mg/2ml Vial ONE (08:19)
[2024-06-09] MEDS ORDERED: Rocuronium Bromide 10 MG/ML (10ML VIAL) ONE (09:02)
[2024-06-09] MEDS ORDERED: fentaNYL 50 mcg/mL 1 mL Vial ONE ×2 (09:03→12:06)
[2024-06-09] MEDS ORDERED: PROPOFOL 20 ML ONE (09:03)
[2024-06-09] MEDS ORDERED: Lidocaine 2% PF 100 mg/5 ml Syringe ONE (09:03)
[2024-06-09] MEDS ORDERED: Vasopressin 20 UNITS/ML VIAL ONE (09:23)
[2024-06-09] MEDS ORDERED: SUGAMMADEX SODIUM 200 MG/2 ML VIAL ONE (10:34)
[2024-06-09] MEDS ORDERED: Ondansetron PF 4 MG/2 ML Vial ONE (11:03)
== END 2024-06-09 17:00 | disposition home or self-care (01) | DRG 273 ==
LOC: SURG A 06-09 06:34 → EDSTATUS 06-09 11:30
PROVIDERS: ADMIT Internal Medicine Cardiovascular Disease; ATTEND Internal Medicine Cardiovascular Disease
PROC: 02L73DK Occlusion of Left Atrial Appendage with Intraluminal Device, Percutaneous Approach (ICD-10-PCS; principal; 2024-06-09)
PROC: B24BZZ4 Ultrasonography of Heart with Aorta, Transesophageal (ICD-10-PCS; 2024-06-09)
DX: I48.0 Paroxysmal atrial fibrillation (principal); Z00.6 Encounter for examination for normal comparison and control in clinical research program; N18.6 End stage renal disease; I50.22 Chronic systolic (congestive) heart failure; C85.9A Non-Hodgkin lymphoma, unspecified, in remission; I13.2 Hypertensive heart and chronic kidney disease with heart failure and with stage 5 chronic kidney disease, or end stage renal disease; E78.5 Hyperlipidemia, unspecified; G47.33 Obstructive sleep apnea (adult) (pediatric); M19.90 Unspecified osteoarthritis, unspecified site; F32.A Depression, unspecified; F41.9 Anxiety disorder, unspecified; Z96.653 Presence of artificial knee joint, bilateral; I25.10 Atherosclerotic heart disease of native coronary artery without angina pectoris; E11.22 Type 2 diabetes mellitus with diabetic chronic kidney disease; I42.0 Dilated cardiomyopathy; Z79.01 Long term (current) use of anticoagulants; Z88.0 Allergy status to penicillin; Z88.8 Allergy status to other drugs, medicaments and biological substances; Z87.891 Personal history of nicotine dependence; Z91.013 Allergy to seafood; Z91.09 Other allergy status, other than to drugs and biological substances; Z88.2 Allergy status to sulfonamides; Z99.2 Dependence on renal dialysis; Z79.899 Other long term (current) drug therapy
CPT/HCPCS: 33340; 36416; 85347; 86850; 86900; 86901; 93306; 93355; C1759; C1760; C1769; C1894; J1200; J1644; J2003; J2405; J2704; J2720; J2919; J3010; J3490

== ENCOUNTER 2024-07-23 13:24 | Outpatient (CLI) | payer MEDICARE, BC ==
[2024-07-23 14:46] LABS: #Basophils Less than 0.03 10x3/uL (0.0-0.2); %Basophils 0.3 % (0.0-1.0); %Eosinophils 2.5 % (0.0-10.0); %Lymphocytes 16.1 % (21.0-51.0); %Monocytes 11.7 % (0.0-10.0); %Neutrophils 69.1 % (42.0-75.0); Hemoglobin 12.1 g/dL (12.0-16.0); Mean Corpuscular Hemoglobin 27.9 pg (27.0-31.0); Mean Corpuscular Volume 90.1 fL (78.0-98.0); Mean Platelet Volume 9.5 fL (7.4-10.4); Platelet Count 156 10x3/uL (130-400); RBC Distribution Width 16.1 % (11.5-14.5); Red Blood Cell (RBC) Count 4.33 mill/uL (4.20-5.40)
[2024-07-23 14:58] LABS: PTT 27.6 sec (22.9-36.1); Prothrombin Time 13.5 sec (12.0-14.7)
[2024-07-23 14:59] LABS: Anion Gap 17 mmol/L (10-20); BUN (Urea Nitrogen) 43 mg/dL (9.8-20.1); Calc. Creatinine Clearance 0 mL/min (70-130); Calcium 10.2 mg/dL (7.8-10.44); Carbon Dioxide 30 mmol/L (23-31); Chloride 99 mmol/L (98-107); Estimated GFR 9; Glucose 108 mg/dL (83-110); Potassium 4.6 mmol/L (3.5-5.1); Sodium 141 mmol/L (136-145)
== END 2024-07-23 13:25 | disposition home or self-care (01) ==
LOC: LABBT 13:24
PROVIDERS: ATTEND Internal Medicine Cardiovascular Disease
DX: Z01.812 Encounter for preprocedural laboratory examination (principal); I48.0 Paroxysmal atrial fibrillation; Z79.01 Long term (current) use of anticoagulants
CPT/HCPCS: 80048; 85025; 85610; 85730

== ENCOUNTER 2024-07-26 06:09 | Day surgery (SDC) | payer MEDICARE, BC ==
[2024-07-23 13:39] VITALS: BMI 38.2
[2024-07-26] MEDS ORDERED: Vasopressin 20 UNITS/ML VIAL ONE (07:05)
[2024-07-26] MEDS ORDERED: Lidocaine 1% PF 5 ML VIAL ONE (07:56)
[2024-07-26] MEDS ORDERED: PROPOFOL 200 MG/20 ML VIAL ONE (07:56)
[2024-07-26] MEDS ORDERED: PHENYLEPHRINE-NS 100 MCG/ML 10 ML SYRINGE ONE (07:56)
== END 2024-07-26 09:28 | disposition home or self-care (01) ==
LOC: SDC 06:09
PROVIDERS: ATTEND Internal Medicine Cardiovascular Disease
PROC: B246ZZ4 Ultrasonography of Right and Left Heart, Transesophageal (ICD-10-PCS; principal; 2024-07-26)
DX: I48.0 Paroxysmal atrial fibrillation (principal); I13.2 Hypertensive heart and chronic kidney disease with heart failure and with stage 5 chronic kidney disease, or end stage renal disease; N18.6 End stage renal disease; I50.20 Unspecified systolic (congestive) heart failure; E11.22 Type 2 diabetes mellitus with diabetic chronic kidney disease; Z99.2 Dependence on renal dialysis; J18.9 Pneumonia, unspecified organism; M06.9 Rheumatoid arthritis, unspecified; Z88.2 Allergy status to sulfonamides; Z88.8 Allergy status to other drugs, medicaments and biological substances; Z95.0 Presence of cardiac pacemaker; Z91.013 Allergy to seafood; Z95.818 Presence of other cardiac implants and grafts; Z90.89 Acquired absence of other organs; Z90.710 Acquired absence of both cervix and uterus; Z86.14 Personal history of Methicillin resistant Staphylococcus aureus infection
CPT/HCPCS: 93312; J2704

== ENCOUNTER 2025-02-19 10:22 | Emergency (ER) | payer MEDICARE, BC ==
[2025-02-19 12:47] LABS: Hematocrit 32.5 % (36.0-47.0); Hemoglobin 10.0 g/dL (12.0-16.0); Mean Corpuscular Hemoglobin 28.9 pg (27.0-31.0); Mean Corpuscular Volume 93.9 fL (78.0-98.0); Platelet Count 147 10x3/uL (130-400); Red Blood Cell (RBC) Count 3.46 mill/uL (4.20-5.40); White Blood Cell (WBC) Count 3.92 10x3/uL (4.8-10.8)
[2025-02-19 12:54] LABS: Bacteria/HPF 2+ HPF (None Seen); CAUTI Indications for Culture Alt mental st,lethar; Glucose, Urine (Dipstick) Normal (Negative); Leukocyte 250 Leu/uL (Negative); Protein, Urine (Dipstick) 100 mg/dL (Neg-Trace); RBC/HPF 0-3 HPF (0-3); Specific Gravity, Urine 1.012 (1.002-1.036); WBC/HPF 21-50 HPF (0-3)
[2025-02-19 12:55] LABS: Urine Culture Reflex Yes Yes
[2025-02-19 12:56] LABS: ALT (SGPT) 14 U/L (Less than 34); AST (SGOT) 17 U/L (11-34); Albumin 3.7 g/dL (3.1-4.5); Alkaline Phosphatase 88 U/L (40-110); Anion Gap 17 mmol/L (10-20); BUN (Urea Nitrogen) 23 mg/dL (9.8-20.1); Bilirubin, Total 0.5 mg/dL (0.3-1.2); Calc. Creatinine Clearance 0 mL/min (70-130); Calcium 9.5 mg/dL (7.8-10.44); Carbon Dioxide 31 mmol/L (23-31); Chloride 96 mmol/L (98-107); Globulin 2.8 g/dL (2.4-3.5); Glucose 114 mg/dL (83-110); Potassium 3.7 mmol/L (3.5-5.1); Sodium 140 mmol/L (136-145)
[2025-02-19 13:23] LABS: Anisocytosis SLIGHT = 6-15 cells HPF (0-5); Macrocytosis SLIGHT = 6-15 cells HPF (0-5); Platelet Adequacy Comment Platelets Normal; Polychromasia SLIGHT = 2-3 cells HPF (0-2); Smudge Cells 3.0 %; Stomatocytes SLIGHT = 2-5 cells HPF (0-1)
== END 2025-02-19 16:15 | disposition home or self-care (01) ==
LOC: ERS 10:22
DX: M75.32 Calcific tendinitis of left shoulder (principal); M19.012 Primary osteoarthritis, left shoulder; I48.91 Unspecified atrial fibrillation; I50.9 Heart failure, unspecified; N18.6 End stage renal disease; Z87.891 Personal history of nicotine dependence; M79.622 Pain in left upper arm
CPT/HCPCS: 73030; 80053; 81001; 84484; 85025; 87077; 87086; 87186; 93005; 93971; 96374; 99284; J2270

== ENCOUNTER 2025-03-31 13:41 | Inpatient (IN) | payer MEDICARE, BC ==
[2025-03-31] MEDS ORDERED: Iopamidol-370 76% 500 ML MDV (1 ML CHARGE) ONE (14:25)
[2025-03-31 16:50] LABS: #Basophils Less than 0.03 10x3/uL (0.0-0.2); #Eosinophils 0.14 10x3/uL (0.0-0.7); #Monocytes 0.83 10x3/uL (0.11-0.59); #Neutrophils 2.64 10x3/uL (1.40-6.50); %Basophils 0.5 % (0.0-1.0); %Eosinophils 3.2 % (0.0-10.0); %Lymphocytes 16.6 % (21.0-51.0); %Monocytes 18.9 % (0.0-10.0); %Neutrophils 59.9 % (42.0-75.0); Hematocrit 30.4 % (36.0-47.0); Hemoglobin 9.2 g/dL (12.0-16.0); Mean Corpuscular Hemoglobin 29.4 pg (27.0-31.0); Mean Corpuscular Volume 97.1 fL (78.0-98.0); Platelet Count 143 10x3/uL (130-400); Red Blood Cell (RBC) Count 3.13 mill/uL (4.20-5.40); White Blood Cell (WBC) Count 4.40 10x3/uL (4.8-10.8)
[2025-03-31 17:21] LABS: ALT (SGPT) Less than 7 U/L (Less than 34); AST (SGOT) 15 U/L (11-34); Albumin 3.4 g/dL (3.1-4.5); Alkaline Phosphatase 104 U/L (40-110); Anion Gap 17 mmol/L (10-20); BUN (Urea Nitrogen) 24 mg/dL (9.8-20.1); Bilirubin, Total 0.4 mg/dL (0.3-1.2); Calc. Creatinine Clearance 0 mL/min (70-130); Calcium 9.7 mg/dL (7.8-10.44); Carbon Dioxide 33 mmol/L (23-31); Chloride 97 mmol/L (98-107); Globulin 3.1 g/dL (2.4-3.5); Glucose 117 mg/dL (83-110); Potassium 4.4 mmol/L (3.5-5.1); Sodium 143 mmol/L (136-145)
[2025-03-31] MEDS ORDERED: Ondansetron PF 4 MG/2 ML Vial IVP PRN (19:47)
[2025-03-31] MEDS ORDERED: Calcium Carbonate 500 MG ChewTAB PO PRN (19:47)
[2025-03-31] MEDS ORDERED: Senokot S 8.6-50 MG TAB PO PRN (19:47)
[2025-03-31] MEDS ORDERED: Acetaminophen 325 MG TAB PO PRN (19:47)
[2025-03-31] MEDS ORDERED: Electrolyte Replacement Protocol 1 EACH FS SCH (20:00)
[2025-03-31 20:07] LABS: Hematocrit 29.7 % (36.0-47.0); Hemoglobin 9.1 g/dL (12.0-16.0); Platelet Count 135 10x3/uL (130-400)
[2025-03-31 20:12] LABS: INR-International Normal Ratio 1.1; Prothrombin Time 14.4 sec (12.0-14.7)
[2025-03-31 20:13] LABS: PTT 32.1 sec (22.9-36.1)
[2025-03-31 22:49] LABS: INR-International Normal Ratio 1.1; Prothrombin Time 13.9 sec (12.0-14.7)
[2025-03-31 22:50] LABS: PTT 31.7 sec (22.9-36.1)
[2025-03-31 22:53] LABS: D-Dimer Test 1.29 mcg/mL (0.27-0.43)
[2025-03-31] MEDS: Gabapentin 300 MG CAP PO SCH (23:42)
[2025-04-01] MEDS: Heparin 10,000 UNITS/ 10 ML VIAL SLOW IVP SCH (01:35)
[2025-04-01 05:06] VITALS: BMI 37.0
[2025-04-01 06:56] LABS: #Basophils Less than 0.03 10x3/uL (0.0-0.2); #Eosinophils 0.21 10x3/uL (0.0-0.7); #Monocytes 0.83 10x3/uL (0.11-0.59); #Neutrophils 2.65 10x3/uL (1.40-6.50); %Basophils 0.4 % (0.0-1.0); %Eosinophils 4.7 % (0.0-10.0); %Lymphocytes 16.7 % (21.0-51.0); %Monocytes 18.5 % (0.0-10.0); %Neutrophils 59.0 % (42.0-75.0); Hematocrit 30.1 % (36.0-47.0); Hemoglobin 9.0 g/dL (12.0-16.0); Mean Corpuscular Hemoglobin 29.4 pg (27.0-31.0); Mean Corpuscular Volume 98.4 fL (78.0-98.0); Platelet Count 127 10x3/uL (130-400); Red Blood Cell (RBC) Count 3.06 mill/uL (4.20-5.40); White Blood Cell (WBC) Count 4.49 10x3/uL (4.8-10.8)
[2025-04-01 07:19] LABS: ALT (SGPT) Less than 7 U/L (Less than 34); AST (SGOT) 15 U/L (11-34); Albumin 3.1 g/dL (3.1-4.5); Alkaline Phosphatase 84 U/L (40-110); Anion Gap 20 mmol/L (10-20); BUN (Urea Nitrogen) 36 mg/dL (9.8-20.1); Bilirubin, Total 0.4 mg/dL (0.3-1.2); Calc. Creatinine Clearance 13 mL/min (70-130); Calcium 9.5 mg/dL (7.8-10.44); Carbon Dioxide 30 mmol/L (23-31); Chloride 95 mmol/L (98-107); Globulin 2.9 g/dL (2.4-3.5); Glucose 115 mg/dL (83-110); Potassium 4.5 mmol/L (3.5-5.1); Sodium 140 mmol/L (136-145)
[2025-04-01 07:32] LABS: PTT 212.3 sec (22.9-36.1)
[2025-04-01] MEDS: Aspirin 81 mg Enteric Coated Tablet PO SCH (09:05)
[2025-04-01 13:58] LABS: Hep C Index 0.11 S/CO (0-0.79)
[2025-04-01 13:59] LABS: HBSAB Concentration 189.68 mIU/mL; Hep B Surf Ag NONREACTIVE S/CO (NonReactive)
[2025-04-01 14:00] LABS: Hep C IgG Ab NONREACTIVE S/CO (NonReactive)
[2025-04-01 14:50] LABS: Hep B Core Total Ab REACTIVE (NonReactive)
[2025-04-01 15:34] LABS: Hep B Core Total Index 11.95 S/CO (0-0.79)
[2025-04-01] MEDS: HYDROcodone/Acetaminophen 10/325 mg Tablet PO PRN (17:36)
[2025-04-01] MEDS: Apixaban 5 MG TAB PO SCH (20:10)
[2025-04-02 05:22] LABS: #Basophils Less than 0.03 10x3/uL (0.0-0.2); #Eosinophils 0.14 10x3/uL (0.0-0.7); #Monocytes 0.71 10x3/uL (0.11-0.59); #Neutrophils 2.19 10x3/uL (1.40-6.50); %Basophils 0.3 % (0.0-1.0); %Eosinophils 3.8 % (0.0-10.0); %Lymphocytes 17.0 % (21.0-51.0); %Monocytes 19.2 % (0.0-10.0); %Neutrophils 59.2 % (42.0-75.0); Hematocrit 31.4 % (36.0-47.0); Hemoglobin 9.2 g/dL (12.0-16.0); Mean Corpuscular Hemoglobin 28.8 pg (27.0-31.0); Mean Corpuscular Volume 98.4 fL (78.0-98.0); Platelet Count 143 10x3/uL (130-400); Red Blood Cell (RBC) Count 3.19 mill/uL (4.20-5.40); White Blood Cell (WBC) Count 3.70 10x3/uL (4.8-10.8)
[2025-04-02 05:38] LABS: Anion Gap 20 mmol/L (10-20); BUN (Urea Nitrogen) 45 mg/dL (9.8-20.1); Calc. Creatinine Clearance 11 mL/min (70-130); Calcium 9.5 mg/dL (7.8-10.44); Carbon Dioxide 29 mmol/L (23-31); Chloride 96 mmol/L (98-107); Glucose 92 mg/dL (83-110); Potassium 4.7 mmol/L (3.5-5.1); Sodium 140 mmol/L (136-145)
[2025-04-02] MEDS ORDERED: Heparin 10,000 UNITS/ 10 ML VIAL CATH PRN (07:31)
[2025-04-02] MEDS: EPOETIN ALFA-EPBX (ESRD) 10,000 UNITS/ML VIAL IVP SCH (13:56)
[2025-04-02 20:35] LABS: Hematocrit 31.9 % (36.0-47.0); Hemoglobin 9.5 g/dL (12.0-16.0); Platelet Count 157 10x3/uL (130-400)
[2025-04-03 04:50] LABS: Hematocrit 32.3 % (36.0-47.0); Hemoglobin 9.8 g/dL (12.0-16.0); Mean Corpuscular Hemoglobin 29.8 pg (27.0-31.0); Mean Corpuscular Volume 98.2 fL (78.0-98.0); Platelet Count 172 10x3/uL (130-400); Red Blood Cell (RBC) Count 3.29 mill/uL (4.20-5.40); White Blood Cell (WBC) Count 4.28 10x3/uL (4.8-10.8)
[2025-04-03 04:53] LABS: Anion Gap 18 mmol/L (10-20); BUN (Urea Nitrogen) 31 mg/dL (9.8-20.1); Calc. Creatinine Clearance 16 mL/min (70-130); Calcium 10.1 mg/dL (7.8-10.44); Carbon Dioxide 27 mmol/L (23-31); Chloride 97 mmol/L (98-107); Glucose 100 mg/dL (83-110); Potassium 4.4 mmol/L (3.5-5.1); Sodium 138 mmol/L (136-145)
[2025-04-03 05:41] LABS: Anisocytosis SLIGHT = 6-15 cells HPF (0-5); Platelet Adequacy Comment Platelets Normal; Polychromasia SLIGHT = 2-3 cells HPF (0-2)
[2025-04-03 18:56] VITALS: BP 146/74; TEMP 97.9
[2025-04-04 11:49] LABS: EliA APS New Method **** NEW METHOD ****
[2025-04-08] MEDS ORDERED: Apixaban 5 MG TAB PO SCH (21:00)
== END 2025-04-03 19:00 | disposition home or self-care (01) | DRG 175 ==
LOC: ERS 13:41 → SUATTDRO 13:41 → T4-A 18:37 → OBSVTOIN 04-01 11:19
PROVIDERS: ADMIT Internal Medicine; ATTEND Internal Medicine
PROC: 5A1D70Z Performance of Urinary Filtration, Intermittent, Less than 6 Hours Per Day (ICD-10-PCS; 2025-04-01)
PROC: 5A09357 Assistance with Respiratory Ventilation, Less than 24 Consecutive Hours, Continuous Positive Airway Pressure (ICD-10-PCS; principal; 2025-04-03)
DX: I26.93 Single subsegmental thrombotic pulmonary embolism without acute cor pulmonale (principal); J96.01 Acute respiratory failure with hypoxia; N18.6 End stage renal disease; E66.2 Morbid (severe) obesity with alveolar hypoventilation; I13.2 Hypertensive heart and chronic kidney disease with heart failure and with stage 5 chronic kidney disease, or end stage renal disease; I50.42 Chronic combined systolic (congestive) and diastolic (congestive) heart failure; E78.5 Hyperlipidemia, unspecified; I25.10 Atherosclerotic heart disease of native coronary artery without angina pectoris; I48.0 Paroxysmal atrial fibrillation; E11.22 Type 2 diabetes mellitus with diabetic chronic kidney disease; Z96.653 Presence of artificial knee joint, bilateral; E89.0 Postprocedural hypothyroidism; K31.84 Gastroparesis; E11.43 Type 2 diabetes mellitus with diabetic autonomic (poly)neuropathy; Z95.5 Presence of coronary angioplasty implant and graft; Z99.2 Dependence on renal dialysis; Z88.8 Allergy status to other drugs, medicaments and biological substances; Z88.1 Allergy status to other antibiotic agents; Z91.048 Other nonmedicinal substance allergy status; Z79.01 Long term (current) use of anticoagulants; Z79.82 Long term (current) use of aspirin; Z90.710 Acquired absence of both cervix and uterus; Z90.49 Acquired absence of other specified parts of digestive tract; Z90.3 Acquired absence of stomach [part of]; Z98.890 Other specified postprocedural states; Z95.810 Presence of automatic (implantable) cardiac defibrillator; Z90.89 Acquired absence of other organs; Z85.528 Personal history of other malignant neoplasm of kidney; Z95.818 Presence of other cardiac implants and grafts; Z91.013 Allergy to seafood; Z87.891 Personal history of nicotine dependence; Z79.899 Other long term (current) drug therapy; Z85.72 Personal history of non-Hodgkin lymphomas; D63.1 Anemia in chronic kidney disease; Z88.2 Allergy status to sulfonamides; R91.8 Other nonspecific abnormal finding of lung field; Z98.84 Bariatric surgery status
CPT/HCPCS: 36415; 70551; 71045; 71275; 76014; 80048; 80053; 81240; 81241; 83090; 83880; 84484; 85014; 85018; 85025; 85049; 85300; 85303; 85306; 85307; 85379; 85598; 85610; 85730; 86147; 86704; 86706; 86803; 87340; 93005; 93306; 94660; 96376; 97139; G0378; J1644; Q0162; Q5105; Q9967

== ENCOUNTER 2025-06-16 09:21 | Inpatient (IN) | payer MEDICARE, BC ==
[2025-06-16 11:45] LABS: #Basophils Less than 0.03 10x3/uL (0.0-0.2); #Eosinophils 0.03 10x3/uL (0.0-0.7); #Monocytes 0.76 10x3/uL (0.11-0.59); #Neutrophils 5.12 10x3/uL (1.40-6.50); %Basophils 0.3 % (0.0-1.0); %Eosinophils 0.5 % (0.0-10.0); %Lymphocytes 6.4 % (21.0-51.0); %Monocytes 11.9 % (0.0-10.0); %Neutrophils 80.4 % (42.0-75.0); Hematocrit 32.4 % (36.0-47.0); Hemoglobin 9.8 g/dL (12.0-16.0); Mean Corpuscular Hemoglobin 29.2 pg (27.0-31.0); Mean Corpuscular Volume 96.4 fL (78.0-98.0); Platelet Count 164 10x3/uL (130-400); Red Blood Cell (RBC) Count 3.36 mill/uL (4.20-5.40); White Blood Cell (WBC) Count 6.37 10x3/uL (4.8-10.8)
[2025-06-16 12:09] LABS: ALT (SGPT) Less than 7 U/L (Less than 34); AST (SGOT) 10 U/L (11-34); Albumin 3.7 g/dL (3.1-4.5); Alkaline Phosphatase 82 U/L (40-110); Anion Gap 15 mmol/L (10-20); BUN (Urea Nitrogen) 16 mg/dL (9.8-20.1); Bilirubin, Total 0.5 mg/dL (0.3-1.2); Calc. Creatinine Clearance 0 mL/min (70-130); Calcium 9.9 mg/dL (7.8-10.44); Carbon Dioxide 33 mmol/L (23-31); Chloride 96 mmol/L (98-107); Globulin 3.3 g/dL (2.4-3.5); Glucose 111 mg/dL (83-110); Potassium 4.1 mmol/L (3.5-5.1); Sodium 140 mmol/L (136-145)
[2025-06-16 14:01] LABS: Actual Bicarbonate (HCO3v) 29.8 mEq/L (22-28); Base Excess 5.0 mEq/L (-2.0 to +3.0); Calcium, Ionized (venous) 1.08 mmol/L (1.16-1.32); Chloride (VBG) 96 mmol/L (98-106); Hematocrit-VBG 31 % (36.0-47.0); Hemoglobin (Hb) 10.4 g/dL (11.7-16.1); Potassium (VBG) 4.08 mmol/L (3.70-5.30); Sodium 137 mmol/L (133-146)
[2025-06-16] MEDS ORDERED: Ondansetron PF 4 MG/2 ML Vial IVP PRN (15:59)
[2025-06-16 17:21] VITALS: BMI 38.0
[2025-06-16] MEDS: Nystatin Powder 15 GM BOT TOP PRN (23:34)
[2025-06-16] MEDS: Apixaban 5 MG TAB PO SCH (23:39)
[2025-06-17] MEDS: Acetaminophen 325 MG TAB PO PRN (00:01)
[2025-06-17 04:36] LABS: Anion Gap 14 mmol/L (10-20); BUN (Urea Nitrogen) 27 mg/dL (9.8-20.1); Calc. Creatinine Clearance 14 mL/min (70-130); Calcium 9.1 mg/dL (7.8-10.44); Carbon Dioxide 32 mmol/L (23-31); Chloride 98 mmol/L (98-107); Glucose 151 mg/dL (83-110); Potassium 3.9 mmol/L (3.5-5.1); Sodium 140 mmol/L (136-145)
[2025-06-17 04:49] LABS: Hematocrit 28.3 % (36.0-47.0); Hemoglobin 8.2 g/dL (12.0-16.0); Mean Corpuscular Hemoglobin 29.0 pg (27.0-31.0); Mean Corpuscular Volume 100.0 fL (78.0-98.0); Platelet Count 125 10x3/uL (130-400); Red Blood Cell (RBC) Count 2.83 mill/uL (4.20-5.40); White Blood Cell (WBC) Count 2.42 10x3/uL (4.8-10.8)
[2025-06-17 06:48] LABS: Anisocytosis SLIGHT = 6-15 cells HPF (0-5); Macrocytosis SLIGHT = 6-15 cells HPF (0-5); Platelet Adequacy Comment Platelets Decreased; Polychromasia SLIGHT = 2-3 cells HPF (0-2); Smudge Cells 8.7 %
[2025-06-17] MEDS: Aspirin 81 mg Enteric Coated Tablet PO SCH (10:08)
[2025-06-17] MEDS: Gabapentin 300 MG CAP PO SCH (15:43)
[2025-06-17 16:38] LABS: Bacteria/HPF None Seen HPF (None Seen); CAUTI Indications for Culture Alt mental st,lethar; Glucose, Urine (Dipstick) Normal (Negative); Leukocyte 500 Leu/uL (Negative); Protein, Urine (Dipstick) 200 mg/dL (Neg-Trace); Specific Gravity, Urine 1.012 (1.002-1.036); WBC/HPF Greater than 50 HPF (0-3)
[2025-06-17 16:39] LABS: Urine Culture Reflex Yes Yes
[2025-06-18] MEDS: HYDROcodone/Acetaminophen 10/325 mg Tablet PO SCH (01:57)
[2025-06-18] MEDS: Acetaminophen/Codeine 30-300mg Tablet PO PRN (08:38)
[2025-06-18] MEDS: cefTRIAXone\\ROCEPHIN 1 GM in Sodium Chloride 0.9% 100 ML IVPB SCH (14:57)
[2025-06-18 16:08] LABS: #Basophils Less than 0.03 10x3/uL (0.0-0.2); #Eosinophils 0.09 10x3/uL (0.0-0.7); #Monocytes 0.71 10x3/uL (0.11-0.59); #Neutrophils 3.35 10x3/uL (1.40-6.50); %Basophils 0.2 % (0.0-1.0); %Eosinophils 1.9 % (0.0-10.0); %Lymphocytes 13.8 % (21.0-51.0); %Monocytes 14.6 % (0.0-10.0); %Neutrophils 69.1 % (42.0-75.0); Hematocrit 31.5 % (36.0-47.0); Hemoglobin 9.7 g/dL (12.0-16.0); Mean Corpuscular Hemoglobin 29.6 pg (27.0-31.0); Mean Corpuscular Volume 96.0 fL (78.0-98.0); Platelet Count 137 10x3/uL (130-400); Red Blood Cell (RBC) Count 3.28 mill/uL (4.20-5.40); White Blood Cell (WBC) Count 4.85 10x3/uL (4.8-10.8)
[2025-06-18 16:15] VITALS: TEMP 98.1
[2025-06-18 16:26] LABS: Anion Gap 16 mmol/L (10-20); BUN (Urea Nitrogen) 12 mg/dL (9.8-20.1); Calc. Creatinine Clearance 24 mL/min (70-130); Calcium 9.5 mg/dL (7.8-10.44); Carbon Dioxide 33 mmol/L (23-31); Chloride 96 mmol/L (98-107); Glucose 126 mg/dL (83-110); Potassium 4.2 mmol/L (3.5-5.1); Sodium 141 mmol/L (136-145)
[2025-06-18 16:52] VITALS: BP 131/72
[2025-06-22] MEDS ORDERED: Ergocalciferol 1.25 MG(50,000 UNITS) CAP PO SCH (09:00)
== END 2025-06-18 18:38 | disposition home or self-care (01) | DRG 189 ==
LOC: ERS 09:21 → ERHOLD 16:06 → 2SE 20:29 → OBSVTOIN 06-17 11:47
PROVIDERS: ADMIT Internal Medicine; ATTEND Internal Medicine
DX: J96.01 Acute respiratory failure with hypoxia (principal); N18.6 End stage renal disease; I26.99 Other pulmonary embolism without acute cor pulmonale; I26.93 Single subsegmental thrombotic pulmonary embolism without acute cor pulmonale; I50.32 Chronic diastolic (congestive) heart failure; I13.2 Hypertensive heart and chronic kidney disease with heart failure and with stage 5 chronic kidney disease, or end stage renal disease; G47.33 Obstructive sleep apnea (adult) (pediatric); E11.43 Type 2 diabetes mellitus with diabetic autonomic (poly)neuropathy; B34.9 Viral infection, unspecified; K31.84 Gastroparesis; I48.91 Unspecified atrial fibrillation; I25.10 Atherosclerotic heart disease of native coronary artery without angina pectoris; E78.5 Hyperlipidemia, unspecified; D63.1 Anemia in chronic kidney disease; I48.0 Paroxysmal atrial fibrillation; R53.81 Other malaise; Z88.0 Allergy status to penicillin; Z79.899 Other long term (current) drug therapy; Z88.8 Allergy status to other drugs, medicaments and biological substances
CPT/HCPCS: 36415; 36416; 70450; 71045; 80048; 80053; 81001; 82805; 83690; 83880; 84145; 84484; 85025; 87040; 87077; 87086; 87186; 87428; 93005; J0696